=== PATIENT | male | born 1960 | race Caucasian/White ===

== ENCOUNTER 2017-08-23 12:20 | Emergency (ER) | payer MEDICARE, OTHER ==
[~2017-08-23] VITALS: Ht 167.6 cm; Wt 90.0 kg
[~2017-08-23 12:20] MED LIST: ALBUTEROL SULF8.5 GM INH; ALPRAZOLAM1 MG PO; AMITRIPTYLINE H50 MG PO; ANUSOL-HC30 GM PR; BACLOFEN20 MG PO; BACTRIM DS TAB1 EACH PO; BENADRYL A12.5 MG/5 PO; BENTYL20 MG PO; BUPROPION XL150 MG PO; CYMBALTA30 MG PO; DULOXETINE HCL30 MG PO; GABAPENTIN300 MG PO; HYDROCHLOROTHIA25 MG PO; IPRAT-ALBUT 0.5-3 ML INH; LEVAQUIN500 MG PO; LISINOPRIL-HCT1 EAC1 PO; MELOXICAM15 MG PO; METHOCARBAMOL500 MG PO; MINIPRESS1 MG PO; MINIPRESS2 MG PO; MOTRIN IB200 MG PO; NORCO 5-325 TA1 EACH PO; OMEPRAZOLE20 MG PO; OXYCONTIN10 MG PO; PREDNISONE20 MG PO; PRILOSEC20 MG PO; QUESTRAN LIGHT210 GM PO; QVAR7.3 G1 IH; SERTRALINE HCL50 MG PO; SF 5000 PLUS51 GM DT; ULTRAM50 MG PO; VENTOLIN HFA18 GM INH; VOLTAREN-XR100 MG PO; ZOFRAN4 MG PO
[2017-08-23] MEDS ORDERED: ULTRAM50 MG PO (13:11)
[2017-12-05] MEDS ORDERED: TRAZODONE HCL100 MG PO (13:45)
[2017-12-05] MEDS ORDERED: PRAZOSIN HCL2 MG PO (13:59)
[2017-12-05] MEDS ORDERED: LATUDA80 MG PO (14:14)
[2017-12-05] MEDS ORDERED: LIPITOR20 MG PO (14:17)
[2017-12-05] MEDS ORDERED: ONDANSETRON HCL4 MG PO (14:19)
[2017-12-05] MEDS ORDERED: SENNA8.6 MG PO (14:20)
== END 2017-08-23 13:55 | disposition home or self-care (01) ==
LOC: ED 12:20
DX: S39.012A Strain of muscle, fascia and tendon of lower back, initial encounter (principal); J44.9 Chronic obstructive pulmonary disease, unspecified; I10 Essential (primary) hypertension; F41.9 Anxiety disorder, unspecified; Z87.442 Personal history of urinary calculi; Z98.890 Other specified postprocedural states; Z91.030 Bee allergy status; Z91.038 Other insect allergy status; Z88.5 Allergy status to narcotic agent; Z79.899 Other long term (current) drug therapy; W00.0XXA Fall on same level due to ice and snow, initial encounter
CPT/HCPCS: 72100; 96372; 99283; J1885

== ENCOUNTER 2017-09-13 14:28 | Emergency (ER) | payer MEDICARE, OTHER ==
[~2017-09-13] VITALS: Ht 167.6 cm; Wt 81.7 kg
[2017-09-13] MEDS ORDERED: SEREVENT DISKU1 PUFF INH (14:46)
[2017-09-13] MEDS ORDERED: AMOXICILLIN500 MG PO (14:46)
[2017-09-13] MEDS ORDERED: SPIRIVA18 MCG INH (14:46)
[2017-09-13] MEDS ORDERED: ONDANSETRON HCL4 MG PO (14:47)
[2017-09-13] MEDS ORDERED: DULOXETINE HCL60 MG PO (14:47)
[2017-12-05] MEDS ORDERED: TRAZODONE HCL100 MG PO (13:45)
[2017-12-05] MEDS ORDERED: PRAZOSIN HCL2 MG PO (13:59)
[2017-12-05] MEDS ORDERED: LATUDA80 MG PO (14:14)
[2017-12-05] MEDS ORDERED: LIPITOR20 MG PO (14:17)
[2017-12-05] MEDS ORDERED: ONDANSETRON HCL4 MG PO (14:19)
[2017-12-05] MEDS ORDERED: SENNA8.6 MG PO (14:20)
== END 2017-09-13 14:53 | disposition home or self-care (01) ==
LOC: ED 14:28
DX: K08.89 Other specified disorders of teeth and supporting structures (principal); K13.79 Other lesions of oral mucosa

== ENCOUNTER 2017-10-18 21:37 | Emergency (ER) | payer MEDICARE, OTHER ==
[~2017-10-18] VITALS: Ht 167.6 cm; Wt 81.7 kg
[~2017-10-18 21:37] MED LIST changes: +AMOXICILLIN500 MG PO; +DULOXETINE HCL60 MG PO; +ONDANSETRON HCL4 MG PO; +SEREVENT DISKU1 PUFF INH; +SPIRIVA18 MCG INH
[2017-10-18] MEDS ORDERED: LIDOCAINE HCL100 ML MT (22:14)
[2017-10-18] MEDS ORDERED: FLOVENT HFA12 G1 INH (22:16)
[2017-10-18] MEDS ORDERED: SPIRIVA18 MCG INH (22:16)
[2017-10-18] MEDS ORDERED: METFORMIN HCL500 MG PO (22:17)
[2017-10-18] MEDS ORDERED: FENOFIBRATE48 MG PO (22:17)
[2017-10-18] MEDS ORDERED: LATUDA20 MG PO (22:18)
[2017-10-18] MEDS ORDERED: MINIPRESS1 MG PO (22:18)
[2017-10-18] MEDS ORDERED: TRAZODONE HCL50 MG PO (22:18)
[2017-10-19] MEDS ORDERED: TRAMADOL HCL50 MG PO (00:34)
[2017-10-19] MEDS ORDERED: CEPHALEXIN500 MG PO (00:34)
[2017-12-05] MEDS ORDERED: TRAZODONE HCL100 MG PO (13:45)
[2017-12-05] MEDS ORDERED: PRAZOSIN HCL2 MG PO (13:59)
[2017-12-05] MEDS ORDERED: LATUDA80 MG PO (14:14)
[2017-12-05] MEDS ORDERED: LIPITOR20 MG PO (14:17)
[2017-12-05] MEDS ORDERED: ONDANSETRON HCL4 MG PO (14:19)
[2017-12-05] MEDS ORDERED: SENNA8.6 MG PO (14:20)
== END 2017-10-19 00:45 | disposition home or self-care (01) ==
LOC: ED 21:37
DX: R10.30 Lower abdominal pain, unspecified (principal); R31.9 Hematuria, unspecified; I10 Essential (primary) hypertension; F41.9 Anxiety disorder, unspecified; J44.9 Chronic obstructive pulmonary disease, unspecified; Z87.891 Personal history of nicotine dependence; Z87.442 Personal history of urinary calculi; Z91.038 Other insect allergy status; Z88.5 Allergy status to narcotic agent; Z88.6 Allergy status to analgesic agent; Z79.899 Other long term (current) drug therapy; Z79.84 Long term (current) use of oral hypoglycemic drugs
CPT/HCPCS: 74176; 80053; 81001; 85025; 96374; 96375; 99284; J1885; J2405

== ENCOUNTER 2017-12-06 08:43 | Day surgery (SDC) | payer MEDICARE, OTHER ==
[~2017-12-06] VITALS: Ht 170.2 cm; Wt 89.4 kg
[~2017-12-06 08:43] MED LIST changes: +CEPHALEXIN500 MG PO; +FENOFIBRATE48 MG PO; +FLOVENT HFA12 G1 INH; +LATUDA20 MG PO; +LATUDA80 MG PO; +LIDOCAINE HCL100 ML MT; +LIPITOR20 MG PO; +METFORMIN HCL500 MG PO; +PRAZOSIN HCL2 MG PO; +SENNA8.6 MG PO; +TRAMADOL HCL50 MG PO; +TRAZODONE HCL100 MG PO; +TRAZODONE HCL50 MG PO
--- NOTE | 2017-12-06 11:59 | NUR ---
12/06/17 Joshua Oconnor RESPONDS TO VOICE ON ENTRY TO PACU. DENIES NAUSEA OR PAIN. REORIENTED PT TO TIME AND SITUATION. PT FALLS ASLEEP EASILY.
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
== END 2017-12-06 12:30 | disposition home or self-care (01) ==
LOC: DS 08:43 → OPS 08:43 → DS 10:15 → OPS 12:30
PROVIDERS: Surgery
PROC: 0DB78ZX Excision of Stomach, Pylorus, Via Natural or Artificial Opening Endoscopic, Diagnostic (ICD-10-PCS; 2017-12-06)
PROC: 0DB28ZX Excision of Middle Esophagus, Via Natural or Artificial Opening Endoscopic, Diagnostic (ICD-10-PCS; 2017-12-06)
PROC: 0DB38ZX Excision of Lower Esophagus, Via Natural or Artificial Opening Endoscopic, Diagnostic (ICD-10-PCS; 2017-12-06)
PROC: 0DB98ZX Excision of Duodenum, Via Natural or Artificial Opening Endoscopic, Diagnostic (ICD-10-PCS; principal; 2017-12-06 10:15)
DX: K21.0 Gastro-esophageal reflux disease with esophagitis (principal); M95.2 Other acquired deformity of head; I10 Essential (primary) hypertension; E78.5 Hyperlipidemia, unspecified; J44.9 Chronic obstructive pulmonary disease, unspecified; A49.02 Methicillin resistant Staphylococcus aureus infection, unspecified site; Z88.5 Allergy status to narcotic agent; Z88.8 Allergy status to other drugs, medicaments and biological substances; Z87.891 Personal history of nicotine dependence
CPT/HCPCS: 88305; G0500; J2250; J3010; J7120

== ENCOUNTER 2018-04-06 08:02 | Emergency (ER) | payer MEDICARE, OTHER ==
[~2018-04-06] VITALS: Ht 170.2 cm; Wt 81.7 kg
--- OUTSIDE RECORDS SUMMARY | ~2018-04-06 | XMS | Encounter Summary ---
Demographics + + + | Address | [address] | | | [place] [address] | + + + | Home Phone | | + + + | Preferred Language | Unknown | + + + | Marital Status | | + + + | Moravian Affiliation | 1013 | + + + | Race | Unknown | + + + | Ethnic Group | Unknown | + + + Author + + + | Author | [facility] | | | and [place] | + + + | Organization | [facility] | | | and [place] [...] [place] | | | | | [address] | | + + + + + Care Team Providers + +------+ + | Care Telephone Interviewer Name | Role | Phone | + [...] [place] | | | | | | [address] | | | | | | [phone] | | | +--------+ + + + [...]
--- OUTSIDE RECORDS SUMMARY | ~2018-04-06 | XMS | Clinical Summary ---
Demographics + + + | Address | [address] | | | [place] [address] | + + + | Home Phone | | + + + | Preferred Language | Unknown | + + + | Marital Status | | + + + | Amish Affiliation | 1013 | + + + | Race | Unknown | + + + | Ethnic Group | Unknown | + + + Author + + + | Author | [facility] | | | and [place] | + + + | Organization | [facility] | | | and [...] [place] | | | | | [address] | | + + + + + Care Team Providers + +------+ + | Care Carburetor Mechanic Name | Role | Phone | [...] region | | + + + | [place] (myocardial infarction) (HCC) | | + + [...] +--------+ +---------+ | MEDICARE | MEDICA | [id number] | Medica | [phone] | | | RE | | re | [phone] | | | | PART A | | | | | | | AND B | | | | | + +--------+ +--------+ +---------+ | [employer] PLAN | MODA | [id number] | Medica | [phone] | | [...] | 1961 | [phone] | [place] [address] | | | alisson | | | [phone] | | + +--------+ +--------+ + +
--- OUTSIDE RECORDS SUMMARY | ~2018-04-06 | XMS | Encounter Summary ---
Demographics + + + | Address | [address] | | | [place] [address] | + + + | Home Phone | | + + + | Preferred Language | Unknown | + + + | Marital Status | | + + + | Baptism Affiliation | 1013 | + + + | Race | Unknown | + + + | Ethnic Group | Unknown | + + + Author + + + | Author | [facility] | | | and [place] | + + + | Organization | [facility] | | | and [...] [place] | | | | | [address] | | + + + + + Care Team Providers + +------+ + | Care Electric Fork Operator Name | Role | Phone | [...] + | 01/20/ | Telephone | [facility] | Rene Borrego | Appointment | | 2018 | | SURG[address] | MD Corrine, FACS [address] | | | | | ST [place], [place] | [address] [facility] | | | | | [address] | [place] [address] | | | | | [phone] | [phone] | | | | | | | [...]
--- OUTSIDE RECORDS SUMMARY | ~2018-04-06 | XMS | Encounter Summary ---
Demographics + + + | Address | [address] | | | [place] [address] | + + + | Home Phone | | + + + | Preferred Language | Unknown | + + + | Marital Status | | + + + | Yazidi Affiliation | 1013 | + + + | Race | Unknown | + + + | Ethnic Group | Unknown | + + + Author + + + | Author | [facility] | | | and [place] | + + + | Organization | [facility] [...] [place] | | | | | [address] | | + + + + + Care Team Providers + +------+ + | Care Plan Checker Name | Role | Phone | [...] + + | 02/11/ | Telephone | [facility] | Michael Lainez, | Procedure (postponed | | 2018 | | NEUROSURGERY [address] | DO [address] | ); Appointment | | | | [address] | [address], | (cancellation ) | | | | [place] | [place] [address] | | | | | [address] | [phone] | | | | | [phone] | | | +--------+ + + + [...]
--- OUTSIDE RECORDS SUMMARY | ~2018-04-06 | XMS | Encounter Summary ---
Demographics + + + | Address | [address] | | | [place] [address] | + + + | Home Phone | | + + + | Preferred Language | Unknown | + + + | Marital Status | | + + + | Temple Affiliation | 1013 | + + + | Race | Unknown | + + + | Ethnic Group | Unknown | + + + Author + + + | Author | [facility] | | | and [place] | + + + | Organization | [facility] | | | and [place] | + + + | Address | Unknown | + + + | Phone | Unavailable | + + + Support + + + + + | Name | Relationship | Address | Phone | + + + + + | Mitra cShafer | ECON | [address] | | | | | [place] | | | | | [address] | | + + + + + Care Team Providers + +------+ + | Care Account Installation Specialist Name | Role | Phone | [...] + | 01/22/ | Telephone | [facility] | AlexRene | Other | | 2018 | | SURGERY [address] | MD Corrine, FACS [address] | | | | | [address] [place], [place] | [address] [facility] | | | | | [address] | [place] [address] | | | | | [phone] | [phone] | | | | | | | [...]
--- OUTSIDE RECORDS SUMMARY | 2018-04-06 09:56 | XMS | Encounter Summary ---
Demographics + + + | Address | [address] | | | [place] [address] | + + + | Home Phone | | + + + | Preferred Language | Unknown | + + + | Marital Status | | + + + | Shinto Affiliation | 1013 | + + + | Race | Unknown | + + + | Ethnic Group | Unknown | + + + Author + + + | Author | [facility] | | | and [place] | + + + | Organization | [facility] | | | and [place] | + + + | Address | Unknown | + + + | Phone | Unavailable | + + + Support + + + + + | Name | Relationship | Address | Phone | + + + + + | Mitra Schafer | ECON | [address] | | | | | [place] | | | | | [address] | | + + + + + Care Team Providers + +------+ + | Care Technical Sales Consultant Name | Role | Phone | + +------+ + | Becca Amaya MD | PCP | Unavailable | + +------+ + Reason for Visit +--------+ + | Reason | Comments | +--------+ + | Other | | +--------+ + Encounter Details +--------+ + + + + | Date | Type | Department | Care Team | Description | +--------+ + + + + | 01/22/ | Telephone | [facility] | AlexRene | Other | | 2018 | | SURG[address] | MD Corrine, FACS [address] | | | | | [place], [place] | [address] [facility] | | | | | [address] | [place] [address] | | | | | [phone] | [phone] | | | | | | | | +--------+ + + + + Social History + + + +--------+ + | Tobacco Use | Types | Packs/Day | Years | Date | | | | | Used | | + + + +--------+ + | Former Smoker | Cigarettes | 1.5 | 16 | Quit: 09/28/2008 | + + + +--------+ + + +---+---+---+ | Smokeless Tobacco: | | | | | Never Used | | | | + +---+---+---+ + + +---------+ + | Alcohol Use | Drinks/We | oz/Week | Comments | | | ek | | | + + +---------+ + | No | 0 | 0.0 | | | | Standard | | | | | drinks or | | | | | | | | | | equivalen | | | | | t | | | + + +---------+ + + + + | Sex Assigned at | Date Recorded | | | | + + + | Not on file | | + + + as of this encounter Plan of Treatment Not on fileas of this encounter Visit Diagnoses Not on filein this encounter"
--- OUTSIDE RECORDS SUMMARY | 2018-04-06 09:56 | XMS | Encounter Summary ---
Demographics + + + | Address | [address] | | | [place] [address] | + + + | Home Phone | | + + + | Preferred Language | Unknown | + + + | Marital Status | | + + + | Congregational Affiliation | 1013 | + + + | Race | Unknown | + + + | Ethnic Group | Unknown | + + + Author + + + | Author | [facility] | | | and [place] | + + + | Organization | [facility] | | | and [place] | + + + | Address | Unknown | + + + | Phone | Unavailable | + + + Support + + + + + | Name | Relationship | Address | Phone | + + + + + | Mitra Schafer | ECON | [address] | | | | | [place] | | | | | [address] | | + + + + + Care Team Providers + +------+ + | Care In File Operator Name | Role | Phone | + +------+ + | Becca Amaya MD | PCP | Unavailable | + +------+ + Encounter Details +--------+ + + + + | Date | Type | Department | Care Team | Description | +--------+ + + + + | 03/06/ | Procedure | [facility] | | | | 2018 | Pass | [facility] | | | | | | [address] | | | | | | [place] | | | | | | [address] | | | | | | [phone] | | | +--------+ + + + [...]
--- OUTSIDE RECORDS SUMMARY | 2018-04-06 09:56 | XMS | Encounter Summary ---
Demographics + + + | Address | [address] | | | [place] [address] | + + + | Home Phone | | + + + | Preferred Language | Unknown | + + + | Marital Status | | + + + | Catholic Affiliation | 1013 | + + + | Race | Unknown | + + + | Ethnic Group | Unknown | + + + Author + + + | Author | [facility] | | | and [place] | + + + | Organization | [facility] | | | and [place] [...] [place] | | | | | [address] | | + + + + + Care Team Providers + +------+ + | Care Loading Machine Operator Name | Role | Phone | + +------+ + | Becca Amaya MD | PCP | Unavailable | + +------+ + Reason for Visit + + + | Reason | Comments | + + + | Appointment | | + + + Encounter Details +--------+ + + + + | Date | Type | Department | Care Team | Description | +--------+ + + + + | 01/20/ | Telephone | [facility] | Rene Borrego | Appointment | | 2018 | | SURGERY [address] | MD Corrine, FACS [address] | | | | | ST [place], [place] | [address] [facility] | | | | | [address] | [place] [address] | | | | | [phone] | [phone] | | | | | | | [...]
--- OUTSIDE RECORDS SUMMARY | 2018-04-06 09:56 | XMS | Encounter Summary ---
Demographics + + + | Address | [address] | | | [place] [address] | + + + | Home Phone | | + + + | Preferred Language | Unknown | + + + | Marital Status | | + + + | Restoration Affiliation | 1013 | + + + | Race | Unknown | + + + | Ethnic Group | Unknown | + + + Author + + + | Author | [facility] | | | and [place] | + + + | Organization | [facility] | | | and [place] [...] [place] | | | | | [address] | | + + + + + Care Team Providers + +------+ + | Care Tool Room Lathe Operator Name | Role | Phone | + +------+ + | Becca Amaya MD | PCP | Unavailable | + +------+ + Reason for Visit + + + | Reason | Comments | + + + | Procedure | postponed | + + + | Appointment | cancellation | + + + Encounter Details +--------+ + + + + | Date | Type | Department | Care Team | Description | +--------+ + + + + | 02/11/ | Telephone | [facility] | Michael Lainez, | Procedure (postponed | | 2018 | | NEUROS[address]ERY [address] | DO [address] | ); Appointment | | | | [address] | [address], | (cancellation ) | | | | [place] | [place] [address] | | | | | [address] | [phone] | | | | | [phone] | | | +--------+ + + + [...]
--- OUTSIDE RECORDS SUMMARY | 2018-04-06 09:56 | XMS | Clinical Summary ---
Demographics + + + | Address | [address] | | | [place] [address] | + + + | Home Phone | | + + + | Preferred Language | Unknown | + + + | Marital Status | | + + + | Yarsani Affiliation | 1013 | + + + | Race | Unknown | + + + | Ethnic Group | Unknown | + + + Author + + + | Author | [facility] | | | and [place] | + + + | Organization | [facility] | | | and [place] [...] [place] | | | | | [address] | | + + + + + Care Team Providers + +------+ + | Care Physicist Light And Optics Name | Role | Phone | + +------+ + | Becca Amaya MD | PP | Unavailable | + +------+ + Allergies + + + + + + | Active Allergy | Reactions | Severity | Noted | Comments | | | | | Date | | + + + + + + | Codeine | Itching | | 09/28/19 | | | | | | 14 | | + + + + + + | Naproxen Sodium | Itching | | 09/28/19 | | | | | | 14 | | + + + + + + | Wasp Venom Protein | Anaphylaxis | High | 11/14/19 | | | | | | 17 | | + + + + + + Current Medications + + +-------+---------+------+------+-------+ | Prescription | Sig. | Disp. | Refills | Star | End | Statu | | | | | | t | Date | s | | | | | | Date | | | + + +-------+---------+------+------+-------+ | amitriptyline | Take 150 mg by mouth | | | | | Activ | | (ELAVIL) 50 mg | nightly. | | | | | e | | tablet | | | | | | | + + +-------+---------+------+------+-------+ | DULoxetine | Take 60 mg by mouth | | | | | Activ | | (CYMBALTA) [address] | 2 times daily. | | | | | e | | capsule | | | | | | | + + +-------+---------+------+------+-------+ | | Take 3 mLs by | | | | | Activ | | albuterol-ipratropiu | nebulization Daily. | | | | | e | | m (DUONEB) 2.5-0.5 | | | | | | | | mg/3 mL SOLN | | | | | | | + + +-------+---------+------+------+-------+ | omeprazole | Take 40 mg by mouth | | | | | Activ | | (PRILOSEC) 20 mg | every morning | | | | | e | | capsule | (before breakfast). | | | | | | + + +-------+---------+------+------+-------+ | albuterol | Inhale 2 puffs into | | | | | Activ | | (VENTOLIN HFA) 90 | the lungs every 6 | | | | | e | | mcg/puff inhaler | hours as needed for | | | | | | | | Wheezing. | | | | | | + + +-------+---------+------+------+-------+ | traZODone | Take 100 mg by mouth | | | | | Activ | | (DESYREL) 50 mg | nightly. | | | | | e | | tablet | | | | | | | + + +-------+---------+------+------+-------+ | tiotropium | Inhale 18 mcg into | | | | | Activ | | (SPIRIVA HANDIHALER) | the lungs Daily. | | | | | e | | 18 mcg inhalation | | | | | | | | capsule | | | | | | | + + +-------+---------+------+------+-------+ | senna (SENNA-LAX) | Take 1 tablet by | | | | | Activ | | 8.6 mg tablet | mouth Daily. | | | | | e | + + +-------+---------+------+------+-------+ | salmeterol | Inhale 1 puff into | | | | | Activ | | (SEREVENT DISKUS) 50 | the lungs 2 times | | | | | e | | mcg/puff diskus | daily. | | | | | | | inhaler | | | | | | | + + +-------+---------+------+------+-------+ | EPINEPHrine | Inject 0.3 mg into | | | | | Activ | | auto-injector | the muscle as needed | | | | | e | | (EPIPEN 2-MAGNOLIA) 0.3 | for Anaphylaxis. | | | | | | | mg/0.3 mL injection | | | | | | | + + +-------+---------+------+------+-------+ | GABAPENTIN PO | Take 900 mg by mouth | | | | | Activ | | | 3 times daily. | | | | | e | + + +-------+---------+------+------+-------+ | | Take 1 tablet by | | | | | Activ | | lisinopril-hydrochlo | mouth Daily. | | | | | e | | rothiazide | | | | | | | | (PRINZIDE,ZESTORETIC | | | | | | | | ) 20-25 MG per | | | | | | | | tablet | | | | | | | + + +-------+---------+------+------+-------+ | ondansetron | Take 4 mg by mouth 4 | | | | | Activ | | (ZOFRAN) 4 mg tablet | times daily as | | | | | e | | | needed for Nausea or | | | | | | | | Vomiting. | | | | | | + + +-------+---------+------+------+-------+ | fenofibrate | Take 48 mg by mouth | | | | | Activ | | (TRICOR) 48 mg | Daily. | | | | | e | | tablet | | | | | | | + + +-------+---------+------+------+-------+ | metFORMIN | Take 500 mg by mouth | | | | | Activ | | (GLUCOPHAGE) 500 mg | daily (with | | | | | e | | tablet | breakfast). | | | | | | + + +-------+---------+------+------+-------+ | fluticasone | Inhale 1 puff into | | | | | Activ | | (FLOVENT HFA) 220 | the lungs 2 times | | | | | e | | mcg/puff inhaler | daily. | | | | | | + + +-------+---------+------+------+-------+ | lidocaine | Take 15 mLs by mouth | | | | | Activ | | (XYLOCAINE) 2% | as needed for Pain. 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 | 11/13/2016 | + + + | Hyperreflexia | 11/13/2016 | + + + | Spondylolisthesis of lumbar region | 11/13/2016 | + + + | Lumbar radiculopathy | 11/13/2016 | + + + | Foraminal stenosis of lumbar region | 11/13/2016 | + + + | Lumbar facet arthropathy (HCC) | 11/13/2016 | + + + | Bilateral sacroiliitis (HCC) | 11/13/2016 | + + + | Carpal tunnel syndrome, bilateral | 10/01/2013 | + + + | Radiculopathy, lumbosacral region | | + + + | NM (myocardial infarction) (HCC) | | + + + | Hypertension | | + + + | Hyperlipidemia | | + + + | COPD (chronic obstructive pulmonary disease) (HCC) | | + + + Encounters +--------+ + + + + | Date | Type | Specialty | Care Team | Description | +--------+ + + + + | 03/06/ | Procedure | | | | | 2017 | Pass | | | | +--------+ + + + + | 02/11/ | Telephone | | Michael Lainez, | Procedure (postponed | | 2017 | | | DO | ); Appointment | | | | | | (cancellation ) | +--------+ + + + + | 01/22/ | Telephone | | Rene Borrego | Other | | 2017 | | | MD [place] FACS | | +--------+ + + + + | 01/20/ | Telephone | | Rene Borrego | Appointment | | 2017 | | | I, MD, FACS | | +--------+ + + + + from Last 3 Months Family History + + +------+ + | Medical History | Relation | Name | Comments | + + +------+ + | Diabetes | Brother | | | + + +------+ + | No Known Problems | Child | | | + + +------+ + | No Known Problems | Child | | | + + +------+ + | No Known Problems | Child | | | + + +------+ + | Prostate cancer | Father | | | + + +------+ + | Other (see comment) | Mother | | Heart problems | + + +------+ + | Crohn's disease | Sister | | | + + +------+ + + +------+ + + | Relation | Name | Status | Comments | + +------+ + + | Brother | | Other | Status Unknown | + +------+ + + | Brother | | | | + +------+ + + | Child | | Other | Status Unknown | + +------+ + + | Child | | Other | Status Unknown | + +------+ + + | Child | | Other | Status Unknown | + +------+ + + | Child | | | | + +------+ + + | Child | | | | + +------+ + + | Child | | | | + +------+ + + | Father | | | | | | | (Age | | | | | 51) | | + +------+ + + | Mother | | | | | | | (Age | | | | | 77) | | + +------+ + + | Sister | | Other | Status Unknown | + +------+ + + | Sister | | | | + +------+ + + Social History + + + [...] on file | | + + + Last Filed Vital Signs + + + + | Vital Sign | Reading | Time Taken | + + + + | Blood Pressure | 112/83 | 11/20/2017 1540 PDT | + + + + | Pulse | 93 | 11/20/2017 1540 PDT | + + + + | Temperature | - | - | + + + + | Respiratory Rate | 15 | 11/20/20171539 PDT | + + + + | Oxygen Saturation | - | - | + + + + | Inhaled Oxygen | - | - | | Concentration | | | + + + + | Weight | 81.6 kg (180 lb) | 11/20/20171539 PDT | + + + + | Height | 175.3 cm (5' 9") | 11/20/20171539 PDT | + + + + | Body Mass Index | 26.58 | 11/20/20171539 PDT | + + + + Plan of Treatment + + + + + | Health Maintenance | Due Date | Last Done | Comments | + + + + + | Hepatitis C | | | | | Screening | 3 | | | + + + + + | Vaccine: | | | | | Dtap/Tdap/Td (1 - | 2 | | | | Tdap) | | | | + + + + + | Vaccine: | | | | | Pneumococcal 19-64 | 2 | | | | (PPSV23 only) Medium | | | | | Risk (1 of 1 - | | | | | PPSV23) | | | | + + + + + | Colorectal Cancer | | | | | Screening | 3 | | | | (Colonoscopy) | | | | + + + + + | Statin Therapy | | | | | (optimal intensity) | 5 | | | + + + + + | Vaccine: Influenza | | | | | (#1) | 8 | | | + + + + + Results Not on filefrom Last 3 Months Insurance + +--------+ +--------+ +---------+ | Payer | Benefi | Subscriber | Type | Phone | Address | | | t Plan | ID | | | | | | / | | | | | | | Group | | | | | + +--------+ +--------+ +---------+ | MEDICARE | MEDICA | [id number] | Medica | [phone] | | | RE | | re | [phone] | | | | PART A | | | | | | | AND B | | | | | + +--------+ +--------+ +---------+ | [employer] | MODA | [id number] | Medica | [phone] | | MEDICAID HMO | HEALTH | | id | 9821 | | | | MDCD | | | | | | | [place]MO [place] | | | | | + +--------+ +--------+ +---------+ + +--------+ +--------+ + + | Guarantor Name | Accoun | Relation to | Date | Phone | Billing Address | | | t Type | Patient | of | | | | | | | | | | + +--------+ +--------+ + + | PERCY MANCILLA | Person | Self [birth year] | Home: | [address] | | | al/Fam | | 1961 | [phone] | [place] [address] | | | alisson | | | [phone] | | + +--------+ +--------+ + +
[2018-04-06] MEDS ORDERED: ONDANSETRON ODT8 MG PO (11:34)
[2018-04-06] MEDS ORDERED: MAALOX MAXIMUM355 ML PO (11:37)
== END 2018-04-06 11:46 | disposition home or self-care (01) ==
LOC: ED 08:02
DX: K21.9 Gastro-esophageal reflux disease without esophagitis (principal); I10 Essential (primary) hypertension; Z91.030 Bee allergy status; Z88.5 Allergy status to narcotic agent; Z88.6 Allergy status to analgesic agent; Z79.899 Other long term (current) drug therapy
CPT/HCPCS: 36415; 80053; 81001; 85025; 96365; 96375; 99284; J1170; J7030

== ENCOUNTER 2018-04-29 09:09 | Emergency (ER) | payer MEDICARE, OTHER ==
[~2018-04-29] VITALS: Ht 167.6 cm; Wt 81.7 kg
--- OUTSIDE RECORDS SUMMARY | ~2018-04-29 | XMS | Clinical Summary ---
Demographics + + + | Address | [address] | | | [place] [address] | + + + | Home Phone [...] + | Author | [facility] | | | and [place] | + + + | Organization | [facility] | | | and [place]iana [...] [place] | | | | | [address] | | + + + + + Care Team Providers + +------+ + | Care Utility Operator Name | Role | Phone | [...] region | | + + + | MS (myocardial infarction) (HCC) | | + + [...] ) | +--------+ + + + + from [...] + + | Pulse | 93 | 11/20/[id number] PDT | + + + [...] +--------+ +---------+ | MEDICARE | MEDICA | [id number] | Medica | +1- | | | | RE | | re | [phone] | | | | PART A | | | | | | | AND B | | | | | + +--------+ +--------+ +---------+ | [employer] PLAN | MODA | [id number] | Medica | [phone] | | | MEDICAID HMO | HEALTH [...] Self | [birth year] Home: | [address] | | | al/Fam | | 1961 | [phone] | [place] [address] | | | alisson | | | [phone] | | + +--------+ +--------+ + +
--- OUTSIDE RECORDS SUMMARY | ~2018-04-29 | XMS | Encounter Summary ---
Demographics + + + | Address | [address] | | | [place] [address] | + + + | Home Phone | | + + + | Preferred Language | Unknown | + + + | Marital Status | | + + + | Synagogue Affiliation | 1013 | + + + | Race | Unknown | + + + | Ethnic Group | Unknown | + + + Author + + + | Author | [facility] | | | and [place] | + + + | Organization | [facility] | | | and [place] [...] [place] | | | | | [address] | | + + + + + Care Team Providers + +------+ + | Care Manager Of Production Name | Role | Phone | + [...] [place] | | | | | | [address] | | | | | | [phone] | | | +--------+ + + + [...]
--- OUTSIDE RECORDS SUMMARY | ~2018-04-29 | XMS | Encounter Summary ---
Demographics + + + | Address | [address] | | | [place] [address] | + + + | Home Phone | | + + + | Preferred Language | Unknown | + + + | Marital Status | | + + + | Church Affiliation | 1013 | + + + | Race | Unknown | + + + | Ethnic Group | Unknown | + + + Author + + + | Author | [facility] | | | and Tim[place] | + + + | Organization | [facility] | | | and Timiana [...] [place] | | | | | [address] | | + + + + + Care Team Providers + +------+ + | Care Shirt Ironer Supervisor Name | Role | Phone | [...] + + | 02/11/ | Telephone | [facility] | Michael Lainez, | Procedure (postponed | | 2018 | | NE[address]OSURGERY [address] | DO [address] | ); Appointment | | | | [address] | [address], | (cancellation ) | | | | [place] | [place] [address] | | | | | [address] | [phone] | | | | | [phone] | | | +--------+ + + + [...]
--- OUTSIDE RECORDS SUMMARY | ~2018-04-29 | XMS | Clinical Summary ---
Demographics + + + | Address | [address] | | | [place] [address] | + + + | Home Phone [...] + | Author | [facility] | | | and [place] | + + + | Organization | [facility] | | | and [place] [...] [place] | | | | | [address] | | + + + + + Care Team Providers + +------+ + | Care Bridge Repair Crew Person Name | Role | Phone | + [...] region | | + + + | HI (myocardial infarction) (HCC) | | + + [...] +--------+ +---------+ | MEDICARE | MEDICA | [id number] | Medica | +1- | | | | RE | | re | [phone] | | | | PART A | | | | | | | AND B | | | | | + +--------+ +--------+ +---------+ | MODA HEALTH PLAN | MODA | [id number] | Medica | [phone] | | | MEDICAID HMO | HEALTH [...] Self | [birth year] | Home: | [address] | | | al/Fam | | 1961 | [phone] | [place] [address] | | | alisson | | | 1869 | | + +--------+ +--------+ + +
--- OUTSIDE RECORDS SUMMARY | ~2018-04-29 | XMS | Encounter Summary ---
Demographics + + + | Address | [address] | | | [place] [address] | + + + | Home Phone [...] | Author | [facility] | | | and [place] | + + + | Organization | [facility] | [...] [place] | | | | | [address] | | + + + + + Care Team Providers + +------+ + | Care Cardiac Exercise Physiologist Name | Role | Phone | + [...] + | 02/11/ | Telephone | [facility] | Michael Lainez, | Procedure (postponed | | 2018 | | NEUROSURGERY [address] | DO [address] | ); Appointment | | | | [address] | [address], | (cancellation ) | | | | [place] | [place] [address] | | | | | [address] | [phone] | | | | | [phone] | | | +--------+ + + + [...]
--- OUTSIDE RECORDS SUMMARY | ~2018-04-29 | XMS | Encounter Summary ---
Demographics + + + | Address | [address] | | | [place] [address] | + + + | Home Phone [...] | Author | [facility] | | | and [place] | + + + | Organization | [facility] | | [...] [place] | | | | | [address] | | + + + + + Care Team Providers + +------+ + | Care Country Printer Name | Role | Phone | + [...] [place] | | | | | | [address] | | | | | | [phone] | | | +--------+ + + + [...]
[~2018-04-29 09:09] MED LIST changes: +DAILY MULTIPLE1 EACH PO; +IBUPROFEN600 MG PO; +MAALOX MAXIMUM355 ML PO; +MAPAP325 MG PO; +ONDANSETRON ODT8 MG PO; +OXYCODON-ACETA1 EAC2 PO
--- OUTSIDE RECORDS SUMMARY | 2018-04-29 09:14 | XMS ---
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 Becca Amaya Primary Care Current PHONE: [phone] Jairo has no Care Guidelines for this patient. Lyric VISIT COUNT (12 MO.) 5 [facility] TOTAL 5 NOTE: Visits indicate total known visits. ED/UCC VISIT TRACKING (12 MO.) 04/29/2018 09:10 [facility] [place] TYPE: Emergency COMPLAINT: - ABD PAIN 04/06/2018 08:02 [facility] [place] TYPE: Emergency COMPLAINT: - ABD PAIN,VOMITING DIAGNOSES: - Other moth exterminator (current) drug therapy - Gastro-esophageal reflux disease without esophagitis - Essential (primary) hypertension - Unspecified abdominal pain - Bee allergy status - Allergy status to analgesic agent status - Allergy status to narcotic agent status 10/18/2017 21:38 [facility] [place] TYPE: Emergency COMPLAINT: - R SIDED FLANK PAIN DIAGNOSES: - Lower abdominal pain, unspecified - Personal history of nicotine dependence - Personal history of urinary calculi - Chronic obstructive pulmonary disease, unspecified - Hematuria, unspecified - Other halfway (current) drug therapy - Unspecified abdominal pain - MCFP (current) use of oral hypoglycemic drugs - Essential (primary) hypertension - PRISON (CURRENT) USE OF ORAL HYPOGLYCEMIC DRUGS - Anxiety disorder, unspecified - Other insect allergy status - Allergy status to narcotic agent status - Allergy status to analgesic agent status 09/13/2017 14:29 [facility] [place] TYPE: Emergency COMPLAINT: - MOUTH/DENTAL PAIN DIAGNOSES: - OTHER SPECIFIED DISORDERS OF TEETH AND SUPPORTING - Other lesions of oral mucosa - Other specified disorders of teeth and supporting structures 08/23/2017 12:21 [facility] [place] TYPE: Emergency COMPLAINT: - BACK PAIN/INJURY DIAGNOSES: - Strain of muscle, fascia and tendon of lower back, initial encounter - Allergy status to narcotic agent status - Bee allergy status - Anxiety disorder, unspecified - Other insect allergy status - Other specified postprocedural states - Fall on same level due to ice and snow, initial encounter - Personal history of urinary calculi - Other halfway (current) drug therapy - Chronic obstructive pulmonary disease, unspecified - OTHER SPECIFIED POSTPROCEDURAL STATES - Essential (primary) hypertension - Unspecified injury of lower back, initial encounter INPATIENT VISIT TRACKING (12 MO.) No inpatient visits to display in this time frame [id number]
[2018-04-29] MEDS ORDERED: ZOFRAN ODT4 MG PO (11:00)
== END 2018-04-29 11:09 | disposition home or self-care (01) ==
LOC: ED 09:09
DX: R11.2 Nausea with vomiting, unspecified (principal); I10 Essential (primary) hypertension; Z87.891 Personal history of nicotine dependence; Z91.038 Other insect allergy status; Z88.5 Allergy status to narcotic agent; Z88.6 Allergy status to analgesic agent; Z79.899 Other long term (current) drug therapy
CPT/HCPCS: 80053; 81001; 83690; 85025; 96361; 96374; 96375; 99284; J1170; J1630; J2405; J7120

== ENCOUNTER 2018-09-27 23:57 | Emergency (ER) | payer MEDICARE, OTHER ==
[~2018-09-27] VITALS: Ht 167.6 cm; Wt 81.7 kg
[~2018-09-27 23:57] MED LIST changes: +ZOFRAN ODT4 MG PO
--- OUTSIDE RECORDS SUMMARY | 2018-09-28 | XMS ---
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 Bryn Wheatley Primary Care Current PHONE: [phone] Jairo has no Care Guidelines for this patient. Care History Medical/Surgical 04/30/2018 [facility] - Patient is currently established with [facility]. If patient is seen in the ED during business hours. Please contact CHWs at [facility]. Care Recommendation: This patient has had 5 or more Emergency Department visits in the last 12 months.\T\nbsp; Patient requires education on the scope and purpose of the ED as an acute care provider not a Primary Care Provider and should not be utilized for chronic conditions.\T\nbsp; These are guidelines and the provider should exercise clinical judgment when providing care. E.D. VISIT COUNT (12 MO.) 4 [facility] [place] TOTAL 4 NOTE: Visits indicate total known visits. ED/UCC VISIT TRACKING (12 MO.) 09/27/2018 23:58 [facility] TYPE: Emergency COMPLAINT: - DIFFICULTY BREATHING 04/29/2018 09:10 [facility] TYPE: Emergency COMPLAINT: - ABD PAIN DIAGNOSES: - Nausea with vomiting, unspecified - Essential (primary) hypertension - Other insect allergy status - Personal history of nicotine dependence - Other local intermodal truck driver (current) drug therapy - Allergy status to analgesic agent status - Unspecified abdominal pain - Allergy status to narcotic agent status 04/06/2018 08:02 [facility] TYPE: Emergency COMPLAINT: - ABD PAIN,VOMITING DIAGNOSES: - Other local intermodal truck driver (current) drug therapy - Gastro-esophageal reflux disease [...] disease, unspecified - Hematuria, unspecified - Other local intermodal truck driver (current) drug therapy - Unspecified abdominal pain - terminal operator (current) use of oral hypoglycemic drugs - Essential (primary) hypertension - DIAL EQUIPMENT ENGINEER (CURRENT) USE OF ORAL HYPOGLYCEMIC DRUGS - Anxiety disorder, unspecified - Other insect allergy status - Allergy status to narcotic agent status - Allergy status to analgesic agent status INPATIENT VISIT TRACKING (12 MO.) No inpatient visits to display in this time frame [id number]
== END 2018-09-28 05:51 | disposition home or self-care (01) ==
LOC: ED 23:57
DX: S00.83XA Contusion of other part of head, initial encounter (principal); F10.129 Alcohol abuse with intoxication, unspecified; Y90.8 Blood alcohol level of 240 mg/100 ml or more; F41.9 Anxiety disorder, unspecified; I10 Essential (primary) hypertension; J44.9 Chronic obstructive pulmonary disease, unspecified; F17.200 Nicotine dependence, unspecified, uncomplicated; Z91.030 Bee allergy status; Z88.5 Allergy status to narcotic agent; Z88.8 Allergy status to other drugs, medicaments and biological substances; Z79.899 Other long term (current) drug therapy; W18.30XA Fall on same level, unspecified, initial encounter
CPT/HCPCS: 70450; 72125; 80053; 81001; 85025; 99284-25; G0480

== ENCOUNTER 2018-10-27 15:42 | Emergency (ER) | payer MEDICARE, OTHER ==
[~2018-10-27] VITALS: Ht 167.6 cm; Wt 81.6 kg
--- OUTSIDE RECORDS SUMMARY | 2018-10-27 15:46 | XMS ---
PreManage Notification: CIARAN MOSES Security Stone Operator Events No recent Security Events currently on file CRITERIA MET - Group Notification - [facility] - Has Care Guidelines - PDMP - [facility] - 2 Visits in 30 Days CARE PROVIDERS BRYN WHEATLEY [facility] [phone] Dr. Bryn Wheatley Primary Care Current PHONE: [phone] Jairo has no Care Guidelines for this patient. Care History Medical/Surgical 04/30/2018 [facility] - Patient is currently established with [facility]. If patient is seen in the ED during business hours. Please contact CHWs at [facility]. Care Recommendation: This patient has had 5 [...] known visits. ED/UCC VISIT TRACKING (12 MO.) 10/27/2018 15:43 [facility] TYPE: Emergency COMPLAINT: - LEFT HAND PINKY INJURY 09/27/2018 23:58 [facility] TYPE: Emergency COMPLAINT: - DIFFICULTY BREATHING DIAGNOSES: - Allergy status to narcotic agent status - Nicotine dependence, unspecified, uncomplicated - Allergy status to other drugs, medicaments and biological substances status - Essential (primary) hypertension - Anxiety disorder, unspecified - Blood alcohol level of 240 mg/100 ml or more - Fall on same level, unspecified, initial encounter - Alcohol abuse with intoxication, unspecified - Chronic obstructive pulmonary disease, unspecified - Bee allergy status - Contusion of other part of head, initial encounter - Other snf (current) drug therapy 04/29/2018 09:10 [facility] TYPE: Emergency COMPLAINT: - ABD PAIN DIAGNOSES: - Nausea with vomiting, unspecified - Essential (primary) hypertension - Other insect allergy status - Personal history of nicotine dependence - Other snf (current) drug therapy - Allergy status to analgesic agent status - Unspecified abdominal pain - Allergy status to narcotic agent status 04/06/2018 08:02 [facility] TYPE: Emergency COMPLAINT: - ABD PAIN,VOMITING DIAGNOSES: - Other superintendent container terminal (current) drug therapy - Gastro-esophageal reflux disease without esophagitis - Essential (primary) hypertension - Unspecified abdominal pain - Bee allergy status - Allergy status to analgesic agent status - Allergy status to narcotic agent status INPATIENT VISIT TRACKING (12 MO.) No inpatient visits to display in this time frame [id number]
== END 2018-10-27 15:50 | disposition home or self-care (01) ==
LOC: ED 15:42
DX: S69.92XA Unspecified injury of left wrist, hand and finger(s), initial encounter (principal); W00.0XXA Fall on same level due to ice and snow, initial encounter

== ENCOUNTER 2019-01-14 06:14 | Emergency (ER) | payer MEDICARE, OTHER ==
[~2019-01-14] VITALS: Ht 167.6 cm; Wt 81.7 kg
--- OUTSIDE RECORDS SUMMARY | ~2019-01-14 | XMS | Encounter Summary ---
Demographics + + + | Address | [address] | | | [place] [address] | + + + | Home Phone | | + + + | Preferred Language | Unknown | + + + | Marital Status | | + + + | Restoration Affiliation | 1013 | + + + | Race | Unknown | + + + | Ethnic Group | Unknown | + + + Author + + + | Author | and [facility] | | | and [place] | + + + | Organization | [facility] | | | and [place] | + + + | Address | Unknown | + + + | Phone | Unavailable | + + + Support + + + + + | Name | Relationship | Address | Phone | + + + + + | Mitra Schafer | ECON | [address] | | | | | [place] | | | | | [address] | | + + + + + Care Team Providers + +------+ + | Care Customer Support Executive Name | Role | Phone | + +------+ + | Becca Amaya MD | PCP | Unavailable | + +------+ + Encounter Details +--------+ + + + + | Date | Type | Department | Care Team | Description | +--------+ + + + + | 10/16/ | Anesthesia | [facility] | Raudel Le | | | 2018 | Event | [facility] INTRA OP | MD Krishna [address] | | | | | [address] [place], [place] | | | | | [place], [place] | [address] | | | | | [address] | [phone] | | | | | [phone] | | | +--------+ + + + + Anesthesia Record + + + + + | Procedure Name | Responsible | Anesthesia Start | Anesthesia Stop Time | | | Anesthesiologist | Time | | + + + + + | MRI GENERAL SEDATION | Chon Caputo MD | 10/16/18 1404 | 10/16/18 1519 | | CERVICAL & LUMBAR | | | | | (N/A ) | | | | + + + + + +----+---+ + + | Da | T | Event | Comment | | te | i | | | | | m | | | | | e | | | +----+---+ + + | 02 | 1 | An Checkout | Pre-use anesthesia machine/equipment checkout. | | /2 | 4 | | | | 8/ | 0 | | | | 20 | 3 | | | | 19 | | | | +----+---+ + + | | 1 | | | | | 4 | | | | | 0 | | | | | 4 | | | +----+---+ + + | | 1 | An Start | | | | 4 | Data | | | | 0 | | | | | 4 | | | +----+---+ + + | | 1 | An Start | Reassessment prior to anesthesia induction/procedure. | | | 4 | | | | | 0 | | | | | 4 | | | +----+---+ + + | | 1 | Preoxygenat | | | | 4 | ed | | | | 1 | | | | | 0 | | | +----+---+ + + | | 1 | An | | | | 4 | Induction | | | | 1 | | | | | 1 | | | +----+---+ + + | | 1 | An | | | | 4 | Intubation | | | | 1 | | | | | 2 | | | +----+---+ + + | | 1 | Pre-Procedu | | | | 4 | ral Timeout | | | | 1 | Completed | | | | 8 | | | +----+---+ + + | | 1 | First | | | | 4 | Inc/Proc St | | | | 1 | | | | | 9 | | | +----+---+ + + | | 1 | Extubated | | | | 5 | Awake | | | | 1 | | | | | 2 | | | +----+---+ + + | | 1 | an stop | | | | 5 | data | | | | 1 | | | | | 3 | | | +----+---+ + + | | 1 | An Stop | Patient handed off to recovery nurse. | | | 1 | | | | | 9 | | | +----+---+ + + +------+ | Meds | +------+ + +--------+ | Name | Total | + +--------+ | propofol (DIPRIVAN) injection | 150 mg | | (bolus) (20 mL) | | + +--------+ | lidocaine 2% | 100 mg | + +--------+ | LR (Infusion) | 250 mL | + +--------+ +---------+ | Name | +---------+ | Insp O2 | +---------+ | Exp SEV | +---------+ + + | No blood administrations on file. | + + +--------+ + + + | Type | Details | Placement | Removal | +--------+ + + + | Periph | 10/16/18; 1324; Right; Hand; | 10/16/18 1324 by | 10/16/18 1555 by | | eral | [id number] catheter system; | Shawna Antunez RN | Holli Hoskins RN | | IV | 20 gauge; distraction, | | | | | intradermal injection, tolerated | | | | | well, appears comfortable; no | | | | | longer indicated, removed per | | | | | physician, catheter/device | | | | | intact; inserted by RAÚL Pace; | | | | | short term use; 10/16/18; 1555 | | | +--------+ + + + | Airway | Placement Date: 10/16/18; | 10/16/18 1412 by | 10/16/18 1512 by | | | Placement Time: 1412; Mask | Chon Caputo MD | Chon Caputo MD | | | Ventilation: EZ; Airway Type: | | | | | laryngeal mask, oral, cuffed; | | | | | Size: 4; Tube Reference Point: | | | | | secure and patent; Placement | | | | | Check: bilateral chest rise, | | | | | exhaled CO2 detection device; | | | | | Removal Date: 10/16/18; Removal | | | | | Time: 151 | | | +--------+ + + + documented in this encounter Social History + + + +--------+ + [...] Visit Diagnoses Not on filedocumented in this encounter Administered Medications + +---------+ +------+------+------+ | Medication Order | MAR | Action | Dose | Rate | Site | | | Action | Date | | | | + +---------+ +------+------+------+ | lactated ringers (LR) infusion | New Bag | 10/16/19 | | | | | Intravenous, CONTINUOUS PRN, | | 19 13:48 | | | | | Starting Kim 10/16/18 at 1348, | | PST | | | | | Anesthesia Intra-op | | | | | | + +---------+ +------+------+------+ +---+---+ | | | +---+---+ + +-------+ +--------+---+---+ | lidocaine (PF) 2% injection | Given | 10/16/19 | 100 mg | | | | Intravenous, PRN, Starting Kim | | 19 14:11 | | | | | 10/16/18 at 1411, Anesthesia | | PST | | | | | Intra-op | | | | | | + +-------+ +--------+---+---+ +---+---+ | | | +---+---+ + +-------+ +-------+---+---+ | propofol (DIPRIVAN) injection | Given | 10/16/19 | 50 mg | | | | Intravenous, PRN, Starting Kim | | 19 14:12 | | | | | 10/16/18 at 1411, Anesthesia | | PST | | | | | Intra-op | | | | | | + +-------+ +-------+---+---+ +-------+ +--------+---+---+ | Given | 10/16/19 | 100 mg | | | | | 19 14:11 | | | | | | PST | | | | +-------+ +--------+---+---+ +---+---+ | | | +---+---+ documented in this encounter"
--- OUTSIDE RECORDS SUMMARY | ~2019-01-14 | XMS | Encounter Summary ---
Demographics + + + | Address | [address] | | | [place] [address] | + + + | Home Phone | | + + + | Preferred Language | Unknown | + + + | Marital Status | | + + + | Muslim Affiliation | 1013 | + + + | Race | Unknown | + + + | Ethnic Group | Unknown | + + + Author + + + | Author | [facility] | | | and [place] | + + + | Organization | [facility] | | | and [place] | + + + | Address | Unknown | + + + | Phone | Unavailable | + + + Support + + + + + | Name | Relationship | Address | Phone | + + + + + | Mitra Schafer | ECON | [address] | | | | | [place] | | | | | [address] | | + + + + + Care Team Providers + +------+ + | Care Talking Books Library Clerk Name | Role | Phone | + +------+ + | Becca Amaya MD | PCP | Unavailable | + +------+ + Encounter Details +--------+ + + + + | Date | Type | Department | Care Team | Description | +--------+ + + + + | 10/23/ | [facility] | [facility] | Sidney Dominguez, | Cervicalgia | | 2019 | Encounter | MED CTR XRAY [address] | PA-C [address] | | | | | [place] | [address] [place] | | | | | [place] [address] | [place] [address] | | | | | [phone] | [phone] | | | | | | | [...] 2 times | | | | | | mcg/puff inhaler | daily. | [...] 2 times | | | | | | mcg/puff diskus | daily. | [...] + +--------+ + + + | XR CERVICAL SPINE 4 | Routin | 10/23/2018 | Cervicalgia | Results for this | | OR 5 VWS | e | 11:31 PST | | procedure are in the | | | | | | results section. | + +--------+ + + + documented in this encounter Results XR Cervical Spine 4 or 5 Vws (10/23/2018 11:31 PST) + + | Specimen | + + | | + + + + + | Narrative | Performed At | + + + | XR CERVICAL SPINE 4 OR 5 VWS 10/23/2018 11:31 AM HISTORY: | [facility] | | cervicalgia. COMPARISON: Multiple priors. FINDINGS: | | | Visualized skull base and facial structures demonstrate no acute | | | findings. Metallic fragments are seen over the right skull base. | | | Surgical wires are in the right mandible. There is moderate | | | spondylosis. There is minimal motion of C4 over C5 and C5 over C6. | | | Bone mineralization is normal. The dens is normal. Vertebral body | | | height are preserved with no evidence for compression fractures. | | | Multilevel disc narrowing are present most significant at C4-5, which | | | is moderate to severe. Facet joints are intact. There is | | | ossification of the ligamentum nuchae. Visualized upper chest | | | demonstrates no acute findings. IMPRESSION - Degenerative | | | changes with minimal motion of C4 over C5 and C5 over C6. Dictated | | | and Signed by: Ajit Miller MD Electronically signed: 10/23/2018 | | | 12:25 PM | | + + + + + | Procedure Note | + + | Sal, Rad Results In - 10/23/2018 1228 PST XR CERVICAL SPINE 4 OR 5 VWS 10/23/2018 11:31 | | AMHISTORY: cervicalgia.COMPARISON: Multiple priors.FINDINGS:Visualized skull base and | | facial structures demonstrate no acute findings.Metallic fragments are seen over the | | right skull base. Surgical wires are in theright mandible.There is moderate spondylosis. | | There is minimal motion of C4 over C5 and C5 overC6. Bone mineralization is normal. The | | dens is normal. Vertebral body height arepreserved with no evidence for compression | | fractures. Multilevel disc narrowingare present most significant at C4-5, which is | | moderate to severe. Facet jointsare intact. There is ossification of the ligamentum | | nuchae. Visualized upperchest demonstrates no acute findings. IMPRESSION -Degenerative | | changes with minimal motion of C4 over C5 and C5 over C6.Dictated and Signed by: Ajit | | MD Paul Electronically signed: 10/23/2018 12:25 PM | |There is moderate spondylosis. There is minimal motion of C4 over C5 and C5 over | |C6. Bone mineralization is normal. The dens is normal. Vertebral body height are | |preserved with no evidence for compression fractures. Multilevel disc narrowing | |are present most significant at C4-5, which is moderate to severe. Facet joints | |are intact. There is ossification of the ligamentum nuchae. Visualized upper | |chest demonstrates no acute findings. | | | |IMPRESSION - | |Degenerative changes with minimal motion of C4 over C5 and C5 over C6. | | | |Dictated and Signed by: Ajit Miller MD | | Electronically signed: 10/23/2018 12:25 PM | + + + +---------+ + + | Performing | Address | City/State/Zipcode | Phone Number | | Organization | | | | + +---------+ + + | [facility] | | | | + +---------+ + + documented in this encounter Visit Diagnoses + + | Diagnosis | + + | Cervicalgia | + + documented in this encounter"
--- OUTSIDE RECORDS SUMMARY | ~2019-01-14 | XMS | Encounter Summary ---
Demographics + + + | Address | [address] | | | [place] [address] | + + + | Home Phone | | + + + | Preferred Language | Unknown | + + + | Marital Status | | + + + | Adventist Affiliation | 1013 | + + + | Race | Unknown | + + + | Ethnic Group | Unknown | + + + Author + + + | Author | [facility] | | | and [place] | + + + | Organization | [facility] | | | and [...] [place] | | | | | [address] | | + + + + + Care Team Providers + +------+ + | Care Senior Validation Engineer Name | Role | Phone | + +------+ + | Becca Amaya MD | PCP | Unavailable | + +------+ + Reason for Visit + + + | Reason | Comments | + + + | Imaging Only | | + + + Encounter Details +--------+ + + + + | Date | Type | Department | Care Team | Description | +--------+ + + + + | 10/17/ | Telephone | [facility] | Robi Husain MD | Imaging Only | | 2019 | | NEUROSURGERY [address] | [address] | | | | | [address] | [address] [place], [place] | | | | | [place], [place] | [address] | | | | | [address] | | | | | | [phone] | | | +--------+ + + + [...] on filedocumented as of this encounter Results XR Cervical Spine 4 [...] | Cervicalgia - Primary | + + documented in this encounter"
--- OUTSIDE RECORDS SUMMARY | ~2019-01-14 | XMS | Encounter Summary ---
Demographics + + + | Address | [address] | | | [place] [address] | + + + | Home Phone | | + + + | Preferred Language | Unknown | + + + | Marital Status | | + + + | Jew Affiliation | 1013 | + + + | Race | Unknown | + + + | Ethnic Group | Unknown | + + + Author + + + | Author | [facility] | | | and [place] | + + + | Organization | [facility] | | | and [place] | + + + | Address | Unknown | + + + | Phone | Unavailable | + + + Support + + + + + | Name | Relationship | Address | Phone | + + + + + | Mitra Schafer | ECON | [address] | | | | | [place] | | | | | [address] | | + + + + + Care Team Providers + +------+ + | Care Carton Making Machinist Name | Role | Phone | + +------+ + | Becca Amaya MD | PCP | Unavailable | + +------+ + Reason for Referral Evaluate & Treat (Routine) + + + + + + + | Status | Reason | Specialty | Diagnoses / | Referred By | Referred To | | | | | Procedures | Contact | Contact | + + + + + + + | Authorized | Specialty | Neurosurgery | Diagnoses | Angelica, | Belza, Mejia | | | Services | | Cervicalgia | Sidney E, | MD Nito | | | Required | | Cervical | PA-C [address] | | | | | radiculopath | [address] | | | | | y Back | [address] | [address], | | | | | pain, | [place], | [place] [address] | | | | | unspecified | [place] [address] | Phone: | | | | | back | Phone: | [phone] | | | | | location, | [phone] | Fax: | | | | | unspecified | Fax: | [phone] | | | | | back pain | [phone] | | | | | | laterality, | | | | | | | unspecified | | | | | | | chronicity | | | | | | | Lumbar | | | | | | | radiculopath | | | | | | | y Clonus | | | | | | | Hyperreflexi | | | | | | | a | | | | | | | Spondylosis | | | | | | | of cervical | | | | | | | spine with | | | | | | | myelopathy | | | | | | | and | | | | | | | radiculopath | | | | | | | y Cervical | | | | | | | stenosis of | | | | | | | spinal canal | | | | | | | Foraminal | | | | | | | stenosis of | | | | | | | cervical | | | | | | | region | | | | | | | Lumbar | | | | | | | foraminal | | | | | | | stenosis | | | | | | | Belza | | | | | | | Procedures | | | | | | | Transferred | | | | | | | to [facility] 12/08 | | | | | | | [facility] 11/14 | | | + + + + + + + Reason for Visit +--------+ + | Reason | Comments | +--------+ + | Other | | +--------+ + Encounter Details +--------+ + + + + | Date | Type | Department | Care Team | Description | +--------+ + + + + | 10/31/ | Telephone | [facility] | Ary Arregiun | Other | | 2018 | | NEUROSURGERY [address] | Jenae, Special Assemblies Supervisor | | | | | [address] [address] [address] | | | | | | [place] | | | | | | [address] | | | | | | [phone] | | | +--------+ + + + [...] of this encounter Plan of Treatment + +--------+ + + | Name | Priori | Associated Diagnoses | Order Schedule | | | ty | | | + +--------+ + + | Neurosurgery, External - AMB | Routin | Cervicalgia | Ordered: 11/13/2018 | | Referral | e | Cervical | | | | | radiculopathy Back | | | | | pain, unspecified | | | | | back location, | | | | | unspecified back | | | | | pain laterality, | | | | | unspecified | | | | | chronicity Lumbar | | | | | radiculopathy | | | | | Clonus | | | | | Hyperreflexia | | | | | Spondylosis of | | | | | cervical spine with | | | | | myelopathy and | | | | | radiculopathy | | | | | Cervical stenosis of | | | | | spinal canal | | | | | Foraminal stenosis | | | | | of cervical region | | | | | Lumbar foraminal | | | | | stenosis | | + +--------+ + + documented as of this encounter Visit Diagnoses + + | Diagnosis | + + | Cervicalgia - Primary | + + | Cervical radiculopathy Brachial neuritis or radiculitis nos | + + | Back pain, unspecified back location, unspecified back pain laterality, unspecified | | chronicity | + + | Lumbar radiculopathy Thoracic or lumbosacral neuritis or radiculitis, unspecified | + + | Clonus Abnormal involuntary movements | + + | Hyperreflexia Abnormal reflex | + + | 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
--- OUTSIDE RECORDS SUMMARY | ~2019-01-14 | XMS | Encounter Summary ---
Demographics + + + | Address | [address] | | | [place] [address] | + + + | Home Phone | | + + + | Preferred Language | Unknown | + + + | Marital Status | | + + + | Confucianism Affiliation | 1013 | + + + | Race | Unknown | + + + | Ethnic Group | Unknown | + + + Author + + + | Author | [facility] | | | and Timiana | + + + | Organization | [facility] | | | and [place] | + + + | Address | Unknown | + + + | Phone | Unavailable | + + + Support + + + + + | Name | Relationship | Address | Phone | + + + + + | Mitra Schafer | ECON | [address] | | | | | [place] | | | | | [address] | | + + + + + Care Team Providers + +------+ + | Care Director Critical Care Name | Role | Phone | + [...] | | | | Cervical | Sidney Gamble, | [address] | | | | | radiculopath | PA-C [address] | [place], | | | | | y | [address] | [place] | | | | | Spondylosis | [address] | [address] | | | | | of cervical | [place], | Phone: | | | | | spine with | [place] [address] | [phone] | | | | | myelopathy | Phone: | Fax: | | | | | and | [phone] | [phone] | | | | | radiculopath | Fax: | | | | | | y Lumbar | [phone] | | | | | | radiculopath [...] Cervical | Sidney E, | [address] | | | | | radiculopath | PA-C [address] | [place], | | | | | y | [address] | [place] | | | | | Spondylosis | [address] | [address] | | | | | of cervical | [place], | Phone: | | | | | spine with | [place] [address] | [phone] | | | | | myelopathy | Phone: | Fax: | | | | | and | [phone] | [phone] | | | | | radiculopath | Fax: | | | | | | y Lumbar | [phone] | | | | | | radiculopath [...] Cervical | Sidney E, | [address] | | | | | radiculopath | PA-C [address] | [place], | | | | | y | [address] | [place] | | | | | Spondylosis | [address] | [address] | | | | | of cervical | [place], | Phone: | | | | | spine with | [place] [address] | [phone] | | | | | myelopathy | Phone: | Fax: | | | | | and | [phone] | [phone] | | | | | radiculopath | Fax: | | | | | | y Lumbar | [phone] | | | | | | radiculopath [...] Cervical | Sidney E, | [address] | | | | | radiculopath | PA-C [address] | [place], | | | | | y | [address] | [place] | | | | | Spondylosis | [address] | [address] | | | | | of cervical | [place], | Phone: | | | | | spine with | [place] [address] | [phone] | | | | | myelopathy | Phone: | Fax: | | | | | and | [phone] | [phone] | | | | | radiculopath | Fax: | | | | | | y Lumbar | [phone] | | | | | | radiculopath [...] + + + + | 10/16/ | Hospital | [facility] | Ajit Miller MD | Cervical | | 2019 | Encounter | [facility] | [address] | radiculopathy; | | | | [address] | [place] | Spondylosis of | | | | [place] | [address] | cervical spine with | | | | [address] | | myelopathy and | | | | [phone] | | radiculopathy; | | | | [...] + + + | Blood Pressure | 119/77 | 10/16/20185 PST | + + + + | Pulse | 75 | 10/16/20185 PST | + + + + | Temperature | 36.4 C (97.5 F) | 10/16/20186 PST | + + + + | Respiratory Rate | 16 | 10/16/20185 PST | + + + + | Oxygen Saturation | 95% | 10/16/2018 1545 PST | + + + + | Inhaled Oxygen | - | - | | Concentration | | | + + + + | Weight | 88.1 kg (194 lb 3.6 | 10/16/20181235 PST | | | oz) | | + + + + | Height | 170.2 cm (5' 7") | 10/16/20181235 PST | + + + + | Body Mass Index | 30.42 | 10/16/20181235 PST | + + + + documented in this encounter Medications [...] | 0 | | | | (SPIRIVA HANDMIRIAMALER) | the lungs Daily. | | | [...] MRI LUMBAR SPINE WO | Routin | 10/16/2018 | Cervical | Results for this | | CONTRAST | e | 14:58 PST | radiculopathy | procedure are in the | | | | | Spondylosis of | results section. | | | | | cervical spine with | | | | | | myelopathy and | | | | | | radiculopathy | | | | | | Lumbar radiculopathy | | | | | | Radiculopathy, | | | | | | lumbosacral region | | | | | | Cervical spinal | | | | | | stenosis | | | | | | Hyperreflexia | | | | | | Foraminal stenosis | | | | | | of lumbar region | | | | | | Spondylolisthesis of | | | | | | lumbar region | | | | | | Lumbar facet | | | | | | arthropathy | | + +--------+ + + + | MRI CERVICAL SPINE | Routin | 10/16/2018 | Cervical | Results for this | | WO CONTRAST | e | 14:27 PST | radiculopathy | procedure are in the | | | | | Spondylosis of | results section. | | | | | cervical spine with | | | | | | myelopathy and | | | | | | radiculopathy | | | | | | Lumbar radiculopathy | | | | | | Radiculopathy, | | | | | | lumbosacral region | | | | | | Cervical spinal | | | | | | stenosis | | | | | | Hyperreflexia | | | | | | Foraminal stenosis | | | | | | of lumbar region | | | | | | Spondylolisthesis of | | | | | | lumbar region | | | | | | Lumbar facet | | | | | | arthropathy | | + +--------+ + + + | DI: MRI | | 10/16/2018 | lumbar spondylosis | | | | | 14:00 PST | with radiculopathy | | + +--------+ + + + +---+--------+ | | Case | | | Notes | | | H&P | | | 2 by | | | | | | Suchar | | | da | +---+--------+ | | | | | Specia | | | l | | | Needs | | | | | | CHECKI | | | NG IN | | | @ 1300 | +---+--------+ documented in this encounter Results MRI Lumbar Spine wo Contrast (10/16/2018 14:58 PST) + + | Specimen | + [...] General sedation was administered per the anesthesia | | | department. The following 3T MR sequences of the lumbar spine were | | | obtained: 1. Axial and sagittal T1. 2. Axial, sagittal, and | | | coronal T2. 3. Sagittal STIR. FINDINGS: Five non rib-bearing, | | | lumbar type vertebrae are suggested on the coronal sequence. | | | Straightening of the lumbar lordosis is again demonstrated. There | | | are similar Schmorl's nodes within mid to upper lumbar and lower | | | thoracic vertebral endplates. Vertebral height is otherwise | | | maintained. Bilateral L5 spondylolysis is again noted. The | | | conus medullaris is unremarkable, terminating at L1. A | | | circumaortic left renal vein is suggested. Imaged intra-abdominal | | | and paraspinal structures are otherwise unremarkable. The T11-12, | | | T12-L1 and L1-2 levels demonstrate no significant disc pathology or | | | stenosis on provided sagittal images through the region. L2-3: | | | Disc desiccation, mild to moderate disc space narrowing and a minimal | | | posterior disc bulge persist, without stenosis. L3-4: Disc | | | desiccation persists. Anterior annular tear is now visible. 1 to | | | 2 mm retrolisthesis combines with a mild posterior disc bulge to | | | minimally narrow central canal and foramina without visible nerve | | | root encroachment. A left facet joint effusion persists. L4-5: | | | Disc desiccation, anterior annular tear and dorsal ligamentous and | | | facet hypertrophy persist, without stenosis. L5-S1: Severe disc | | | space narrowing, 7 mm anterolisthesis and a generalized disc | | | osteophyte complex again combine with dorsal ligamentous and facet | | | hypertrophy to severely narrow the left greater than right foramina, | | | with encroachment on the exiting L5 nerve roots. A left facet | | | joint effusion persists. IMPRESSION - 1. 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 2. EARLY DEGENERATIVE DISC DISEASE ELSEWHERE | | | WITHOUT SIGNIFICANT STENOSIS OR NERVE ROOT ENCROACHMENT. | | | 3. STRAIGHTENING OF THE LUMBAR LORDOSIS WITH LOWER LUMBAR FACET | | | HYPERTROPHY. Dictated and Signed by: Sharan Yen MD | | | Electronically signed: 10/16/2018 3:49 PM | | + + + + + | Procedure Note | + + | Sal, Rad Results In - 10/16/2018 1552 PST UNENHANCED MRI LUMBAR SPINE WITH GENERAL | | SEDATION 10/16/2018 2:46 PMCLINICAL HISTORY: lumbar spondylosis with radiculopathy | | COMPARISON: Radiographs September 22, MRI August 2017TECHNIQUE: General sedation was | | administered per the anesthesia department. Thefollowing 3T MR sequences of the lumbar | | spine were obtained:1. Axial and sagittal T1.2. Axial, sagittal, and coronal T2.3. | | Sagittal STIR.FINDINGS: Five non rib-bearing, lumbar type vertebrae are suggested on | | thecoronal sequence. Straightening of the lumbar lordosis is again demonstrated. There | | are similar Schmorl's nodes within mid to upper lumbar and lower thoracicvertebral | | endplates. Vertebral height is otherwise maintained. Bilateral [id number] is | | again noted. The conus medullaris is unremarkable, terminatingat L1. A circumaortic | | left renal vein is suggested. Imaged intra-abdominal andparaspinal structures are | | otherwise unremarkable.The T11-12, T12-L1 and L1-2 levels demonstrate no significant | | disc pathology orstenosis on provided sagittal images through the region.L2-3: Disc | | desiccation, mild to moderate disc space narrowing and a minimalposterior disc bulge | | persist, without stenosis.L3-4: Disc desiccation persists. Anterior annular tear is now | | visible. 1 to 2mm retrolisthesis combines with a mild posterior disc bulge to | | minimally narrowcentral canal and foramina without visible nerve root encroachment. A | | leftfacet joint effusion persists.L4-5: Disc desiccation, anterior annular tear and | | dorsal ligamentous and facethypertrophy persist, without stenosis.L5-S1: Severe disc | | space narrowing, 7 mm anterolisthesis and a generalized discosteophyte complex again | | combine with dorsal ligamentous and facet hypertrophyto severely narrow the left greater | | than right foramina, with encroachment onthe exiting L5 nerve roots. A left facet | | joint effusion persists.IMPRESSION -1. SEVERE DEGENERATIVE DISC DISEASE, CHRONIC | | ANTEROLISTHESIS AND FORAMINALSTENOSIS AT L5-S1 IN THE SETTING OF L5 SPONDYLOLYSIS, WITH | | ENCROACHMENT ON THEEXITING L5 NERVE ROOTS.2. EARLY DEGENERATIVE DISC DISEASE ELSEWHERE | | WITHOUT SIGNIFICANT STENOSIS ORNERVE ROOT ENCROACHMENT.3. STRAIGHTENING OF THE LUMBAR | | LORDOSIS WITH LOWER LUMBAR FACET HYPERTROPHY.Dictated and Signed by: Sharan Yen MD | | Electronically signed: 10/16/2018 3:49 PM | |central [...] + MRI Cervical Spine wo Contrast (10/16/2018 14:27 PST) + + | Specimen | + [...] as described above. Dictated and Signed by: | | | Ajit Miller MD Electronically signed: 10/16/2018 3:11 PM | | + + + + + | Procedure Note | + + | Sal, Rad Results In - 10/16/2018 1514 PST MRI CERVICAL SPINE WO CONTRAST 10/16/2018 | | 2:24 PM HISTORY: Cervical spondylosis with radiculopathy.COMPARISON: MRI cervical spine | | 05/23/2017.PROTOCOL: Sagittal T2, sagittal T1, axial T2, axial GRE, sagittal STIR, | | coronalT1.FINDINGS:Visualized brain and skull base demonstrate no acute findings. Mild | | mucousmembrane thickening are in the maxillary sinuses. The right parotid gland is | | notseen and may be atrophic or previously resected, as before.Vertebral body height are | | preserved. There is extensive cervical spondylosis.Moderate retrolisthesis is seen at C4 | | over C5. There is mild retrolisthesis ofC5 over C6.Disc height are maintained.The | | spinal cord demonstrates normal signal with no evidence for myelomalacia ormass | | lesions.The atlantoaxial joint demonstrates no acute findings.C3-4: A 2 mm posterior | | broad-based disc protrusion is observed eccentric to theright lateral recess. Mild facet | | hypertrophy and uncovertebral hypertrophy arepresent. There is mild central stenosis in | | the region of the right lateralrecess with AP dimension of the canal measuring 10 mm. | | Mild right neuralforaminal canal stenosis is seen.C4-5: A 2 mm posterior broad-based | | disc protrusion is present along withmoderate facet hypertrophy and uncovertebral | | hypertrophy. There is moderatecentral stenosis with AP dimension of the canal measuring | | 8 mm. Moderatebilateral neural foraminal stenoses are seen.C5-6: A 1 mm posterior disc | | bulge is present along with severe facet hypertrophyand uncovertebral hypertrophy. There | | is mild central stenosis with AP dimensionof the canal measuring 9 mm. Moderate to | | severe right and severe left neuralforaminal canal stenoses are seen.C6-7: A 1 mm | | posterior disc bulge is present along with mild facet hypertrophyand uncovertebral | | hypertrophy. There is mild central stenosis with AP dimensionof the measuring 10 mm. | | Moderate bilateral neural foraminal canal stenoses arenoted.C7-T1: No central canal or | | neural foramina canal stenosis.Soft tissue structures of the neck are unremarkable.There | | is mild spondylosis of the upper thoracic spine with multilevel moderatedisc narrowing. | | Small disc herniations are at T1-2, T2-3, and T4-5 with nosignificant central stenosis. | | Moderate bilateral neural foraminal canal stenosesare at T1-2 and T2-3.IMPRESSION | | -Multilevel degenerative changes including moderate central stenosis at C4-5 andmild | | central stenoses at C3-4, C5-6, and C6-7. Prominent neural foraminal canalstenoses are | | visualized as described above.Dictated and Signed by: Ajit Miller MD Electronically | | signed: 10/16/2018 3:11 PM | |C4-5: A [...] Diagnosis | + + | Cervical radiculopathy Brachial [...] myelopathy | + + documented in this encounter Administered Medications + +--------+---------+------+------+------+ | Medication Order | MAR | Action | Dose | Rate | Site | | | Action | Date | | | | + +--------+---------+------+------+------+ + +---+ | albuterol 2.5 mg/3 mL nebulizer | | | solution 2.5 mg 2.5 mg, | | | Nebulization, ONCE PRN, Wheezing, | | | Starting [facility] 10/16/18 at 1509, | | | For 1 dose, Notify anesthesia if | | | patient is wheezing and does not | | | have a history of asthma or COPD | | | or current smoking., | | | Recovery/Phase I | | + +---+ | | | + +---+ | ondansetron (ZOFRAN) injection | | | 4 mg 4 mg, Intravenous, ONCE | | | PRN, Nausea, Starting [facility] 10/16/18 | | | at 1509, For 1 dose, | | | Recovery/Phase I | | + +---+ | | | + +---+ documented in this encounter
--- OUTSIDE RECORDS SUMMARY | ~2019-01-14 | XMS | Encounter Summary ---
Demographics + + + | Address | [address] | | | [place] [address] | + + + | Home Phone | | + + + | Preferred Language | Unknown | + + + | Marital Status | | + + + | Evangelical Affiliation | 1013 | + + + | Race | Unknown | + + + | Ethnic Group | Unknown | + + + Author + + + | Author | [facility] | | | and [place] | + + + | Organization | [facility] | | | and Timiana [...] [place] | | | | | [address] | | + + + + + Care Team Providers + +------+ + | Care Inventory Checker Name | Role | Phone | + +------+ + | Becca Amaya MD | PCP | Unavailable | + +------+ + Encounter Details +--------+---------+ + + + | Date | Type | Department | Care Team | Description | +--------+---------+ + + + | 10/16/ | Surgery | [facility] | | MRI GENERAL SEDATION | | 2019 | | [facility] | | CERVICAL & LUMBAR | | | | [address] | | | | | | [place] | | | | | | [address] | | | | | | [phone] | | | +--------+---------+ + + + Social History [...] + | Blood Pressure | 119/77 | 10/16/20181544 PST | + + + + | Pulse | 75 | 10/16/20185 PST | + + + + | Temperature | 36.4 C (97.5 F) | 10/16/20186 PST | + + + + | Respiratory Rate | 16 | 10/16/20185 PST | + + + + | Oxygen Saturation | 95% | 10/16/20181544 PST | + + + + | Inhaled Oxygen | - | - | | Concentration | | | + + + + | Weight | 88.1 kg (194 lb 3.6 | 10/16/20181235 PST | | | oz) | | + + + + | Height | 170.2 cm (5' 7") | 10/16/20186 PST | + + + [...] | | | H&P | | | 2/4 by | | | | | | [...] endplates. Vertebral height is otherwise maintained. Bilateral [id number] is | | again noted. The conus [...] + + | Performing | Address | City/State/[facility] [[email or web address] | Phone Number | | Organization | | | | + +---------+ + + | [facility] | | | | + +---------+ + + documented in this encounter Visit Diagnoses Not on filedocumented in this encounter Administered Medications + +--------+---------+------+------+------+ | Medication Order | MAR | Action | Dose | Rate | Site | | | Action | Date | | | | + +--------+---------+------+------+------+ + +---+ | albuterol 2.5 mg/3 mL nebulizer | | | solution 2.5 mg 2.5 mg, | | | Nebulization, ONCE PRN, Wheezing, | | | Starting [facility] 10/16/18 at 1509, | | | For [...] ONCE | | | PRN, Nausea, Starting [facility] 10/16/18 | | | at 1509, For 1 dose, | | | Recovery/Phase I | | + +---+ | | | + +---+ documented in this encounter
--- OUTSIDE RECORDS SUMMARY | ~2019-01-14 | XMS | Encounter Summary ---
Demographics + + + | Address | [address] | | | [place] [address] | + + + | Home Phone | | + + + | Preferred Language | Unknown | + + + | Marital Status | | + + + | Advent Affiliation | 1013 | + + + | Race | Unknown | + + + | Ethnic Group | Unknown | + + + Author + + + | Author | [facility] | | | and [place] | + + + | Organization | [facility] | | | and [place] [...] [place] | | | | | [address] | | + + + + + Care Team Providers + +------+ + | Care Ship Scraper Name | Role | Phone | + [...] | Neurosurgery | Diagnoses | Angelica, | | | | Services | | Cervicalgia | Sidney E, | | | | Required | | Cervical | PA-C [address] | | | | | | radiculopath | [address] | | | | | | y Back | [address] [address] | | | | | | pain, | [place], | | | | | | unspecified | [place] [address] | | | | | | back | Phone: | | | | | | location, | [phone] | | | | | | unspecified | Fax: | | | | | | back pain | [phone] | | | | | | laterality, [...] + + | 10/23/ | Office | [facility] | Sidney Dominguez, | Back pain, | | 2019 | Visit | NEUROSURGERY [address] | PA-C [address] | unspecified back | | | | [address] | [address] [facility] | location, | | | | [place], [place] | [place] [address] | unspecified back | | | | [address] | [phone] | pain laterality, | | | | [phone] | | unspecified | | | | [...] | Blood Pressure | 112/76 | 10/23/2018 1146 PST | + + + + | Pulse | 60 | 10/23/2018 1146 PST | + + + + | Temperature | - | - | + + + + | Respiratory Rate | - | - | + + + + | Oxygen Saturation | - | - | + + + + | Inhaled Oxygen | - | - | | Concentration | | | + + + + | Weight | 88 kg (194 lb) | 10/23/20181145 PST | + + + + | Height | 170.2 cm (5' 7") | 10/23/20181145 PST | + + + + | Body Mass Index | 30.38 | 10/23/20181145 PST | + + + + documented in this encounter Patient Instructions Patient Instructions Ary Arreguin, Flight Director - 10/23/2018 13:00 PST We will refer you to a neurosurgeon in [place] named Dr. Khan who also does minimall y invasive spine surgery. Dr. Khan trained with Dr. Lainez in [place]. Dr. Khan has a satellite clinic in [place] however if he does surgery you will have to go to [facility]. If you do not hear from them in a week call and check in with their office or our office. Here is his contact information: Dr. Eben Khan [address] [place] [address] Let pain be your guide. If you are doing an activity that starts causing you pain back off and ease back into it slowly. We don't want you taking any risks that do not need to be ta marilee. documented in this encounter Progress Notes Sidney Dominguez PA-C - 10/23/2018 1300 PSTFormatting of this note might be different fro m the original. Sidney Dominguez PA-C [address], [address] [place] [address] PHONE: FAX: NEUROSURGERY FOLLOW-UP CHIEF COMPLAINT: Chief [...] like he has "a pair of vice echocardiographer on his spine in his low back". He struggles with fine motor tasks like picking up nuts, bolts, pennies, and paper clips. He has a history of bilateral carpal tunnel release. He lives in [place] with his fiance who is in moderately [...] acute distress with unlabored respirations. The pat jessenia does appear uncomfortable throughout the exam today. [...] has no apparent deficits with short or ferry terminal agent memory. CRANIAL NERVES: II: Acuity is intact. [...] Intrinsics 4+ 4 Ulnar Intrinsics 5 5 Footwear Sales Representative Strength 5 5 Hip Flexion 5 4 [...] Attention deficit disorder Cervical radiculopathy Chronic bronchitis ([facility]) Chronic fatigue Chronic pain syndrome COPD (chronic obstructive pulmonary disease) ([facility]) DDD (degenerative disc disease), cervical 07/25/2017 Ear infection Generalized anxiety disorder GERD (gastroesophageal reflux disease) H/O emphysema Hay fever History of dental problems Hyperlipidemia Hypertension Lumbar radiculopathy Major depression UT (myocardial infarction) ([facility]) Migraine Opioid dependence, continuous (HCC) Osteoarthritis Osteoporosis [...] as recommended. In our 2 visits coleman pulido has shown above average intellect, insight, and understanding of his disease. He supri singly remembered multiple details of his last visit with me that he brought up to discuss d uring our visit today. Also, after a brief description on his MRI and his orientation on [facility] patient rapidly displayed a surprisingly deep understanding of the structural abnormalitie s seen on his MRI. ELECTRONICALLY SIGNED BY: Sidney Dominguez PA-C, 10/23/2018 13:55 documented in this e ncounter Plan of Treatment + +--------+ + + | Name | Priori | Associated Diagnoses | Order Schedule | | | ty | | | + +--------+ + + | Neurosurgery, External - | BRYAN | Cervicalgia | Ordered: 10/23/2018 | | Sandquist | | Cervical | | | | [...]
--- OUTSIDE RECORDS SUMMARY | ~2019-01-14 | XMS | Encounter Summary ---
Demographics + + + | Address | [address] | | | [place] [address] | + + + | Home Phone | | + + + | Preferred Language | Unknown | + + + | Marital Status | | + + + | Sabianist Affiliation | 1013 | + + + | Race | Unknown | + + + | Ethnic Group | Unknown | + + + Author + + + | Author | [facility] | | | and [place] | + + + | Organization | [facility] [...] [address] | | | | | [place] | | | | | [address] | | + + + + + Care Team Providers + +------+ + | Care Notary Public Name | Role | Phone | + [...] | | | | | [address] | [address] [place], [place] | | | | | [place], [place] | [address] | | | | | [address] | [phone] | | | | | [phone] | | | +--------+ + + + [...] 10/16/18 1555 by | | eral | [id number] catheter system; | Shawna Antunez RN | [...] | | | | Intravenous, PRN, Starting Kmi | | 19 14:11 | | | [...]
--- OUTSIDE RECORDS SUMMARY | ~2019-01-14 | XMS | Encounter Summary ---
Demographics + + + | Address | [address] | | | [place] [address] | + + + | Home Phone | | + + + | Preferred Language | Unknown | + + + | Marital Status | | + + + | Restorationist Affiliation | 1013 | + + + | Race | Unknown | + + + | Ethnic Group | Unknown | + + + Author + + + | Author | [facility] | | | and Timiana | + + + | Organization | [facility] | | | and Timiana [...] [place] | | | | | [address] | | + + + + + Care Team Providers + +------+ + | Care Greens Laborer Name | Role | Phone | + [...] Cervical | Sidney Gamble, | [address] | | | | | radiculopath | PA-C [address] | [place], | | | | | y | [address] | [place] | | | | | Spondylosis | [address] | [address] | | | | | of cervical | [place], | Phone: | | | | | spine with | [place] [address] | [phone] | | | | | myelopathy | Phone: | Fax: | | | | | and | [phone] | [phone] | | | | | radiculopath | Fax: | | | | | | y Lumbar | [phone] | | | | | | radiculopath [...] Cervical | Sidney E, | [address] | | | | | radiculopath | PA-C [address] | [place], | | | | | y | [address] | [place] | | | | | Spondylosis | [address] | [address] | | | | | of cervical | [place], | Phone: | | | | | spine with | [place] [address] | [phone] | | | | | myelopathy | Phone: | Fax: | | | | | and | [phone] | [phone] | | | | | radiculopath | Fax: | | | | | | y Lumbar | [phone] | | | | | | radiculopath [...] Cervical | Sidney E, | [address] | | | | | radiculopath | PA-C [address] | [place], | | | | | y | [address] | [place] | | | | | Spondylosis | [address] | [address] | | | | | of cervical | [place], | Phone: | | | | | spine with | [place] [address] | [phone] | | | | | myelopathy | Phone: | Fax: | | | | | and | [phone] | [phone] | | | | | radiculopath | Fax: | | | | | | y Lumbar | [phone] | | | | | | radiculopath [...] Cervical | Sidney E, | [address] | | | | | radiculopath | PA-C [address] | [place], | | | | | y | [address] | [place] | | | | | Spondylosis | [address] | [address] | | | | | of cervical | [place], | Phone: | | | | | spine with | [place] [address] | [phone] | | | | | myelopathy | Phone: | Fax: | | | | | and | [phone] | [phone] | | | | | radiculopath | Fax: | | | | | | y Lumbar | [phone] | | | | | | radiculopath [...] + + | 10/16/ | Hospital | [facility] | Ajit Miller MD | Cervical | | 2019 | Encounter | [facility] | [address] | radiculopathy; | | | | [address] | [place] | Spondylosis of | | | | [place] | [address] | cervical spine with | | | | [address] | | myelopathy and | | | | [phone] | | radiculopathy; | | | | [...] endplates. Vertebral height is otherwise maintained. Bilateral [id number] is | | again noted. The conus [...] ONCE PRN, Wheezing, | | | Starting [facility] 10/16/18 at 1509, | | | [...] ONCE | | | PRN, Nausea, Starting [facility] 10/16/18 | | | at 1509, For 1 dose, | | | Recovery/Phase I | | + +---+ | | | + +---+ documented in this encounter
--- OUTSIDE RECORDS SUMMARY | ~2019-01-14 | XMS | Clinical Summary ---
Demographics + + + | Address | [address] | | | [place] [address] | + + + | Home Phone | | + + + | Preferred Language | Unknown | + + + | Marital Status | | + + + | Buddhism Affiliation | 1013 | + + + | Race | Unknown | + + + | Ethnic Group | Unknown | + + + Author + + + | Author | [facility] | | | and Timiana | + + + | Organization | [facility] | [...] [place] | | | | | [address] | | + + + + + Care Team Providers + +------+ + | Care Kitchenwhere Maker Name | Role | Phone | [...] | + + + + + + Medications + + + +---------+------+------+-------+ | Medication | Sig | Dispensed | Refills | Star | End | Statu | | | | | | t | Date | s | | | | | | Date | | | + + + +---------+------+------+-------+ | | Take 3 mLs by | | 0 | | | Activ | | albuterol-ipratropiu | nebulization Daily. | | | | | e | | m (DUONEB) 2.5-0.5 | | | | | | | | mg/3 mL SOLN | | | | | | | + + + +---------+------+------+-------+ | omeprazole | Take 40 mg by mouth | | 0 | | | Activ | | (PRILOSEC) 20 mg | every morning | | | | | e | | capsule | (before breakfast). | | | | | | + + + +---------+------+------+-------+ | albuterol | Inhale 2 puffs into | | 0 | | | Activ | | (VENTOLIN HFA) 90 | the lungs every 6 | | | | | e | | mcg/puff inhaler | hours as needed for | | | | | | | | Wheezing. | | | | | | + + + +---------+------+------+-------+ | tiotropium | Inhale 18 mcg into | | 0 | | | Activ | | (SPIRIVA HANDIHALER) | the lungs Daily. | | | | | e | | 18 mcg inhalation | | | | | | | | capsule | | | | | | | + + + +---------+------+------+-------+ | salmeterol | Inhale 1 puff into | | 0 | | | Activ | | (SEREVENT DISKUS) 50 | the lungs 2 times | | | | | e | | mcg/puff diskus | daily. | | | | | | | inhaler | | | | | | | + + + +---------+------+------+-------+ | EPINEPHrine | Inject 0.3 mg into | | 0 | | | Activ | | auto-injector | the muscle as needed | | | | | e | | (EPIPEN 2-MAGNOLIA) 0.3 | for Anaphylaxis. | | | | | | | mg/0.3 mL injection | | | | | | | + + + +---------+------+------+-------+ | GABAPENTIN PO | Take 800 mg by mouth | | 0 | | | Activ | | | 4 times daily. | | | | | e | + + + +---------+------+------+-------+ | | Take 1 tablet by | | 0 | | | Activ | | lisinopril-hydrochlo | mouth Daily. | | | | | e | | rothiazide | | | | | | | | (PRINZIDE,ZESTORETIC | | | | | | | | ) 20-25 MG per | | | | | | | | tablet | | | | | | | + + + +---------+------+------+-------+ | fenofibrate | Take 48 mg by mouth | | 0 | | | Activ | | (TRICOR) 48 mg | Daily. | | | | | e | | tablet | | | | | | | + + + +---------+------+------+-------+ | metFORMIN | Take 500 mg by mouth | | 0 | | | Activ | | (GLUCOPHAGE) 500 mg | daily (with | | | | | e | | tablet | breakfast). | | | | | | + + + +---------+------+------+-------+ | fluticasone | Inhale 1 puff into | | 0 | | | Activ | | (FLOVENT HFA) 220 | the lungs 2 times | | | | | e | | mcg/puff inhaler | daily. | | | | | | + + + +---------+------+------+-------+ | atorvaSTATin | Take 20 mg by mouth | | 0 | | | Activ | | (LIPITOR) 20 mg | Daily. | | | | | e | | tablet | | | | | | | + + + +---------+------+------+-------+ | busPIRone (BUSPAR) | buspirone 7.5 mg | | 0 | | | Activ | | 7.5 MG tablet | tablet | | | | | e | + + + +---------+------+------+-------+ | cloNIDine | clonidine HCl 0.1 mg | | 0 | | | Activ | | (CATAPRES) 0.1 mg | tablet | | | | | e | | tablet | | | | | | | + + + +---------+------+------+-------+ Active Problems + + + | Problem | Noted Date | + + + | Abdominal pain | 10/23/2018 | + + + | Abscess of axilla | 10/23/2018 | + + + | Acute alcoholic intoxication | 10/23/2018 | + + + | Enteritis | 10/23/2018 | + + + | Viral pharyngitis | 10/23/2018 | + + + | Asthma | 10/15/2018 | + + + | ADORE Inhibitors - Daily Use | 10/15/2018 | + + + | GERD (gastroesophageal reflux disease) | 10/15/2018 | + + + | Osteoporosis | 10/15/2018 | + + + | H/O Kidney stones | 10/15/2018 | + + + | Diabetes mellitus type II, non insulin dependent | 10/15/2018 | + + + | Chronic cholecystitis | 06/01/2018 | + + + | Postcholecystectomy diarrhea | 06/01/2018 | + + + | Epigastric pain | 02/09/2018 | + + + | Acquired deformity of facial bone | 11/30/2017 | + + + | Gastro-esophageal reflux disease with esophagitis | 11/30/2017 | + + + | DDD (degenerative [...] + + + | Lumbar facet arthropathy | 11/13/2016 | + + + | Bilateral sacroiliitis | 11/13/2016 | + + + | Carpal tunnel syndrome, bilateral | 10/01/2013 | + + + | Radiculopathy, lumbosacral region | | + + + | History of NM (myocardial infarction) | | + + + | Hypertension | | + + + | Hyperlipidemia | | + + + | COPD (chronic obstructive pulmonary disease) | | + + + Encounters +--------+ + + + + | Date | Type | Specialty | Care Team | Description | +--------+ + + + + | 10/31/ | Telephone | | Ary Arreguin | Other | | 2019 | | | Jenae Brakeshoe Repairer | | +--------+ + + + + | 10/23/ | Office | | Sidney Dominguez, | Back pain, | | 2018 | Visit | | PA-Jaci | unspecified back | | | | | | location, | | | | | | [...] | | | | | stenosis | +--------+ + + + + | 10/23/ | Hospital | | Sidney Dominguez, | Cervicalgia | | 2018 | Encounter | | PA-C | | +--------+ + + + + | 10/17/ | Telephone | | Robi Husain MD | Imaging Only | | 2018 | | | | | +--------+ + + + + | 10/16/ | Anesthesia | | Raudel Le | | | 2018 | Event | | MD Krishna | | +--------+ + + + + | 10/16/ | Surgery | | | MRI GENERAL SEDATION | | 2018 | | | | CERVICAL & LUMBAR | +--------+ + + + + | 10/16/ | Hospital | | Ajit Miller MD | Cervical | | 2019 | Encounter | | | radiculopathy; | | | | | | Spondylosis [...] arthropathy | +--------+ + + + + from Last 3 Months Family History + + +------+ + | Medical History | Relation | Name | Comments | + + +------+ + | Diabetes | Brother | | | + + +------+ + | No known problems | Child | | | + + +------+ + | No known problems | Child | | | + + +------+ + | No known problems | Child | | | + + [...] | + + Last Filed Vital Signs + + + + | Vital Sign | Reading | Time Taken | + + + + | Blood Pressure | 112/76 | 10/23/2018 1146 PST | + + + + | Pulse | 60 | 10/23/20181145 PST | + + + + | Temperature | 36.4 C (97.5 F) | 10/16/20181515 PST | + + + + | Respiratory Rate | 16 | 10/16/20181544 PST | + + + + | Oxygen Saturation | 95% | 10/16/20185 PST | + + + [...] 10/23/20181145 PST | + + + + Plan of Treatment + + + + + | Health Maintenance | Due Date | Last Done | Comments | + + + + + | Hepatitis C | | | | | Screening | 3 | | | + + + + + | Diabetic Eye Exam | | | | | | 1 | | | + + + + + | Diabetic Foot Exam | | | | | | 1 | | | + + + + + | Hemoglobin A1c | | | | | Screening | 1 | | | + + + + + | Colorectal Cancer | | | | | Screening | 3 | | | | (Colonoscopy) | | | | + + + + + | Vaccine: Zoster (1 | | | | | of 2) | 3 | | | + + + + + | Adult Annual | | | | | Wellness Visit | 5 | | | + + + + + | Statin Therapy | | | | | (optimal intensity) | 5 | | | + + + + + | Vaccine: Influenza | | 04/17/2016, 06/07/2015 | | | (Season Ended) | 9 | | | + + + + + | Vaccine: | | 03/05/2018, 01/21/2012, | | | Dtap/Tdap/Td (3 - | 8 | 10/06/2004 | | | Td) | | | | + + + + + | Vaccine: | Completed | 10/17/2017 | | | Pneumococcal 19-64 | | | | | (PPSV23 only) Medium | | | | | Risk | | | | + + + [...] | | | H&P | | | 24 by | | | | | | Suchar | | | da | +---+--------+ | | | | | Specia | | | l | | | Needs | | | | | | CHECKI | | | NG IN | | | @ 1300 | +---+--------+ from Last 3 Months Results XR Cervical Spine 4 or 5 [...] | | + +---------+ + + MRI Lumbar Spine wo Contrast (10/16/2018 14:58 [...] endplates. Vertebral height is otherwise maintained. Bilateral [id number] is | | again noted. The conus [...] Last 3 Months Insurance + +--------+ +--------+ +---------+--------+ | Payer | Benefi | Subscriber | Effect | Phone | Address | Type | | | t Plan | ID | ry | | | | | | / | | Dates | | | | | | Group | | | | | | + +--------+ +--------+ +---------+--------+ | MEDICARE | MEDICA | [id number] | 03/19/20 | [phone] | | Medica | | | RE | | 17-Pre | 5 | | re | | | PART A | | sent | | | | | | AND B | | | | | | + +--------+ +--------+ +---------+--------+ | [employer] | MODA | [id number] | | [phone] | | Medica | | MEDICAID HMO | HEALTH | | 014-Pr | 1 | | id | | | MDCD | | esent | | | | | | HMO OR | | | | | | + +--------+ +--------+ +---------+--------+ + +--------+ +--------+ + + | Guarantor Name | Accoun | Relation to | Date | Phone | Billing Address | | | t Type | Patient | of | | | | | | | | | | + +--------+ +--------+ + + | Percy Mancilla | Person | Self [birth year] | [address] | | | al/Fam | | 1961 | [phone] | [place] [address] | | | [place] | | | 1 (Home) | | + +--------+ +--------+ + + Advance Directives Patient has advance care planning documents on file. For more information, please contact:[facility] [place] [address]
--- OUTSIDE RECORDS SUMMARY | ~2019-01-14 | XMS | Encounter Summary ---
Demographics + + + | Address | [address] | | | [place] [address] | + + + | Home Phone | | + + + | Preferred Language | Unknown | + + + | Marital Status | | + + + | Buddhist Affiliation | 1013 | + + + | Race | Unknown | + + + | Ethnic Group | Unknown | + + + Author + + + | Author | [facility] | | | and Timiana | + + + | Organization | [facility] | | | and Timiana [...] [place] | | | | | [address] | | + + + + + Care Team Providers + +------+ + | Care Recreational Therapy Technician Name | Role | Phone | + +------+ + | eBcca Amaya MD | PCP | Unavailable | + +------+ + Encounter Details +--------+---------+ + + + | Date | Type | Department | Care Team | Description | +--------+---------+ + + + | 10/16/ | Surgery | [facility] | | MRI GENERAL SEDATION | | 2019 | | [facility] OP | | CERVICAL & LUMBAR | | | | [address] | | | | | | [place] | | | | | | [address] | | | | | | [phone] | | | +--------+---------+ + + + [...] endplates. Vertebral height is otherwise maintained. Bilateral [id number] is | | again noted. The conus [...] + + | Performing | Address | City[facility] | Phone Number | | [...]
--- OUTSIDE RECORDS SUMMARY | ~2019-01-14 | XMS | Clinical Summary ---
Demographics + + + | Address | [address] | | | [place] [address] | + + + | Home Phone | | + + + | Preferred Language | Unknown | + + + | Marital Status | Single | + + + | Lutheran Affiliation | 1013 | + + + | Race | Unknown | + + + | Ethnic Group | Unknown | + + + Author + + + | Author | [facility] | + + + | Organization | [facility] | + + + | Address | Unknown | + + + | Phone | Unavailable | + + + Support + + +---------+ + | Name | Relationship | Address | Phone | + + +---------+ + | Jane Mojica | ECON | Unknown | | + + +---------+ + | Estelita Zamudio | ECON | Unknown | | + + +---------+ + | Donnie Hernandez | ECON | Unknown | | + + +---------+ + Care Team Providers + +------+ + | Care Forensic Artist Name | Role | Phone | + +------+ + | Becca Amaya MD | PP | | + +------+ + Allergies Not on File Current Medications Not on file Active Problems Not [...] on file | | + + + Plan of Treatment Not on file Results Not on filefrom Last 3 Months Insurance + +--------+ +------+-------+ + | Payer | Benefi | Subscriber | Type | Phone | Address | | | t Plan | ID | | | | | | / | | | | | | | Group | | | | | + +--------+ +------+-------+ + | MEDICARE | MEDICA | [id number] | | | [address] | | | RE | | | | [place] [address] | | | IP-OP | | | | | + +--------+ +------+-------+ + | MEDICAID | [place]ASTER | [id number] | | | [address] | | | N | | | | [place], [place] | | | [place] | | | | [address] | | | BODY CORPORATE MANAGER | | | | | + +--------+ +------+-------+ + + +--------+ +--------+ + + | Guarantor [...] | 1961 | [phone] | [place] [address] | | | [place] | | | [phone] | | + +--------+ +--------+ + +"
--- OUTSIDE RECORDS SUMMARY | ~2019-01-14 | XMS | Clinical Summary ---
Demographics + + + | Address | [address] | | | [place] [address] | + + + | Home Phone | | + + + | Preferred Language | Unknown | + + + | Marital Status | Single | + + + | Congregation Affiliation | 1013 | + + + | Race | Unknown | + + + | Ethnic Group | Unknown | + + + Author + + + | Author | [facility] | + + + | Organization | [facility] | + + + | Address [...] Team Providers + +------+ + | Care Parachute Repairer Name | Role | Phone | [...] +------+-------+ + | MEDICARE | MEDICA | [id number] | | | [address] | | | RE | | | | [place] [address] | | | IP-OP | | | | | + +--------+ +------+-------+ + | MEDICAID | [place]ASTER | [id number] | | | [address] | | | N | | | | [place], [place] | | | [place] | | | | [address] | | | ETHYLBENZENE CONVERTER OPERATOR | | | | | + +--------+ [...] | 1961 | [phone] | [place] [address] | | | [place] | | | 1869 | | + +--------+ +--------+ + +"
--- OUTSIDE RECORDS SUMMARY | ~2019-01-14 | XMS | Encounter Summary ---
Demographics + + + | Address | [address] | | | [place] [address] | + + + | Home Phone | | + + + | Preferred Language | Unknown | + + + | Marital Status | | + + + | Faith Affiliation | 1013 | + + + | Race | Unknown | + + + | Ethnic Group | Unknown | + + + Author + + + | Author | [facility] | | | and Timiana | + + + | Organization | [facility] | | | and [...] | [place] | | | | | [address] | | + + + + + Care Team Providers + +------+ + | Care Dietetic Assistant Name | Role | Phone | + +------+ + | Becca Amaya MD | PCP | Unavailable | + +------+ + Encounter Details +--------+ + + + + | Date | Type | Department | Care Team | Description | +--------+ + + + + | 10/23/ [facility] | Sidney Dominguez, | Cervicalgia | | 2019 | Encounter | MED CTR XRAY [address] | PA-C [address] | | | | | [place] | [address] [place] | | | | | [place] [address] | [place] [address] | | | | | [phone] | [phone] | | | | | | | [...]
--- OUTSIDE RECORDS SUMMARY | ~2019-01-14 | XMS | Encounter Summary ---
Demographics + + + | Address | [address] | | | [place] [address] | + + + | Home Phone | | + + + | Preferred Language | Unknown | + + + | Marital Status | | + + + | Confucianist Affiliation | 1013 | + + + | Race | Unknown | + + + | Ethnic Group | Unknown | + + + Author + + + | Author | [facility] | | | and [place] | + + + | Organization | [facility] | [...] [place] | | | | | [address] | | + + + + + Care Team Providers + +------+ + | Care Senior Games Technician Name | Role | Phone | [...] | | | | unspecified | [place] [address] | | | | | | back | Phone: | | | | | | location, | [phone] | | | | | | unspecified | Fax: | | | | | | back pain | [phone] | | | | | | laterality, [...] + + | 10/23/ | Office | [facility] | Sidney Dominguez, | Back pain, | | 2019 | Visit | NEUROSURGERY [address] | PA-C [address] | unspecified back | | | | [address] | [address] | location, | | | | [place], [place] | [place] [address] | unspecified back | | | | [address] | [phone] | pain laterality, | | | | [phone] | | unspecified | | | | [...] encounter Patient Instructions Patient Instructions Ary Arreguin, Petrophysical Engineer - 10/23/2018 13:00 PST We will refer you to a neurosurgeon in [place] named Dr. Khan who also does minimall y invasive spine surgery. Dr. Khan trained with Dr. Lainez in [place]. Dr. Khan has a satellite clinic in [place] however if he does surgery you will have to go [facility]. If you do not hear from them in a week call and check in with their office or our office. Here is his contact information: Dr. Eben Khan [address] [place] [address] Let pain be your guide. If you [...] m the original. Sidney Dominguez PA-C [address], [address] [place] [address] PHONE: FAX: NEUROSURGERY FOLLOW-UP CHIEF COMPLAINT: Chief [...] like he has "a pair of vice floor covering printer on his spine in his low back". He struggles with fine motor tasks like picking up nuts, bolts, pennies, and paper clips. He has a history of bilateral carpal tunnel release. 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 CRANIAL NERVES: II: Acuity is intact. 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 Strength 5 5 Hip Flexion 5 4 [...] Attention deficit disorder Cervical radiculopathy Chronic bronchitis ([facility]) Chronic fatigue Chronic pain syndrome COPD (chronic obstructive pulmonary disease) ([facility]) DDD (degenerative disc disease), cervical 07/25/2017 Ear infection Generalized anxiety disorder GERD (gastroesophageal reflux disease) H/O emphysema Hay fever History of dental problems Hyperlipidemia Hypertension Lumbar radiculopathy Major depression NM (myocardial infarction) ([facility]) Migraine Opioid dependence, continuous (HCC) Osteoarthritis Osteoporosis [...] on his MRI and his orientation on [facility] patient rapidly displayed a surprisingly deep [...]
--- OUTSIDE RECORDS SUMMARY | ~2019-01-14 | XMS | Clinical Summary ---
Demographics + + + | Address | [address] | | | [place] [address] | + + + | Home Phone | | + + + | Preferred Language | Unknown | + + + | Marital Status | | + + + | Episcopal Affiliation | 1013 | + + + | Race | Unknown | + + + | Ethnic Group | Unknown | + + + Author + + + | Author | [facility] | | | and Timiana | + + + | Organization | [facility] [...] [place] | | | | | [address] | | + + + + + Care Team Providers + +------+ + | Care Mortuary Technician Name | Role | Phone | [...] | | 2019 | | | Jenae Lead Ingot Molder | | +--------+ + + + + [...] endplates. Vertebral height is otherwise maintained. Bilateral [id number] is | | again noted. The conus [...] +--------+ +---------+--------+ | MEDICARE | MEDICA | [id number] | 03/19/20 | [phone] | | Medica | | | RE | | 17-Pre | 5 | | re | | | PART A | | sent | | | | | | AND B | | | | | | + +--------+ +--------+ +---------+--------+ | [employer] | MODA | [id number] | | [phone] | | Medica | [...] | 1961 | [phone] | [place] [address] | | | alisson | | | 1 (Home) | | + +--------+ +--------+ + + Advance Directives Patient has advance care planning documents on file. For more information, please contact:[facility] [place] [address]
--- OUTSIDE RECORDS SUMMARY | ~2019-01-14 | XMS | Encounter Summary ---
Demographics + + + | Address | [address] | | | [place] [address] | + + + | Home Phone | | + + + | Preferred Language | Unknown | + + + | Marital Status | | + + + | Jainism Affiliation | 1013 | + + + | Race | Unknown | + + + | Ethnic Group | Unknown | + + + Author + + + | Author | [facility] | | | and Timiana | + + + | Organization | [facility] [...] | [place] | | | | | [address] | | + + + + + Care Team Providers + +------+ + | Care Review Manager Name | Role | Phone | [...] | pain, | [place], | [place] [address] | | | | | unspecified | [place] [address] | Phone: | | | | | back | Phone: | [phone] | | | | | location, | [phone] | Fax: | | | | | unspecified | Fax: | [phone] | | | | | back pain | [phone] | | | | | | laterality, [...] Telephone | [facility] | Ary Arreguin | Other | | 2018 | | NEUROSURGERY [address] | Jenae, Record Searcher | | | | | [address] [facility] [address] | | | | | | [place] | | | | | | [address] | | | | | | [phone] | | | +--------+ + + + [...]
--- OUTSIDE RECORDS SUMMARY | ~2019-01-14 | XMS | Encounter Summary ---
Demographics + + + | Address | [address] | | | [place] [address] | + + + | Home Phone [...] Author | [facility] | | | and Timiana | + + + | Organization | [facility] | | | and [...] [place] | | | | | [address] | | + + + + + Care Team Providers + +------+ + | Care Shirrer Name | Role | Phone | + [...] [place], [place] | | | | | [place], [place] | [address] | | | | | [address] | | | | | | [phone] | | | +--------+ + + + [...]
--- OUTSIDE RECORDS SUMMARY | 2019-01-14 06:18 | XMS ---
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 Bryn Wheatley Primary Care Current PHONE: [phone] Jairo has no Care Guidelines for this patient. Care History Medical/Surgical 04/30/2018 [facility] - Patient is currently established with [facility]. If patient is seen in the ED during business hours. Please contact CHWs at [facility]. Care Recommendation: This patient has [...] providing care. E.D. VISIT COUNT (12 MO.) [address] [facility] TOTAL 5 NOTE: Visits indicate total known visits. ED/UCC VISIT TRACKING (12 MO.) 01/14/2019 06:15 [facility] TYPE: Emergency COMPLAINT: - SOB/NAUSEA/COLD 10/27/2018 15:43 [facility] TYPE: Emergency COMPLAINT: - LEFT HAND PINKY INJURY DIAGNOSES: - Fall on same level due to ice and snow, initial encounter - Unspecified injury of left wrist, hand and finger(s), initial encounter 09/27/2018 23:58 [facility] [place] TYPE: Emergency [...] part of head, initial encounter - Other prison (current) drug therapy 04/29/2018 09:10 [facility] [place] TYPE: Emergency COMPLAINT: - ABD PAIN DIAGNOSES: - Nausea with vomiting, unspecified - Essential (primary) hypertension - Other insect allergy status - Personal history of nicotine dependence - Other area sales manager (current) drug therapy - Allergy status to analgesic agent status - Unspecified abdominal pain - Allergy status to narcotic agent status 04/06/2018 08:02 [facility] [place] TYPE: Emergency COMPLAINT: - ABD PAIN,VOMITING DIAGNOSES: - Other prison (current) drug therapy - Gastro-esophageal reflux disease without esophagitis - Essential (primary) hypertension - Unspecified abdominal pain - Bee allergy status - Allergy status to analgesic agent status - Allergy status to narcotic agent status INPATIENT VISIT TRACKING (12 MO.) No inpatient visits to display in this time frame [id number]
[2019-01-14] MEDS ORDERED: DICYCLOMINE HCL20 MG PO (08:49)
[2019-01-14] MEDS ORDERED: ZOFRAN4 MG SL (08:49)
--- NOTE | 2019-01-14 11:20 | EKG ---
[facility] [address] [place], [place] [address] Signed Normal sinus rhythm Normal ECG When compared with ECG of 10-APR-2018 14:30, No significant change was found Confirmed by YOLY CHENEY MD ([id number]) on 01/14/2019 11:19:58 AM Electronically Signed By: YOLY CHENEY MD 01/14/19 1120 PATIENT NAME: CIARAN MOSES Electrocardiogram DATE OF : 64 PHYSICIAN: YOLY CHENEY MD REPORT #: [id number] REPORT IS CONFIDENTIAL AND NOT TO BE RELEASED WITHOUT AUTHORIZATION
== END 2019-01-14 08:58 | disposition home or self-care (01) ==
LOC: ED 06:14
DX: A08.4 Viral intestinal infection, unspecified (principal); F41.9 Anxiety disorder, unspecified; J44.9 Chronic obstructive pulmonary disease, unspecified; I10 Essential (primary) hypertension; Z91.030 Bee allergy status; Z88.5 Allergy status to narcotic agent; Z79.899 Other long term (current) drug therapy; Z79.84 Long term (current) use of oral hypoglycemic drugs
CPT/HCPCS: 71045; 80053; 83690; 83735; 83880; 84484; 85025; 93005; 93010; 94640; 96361; 96374; 96375; 96376; 99285-25; G0480; J2270; J2405; J7030

== ENCOUNTER 2020-03-28 11:14 | Emergency (ER) | payer MEDICARE, OTHER ==
[~2020-03-28] VITALS: Ht 167.6 cm; Wt 81.7 kg
--- OUTSIDE RECORDS SUMMARY | ~2020-03-28 | XMS | Encounter Summary ---
Demographics + + + | Address | [address] | | | [place] [address] | + + + | Home Phone | | + + + | Preferred Language | Unknown | + + + | Marital Status | Single | + + + | Hoahaoism Affiliation | CAT | + + + | Race | White | + + + | Ethnic Group | Not or | + + + Author + + + | Author | [facility] | + + + | Organization | [facility] | + + + | Address | Unknown | + + + | Phone | Unavailable | + + + Support + + + + + | Name | Relationship | Address | Phone | + + + + + | Mitra Ramos | ECON | [address] | | | | | [place] | | | | | [address] | | + + + + + Care Team Providers + +------+ + | Care Employment Clerk Name | Role | Phone | + +------+ + | Becca Amaya MD | PCP | | + +------+ + Reason for Referral Diagnostic Testing (Routine) +--------+--------+ + + + + | Status | Reason | Specialty | Diagnoses / | Referred By | Referred To | | | | | Procedures | Contact | Contact | +--------+--------+ + + + + | Closed | | Radiology | Diagnoses | Non-[facility] | [facility] | | | | | Other | Epic Dept | Nuclear | | | | | spondylosis | | Medicine | | | | | with | | [address] | | | | | radiculopath | | [address] | | | | | y, cervical | | [place] | | | | | region | | [address] | | | | | Procedures | | Phone: | | | | | NM BONE &/OR | | [phone] | | | | | JOINT | | | | | | | IMAGING | | | | | | | TOMOGRAPHIC | | | | | | | (SPECT) | | | +--------+--------+ + + + + Reason for Visit Diagnostic Testing (Routine) +--------+--------+ + + + + | Status | Reason | Specialty | Diagnoses / | Referred By | Referred To | | | | | Procedures | Contact | Contact | +--------+--------+ + + + + | Closed | | Radiology | Diagnoses | Non-[facility] | [facility] | | | | | Other | Epic Dept | Nuclear | | | | | spondylosis | | Medicine | | | | | with | | [address] | | | | | radiculopath | | [address] | | | | | y, cervical | | [place], [place] | | | | | region | | [address] | | | | | Procedures | | Phone: | | | | | NM BONE &/OR | | [phone] | | | | | JOINT | | | | | | | IMAGING | | | | | | | TOMOGRAPHIC | | | | | | | (SPECT) | | | +--------+--------+ + + + + Encounter Details +--------+ + + + + | Date | Type | Department | Care Team | Description | +--------+ + + + + | 01/23/ | Hospital | Nuclear Medicine | Lizzette Harry MD | | | 2019 | Encounter | at [facility] | [address] | | | | | [address] [place], [place] | | | | | [place] | [address] | | | | | [address] | | | | | | [phone] | | | +--------+ + + + + Social History + +-------+ +--------+------+ | Tobacco Use | Types | Packs/Day | Years | Date | | | | | Used | | + +-------+ +--------+------+ | Never Assessed | | | | | + +-------+ +--------+------+ + + + | Sex Assigned at | Date Recorded | | | | + + + | Not on file | | + + + + + + + | Job Start Date | Occupation | Industry | + + + + | Not on file | Not on file | Not on file | + + + + + + + + | Travel History | Travel Start | Travel End | + + + + + + | No recent travel history available. | + + documented as of this encounter Plan of Treatment Not on filedocumented as of this encounter Procedures + +--------+ + + + | Procedure Name | Priori | Date/Time | Associated Diagnosis | Comments | | | ty | | | | + +--------+ + + + | NM BONE &/OR JOINT | Routin | 01/23/2019 | Other spondylosis | Results for this | | IMAGING TOMOGRAPHIC | e | 12:55 PM | with radiculopathy, | procedure are in the | | (SPECT) | | PDT | cervical region | results section. | + +--------+ + + + | X-RAY SCOLI SPINE | Routin | 01/23/2019 | Spondylolisthesis | Results for this | | ENTR 2 VWS [place]ENDNG | e | 10:10 AM | at L5-S1 level | procedure are in the | | | | PDT | | results section. | + +--------+ + + + | ORDERS OTHER | | 01/23/2019 | | Results for this | | | | 12:00 AM | | procedure are in the | | | | PDT | | results section. | + +--------+ + + + | ORDERS OTHER | | 01/23/2019 | | Results for this | | | | 12:00 AM | | procedure are in the | | | | PDT | | results section. | + +--------+ + + + documented in this encounter Results NM BONE &/OR JOINT IMAGING TOMOGRAPHIC (SPECT) (01/23/2019 12:55 PM PDT) + + | Specimen | + + | | + + + + + | Narrative | Performed At | + + + | [address] | [facility] | | [place] [address] | DEPARTMENT | | [phone] Name: PERCY MANCILLA Phys: | RADIOLOGY | | [place] : 1960 Sex: M CSN: | | | [id number] MR# [id number] Exam Date: 01/23/2019 | | | EXAM: NM BONE &/OR JOINT IMAGING TOMOGRAPHIC (SPECT) 81225 | | | CLINICAL HISTORY: Spine pain. Spondylolisthesis. Neck region. | | | COMPARISON: None TECHNIQUE: 22.5 mCi of Tc 99m MDP was injected | | | intravenously. Low resolution CT images were obtained for | | | localization. SPECT images of the lumbar spine were obtained in | | | sagittal, coronal and axial projections. FINDINGS: There is | | | increased tracer accumulation at C4/C5 and to lesser extent at C6 is | | | well. Best seen on the sagittal sequences. Confirmatory MRI with | | | contrast in this region to assess for degenerative disc disease or | | | occult fracture may be of benefit. The at the center of the tracer | | | accumulation seen to be in the anterior vertebral bodies slightly in | | | the right paracentral location. IMPRESSION: Abnormal increased | | | tracer accumulation seen predominantly at C4/C5 and to lesser extent | | | at C6 as described above for which a follow-up confirmatory MRI of | | | the cervical spine with contrast may be of benefit. REPORT | | | SIGNED IN OTHER VENDOR SYSTEM 01/23/2019 Reported by: Brett | | | MD Sergio Electronically signed by: Brett Hill MD | | | Transcribed Date/Time: 01/23/2019 14:09 Technical Designer: FLUENCY | | | | | + + + + + | Procedure Note | + + | Interface, Radiology Results - 01/23/2019 2:14 PM PDT [address] | | [place] [address] | | Name: PERCY MANCILLA Phys: LIZZETTE HARRY : 1960 Sex: M CSN: | | [id number] MR# [id number] Exam Date: 01/23/2019 EXAM:NM BONE &/OR JOINT IMAGING | | TOMOGRAPHIC (SPECT) 31987 CLINICAL HISTORY:Spine pain. Spondylolisthesis. Neck | | region. COMPARISON:None TECHNIQUE:22.5 mCi of Tc 99m MDP was injected intravenously. | | Low resolution CTimages were obtained for localization. SPECT images of the lumbarspine | | were obtained in sagittal, coronal and axial projections. FINDINGS:There is increased | | tracer accumulation at C4/C5 and to lesser extentat C6 is well. Best seen on the | | sagittal sequences. ConfirmatoryMRI with contrast in this region to assess for | | degenerative discdisease or occult fracture may be of benefit. The at the center ofthe | | tracer accumulation seen to be in the anterior vertebral bodiesslightly in the right | | paracentral location. IMPRESSION:Abnormal increased tracer accumulation seen | | predominantly at C4/C5and to lesser extent at C6 as described above for which a | | follow-upconfirmatory MRI of the cervical spine with contrast may be ofbenefit. | | REPORT SIGNED IN OTHER VENDOR SYSTEM 01/23/2019 Reported by: Brett Hill MD | | Electronically signed by: Brett Hill MD Transcribed Date/Time: 01/23/2019 | | 14:09Transcriptionist: FLUENCY | |COMPARISON: | |None | | | |TECHNIQUE: | |22.5 mCi of Tc 99m MDP was injected intravenously. Low resolution CT | |images were obtained for localization. SPECT images of the lumbar | |spine were obtained in sagittal, coronal and axial projections. | | | |FINDINGS: | |There is increased tracer accumulation at C4/C5 and to lesser extent | |at C6 is well. Best seen on the sagittal sequences. Confirmatory | |MRI with contrast in this region to assess for degenerative disc | |disease or occult fracture may be of benefit. The at the center of | |the tracer accumulation seen to be in the anterior vertebral bodies | |slightly in the right paracentral location. | | | |IMPRESSION: | |Abnormal increased tracer accumulation seen predominantly at C4/C5 | |and to lesser extent at C6 as described above for which a follow-up | |confirmatory MRI of the cervical spine with contrast may be of | |benefit. | | | | | | REPORT SIGNED IN OTHER VENDOR SYSTEM 01/23/2019 | |Reported by: Brett Hill MD | | | |Electronically signed by: Brett Hill MD | | | |Transcribed Date/Time: 01/23/2019 14:09 | |Technical Designer: FLUENCY | | | | | | | + + + +---------+ + + | Performing | Address | City/State/Zipcode | Phone Number | | Organization | | | | + +---------+ + + | [facility]PARTMENT OF | | | | | RADIOLOGY | | | | + +---------+ + + X-RAY SCOLI SPINE ENTR 2 ALEXS KAYLEE (01/23/2019 10:10 AM PDT) + + | Specimen | + + | | + + + + + | Narrative | Performed At | + + + | [address] | [facility] | | [place] [address] | [facility] | | [phone] Name: PERCY MANCILLA Phys: | RADIOLOGY | | [place] HARRY : 1960 Sex: M CSN: | | | [id number] MR# [id number] Exam Date: 01/23/2019 | | | EXAM: X-RAY SCOLI SPINE ENTR 2 VWS [place] CLINICAL HISTORY: | | | Lumbago. Spondylolisthesis. Scoliosis. COMPARISON: None | | | TECHNIQUE: Frontal lateral views of the entire spine. FINDINGS: | | | There is severe degenerative disc disease at L5/S1. There is grade 1 | | | anterior spondylolisthesis of L5 on S1 by 6.3 mm. Throughout | | | thoracolumbar spine there is mild degenerative disc disease seen | | | throughout. There is no significant scoliosis. No evidence for | | | obvious fracture however, I cannot rule out the possibility of an L5 | | | pars defect. Confirmatory CT through this area may be of benefit if | | | of clinical concern. IMPRESSION: Grade 1 anterior | | | spondylolisthesis of L5 on S1 with severe associated degenerative | | | disc disease and questionable L5 pars defect. REPORT SIGNED | | | IN OTHER VENDOR SYSTEM 01/23/2019 Reported by: Brett Hill MD | | | Electronically signed by: Brett Hill MD Transcribed | | | Date/Time: 01/23/2019 11:07 Technical Designer: FLUENCY | | + + + + + | Procedure Note | + + | Interface, Radiology Results - 01/23/2019 11:12 AM PDT [address] | | [place] [address] | | Name: PERCY MANCILLA Phys: LIZZETTE HARRY : 1960 Sex: M CSN: | | [id number] MR# [id number] Exam Date: 01/23/2019 EXAM:X-RAY SCOLI SPINE ENTR 2 | | VWS BENDNG CLINICAL HISTORY:Lumbago. Spondylolisthesis. Scoliosis. COMPARISON:None | | TECHNIQUE:Frontal lateral views of the entire spine. FINDINGS:There is severe | | degenerative disc disease at L5/S1. There is grade 1anterior spondylolisthesis of L5 on | | S1 by 6.3 mm. Throughoutthoracolumbar spine there is mild degenerative disc disease | | seenthroughout. There is no significant scoliosis. No evidence forobvious fracture | | however, I cannot rule out the possibility of an L5pars defect. Confirmatory CT through | | this area may be of benefit ifof clinical concern. IMPRESSION:Grade 1 anterior | | spondylolisthesis of L5 on S1 with severe associateddegenerative disc disease and | | questionable L5 pars defect. REPORT SIGNED IN OTHER VENDOR SYSTEM 01/23/2019 | | Reported by: Brett Hill MD Electronically signed by: Brett Hill MD Transcribed | | Date/Time: 01/23/2019 11:07Transcriptionist: FLUENCY | |CLINICAL HISTORY: | |Lumbago. Spondylolisthesis. Scoliosis. | | | |COMPARISON: | |None | | | |TECHNIQUE: | |Frontal lateral views of the entire spine. | | | |FINDINGS: | |There is severe degenerative disc disease at L5/S1. There is grade 1 | |anterior spondylolisthesis of L5 on S1 by 6.3 mm. Throughout | |thoracolumbar spine there is mild degenerative disc disease seen | |throughout. There is no significant scoliosis. No evidence for | |obvious fracture however, I cannot rule out the possibility of an L5 | |pars defect. Confirmatory CT through this area may be of benefit if | |of clinical concern. | | | |IMPRESSION: | |Grade 1 anterior spondylolisthesis of L5 on S1 with severe associated | |degenerative disc disease and questionable L5 pars defect. | | | | | | REPORT SIGNED IN OTHER VENDOR SYSTEM 01/23/2019 | |Reported by: Brett Hill MD | | | |Electronically signed by: Brett Hill MD | | | |Transcribed Date/Time: 01/23/2019 11:07 | |Technical Designer: FLUENCY | | | | | | | + + + +---------+ + + | Performing | Address | City/State/Zipcode | Phone Number | | Organization | | | | + +---------+ + + | [facility] DEPARTMENT | | | | | RADIOLOGY | | | | + +---------+ + + ORDERS OTHER (01/23/2019 12:00 AM PDT) + + + | Narrative | Performed At | + + + | | | + + + ORDERS OTHER (01/23/2019 12:00 AM PDT) + + + | Narrative | Performed At | + + + | | | + + + documented in this encounter Visit Diagnoses + + | Diagnosis | + + | Other spondylosis with radiculopathy, cervical region | + + | Spondylolisthesis at L5-S1 level | + + documented in this encounter"
--- OUTSIDE RECORDS SUMMARY | ~2020-03-28 | XMS | Encounter Summary ---
Demographics + + + | Address | [address] | | | [place] [address] | + + + | Home Phone | | + + + | Preferred Language | Unknown | + + + | Marital Status | | + + + | Holiness Affiliation | 1013 | + + + | Race | Unknown | + + + | Ethnic Group | Unknown | + + + Author + + + | Author | [facility] | | | and Timiana | + + + | Organization | [facility] | | | and Timiana [...] [place] | | | | | [address] | | + + + + + | Jane Mojica | ECON | Unknown | | + + + + + | Estelita Zamudio | MERI | Unknown | | + + + + + Care Team Providers + +------+ + | Care Media Assistant Name | Role | Phone | + +------+ + | Becca Amaya MD | PCP | | + +------+ + Encounter Details +--------+ + + + + | Date | Type | Department | Care Team | Description | +--------+ + + + + | 09/22/ | [facility] | [facility] | Robi Husain MD | Spondylolisthesis of | | 2019 | Encounter | MED CTR XRAY [address] | lumbar region | | | | [place] | [place] [address] | | | | | [place] [address] | [phone] | | | | | [phone] | | | +--------+ + + + [...] + + documented as of this encounter Medications at Time of Discharge + + + +---------+--------+ + | Medication | Sig | Dispensed | Refills | Start | End Date | | | | | | Date | | + + + +---------+--------+ + | albuterol | Inhale 2 puffs into | | 0 | | | | (VENTOLIN HFA) 90 | the lungs every 6 | | | | | | mcg/puff inhaler | hours as needed for | | | | | | | Wheezing. | | | | | + + + +---------+--------+ + | | Take 3 mLs by | | 0 | | | | albuterol-ipratropiu | nebulization Daily. | | | | | | m (DUONEB) 2.5-0.5 | | | | | | | mg/3 mL SOLN | | | | | | + + + +---------+--------+ + | atorvaSTATin | Take 20 mg by mouth | | 0 | | | | (LIPITOR) 20 mg | Daily. | | | | | | tablet | | | | | | + + + +---------+--------+ + | busPIRone (BUSPAR) | buspirone 7.5 mg | | 0 | | | | 7.5 MG tablet | tablet | | | | | + + + +---------+--------+ + | cloNIDine | clonidine HCl 0.1 mg | | 0 | | | | (CATAPRES) 0.1 mg | tablet | | | | | | tablet | | | | | | + + + +---------+--------+ + | EPINEPHrine | Inject 0.3 mg into | | 0 | | | | auto-injector | the muscle as needed | | | | | | (EPIPEN 2-MAGNOLIA) 0.3 | for Anaphylaxis. | | | | | | mg/0.3 mL injection | | | | | | + + + +---------+--------+ + | fenofibrate | Take 48 mg by mouth | | 0 | | | | (TRICOR) 48 mg | Daily. | | | | | | tablet | | | | | | + + + +---------+--------+ + | GABAPENTIN PO | Take 800 mg by mouth | | 0 | | | | | 4 times daily. | | | | | + + + +---------+--------+ + | | Take 1 tablet by | | 0 | | | | lisinopril-hydrochlo | mouth Daily. | | | | | | rothiazide | | | | | | | (PRINZIDE,ZESTORETIC | | | | | | | ) 20-25 MG per | | | | | | | tablet | | | | | | + + + +---------+--------+ + | metFORMIN | Take 500 mg by mouth | | 0 | | | | (GLUCOPHAGE) 500 mg | daily (with | | | | | | tablet | breakfast). | | | | | + + + +---------+--------+ + | omeprazole | Take 40 mg by mouth | | 0 | | | | (PRILOSEC) 20 mg | every morning | | | | | | capsule | (before breakfast). | | | | | + + + +---------+--------+ + | tiotropium | Inhale 18 mcg into | | 0 | | | | (SPIRIVA HANDIHALER) | the lungs Daily. | | | | | | 18 mcg inhalation | | | | | | | capsule | | | | | | + + + +---------+--------+ + | amitriptyline | Take 150 mg by mouth | | 0 | | | | (ELAVIL) 50 mg | nightly. | | | | 9 | | tablet | | | | | | + + + +---------+--------+ + | cholestyramine | cholestyramine (with | | 0 | | | | (QUESTRAN) 4 g | sugar) 4 gram oral | | | | 9 | | packet | powder | | | | | + + + +---------+--------+ + | DULoxetine | Take 60 mg by mouth | | 0 | | | | (CYMBALTA) [address] | 2 times daily. | | | | 9 | | capsule | | | | | | + + + +---------+--------+ + | fluticasone | Inhale 1 puff into | | 0 | | | | (FLOVENT HFA) 220 | the lungs 2 times | | | | 9 | | mcg/puff inhaler | daily. | | | | | + + + +---------+--------+ + | salmeterol | Inhale 1 puff into | | 0 | | | | (SEREVENT DISKUS) 50 | the lungs 2 times | | | | 9 | | mcg/puff diskus | daily. | | | | | | inhaler | | | | | | + + + +---------+--------+ + | traZODone | Take 100 mg by mouth | | 0 | | | | (DESYREL) 50 mg | nightly. | | | | 9 | | tablet | | | | | | + + + +---------+--------+ + documented as of this encounter Plan of Treatment Not on filedocumented as of this encounter Procedures + +--------+ + + + | Procedure Name | Priori | Date/Time | Associated Diagnosis | Comments | | | ty | | | | + +--------+ + + + | XR LUMBAR SPINE 4 + | Routin | 09/22/2018 | Spondylolisthesis | Results for this | | VW | e | 2:21 PM | of lumbar region | procedure are in the | | | | PST | | results section. | + +--------+ + + + documented in this encounter Results XR Lumbar Spine 4 + Vw (09/22/2018 2:21 PM PST) + + | Specimen | + + | | + + + + + | Narrative | Performed At | + + + | FOUR VIEWS LUMBAR SPINE 09/22/2018 2:21 PM CLINICAL HISTORY: Back | [facility] | | Pain COMPARISON: RADIOGRAPHS OCTOBER 2017 AND MORE REMOTE IMAGING | | | FINDINGS: Five non rib-bearing, lumbar type vertebrae are visible. | | | An AP view and lateral views in neutral, flexed and extended | | | positions are provided. Rightward lumbar curvature persists. Small | | | Schmorl's nodes are again visible within lumbar endplates. | | | Vertebral height is otherwise maintained. Previously described L5 | | | spondylolysis is not well visualized radiographically. Severe disc | | | space narrowing is again evident at L5-S1. Anterolisthesis is again | | | demonstrated at this level and is similar in extent with flexion and | | | extension. No other spondylolisthesis is evident. Lesser disc | | | space narrowing is again demonstrated at L2-3 and there is multilevel | | | facet hypertrophy. The sacroiliac joints and imaged sacrum, bony | | | pelvis and lower ribs are unremarkable. Cholecystectomy clips are | | | again suggested. IMPRESSION - 1. SIMILAR DEGENERATIVE DISC | | | DISEASE AND ANTEROLISTHESIS AT L5-S1 IN THE SETTING OF PREVIOUSLY | | | DESCRIBED L5 SPONDYLOLYSIS. Dictated and Signed by: Kobe Bah | | Electronically signed: 09/22/2018 3:07 PM | | + + + + + | Procedure Note | + + | Sal, Rad Results In - 09/22/2018 3:10 PM PST FOUR VIEWS LUMBAR SPINE 09/22/2018 2:21 | | PMCLINICAL HISTORY: Back PainCOMPARISON: RADIOGRAPHS OCTOBER 2017 AND MORE REMOTE | | IMAGINGFINDINGS: Five non rib-bearing, lumbar type vertebrae are visible. An AP viewand | | lateral views in neutral, flexed and extended positions are provided. Rightward lumbar | | curvature persists. Small Schmorl's nodes are again visiblewithin lumbar endplates. | | Vertebral height is otherwise maintained. Previouslydescribed L5 spondylolysis is not | | well visualized radiographically. Severe discspace narrowing is again evident at L5-S1. | | Anterolisthesis is againdemonstrated at this level and is similar in extent with | | flexion and extension. No other spondylolisthesis is evident. Lesser disc space | | narrowing is againdemonstrated at L2-3 and there is multilevel facet hypertrophy. The | | sacroiliacjoints and imaged sacrum, bony pelvis and lower ribs are unremarkable. | | Cholecystectomy clips are again suggested.IMPRESSION -1. SIMILAR DEGENERATIVE DISC | | DISEASE AND ANTEROLISTHESIS AT L5-S1 IN THESETTING OF PREVIOUSLY DESCRIBED L5 | | SPONDYLOLYSIS.Dictated and Signed by: Sharan Yen MD Electronically signed: 09/22/2018 | | 3:07 PM | |joints and imaged sacrum, bony pelvis and lower ribs are unremarkable. | |Cholecystectomy clips are again suggested. | | | |IMPRESSION - | | | |1. SIMILAR DEGENERATIVE DISC DISEASE AND ANTEROLISTHESIS AT L5-S1 IN THE | |SETTING OF PREVIOUSLY DESCRIBED L5 SPONDYLOLYSIS. | | | |Dictated and Signed by: Sharan Yen MD | | Electronically signed: 09/22/2018 3:07 PM | + + + +---------+ + + | Performing | Address | City/State/Zipcode | Phone Number | | Organization | | | | + +---------+ + + | [facility] | | | | + +---------+ + + documented in this encounter Visit Diagnoses + + | Diagnosis | + + | Spondylolisthesis of lumbar region Acquired spondylolisthesis | + + documented in this encounter"
--- OUTSIDE RECORDS SUMMARY | ~2020-03-28 | XMS | Encounter Summary ---
Demographics + + + | Address | [address] | | | [place] [address] | + + + | Home Phone | | + + + | Preferred Language | Unknown | + + + | Marital Status | | + + + | Taoism Affiliation | 1013 | + + + | Race | Unknown | + + + | Ethnic Group | Unknown | + + + Author + + + | Author | [facility] | | | and [place] | + + + | Organization | [facility] | | | and [place] | [...] [place] | | | | | [address] | | + + + + + | Jane Mojica | ECON | Unknown | | + + + + + | Estelita Zamudio | MERI | Unknown | | + + + + + Care Team Providers + +------+ + | Care Self Propelled Mining Machine Operator Name | Role | Phone | + +------+ + | Becca Amaya MD | PCP | | + +------+ + Encounter Details +--------+ + + + + | Date | Type | Department | Care Team | Description | +--------+ + + + + | 11/06/ | Abstract | [facility] | Roxanne, | | | 2017 | | NEUROSURGERY [address] | [address] | | | | | [address] | [address] [place] | | | | | [place] | [place] [address] | | | | | [address] | | | | | | [phone] | | | +--------+ + + + [...]
--- OUTSIDE RECORDS SUMMARY | ~2020-03-28 | XMS | Encounter Summary ---
Demographics + + + | Address | [address] | | | [place] [address] | + + + | Home Phone | | + + + | Preferred Language | Unknown | + + + | Marital Status | | + + + | Hoahaoism Affiliation | 1013 | + + + | Race | Unknown | + + + | Ethnic Group | Unknown | + + + Author + + + | Author | [facility] | | | and [place] | + + + | Organization | [facility] | | | and [place]iana [...] [place] | | | | | [address] | | + + + + + | Jane Mojica | ECON | Unknown | | + + + + + | Estelita Zamudio | MERI | Unknown | | + + + + + Care Team Providers + +------+ + | Care Payable Processor Name | Role | Phone | + [...] + | 02/11/ | Telephone | [facility] | Michael Lainez, | Procedure (postponed | | 2017 | | NEUROSURGERY [address] | DO [address] | ); Appointment | | | | [address] | [address] [place], [place] | (cancellation ) | | | | [place], [place] | [address] | | | | | [address] | | | | | | [phone] | | | +--------+ + + + [...] and x-rays needed Referral routed to: Neurosurgery assistant front office manager staff Imaging has been ordered by: Sanna [...] to Dr Husain. Krishna mary advise. elephone Tye fernández - Nancy Dorado - 03/24/2018 2:37 PM PDTPatient called to see if Migel was b ack yet. I let him know that Dr. Lainez has not returned and we do not have a return date fo r him yet. Percy would like to stay on Dr. Lainez's waitlist. elephone Roxanne - Jimmy Hogan Cert MA - 02/26/20 [...] know more about his return. JIMMY HOGAN eJimmy Concepcion Cert MA - 02/11/2018 4:23 PM PDTI [...]
--- OUTSIDE RECORDS SUMMARY | ~2020-03-28 | XMS | Encounter Summary ---
Demographics + + + | Address | [address] | | | [place] [address] | + + + | Home Phone | | + + + | Preferred Language | Unknown | + + + | Marital Status | Single | + + + | Confucianism Affiliation | CAT | + + + | Race | White | + + + | Ethnic Group | Not or | + + + Author + + + | Author | [facility] | + + + | Organization | [facility] | + + + | Address | Unknown | + + + | Phone | Unavailable | + + + Support + + + + + | Name | Relationship | Address | Phone | + + + + + | Mitra Ramos | ECON | [address] | | | | | [place] | | | | | [address] | | + + + + + Care Team Providers + +------+ + | Care Head Concierge Name | Role | Phone | + +------+ + | Becca Amaya MD | PCP | | + +------+ + Encounter Details +--------+ + + + + | Date | Type | Department | Care Team | Description | +--------+ + + + + | 11/05/ | Procedure | Diagnostic Imaging | | | | 2019 | Pass | [facility] | | | | | | [address] | | | | | | [place] | | | | | | [address] | | | | | | [phone] | | | +--------+ + + + [...]
--- OUTSIDE RECORDS SUMMARY | ~2020-03-28 | XMS | Encounter Summary ---
Demographics + + + | Address | [address] | | | [place] [address] | + + + | Home Phone | | + + + | Preferred Language | Unknown | + + + | Marital Status | | + + + | Nondenominational Affiliation | 1013 | + + + | Race | Unknown | + + + | Ethnic Group | Unknown | + + + Author + + + | Author | [facility] | | | and [place] | + + + | Organization | [facility] | | | and [place] | [...] [place] | | | | | [address] | | + + + + + | Jane Mojica | ECON | Unknown | | + + + + + | Estelita Zamudio | MERI | Unknown | | + + + + + Care Team Providers + +------+ + | Care Ophthalmologist Retina Specialist Name | Role | Phone | + [...] Description | +--------+--------+ + + + | 02/09/ | Refill | [facility] | Lynn Tan, | Medication Refill | | 2020 | | PULMONOLOGY [address] | ELECTRO WINNING OPERATOR [address] | | | | | [address] | [address], | | | | | [place], [place] | [place] [address] | | | | | [address] | [phone] | | | | | [phone] | | | +--------+--------+ + + + [...] Chronic bronchitis, unspecified chronic bronchitis type (HCC) | + + documented in this encounter"
--- OUTSIDE RECORDS SUMMARY | ~2020-03-28 | XMS | Encounter Summary ---
Demographics + + + | Address | [address] | | | [place] [address] | + + + | Home Phone | | + + + | Preferred Language | Unknown | + + + | Marital Status | | + + + | Uatsdin Affiliation | 1013 | + + + | Race | Unknown | + + + | Ethnic Group | Unknown | + + + Author + + + | Author | [facility] | | | and [place] | + + + | Organization | [facility] | | | and [...] [place] | | | | | [address] | | + + + + + | Jane Mojica | ECON | Unknown | | + + + + + | Estelita Zamudio | MERI | Unknown | | + + + + + Care Team Providers + +------+ + | Care Tosser Name | Role | Phone | + +------+ + | Becca Amaya MD | PCP | | + +------+ + Encounter Details +--------+ + + + + | Date | Type | Department | Care Team | Description | +--------+ + + + + | 10/08/ | Orders Only | [facility] | Michael Lainez, | Back pain, | | 2017 | | NEUROSURGERY [address] | DO [address] | unspecified back | | | | [address] | [address] [place], [place] | location, | | | | [place], [place] | [address] | unspecified back | | | | [address] | | pain laterality, | | | | [phone] | | unspecified | | | | | | chronicity (Primary | | | | | | Dx) | +--------+ + + + + Social [...] + | Diagnosis | + + | Back pain, unspecified back location, unspecified back pain laterality, unspecified | | chronicity - Primary | + + documented in this encounter"
--- OUTSIDE RECORDS SUMMARY | ~2020-03-28 | XMS | Encounter Summary ---
Demographics + + + | Address | [address] | | | [place] [address] | + + + | Home Phone | | + + + | Preferred Language | Unknown | + + + | Marital Status | | + + + | Christianity Affiliation | 1013 | + + + | Race | Unknown | + + + | Ethnic Group | Unknown | + + + Author + + + | Author | [facility] | | | and [place] | + + + | Organization | [facility] | | | and [place] [...] [place] | | | | | [address] | | + + + + + | Jane Mojica | ECON | Unknown | | + + + + + | Estelita Zamudio | MERI | Unknown | | + + + + + Care Team Providers + +------+ + | Care Electric Powerline Examiner Name | Role | Phone | + +------+ + | Becca Amaya MD | PCP | | + +------+ + Encounter Details +--------+ + + + + | Date | Type | Department | Care Team | Description | +--------+ + + + + | 06/06/ | Orders Only | [facility] | Anthony Hernandez | Cervical | | 2017 | | PHYSIATRY [address] | T[address] | radiculopathy | | | | [address] | [address] [place] | (Primary Dx) | | | | [place] | [address] | | | | | [address] | | | | | | [phone] | | | +--------+ + + + [...] as of this encounter Plan of Treatment + +---------+--------+ + + | Name | Type | Priori | Associated Diagnoses | Order Schedule | | | | ty | | | + +---------+--------+ + + | FL CONSTANTINE Cervical | Imaging | Routin | Cervical | Expected: | | Thoracic | | e | radiculopathy | 06/06/2017, Expires: | | Interlaminar | | | | 06/06/2018 | + +---------+--------+ + + documented as of this encounter Visit Diagnoses + + | Diagnosis | + + | Cervical radiculopathy - Primary Brachial neuritis or radiculitis nos | + + documented in this encounter"
--- OUTSIDE RECORDS SUMMARY | ~2020-03-28 | XMS | Encounter Summary ---
Demographics + + + | Address | [address] | | | [place] [address] | + + + | Home Phone | | + + + | Preferred Language | Unknown | + + + | Marital Status | | + + + | Baptism Affiliation | 1013 | + + + | Race | Unknown | + + + | Ethnic Group | Unknown | + + + Author + + + | Author | [facility] | | | and [place] | + + + | Organization | [facility] | | | and [...] [place] | | | | | [address] | | + + + + + | Jane Mojica | ECON | Unknown | | + + + + + | Estelita Zamudio | ECON | Unknown | | + + + + + Care Team Providers + +------+ + | Care Chemical Handler Name | Role | Phone | + +------+ + PCP | Unavailable | + +------+ + Encounter Details +--------+ + + + + | Date | Type | Department | Care Team | Description | +--------+ + + + + | 12/10/ | Emergency | [facility] | Chon Zafar | Displacement of | | 1996 | | MEDICAL CENTER | MD Joshua [address] | intervertebral disc, | | | | EMERGENCY CENTER | [place], [place] | site unspecified, | | | | [address] | [address] | without myelopathy | | | | [place], [place] | [phone] | | | | | [address] | | | | | | [phone] | | | +--------+ + + + [...] + | Diagnosis | + + | Displacement of intervertebral disc, site unspecified, without myelopathy | + + documented in this encounter"
--- OUTSIDE RECORDS SUMMARY | ~2020-03-28 | XMS | Encounter Summary ---
Demographics + + + | Address | [address] | | | [place] [address] | + + + | Home Phone | | + + + | Preferred Language | Unknown | + + + | Marital Status | Single | + + + | Adventist Affiliation | CAT | + + + | Race | White | + + + | Ethnic Group | Not or | + + + Author + + + | Author | [facility] | + + + | Organization | [facility] | + + + | Address | Unknown | + + + | Phone | Unavailable | + + + Support + + + + + | Name | Relationship | Address | Phone | + + + + + | Mitra Ramos | ECON | [address] | | | | | [place] | | | | | [address] | | + + + + + Care Team Providers + +------+ + | Care Diesel Service Journeyman Name | Role | Phone | + [...] | | radiculopath | [place] | [address] | | | | | y, lumbar | [address] | Phone: | | | | | region | Phone: | [phone] | | | | | Procedures | [phone] | | | | | | MRI SPINE | Fax: | | | | | | LUMBAR WO | [phone] | | | | | | CONTRAST [...] Closed | | Radiology | Diagnoses | Petzinger, | McMc Mri | | | | | Other | Karolina, | [address] | | | | | spondylosis | PA[address]C [address] | | | | | with | [facility] | [place] | | | | | radiculopath | [place] | [address] | | | | | y, lumbar | [address] | Phone: | | | | | region | Phone: | [phone] | | | | | Procedures | [phone] | | | | | | MRI SPINE | Fax: | | | | | | LUMBAR WO | [phone] | | | | | | CONTRAST | | | +--------+--------+ + + + + Encounter Details +--------+ + + + + | Date | Type | Department | Care Team | Description | +--------+ + + + + | 01/24/ | Hospital | Diagnostic Imaging | Karolina Franklin, | | | 2020 | Encounter | [facility] | [facility]i [address] | | | | | [address] | Doctors [place] | | | | | [place] | [address] | | | | | [address] | | | | | | [phone] | | | +--------+ + + + [...] recent travel history available. | + + + + + + | COVID-19 Exposure | Response | Date Recorded | + + + + | In the last month, have you been in contact | No / Unsure | 01/25/2020 1:30 PM | | with someone who was confirmed or | | PDT | | suspected to have Coronavirus / COVID-19? | | | + + + + documented as of this encounter Plan of Treatment Not on filedocumented as of this encounter Procedures + +--------+ + + + | Procedure Name | Priori | Date/Time | Associated Diagnosis | Comments | | | ty | | | | + +--------+ + + + | MRI SPINE LUMBAR WO | Routin | 01/25/2020 | Other spondylosis | Results for this | | CONT | e | 2:10 PM | with radiculopathy, | procedure are in the | | | | PDT | lumbar region | results section. | + +--------+ + + + documented in this encounter Results MRI SPINE LUMBAR WO CONTRAST (01/25/2020 2:10 PM PDT) + + | Specimen | + + | | + + + + + | Narrative | Performed At | + + + | [address] [place] [address] | [facility] | | [place] [address] | DEPARTMENT OF | | [phone] Name: PERCY MANCILLA Phys: | RADIOLOGY | | KAROLINA FRANKLIN : 1960 Sex: M | | | CSN: [id number] MR# [id number] Exam Date: | | | 01/25/2020 EXAM: [...] | | | Transcribed Date/Time: 01/27/2020 05:23 Circus Trainer: FLUENCY | | | | | + + + + + | Procedure Note | + + | Interface, Radiology Results - 01/27/2020 5:28 AM PDT [address] | | [place] [address] | | Name: PERCY MANCILLA Phys: KAROLINA FRANKLIN : 1960 Sex: M | | CSN: [id number] MR# [id number] Exam Date: 01/25/2020 EXAM:MRI OF THE LUMBAR [...] | | |Transcribed Date/Time: 01/27/2020 05:23 | |Circus Trainer: FLUENCY | | | | | | [...] | Other spondylosis with radiculopathy, lumbar region | + + documented in this encounter"
--- OUTSIDE RECORDS SUMMARY | ~2020-03-28 | XMS | Encounter Summary ---
Demographics + + + | Address | [address] | | | [place] [address] | + + + | Home Phone [...] + + | Author | [facility] | | | and [place] | + + + | Organization | [facility] | | | and [place] | [...] [place] | | | | | [address] | | + + + + + | Jane Mojica | ECON | Unknown | | + + + + + | Estelita Zamudio | ECON | Unknown | | + + + + + Care Team Providers + +------+ + | Care Patcher Name | Role | Phone | + +------+ + PCP | Unavailable | + +------+ + Encounter Details +--------+ + + + + | Date | Type | Department | Care Team | Description | +--------+ + + + + | 04/14/ | Emergency | [facility] | Hudson [facility]kins, | Backache, | | 1992 | | MEDICAL CENTER | [address] | unspecified | | | | EMERGENCY CENTER | [place], | | | | | [address] | [place] [address] | | | | | [place], [place] | [phone] | | | | | [address] | | | | | | [phone] | | | +--------+ + + + [...]
--- OUTSIDE RECORDS SUMMARY | ~2020-03-28 | XMS | Encounter Summary ---
Demographics + + + | Address | [address] | | | [place] [address] | + + + | Home Phone | | + + + | Preferred Language | Unknown | + + + | Marital Status | | + + + | Quaker Affiliation | 1013 | + + + | Race | Unknown | + + + | Ethnic Group | Unknown | + + + Author + + + | Author | [facility] | | | and [place] | + + + | Organization | [facility] | | | and [place] | [...] [place] | | | | | [address] | | + + + + + | Jane Mojica | ECON | Unknown | | + + + + + | Estelita Zamudio | MERI | Unknown | | + + + + + Care Team Providers + +------+ + | Care Embroidery Specialist Name | Role | Phone | + +------+ + | Becca Amaya MD | PCP | | + +------+ + Encounter Details +--------+ + + + + | Date | Type | Department | Care Team | Description | +--------+ + + + + | 05/12/ | Orders Only | [facility] | Lynn Tan, | Chronic bronchitis, | | 2019 | | PULMONOLOGY [address] | FUR REPAIR INSPECTOR [address] | unspecified chronic | | | | [address] | [facility], | bronchitis type | | | | [place], [place] | [place] [address] | (HCC) (Primary Dx); | | | | [address] | [phone] | Chronic obstructive | | | | [phone] | | pulmonary disease, | | | | | | unspecified COPD | | | | | | type (HCC) | +--------+ + + + + Social [...] type (HCC) - Primary | + + | Chronic obstructive pulmonary disease, unspecified COPD type (HCC) | + + documented in this encounter"
--- OUTSIDE RECORDS SUMMARY | ~2020-03-28 | XMS | Encounter Summary ---
Demographics + + + | Address | [address] | | | [place] [address] | + + + | Home Phone | | + + + | Preferred Language | Unknown | + + + | Marital Status | | + + + | Buddhist Affiliation | 1013 | + + + | Race | Unknown | + + + | Ethnic Group | Unknown | + + + Author + + + | Author | [facility] | | | and [place] | + + + | Organization | [facility] | | | and [...] [place] | | | | | [address] | | + + + + + | Jane Mojica | ECON | Unknown | | + + + + + | Estelita Zamudio | MERI | Unknown | | + + + + + Care Team Providers + +------+ + | Care Dressmaker Garment Fitter Name | Role | Phone | + [...] Description | +--------+--------+ + + + | 05/28/ | Refill | [facility] | Lynn Tan, | Medication Refill | | 2019 | | PULMONOLOGY [address] | PRODUCT SAFETY OFFICER [address] | | | | | [address] | [address], | | | | | [place], [place] | [place] [address] | | | | | [address] | [phone] | | | | | [phone] | | | +--------+--------+ + + + [...] this encounter Miscellaneous Notes Telephone Encounter - Guera Purcell, Writing Tutor - 06/01/2019 8:54 AM PDTCalled the pharmacy regarding the refill request after pt was seen in office and Lynn de paz in a new RX for this medication. Pharmacy said they missed that and fixed it. Electronica lly signed by Kanwal Campo Assistant at 06/01/2019 8:56 AM PDTTeleph one Encounter - Guera Purcell, Writing Tutor - 05/28/2019 2:26 PM PDTIm a little confused on this one, it doesn't show that he's had an appointment or has an up [facility] appointment, and it also says that you already sent this in, but then I have this pop up. .... 2: 28 PM PDTdocumented in this encounter Plan of Treatment Not on filedocumented as of this encounter Visit Diagnoses + + | Diagnosis | + + | Chronic bronchitis, unspecified chronic bronchitis type (HCC) - Primary | + + documented in this encounter"
--- OUTSIDE RECORDS SUMMARY | ~2020-03-28 | XMS | Encounter Summary ---
Demographics + + + | Address | [address] | | | [place] [address] | + + + | Home Phone | | + + + | Preferred Language | Unknown | + + + | Marital Status | Single | + + + | Islam Affiliation | CAT | + + + | Race | White | + + + | Ethnic Group | Not or | + + + Author + + + | Author | [facility] | + + + | Organization | [facility] | + + + | Address | Unknown | + + + | Phone | Unavailable | + + + Support + + + + + | Name | Relationship | Address | Phone | + + + + + | Mitra Ramos | ECON | [address] | | | | | [place] | | | | | [address] | | + + + + + Care Team Providers + +------+ + | Care Key Maker Name | Role | Phone | + +------+ + | Becca Amaya MD | PCP | | + +------+ + Reason for Referral Diagnostic Testing (Routine) + +--------+ + + + + | Status | Reason | Specialty | Diagnoses / | Referred By | Referred To | | | | | Procedures | Contact | Contact | + +--------+ + + + + | Authorized | | Radiology | Diagnoses | [place], | [facility] | | | | | | Lizzette Boykin MD | Nuclear | | | | | Spondylolist | [address] | Medicine | | | | | hesis at | [address] | [address] | | | | | [address] level | [address], | [place] | | | | | Procedures | [place] [address] | [place], [place] | | | | | [place] | Phone: | [phone] | | | | | &/OR JOINT | [phone] | Phone: | | | | | IMAGING | Fax: | [phone] | | | | | TOMOGRAPHIC | [phone] | | | | | | (SPECT) | | | + +--------+ + + + + Reason for Visit Diagnostic Testing (Routine) + +--------+ + + + + | Status | Reason | Specialty | Diagnoses / | Referred By | Referred To | | | | | Procedures | Contact | Contact | + +--------+ + + + + | Authorized | | Radiology | Diagnoses | Belza, | [facility] | | | | | | Lizzette Boykin MD | Nuclear | | | | | Spondylolist | [address] | Medicine | | | | | hesis at | Doctors | [address] | | | | | [address] level | [address], | [place] | | | | | Procedures | [place] [address] | [place], [place] | | | | | [place] | Phone: | [phone] | | | | | &/OR JOINT | [phone] | Phone: | | | | | IMAGING | Fax: | [phone] | | | | | TOMOGRAPHIC | [phone] | | | | | | (SPECT) | | | + +--------+ + + + + Encounter Details +--------+ + + + + | Date | Type | Department | Care Team | Description | +--------+ + + + + | 03/05/ | Hospital | Nuclear Medicine | Lizzette Harry MD | | | 2019 | Encounter | at [facility] | [address] | | | | | [address] | [place], [place] | | | | | [place] | [address] | | | | | [address] | | | | | | [phone] | | | +--------+ + + + [...] NM BONE &/OR JOINT | Routin | 03/05/2019 | Spondylolisthesis | Results for this | | IMAGING TOMOGRAPHIC | e | 11:12 AM | at L5-S1 level | procedure are in the | | (SPECT) | | PDT | | results section. | + +--------+ + + + | ORDERS OTHER | | 03/05/2019 | | Results for this | | | | 12:00 AM | | procedure are in the | | | | PDT | | results section. | + +--------+ + + + documented in this encounter Results NM BONE &/OR JOINT IMAGING TOMOGRAPHIC (SPECT) (03/05/2019 11:12 AM PDT) + + | Specimen | + + | | + + + + + | Narrative | Performed At | + + + | [address] | [facility] | | [place] [address] | DEPARTMENT OF | | [phone] Name: PERCY MANCILLA Phys: | RADIOLOGY | | LIZZETTE HARRY : 1960 Sex: M CSN: | | | [id number] MR# [id number] Exam Date: 03/05/2019 | | | EXAM: NM BONE &/OR JOINT IMAGING TOMOGRAPHIC (SPECT) [id number] | | | CLINICAL HISTORY: Spondylolisthesis at L5-S1. COMPARISON: | | | 01/23/2019 scoliosis images. TECHNIQUE: 24.4 mCi of Tc 99m MDP | | | was injected intravenously. Low resolution CT images were obtained | | | for localization. SPECT images of the lumbar spine were obtained in | | | sagittal, coronal and axial projections. FINDINGS: Noncontrast | | | CT images demonstrate severe L5-S1 intervertebral disc space | | | narrowing, endplate irregularity, extensive reactive endplate | | | sclerosis, moderate anterior and posterior spondylosis and chronic | | | height loss of the mid to posterior L5 vertebral body. There is also | | | bilateral zhir-fp-uaeuybxp facet arthropathy and chronic bilateral | | | pars defects. Severe bilateral foraminal stenosis is present. | | | There marked abnormal radiotracer uptake localizing to the endplates | | | at L5-S1, bilateral chronic pars defects as well as bilateral facet | | | arthropathy. IMPRESSION: Marked abnormal radiotracer uptake | | | localizing to the L5-S1 endplates, across the disc space and at the | | | facet joints and pars interarticularis defects. REPORT | | | SIGNED IN OTHER VENDOR SYSTEM 03/13/2019 Reported by: NIKOLAI | | | MD [place] Electronically signed by: NIKOLAI COLEMAN MD | | | Transcribed Date/Time: 03/13/2019 08:09 Industrial Sociologist: WIL | | | | | + + + + + | Procedure Note | + + | Interface, Radiology Results - 03/13/2019 8:13 AM PDT [address] | | [place] [address] | | Name: PERCY MANCILLA Phys: LIZZETTE HARRY : 1960 Sex: M CSN: | | [id number] MR# [id number] Exam Date: 03/05/2019 EXAM:NM BONE &/OR JOINT IMAGING | | TOMOGRAPHIC (SPECT) [id number] CLINICAL HISTORY:Spondylolisthesis at L5-S1. | | COMPARISON:01/23/2019 scoliosis images. TECHNIQUE:24.4 mCi of Tc 99m MDP was injected | | intravenously. Low resolution CTimages were obtained for localization. SPECT images of | | the lumbarspine were obtained in sagittal, coronal and axial projections. | | FINDINGS:Noncontrast CT images demonstrate severe L5-S1 intervertebral discspace | | narrowing, endplate irregularity, extensive reactive endplatesclerosis, moderate | | anterior and posterior spondylosis and chronicheight loss of the mid to posterior L5 | | vertebral body. There is alsobilateral xjpa-cg-egiiirjr facet arthropathy and chronic | | bilateralpars defects. Severe bilateral foraminal stenosis is present. There marked | | abnormal radiotracer uptake localizing to the endplatesat L5-S1, bilateral chronic pars | | defects as well as bilateral facetarthropathy. IMPRESSION:Marked abnormal radiotracer | | uptake localizing to the L5-S1 endplates,across the disc space and at the facet joints | | and parsinterarticularis defects. REPORT SIGNED IN OTHER VENDOR SYSTEM 03/13/2019 | | Reported by: NIKOLAI COLEMAN MD Electronically signed by: NIKOLAI COLEMAN MD | | Transcribed Date/Time: 03/13/2019 08:09Transcriptionist: FLUENCY | |01/23/2019 scoliosis images. | | | |TECHNIQUE: | |24.4 mCi of Tc 99m MDP was injected intravenously. Low resolution CT | |images were obtained for localization. SPECT images of the lumbar | |spine were obtained in sagittal, coronal and axial projections. | | | |FINDINGS: | |Noncontrast CT images demonstrate severe L5-S1 intervertebral disc | |space narrowing, endplate irregularity, extensive reactive endplate | |sclerosis, moderate anterior and posterior spondylosis and chronic | |height loss of the mid to posterior L5 vertebral body. There is also | |bilateral wiuy-jz-jqwfjano facet arthropathy and chronic bilateral | |pars defects. Severe bilateral foraminal stenosis is present. | | | |There marked abnormal radiotracer uptake localizing to the endplates | |at L5-S1, bilateral chronic pars defects as well as bilateral facet | |arthropathy. | | | |IMPRESSION: | |Marked abnormal radiotracer uptake localizing to the L5-S1 endplates, | |across the disc space and at the facet joints and pars | |interarticularis defects. | | | | | | REPORT SIGNED IN OTHER VENDOR SYSTEM 03/13/2019 | |Reported by: NIKOLAI COLEMAN MD | | | |Electronically signed by: NIKOLAI COLEMAN MD | | | |Transcribed Date/Time: 03/13/2019 08:09 | |Industrial Sociologist: FLUENCY | | | | | | | + + + +---------+ + + | Performing | Address | City/State/Zipcode | Phone Number | | Organization | | | | + +---------+ + + | [facility] | | | | | [facility] | | | | + +---------+ + + ORDERS OTHER (03/05/2019 12:00 AM PDT) + + + | Narrative | Performed At | + + + | | | + + + documented in this encounter Visit Diagnoses + + | Diagnosis | + + | Spondylolisthesis at L5-S1 level | + + documented in this encounter"
--- OUTSIDE RECORDS SUMMARY | ~2020-03-28 | XMS | Encounter Summary ---
Demographics + + + | Address | [address] | | | [place] [address] | + + + | Home Phone | | + + + | Preferred Language | Unknown | + + + | Marital Status | | + + + | Adventism Affiliation | 1013 | + + + | Race | Unknown | + + + | Ethnic Group | Unknown | + + + Author + + + | Author | [facility] | | | and [place] | + + + | Organization | [facility] | | | and [...] [place] | | | | | [address] | | + + + + + | Jane Mojica | ECON | Unknown | | + + + + + | Estelita Zamudio | MERI | Unknown | | + + + + + Care Team Providers + +------+ + | Care After School Program Coordinator Name | Role | Phone | + +------+ + | Becca Amaya MD | PCP | | + +------+ + Reason for Visit Service/Procedure (Routine) +--------+--------+ + + + + | Status | Reason | Specialty | Diagnoses / | Referred By | Referred To | | | | | Procedures | Contact | Contact | +--------+--------+ + + + + | Closed | | Radiology | Diagnoses | | [facility] | | | | | Lumbar | [place], | [address] | | | | | radiculopath | Anthony Alba MD | [place], | | | | | y | [address] | [place] | | | | | Procedures | [place] | [address] | | | | | [place] INJECT | [facility], [place] | Phone: | | | | | ANES/STEROID | [address] | [phone] | | | | | FORAMEN | Phone: | Fax: | | | | | LUMBAR/SACRA | [phone] | [phone] | | | | | L [address] IMG | Fax: | | | | | | GUIDE ,1 | [phone] | | | | | | LEVEL [place] | | | | | | | TRIAMCINOLON | | | | | | | E ACET INJ | | | | | | | NOS, 10 MG | | | | | | | 10/ | | | | | | | -Bilateral | | | | | | | L5-S1 TFESI | | | +--------+--------+ + + + + Encounter Details +--------+ + + + + | Date | Type | Department | Care Team | Description | +--------+ + + + + | 06/06/ | Hospital | [facility] | Anthony Hernandez | Lumbar radiculopathy | | 2017 | Encounter | MED CTR XRAY [address] | [address] | | | | | [place] | [address] [place], [place] | | | | | [place] [address] | [address] | | | | | [phone] | | | | | | | Sample BuilderKristine | | | | | | [place] | | +--------+ + + + + [...] this encounter Last Filed Vital Signs + +---------+ + + | Vital Sign | Reading | Time Taken | Comments | + +---------+ + + | Blood Pressure | 121/71 | 06/06/2017 1:35 PM | | | | | PDT | | + +---------+ + + | Pulse | - | - | | + +---------+ + + | Temperature | - | - | | + +---------+ + + | Respiratory Rate | - | - | | + +---------+ + + | Oxygen Saturation | - | - | | + +---------+ + + | Inhaled Oxygen | - | - | | | Concentration | | | | + +---------+ + + | Weight | - | - | | + +---------+ + + | Height | - | - | | + +---------+ + + | Body Mass Index | - | - | | + +---------+ + + documented in this encounter Medications at Time of Discharge + + + +---------+ + + | Medication | Sig | Dispensed | Refills | Start | End Date | | | | | | Date | | + + + +---------+ + + | albuterol | Inhale 2 puffs into | | 0 | | | | (VENTOLIN HFA) 90 | the lungs every 6 | | | | | | mcg/puff inhaler | hours as needed for | | | | | | | Wheezing. | | | | | + + + +---------+ + + | | Take 3 mLs by | | 0 | | | | albuterol-ipratropiu | nebulization Daily. | | | | | | m (DUONEB) 2.5-0.5 | | | | | | | mg/3 mL SOLN | | | | | | + + + +---------+ + + | EPINEPHrine | Inject 0.3 mg into | | 0 | | | | auto-injector | the muscle as needed | | | | | | (EPIPEN 2-MAGNOLIA) 0.3 | for Anaphylaxis. | | | | | | mg/0.3 mL injection | | | | | | + + + +---------+ + + | GABAPENTIN PO | Take 800 mg by mouth | | 0 | | | | | 4 times daily. | | | | | + + + +---------+ + + | omeprazole | Take 40 mg by mouth | | 0 | | | | (PRILOSEC) 20 mg | every morning | | | | | | capsule | (before breakfast). | | | | | + + + +---------+ + + | tiotropium | Inhale 18 mcg into | | 0 | | | | (SPIRIVA HANDIHALER) | the lungs Daily. | | | | | | 18 mcg inhalation | | | | | | | capsule | | | | | | + + + +---------+ + + | amitriptyline | Take 150 mg by mouth | | 0 | | | | (ELAVIL) 50 mg | nightly. | | | | 9 | | tablet | | | | | | + + + +---------+ + + | atorvaSTATin | Take 20 mg by mouth | | 0 | | | | (LIPITOR) 20 mg | nightly. | | | | 8 | | tablet | | | | | | + + + +---------+ + + | baclofen | Take 20 mg by mouth | | 0 | | | | (LIORESAL) 20 mg | 3 times daily. | | | | 8 | | tablet | | | | | | + + + +---------+ + + | beclomethasone | Inhale 1 puff into | | 0 | | | | (QVAR) 80 mcg/puff | the lungs 2 times | | | | 8 | | inhaler | daily. | | | | | + + + +---------+ + + | DULoxetine | Take 60 mg by mouth | | 0 | | | | (CYMBALTA) [address] | 2 times daily. | | | | 9 | | capsule | | | | | | + + + +---------+ + + | | Apply topically as | | 0 | | | | lidocaine-prilocaine | needed (2.5-2.5%). | | | | 8 | | (EMLA) cream | | | | | | + + + +---------+ + + | NARCAN 4 MG/0.1ML | | | 0 | 10/18/19 | | | | | | | 17 | 7 | + + + +---------+ + + | salmeterol | Inhale 1 puff into | | 0 | | | | (SEREVENT DISKUS) 50 | the lungs 2 times | | | | 9 | | mcg/puff diskus | daily. | | | | | | inhaler | | | | | | + + + +---------+ + + | senna (SENNA-LAX) | Take 1 tablet by | | 0 | | | | 8.6 mg tablet | mouth Daily. | | | | 9 | + + + +---------+ + + | traZODone | Take 100 mg by mouth | | 0 | | | | (DESYREL) 50 mg | nightly. | | | | 9 | | tablet | | | | | | + + + +---------+ + + documented as of this encounter Plan of Treatment Not on filedocumented as of this encounter Procedures + +--------+ + + + | Procedure Name | Priori | Date/Time | Associated Diagnosis | Comments | | | ty | | | | + +--------+ + + + | FL EPIDURAL STEROID | Routin | 06/06/2017 | Lumbar | Results for this | | INJECTION LUMBAR | e | 1:30 PM | radiculopathy | procedure are in the | | TRANSFORAMINAL | | PDT | | results section. | + +--------+ + + + documented in this encounter Results [place] CONSTANTINE Lumbar Transforaminal (06/06/2017 1:30 PM PDT) + + | Specimen | + + | | + + + + -+ | Narrative | Performed At | + + -+ | 06/06/2017 | [facility] | | Bilateral Transforaminal Epidural Steroid Injections Diagnosis: Lumbar | | | radiculopathy ICD-10 Code M54.16 Percy Mancilla presents to the | | | fluoroscopy suite for fluoroscopically-guided bilateral L5-S1 | | | transforaminal epidural steroid injections as part of conservative | | | management for chronic pain with lumbar radiculopathy and degenerative | | | disk disease. After informed consent was obtained, the patient lay in | | | the prone position on the fluoroscopy table. The areas were | | | identified under fluoroscopic guidance. The areas were prepped and | | | draped in sterile fashion. A 25-gauge, 1.5-inch needle was inserted | | | into each region and approximately 3 mL of buffered 1% lidocaine was | | | infused. Then, a 22-gauge spinal needle was inserted into the | | | posterior superior transforaminal space bilaterally and advanced into | | | the epidural space under fluoroscopic guidance. Confirmation into the | | | epidural space was obtained with infusion of approximately 1 mL of | | | Omnipaque contrast which showed epidural flow as well as nerve sheath | | | flow. Then, a combination of 2 mL of 1% lidocaine and 1.5 mL of 10 | | | mg/mL dexamethasone was infused, divided between the two sides. The | | | patient tolerated the procedure well without complications. Pre- and | | | post-procedure blood pressures were stable. The patient was given | | | verbal as well as written follow-up instructions. Prior to the start | | | of the procedure, the following were performed and/or verified, | | | including correct patient identity, correct site/side marked and | | | visible, agreement on the procedure to be done, correct patient | | | positioning and an accurate procedure consent form. Any safety | | | precautions based on clinical history and/or medication use have been | | | addressed. I personally performed the procedure above. Estimated blood | | | loss: MinimalComplications: NoneFindings: As expectedAnesthesia: | | | Local 1% Lidocaine | | |visible, agreement on the procedure to be done, correct patient | | |positioning and an accurate procedure consent form. Any safety precautions | | |based on clinical history and/or medication use have been addressed. I | | |personally performed the procedure above. | | | | | |Estimated blood loss: Minimal | | |Complications: None | | |Findings: As expected | | |Anesthesia: Local 1% Lidocaine | | | | | | | | + + -+ + +---------+ + + | Performing | Address | City/State/Zipcode | Phone Number | | Organization | | | | + +---------+ + + | [facility] | | | | + +---------+ + + documented in this encounter Visit Diagnoses + + | Diagnosis | + + | Lumbar radiculopathy Thoracic or lumbosacral neuritis or radiculitis, unspecified | + + documented in this encounter Administered Medications + +--------+ +-------+------+------+ | Medication Order | MAR | Action | Dose | Rate | Site | | | Action | Date | | | | + +--------+ +-------+------+------+ | dexamethasone (PF) 10 mg/mL | Given | 06/06/20 | 20 mg | | | | injection 20 mg 20 mg, Other, | | 17 1:31 | | | | | ONCE, [facility] 06/06/17 at 1330, For 1 | | PM PDT | | | | | dose | | | | | | + +--------+ +-------+------+------+ +---+---+ | | | +---+---+ + +-------+ +-------+---+---+ | iohexol (OMNIPAQUE 300) 300 | Given | 20 | 4 mLs | | | | mg/mL injection 4 mL 4 mL, | | 17 1:31 | | | | | INTRATHECAL, ONCE, Kim 06/06/17 | | PM PDT | | | | | at 1330, For 1 dose | | | | | | + +-------+ +-------+---+---+ +---+---+ | | | +---+---+ + +-------+ +-------+---+---+ | lidocaine (PF) 1% injection 2 | Given | 20 | 2 mLs | | | | mL 2 mL, Other, ONCE, Kim | | 17 1:31 | | | | | 17 at 1330, For 1 dose | | PM PDT | | | | + +-------+ +-------+---+---+ +---+---+ | | | +---+---+ + +-------+ +--------+---+---+ | lidocaine buffered 1% injection | Given | 06/06/20 | 10 mLs | | | | 10 mL 10 mL, Other, ONCE, Kim | | 17 1:31 | | | | | 06/06/17 at 1330, For 1 dose | | PM PDT | | | | + +-------+ +--------+---+---+ +---+---+ | | | +---+---+ documented in this encounter"
--- OUTSIDE RECORDS SUMMARY | ~2020-03-28 | XMS | Encounter Summary ---
Demographics + + + | Address | [address] | | | [place] [address] | + + + | Home Phone | | + + + | Preferred Language | Unknown | + + + | Marital Status | Single | + + + | Yazidi Affiliation | CAT | + + + | Race | White | + + + | Ethnic Group | Not or | + + + Author + + + | Author | [facility] | + + + | Organization | [facility] | + + + | Address | Unknown | + + + | Phone | Unavailable | + + + Support + + + + + | Name | Relationship | Address | Phone | + + + + + | Mitra Ramos | ECON | [address] | | | | | [place] | | | | | [address] | | + + + + + Care Team Providers + +------+ + | Care Adjunct Professor Of [employer] Name | Role | Phone | + [...] | | | | Procedures | [place] [address] | [place], [place] | | | | | [place] | Phone: | [phone] | | | | | &/OR JOINT | [phone] | Phone: | | | | | IMAGING | Fax: | [phone] | | | | | TOMOGRAPHIC | [phone] | | | | | | (SPECT) [...] | | | | Procedures | [place] [address] | [place], [place] | | | | | [place] | Phone: | [phone] | | | | | &/OR JOINT | [phone] | Phone: | | | | | IMAGING | Fax: | [phone] | | | | | TOMOGRAPHIC | [phone] | | | | | | (SPECT) | | | + +--------+ + + + + Encounter Details +--------+ + + + + | Date | Type | Department | Care Team | Description | +--------+ + + + + | 03/05/ | Hospital | Nuclear Medicine | Lizzette Harry MD | | | 2019 | Encounter | at [facility] | [address] | | | | | [address] | [place], [place] | | | | | [place] | [address] | | | | | [address] | | | | | | [phone] | | | +--------+ + + + [...] E | [facility] | | [place] [address] | DEPARTMENT OF | | [phone] Name: PERCY MANCILLA Phys: | RADIOLOGY | | LIZZETTE HARRY : 1960 Sex: M CSN: | | | [id number] MR# [id number] Exam Date: 03/05/2019 | | | EXAM: NM BONE &/OR JOINT IMAGING TOMOGRAPHIC (SPECT) [id number] | | | CLINICAL HISTORY: Spondylolisthesis at [...] There is also | | | bilateral tgif-me-mrrbegag facet arthropathy and chronic bilateral | | [...] | | | Transcribed Date/Time: 03/13/2019 08:09 Hydro Electric Station Operator: WIL | | | | | + + + + + | Procedure Note | + + | Interface, Radiology Results - 03/13/2019 8:13 AM PDT [address] | | [place] [address] | | Name: PERCY MANCILLA Phys: LIZZETTE HARRY : 1960 Sex: M CSN: | | [id number] MR# [id number] Exam Date: 03/05/2019 EXAM:NM BONE &/OR JOINT IMAGING | | TOMOGRAPHIC (SPECT) [id number] CLINICAL HISTORY:Spondylolisthesis at L5-S1. | | COMPARISON:01/23/2019 [...] | | vertebral body. There is alsobilateral byly-uj-xxdtdilv facet arthropathy and chronic | | bilateralpars [...] vertebral body. There is also | |bilateral iuop-gt-rikirtvg facet arthropathy and chronic bilateral | |pars [...] | | |Transcribed Date/Time: 03/13/2019 08:09 | |[employer] Station Operator: FLUENCY | | | | | | [...]
--- OUTSIDE RECORDS SUMMARY | ~2020-03-28 | XMS | Encounter Summary ---
Demographics + + + | Address | [address] | | | [place] [address] | + + + | Home Phone | | + + + | Preferred Language | Unknown | + + + | Marital Status | | + + + | Jew Affiliation | 1013 | + + + | Race | Unknown | + + + | Ethnic Group | Unknown | + + + Author + + + | Author | [facility] | | | and [place] | + + + | Organization | [facility] | | | and Timiana [...] [place] | | | | | [address] | | + + + + + | Jane Mojica | ECON | Unknown | | + + + + + | Estelita Zamudio | ECON | Unknown | | + + + + + Care Team Providers + +------+ + | Care Photocopying Equipment Mechanic Name | Role | Phone | + +------+ + | Becca Amaya MD | PCP | | + +------+ + Reason for Referral Diagnostic/Screening (Routine) +--------+--------+ + + + + | Status | Reason | Specialty | Diagnoses / | Referred By | Referred To | | | | | Procedures | Contact | Contact | +--------+--------+ + + + + | Closed | | Radiology | Diagnoses | Sucharda, | [facility] | | | | | Cervical | Sidney E, | [address] | | | | | radiculopath | PA-C [address] | [place], | | | | | y | [address] | [place] | | | | | Spondylosis | [address] | [address] | | | | | of cervical | OSCARA OSCARA, | Phone: | | | | | spine with | [place] [address] | [phone] | | | | | myelopathy | Phone: | Fax: | | | | | and | [phone] | [phone] | | | | | radiculopath | Fax: | | | | | | y Lumbar | [phone] | | | | | | radiculopath | | | | | | | y | | | | | | | Radiculopath | | | | | | | y, | | | | | | | lumbosacral | | | | | | | region | | | | | | | Cervical | | | | | | | spinal | | | | | | | stenosis | | | | | | | Hyperreflexi | | | | | | | a Foraminal | | | | | | | stenosis of | | | | | | | lumbar | | | | | | | region | | | | | | | Spondylolist | | | | | | | hesis of | | | | | | | lumbar | | | | | | | region | | | | | | | Lumbar facet | | | | | | | arthropathy | | | | | | | Procedures | | | | | | | MRI | | | | | | | Cervical | | | | | | | Spine wo | | | | | | | Contrast | | | +--------+--------+ + + + + Diagnostic/Screening (Routine) +--------+--------+ + + + + | Status | Reason | Specialty | Diagnoses / | Referred By | Referred To | | | | | Procedures | Contact | Contact | +--------+--------+ + + + + | Closed | | Radiology | Diagnoses | Sucharda, | [facility] | | | | | Cervical | Sidney E, | [address] | | | | | radiculopath | PA-C [address] | [place], | | | | | y | [address] | [place] | | | | | Spondylosis | [address] | [address] | | | | | of cervical | RADHA GARCIA, | Phone: | | | | | spine with | [place] [address] | [phone] | | | | | myelopathy | Phone: | Fax: | | | | | and | [phone] | [phone] | | | | | radiculopath | Fax: | | | | | | y Lumbar | [phone] | | | | | | radiculopath | | | | | | | y | | | | | | | Radiculopath | | | | | | | y, | | | | | | | lumbosacral | | | | | | | region | | | | | | | Cervical | | | | | | | spinal | | | | | | | stenosis | | | | | | | Hyperreflexi | | | | | | | a Foraminal | | | | | | | stenosis of | | | | | | | lumbar | | | | | | | region | | | | | | | Spondylolist | | | | | | | hesis of | | | | | | | lumbar | | | | | | | region | | | | | | | Lumbar facet | | | | | | | arthropathy | | | | | | | Procedures | | | | | | | MRI Lumbar | | | | | | | Spine wo | | | | | | | Contrast | | | | | | | Imaging will | | | | | | | contact the | | | | | | | patient to | | | | | | | schedule | | | +--------+--------+ + + + + Encounter Details +--------+ + + + + | Date | Type | Department | Care Team | Description | +--------+ + + + + | 10/01/ | Orders Only | [facility] [place] | EstivenbriseidaSidney epps, | Cervical | | 2019 | | NEUROSURGERY [address] | PA-C [address] | radiculopathy | | | | [address] | [address] [place] | (Primary Dx); | | | | [place], [place] | [place] [address] | Spondylosis of | | | | [address] | [phone] | cervical spine with | | | | [phone] | | myelopathy and | | | | | | radiculopathy; | | | | | | Lumbar | | | | | | radiculopathy; | | | | | | Radiculopathy, | | | | | | lumbosacral region; | | | | | | Cervical spinal | | | | | | stenosis; | | | | | | Hyperreflexia; | | | | | | Foraminal stenosis | | | | | | of lumbar region; | | | | | | Spondylolisthesis of | | | | | | lumbar region; | | | | | | Lumbar facet | | | | | | arthropathy | +--------+ + + + + Social [...] filedocumented as of this encounter Results MRI Lumbar Spine wo Contrast (10/16/2018 2:58 PM PST) + + | Specimen | + + | | + + + + + | Narrative | Performed At | + + + | UNENHANCED MRI LUMBAR SPINE WITH GENERAL SEDATION 10/16/2018 2:46 PM | [facility] | | CLINICAL HISTORY: lumbar spondylosis with radiculopathy | | | COMPARISON: Radiographs September 22, MRI August 2017 TECHNIQUE: | | | General sedation was administered per the anesthesia department. The | | | following 3T MR sequences of the lumbar spine were obtained: 1. | | | Axial and sagittal T1. 2. Axial, sagittal, and coronal T2. 3. | | | Sagittal STIR. FINDINGS: Five non rib-bearing, lumbar type | | | vertebrae are suggested on the coronal sequence. Straightening of the | | | lumbar lordosis is again demonstrated. There are similar Schmorl's | | | nodes within mid to upper lumbar and lower thoracic vertebral | | | endplates. Vertebral height is otherwise maintained. Bilateral L5 | | | spondylolysis is again noted. The conus medullaris is unremarkable, | | | terminating at L1. A circumaortic left renal vein is suggested. | | | Imaged intra-abdominal and paraspinal structures are otherwise | | | unremarkable. The T11-12, T12-L1 and L1-2 levels demonstrate no | | | significant disc pathology or stenosis on provided sagittal images | | | through the region. L2-3: Disc desiccation, mild to moderate disc | | | space narrowing and a minimal posterior disc bulge persist, without | | | stenosis. L3-4: Disc desiccation persists. Anterior annular tear | | | is now visible. 1 to 2 mm retrolisthesis combines with a mild | | | posterior disc bulge to minimally narrow central canal and foramina | | | without visible nerve root encroachment. A left facet joint | | | effusion persists. L4-5: Disc desiccation, anterior annular tear | | | and dorsal ligamentous and facet hypertrophy persist, without | | | stenosis. L5-S1: Severe disc space narrowing, 7 mm anterolisthesis | | | and a generalized disc osteophyte complex again combine with dorsal | | | ligamentous and facet hypertrophy to severely narrow the left greater | | | than right foramina, with encroachment on the exiting L5 nerve | | | roots. A left facet joint effusion persists. IMPRESSION - 1. | | | SEVERE DEGENERATIVE DISC DISEASE, CHRONIC ANTEROLISTHESIS AND | | | FORAMINAL STENOSIS AT L5-S1 IN THE SETTING OF L5 SPONDYLOLYSIS, WITH | | | ENCROACHMENT ON THE EXITING L5 NERVE ROOTS. 2. EARLY | | | DEGENERATIVE DISC DISEASE ELSEWHERE WITHOUT SIGNIFICANT STENOSIS OR | | | NERVE ROOT ENCROACHMENT. 3. STRAIGHTENING OF THE LUMBAR LORDOSIS | | | WITH LOWER LUMBAR FACET HYPERTROPHY. Dictated and Signed by: Sharan | | | MD Farshad Electronically signed: 10/16/2018 3:49 PM | | + + + + + | Procedure Note | + + | Sal, Rad Results In - 10/16/2018 3:52 PM PST UNENHANCED MRI LUMBAR SPINE WITH | | GENERAL SEDATION 10/16/2018 2:46 PMCLINICAL HISTORY: lumbar spondylosis with | | radiculopathy COMPARISON: Radiographs September 22, MRI August 2017TECHNIQUE: General | | sedation was administered per the anesthesia department. Thefollowing 3T MR sequences | | of the lumbar spine were obtained:1. Axial and sagittal T1.2. Axial, sagittal, and | | coronal T2.3. Sagittal STIR.FINDINGS: Five non rib-bearing, lumbar type vertebrae are | | suggested on thecoronal sequence. Straightening of the lumbar lordosis is again | | demonstrated. There are similar Schmorl's nodes within mid to upper lumbar and lower | | thoracicvertebral endplates. Vertebral height is otherwise maintained. Bilateral | | [id number] is again noted. The conus medullaris is unremarkable, terminatingat L1. | | A circumaortic left renal vein is suggested. Imaged intra-abdominal andparaspinal | | structures are otherwise unremarkable.The T11-12, T12-L1 and L1-2 levels demonstrate no | | significant disc pathology orstenosis on provided sagittal images through the | | region.L2-3: Disc desiccation, mild to moderate disc space narrowing and a | | minimalposterior disc bulge persist, without stenosis.L3-4: Disc desiccation persists. | | Anterior annular tear is now visible. 1 to 2mm retrolisthesis combines with a mild | | posterior disc bulge to minimally narrowcentral canal and foramina without visible nerve | | root encroachment. A leftfacet joint effusion persists.L4-5: Disc desiccation, | | anterior annular tear and dorsal ligamentous and facethypertrophy persist, without | | stenosis.L5-S1: Severe disc space narrowing, 7 mm anterolisthesis and a generalized | | discosteophyte complex again combine with dorsal ligamentous and facet hypertrophyto | | severely narrow the left greater than right foramina, with encroachment onthe exiting L5 | | nerve roots. A left facet joint effusion persists.IMPRESSION -1. SEVERE DEGENERATIVE | | DISC DISEASE, CHRONIC ANTEROLISTHESIS AND FORAMINALSTENOSIS AT L5-S1 IN THE SETTING OF | | L5 SPONDYLOLYSIS, WITH ENCROACHMENT ON THEEXITING L5 NERVE ROOTS.2. EARLY DEGENERATIVE | | DISC DISEASE ELSEWHERE WITHOUT SIGNIFICANT STENOSIS ORNERVE ROOT ENCROACHMENT.3. | | STRAIGHTENING OF THE LUMBAR LORDOSIS WITH LOWER LUMBAR FACET HYPERTROPHY.Dictated and | | Signed by: Sharan Yen MD Electronically signed: 10/16/2018 3:49 PM | |central canal and foramina without visible nerve root encroachment. A left | |facet joint effusion persists. | | | |L4-5: Disc desiccation, anterior annular tear and dorsal ligamentous and facet | |hypertrophy persist, without stenosis. | | | |L5-S1: Severe disc space narrowing, 7 mm anterolisthesis and a generalized disc | |osteophyte complex again combine with dorsal ligamentous and facet hypertrophy | |to severely narrow the left greater than right foramina, with encroachment on | |the exiting L5 nerve roots. A left facet joint effusion persists. | | | |IMPRESSION - | |1. SEVERE DEGENERATIVE DISC DISEASE, CHRONIC ANTEROLISTHESIS AND FORAMINAL | |STENOSIS AT L5-S1 IN THE SETTING OF L5 SPONDYLOLYSIS, WITH ENCROACHMENT ON THE | |EXITING L5 NERVE ROOTS. | | | |2. EARLY DEGENERATIVE DISC DISEASE ELSEWHERE WITHOUT SIGNIFICANT STENOSIS OR | |NERVE ROOT ENCROACHMENT. | | | |3. STRAIGHTENING OF THE LUMBAR LORDOSIS WITH LOWER LUMBAR FACET HYPERTROPHY. | | | |Dictated and Signed by: Sharan Yen MD | | Electronically signed: 10/16/2018 3:49 PM | + + + +---------+ + + | Performing | Address | City/State/Zipcode | Phone Number | | Organization | | | | + +---------+ + + | [facility] | | | | + +---------+ + + MRI Cervical Spine wo Contrast (10/16/2018 2:27 PM PST) + + | Specimen | + + | | + + + + + | Narrative | Performed At | + + + | MRI CERVICAL SPINE WO CONTRAST 10/16/2018 2:24 PM HISTORY: | [facility] | | Cervical spondylosis with radiculopathy. COMPARISON: MRI cervical | | | spine 05/23/2017. PROTOCOL: Sagittal T2, sagittal T1, axial T2, | | | axial GRE, sagittal STIR, coronal T1. FINDINGS: Visualized brain | | | and skull base demonstrate no acute findings. Mild mucous membrane | | | thickening are in the maxillary sinuses. The right parotid gland is | | | not seen and may be atrophic or previously resected, as before. | | | Vertebral body height are preserved. There is extensive cervical | | | spondylosis. Moderate retrolisthesis is seen at C4 over C5. There is | | | mild retrolisthesis of C5 over C6. Disc height are maintained. | | | The spinal cord demonstrates normal signal with no evidence for | | | myelomalacia or mass lesions. The atlantoaxial joint demonstrates | | | no acute findings. C3-4: A 2 mm posterior broad-based disc | | | protrusion is observed eccentric to the right lateral recess. Mild | | | facet hypertrophy and uncovertebral hypertrophy are present. There is | | | mild central stenosis in the region of the right lateral recess with | | | AP dimension of the canal measuring 10 mm. Mild right neural | | | foraminal canal stenosis is seen. C4-5: A 2 mm posterior | | | broad-based disc protrusion is present along with moderate facet | | | hypertrophy and uncovertebral hypertrophy. There is moderate central | | | stenosis with AP dimension of the canal measuring 8 mm. Moderate | | | bilateral neural foraminal stenoses are seen. C5-6: A 1 mm | | | posterior disc bulge is present along with severe facet hypertrophy | | | and uncovertebral hypertrophy. There is mild central stenosis with AP | | | dimension of the canal measuring 9 mm. Moderate to severe right and | | | severe left neural foraminal canal stenoses are seen. C6-7: A 1 | | | mm posterior disc bulge is present along with mild facet hypertrophy | | | and uncovertebral hypertrophy. There is mild central stenosis with AP | | | dimension of the measuring 10 mm. Moderate bilateral neural foraminal | | | canal stenoses are noted. C7-T1: No central canal or neural | | | foramina canal stenosis. Soft tissue structures of the neck are | | | unremarkable. There is mild spondylosis of the upper thoracic | | | spine with multilevel moderate disc narrowing. Small disc herniations | | | are at T1-2, T2-3, and T4-5 with no significant central stenosis. | | | Moderate bilateral neural foraminal canal stenoses are at T1-2 and | | | T2-3. IMPRESSION - Multilevel degenerative changes including | | | moderate central stenosis at C4-5 and mild central stenoses at C3-4, | | | C5-6, and C6-7. Prominent neural foraminal canal stenoses are | | | visualized as described above. Dictated and Signed by: Ajit | | | MD Paul Electronically signed: 10/16/2018 3:11 PM | | + + + + + | Procedure Note | + + | Sal, Rad Results In - 10/16/2018 3:14 PM PST MRI CERVICAL SPINE WO CONTRAST | | 10/16/2018 2:24 PM HISTORY: Cervical spondylosis with radiculopathy.COMPARISON: MRI | | cervical spine 05/23/2017.PROTOCOL: Sagittal T2, sagittal T1, axial T2, axial GRE, | | sagittal STIR, coronalT1.FINDINGS:Visualized brain and skull base demonstrate no acute | | findings. Mild mucousmembrane thickening are in the maxillary sinuses. The right parotid | | gland is notseen and may be atrophic or previously resected, as before.Vertebral body | | height are preserved. There is extensive cervical spondylosis.Moderate retrolisthesis is | | seen at C4 over C5. There is mild retrolisthesis ofC5 over C6.Disc height are | | maintained.The spinal cord demonstrates normal signal with no evidence for myelomalacia | | ormass lesions.The atlantoaxial joint demonstrates no acute findings.C3-4: A 2 mm | | posterior broad-based disc protrusion is observed eccentric to theright lateral recess. | | Mild facet hypertrophy and uncovertebral hypertrophy arepresent. There is mild central | | stenosis in the region of the right lateralrecess with AP dimension of the canal | | measuring 10 mm. Mild right neuralforaminal canal stenosis is seen.C4-5: A 2 mm | | posterior broad-based disc protrusion is present along withmoderate facet hypertrophy | | and uncovertebral hypertrophy. There is moderatecentral stenosis with AP dimension of | | the canal measuring 8 mm. Moderatebilateral neural foraminal stenoses are seen.C5-6: A 1 | | mm posterior disc bulge is present along with severe facet hypertrophyand uncovertebral | | hypertrophy. There is mild central stenosis with AP dimensionof the canal measuring 9 | | mm. Moderate to severe right and severe left neuralforaminal canal stenoses are | | seen.C6-7: A 1 mm posterior disc bulge is present along with mild facet hypertrophyand | | uncovertebral hypertrophy. There is mild central stenosis with AP dimensionof the | | measuring 10 mm. Moderate bilateral neural foraminal canal stenoses arenoted.C7-T1: No | | central canal or neural foramina canal stenosis.Soft tissue structures of the neck are | | unremarkable.There is mild spondylosis of the upper thoracic spine with multilevel | | moderatedisc narrowing. Small disc herniations are at T1-2, T2-3, and T4-5 with | | nosignificant central stenosis. Moderate bilateral neural foraminal canal stenosesare at | | T1-2 and T2-3.IMPRESSION -Multilevel degenerative changes including moderate central | | stenosis at C4-5 andmild central stenoses at C3-4, C5-6, and C6-7. Prominent neural | | foraminal canalstenoses are visualized as described above.Dictated and Signed by: Ajit | | MD Paul Electronically signed: 10/16/2018 3:11 PM | |C4-5: A 2 mm posterior broad-based disc protrusion is present along with | |moderate facet hypertrophy and uncovertebral hypertrophy. There is moderate | |central stenosis with AP dimension of the canal measuring 8 mm. Moderate | |bilateral neural foraminal stenoses are seen. | | | |C5-6: A 1 mm posterior disc bulge is present along with severe facet hypertrophy | |and uncovertebral hypertrophy. There is mild central stenosis with AP dimension | |of the canal measuring 9 mm. Moderate to severe right and severe left neural | |foraminal canal stenoses are seen. | | | |C6-7: A 1 mm posterior disc bulge is present along with mild facet hypertrophy | |and uncovertebral hypertrophy. There is mild central stenosis with AP dimension | |of the measuring 10 mm. Moderate bilateral neural foraminal canal stenoses are | |noted. | | | |C7-T1: No central canal or neural foramina canal stenosis. | | | |Soft tissue structures of the neck are unremarkable. | | | |There is mild spondylosis of the upper thoracic spine with multilevel moderate | |disc narrowing. Small disc herniations are at T1-2, T2-3, and T4-5 with no | |significant central stenosis. Moderate bilateral neural foraminal canal stenoses | |are at T1-2 and T2-3. | | | |IMPRESSION - | |Multilevel degenerative changes including moderate central stenosis at C4-5 and | |mild central stenoses at C3-4, C5-6, and C6-7. Prominent neural foraminal canal | |stenoses are visualized as described above. 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
--- OUTSIDE RECORDS SUMMARY | ~2020-03-28 | XMS | Encounter Summary ---
Demographics + + + | Address | [address] | | | [place] [address] | + + + | Home Phone | | + + + | Preferred Language | Unknown | + + + | Marital Status | Single | + + + | Samaritan Affiliation | CAT | + + + | Race | White | + + + | Ethnic Group | Not or | + + + Author + + + | Author | [facility] | + + + | Organization | [facility] | + + + | Address | Unknown | + + + | Phone | Unavailable | + + + Support + + + + + | Name | Relationship | Address | Phone | + + + + + | Mitra Ramos | ECON | [address] | | | | | [place] | | | | | [address] | | + + + + + Care Team Providers + +------+ + | Care Chemical Plant Worker Name | Role | Phone | [...] | | | | region | | [address] | | | | | Procedures | | Phone: | | | | | NM BONE &/OR | | [phone] | | | | | JOINT | [...] | | | | region | | [address] | | | | | Procedures | | Phone: | | | | | NM BONE &/OR | | [phone] | | | | | JOINT | [...] | | 2019 | Encounter | at [facility] | [address] | | | | | [address] [place], [place] | | | | | [place] | [address] | | | | | [address] | | | | | | [phone] | | | +--------+ + + + [...] | + + + | [address] | [facility] | | [place] [address] | DEPARTMENT | | [phone] Name: PERCY MANCILLA Phys: | RADIOLOGY | | LIZZETTE HARRY : 1960 Sex: M CSN: | | | [id number] MR# [id number] Exam Date: 01/23/2019 | | | EXAM: NM BONE &/OR JOINT IMAGING TOMOGRAPHIC (SPECT) [id number] | | | CLINICAL HISTORY: Spine pain. [...] | | | Transcribed Date/Time: 01/23/2019 14:09 Excel Expert: FLUENCY | | | | | + + + + + | Procedure Note | + + | Interface, Radiology Results - 01/23/2019 2:14 PM PDT [address] | | [place] [address] | | Name: PERCY MANCILLA Phys: LIZZETTE HARRY : 1960 Sex: M CSN: | | [id number] MR# [id number] Exam Date: 01/23/2019 EXAM:NM BONE &/OR JOINT IMAGING | | TOMOGRAPHIC (SPECT) [id number] CLINICAL HISTORY:Spine pain. Spondylolisthesis. Neck | | [...] | | |Transcribed Date/Time: 01/23/2019 14:09 | |Excel Expert: FLUENCY | | | | | | [...] | + + + | [address] | [facility] | | [place] [address] | [facility] | | [phone] Name: PERCY MANCILLA Phys: | RADIOLOGY | | LIZZETTE HARRY : 1960 Sex: M CSN: | | | [id number] MR# [id number] Exam Date: 01/23/2019 | | | EXAM: [...] Transcribed | | | Date/Time: 01/23/2019 11:07 Excel Expert: FLUENCY | | + + + + + | Procedure Note | + + | Interface, Radiology Results - 01/23/2019 11:12 AM PDT [address] | | [place] [address] | | Name: PERCY MANCILLA Phys: LIZZETTE HARRY : 1960 Sex: M CSN: | | [id number] MR# [id number] Exam Date: 01/23/2019 EXAM:X-RAY SCOLI SPINE ENTR [...] | | |Transcribed Date/Time: 01/23/2019 11:07 | |Excel Expert: FLUENCY | | | | | | | + + + +---------+ + + | Performing | Address | City/State/Zipcode | Phone Number | | Organization | | | | + +---------+ + + | [facility] DEPARTMENT | | | | | RADIOLOGY [...]
--- OUTSIDE RECORDS SUMMARY | ~2020-03-28 | XMS | Encounter Summary ---
Demographics + + + | Address | [address] | | | [place] [address] | + + + | Home Phone | | + + + | Preferred Language | Unknown | + + + | Marital Status | | + + + | Orthodox Affiliation | 1013 | + + + | Race | Unknown | + + + | Ethnic Group | Unknown | + + + Author + + + | Author | [facility] | | | and [place] | + + + | Organization | [facility] | | | and [place] [...] [place] | | | | | [address] | | + + + + + | Jane Mojica | ECON | Unknown | | + + + + + | Estelita Zamudio | ECON | Unknown | | + + + + + Care Team Providers + +------+ + | Care Information Technology Advisor Name | Role | Phone | + +------+ + PCP | Unavailable | + +------+ + Encounter Details +--------+ + + + + | Date | Type | Department | Care Team | Description | +--------+ + + + + | 12/18/ | Emergency | [facility] | Conversion | Backache, | | 1996 | | [facility] | Transaction, | unspecified | | | | [facility] | Provider Unknown | | | | | [address] | | | | | | [place], [place] | (Fax) | | | | | [address] | | | | | | [phone] | | | +--------+ + + + [...]
--- OUTSIDE RECORDS SUMMARY | ~2020-03-28 | XMS | Encounter Summary ---
Demographics + + + | Address | [address] | | | [place] [address] | + + + | Home Phone | | + + + | Preferred Language | Unknown | + + + | Marital Status | Single | + + + | Mormon Affiliation | CAT | + + + [...] Mitra Ramos | ECON | [address] [facility] | | | | | [place] | | | | | [address] | | + + + + + Care Team Providers + +------+ + | Care Mobile Patrol Officer Name | Role | Phone | + [...] | | | | Procedures | [place] [address] | [place] | | | | | NM BONE | Phone: | [phone] | | | | | &/OR JOINT | [phone] | Phone: | | | | | IMAGING | Fax: | [phone] | | | | | TOMOGRAPHIC | [phone] | | | | | | (SPECT) | | | + +--------+ + + + + Encounter Details +--------+ + + + + | Date | Type | Department | Care Team | Description | +--------+ + + + + | 02/16/ | Transcribe | [facility] | Lizzette Harry MD | | | 2019 | Orders | [facility] [address] | | | | | [address] | [address] [place], [place] | | | | | [place] | [address] | | | | | [address] | | | +--------+ + + + [...] | + + + | [address] [place] [address] | [facility] | | [place] [address] | DEPARTMENT | | [phone] Name: PERCY MANCILLA Phys: | RADIOLOGY | | LIZZETTE HARRY : 1960 Sex: M CSN: | | | [id number] MR# [id number] Exam Date: 03/05/2019 | | | EXAM: NM BONE &/OR JOINT IMAGING TOMOGRAPHIC (SPECT) 23753 | | | CLINICAL HISTORY: Spondylolisthesis at [...] There is also | | | bilateral ypul-hu-srtdzdim facet arthropathy and chronic bilateral | | [...] | | | Transcribed Date/Time: 03/13/2019 08:09 Utility Technician: FLUENCY | | | | | + + + + + | Procedure Note | + + | Interface, Radiology Results - 03/13/2019 8:13 AM PDT [address] | | [place] [address] | | Name: PERCY MANCILLA Phys: LIZZETTE HARRY : 1960 Sex: M CSN: | | [id number] MR# [id number] Exam Date: 03/05/2019 EXAM:NM BONE &/OR JOINT IMAGING | | TOMOGRAPHIC (SPECT) 97836 CLINICAL HISTORY:Spondylolisthesis at L5-S1. | | COMPARISON:01/23/2019 [...] | | vertebral body. There is alsobilateral jjpf-gb-zfxwhman facet arthropathy and chronic | | bilateralpars [...] MD | | Transcribed Date/Time: 03/13/2019 08:09Transcriptionist: WIL | |01/23/2019 scoliosis images. | | | [...] vertebral body. There is also | |bilateral shca-uk-waukrpov facet arthropathy and chronic bilateral | |pars [...] | | |Transcribed Date/Time: 03/13/2019 08:09 | |Utility Technician: WIL | | | | | | | [...]
--- OUTSIDE RECORDS SUMMARY | ~2020-03-28 | XMS | Clinical Summary ---
Demographics + + + | Address | [address] | | | [place] [address] | + + + | Home Phone [...] Author + + + | Author | [facility] | + + + | Organization | [facility] | + + + | Address | Unknown | + + + | Phone | Unavailable | + + + Support + + + + + | Name | Relationship | Address | Phone | + + + + + | Mitra Ramos | ECON | [address] [facility] | | | | | [place] | | | | | [address] | | + + + + + Care Team Providers + +------+ + | Care Reporter Name | Role | Phone | + +------+ + | Becca Amaya MD | PCP | | + +------+ + Source Comments EL[facility] is fully live on both [facility] and [facility] Allergies Not on File Medications Not on file Active Problems Not on file Encounters +--------+ + + + + | Date | Type | Specialty | Care Team | Description | +--------+ + + + + | 01/24/ | Hospital | Radiology | Karolina Franklin, | | | 2019 | Encounter | | PA-C | | +--------+ + + + + | 01/24/ | Travel | | | | | 2019 | | | | | +--------+ + + + + | 20/ | Procedure | Radiology | | | | 2020 | Pass | | | | +--------+ + + + + from Last 3 Months Social History + +-------+ +--------+------+ | Tobacco [...] recent travel history available. | + + Last Filed Vital Signs Not on file Plan of Treatment + + + + + | Health Maintenance | Due Date | Last Done | Comments | + + + + + | Influenza (Flu) | Completed | 06/23/2019, 05/29/2018, | | | vaccination | | 06/14/2017, Additional history | | | | | exists | | + + + + + | Pneumococcal | Completed | 11/03/2019, 10/17/2017 | | | vaccination | | | | + + + + + Procedures + +--------+ + + + | [...] section. | + +--------+ + + + from Last 3 Months Results MRI SPINE LUMBAR WO CONTRAST (01/25/2020 2:10 PM PDT) + + | Specimen | + + | | + + + + + | Narrative | Performed At | + + + | [address] [place] [address] | [facility] | | [place] [address] | DEPARTMENT OF | | [phone] Name: PERCY MANCILLA Phys: | RADIOLOGY | | KAROLINA FRANKLIN : 1960 Sex: M | | | CSN: [id number] MR# [id number] Exam Date: | | | 01/25/2020 EXAM: [...] | | | Transcribed Date/Time: 01/27/2020 05:23 Car Electronics Installer: FLUENCY | | | | | + + + + + | Procedure Note | + + | Interface, Radiology Results - 01/27/2020 5:28 AM PDT [address] | | [address] [place] [address] | | Name: PERCY MANCILLA Phys: KAROLINA FRANKLIN : 1960 Sex: M | | CSN: [id number] MR# [id number] Exam Date: 01/25/2020 EXAM:MRI OF THE LUMBAR [...] | | |Transcribed Date/Time: 01/27/2020 05:23 | |Car Electronics Installer: FLUENCY | | | | | | | + + + +---------+ + + | Performing | Address | City[facility] Phone Number | | Organization | | | | + +---------+ + + | [facility] | | | | | RADIOLOGY | | | | + +---------+ + + from Last 3 Months Insurance + +--------+ +--------+ + +--------+ | Payer | Benefi | Subscriber | Effect | Phone | Address | Type | | | t Plan | ID | ry | | | | | | / | | Dates | | | | | | Group | | | | | | + +--------+ +--------+ + +--------+ | MEDICARE | MEDICA | xxxxxxxxxxx | Effect | [phone] | [address] | Medica | | | RE A & | | ry | [address] | [address] | re | | | B | | for | | [place], [place] | | | | | | all | | [phone] | | | | | | dates | | | | + +--------+ +--------+ + +--------+ | LEVEL GLASS FORMING MACHINE OPERATOR MEDICAID | LEVEL GLASS FORMING MACHINE OPERATOR | xxxxxxxx | Effect | | | Medica | | | [place] | | ry | | | id | | | [place] | | for | | | | | | | | all | | | | | | | | dates | | | | + +--------+ +--------+ + +--------+ + +--------+ +--------+ + + | Guarantor Name | Accoun | Relation to | Date | Phone | Billing Address | | | t Type | Patient | of | | | | | | | | | | + +--------+ +--------+ + + | PERCY MANCILLA | Person | Self | | | [address] | | | al/Fam | | | [phone] | [place] [address] | | | [place] | | | 1 (Home) | | + +--------+ +--------+ + + | Percy Mancilla | Person | Self | [birth year] | [address] | | | al/Fam | | 1961 | [phone] | [place] | | | [place] | | | 1 (Home) | [address] | + +--------+ +--------+ + +"
--- OUTSIDE RECORDS SUMMARY | ~2020-03-28 | XMS | Encounter Summary ---
Demographics + + + | Address | [address] | | | [place] [address] | + + + | Home Phone | | + + + | Preferred Language | Unknown | + + + | Marital Status | Single | + + + | Moravian Affiliation | CAT | + + + | Race | White | + + + | Ethnic Group | Not or | + + + Author + + + | Author | [facility] | + + + | Organization | [facility] | + + + | Address | Unknown | + + + | Phone | Unavailable | + + + Support + + + + + | Name | Relationship | Address | Phone | + + + + + | Mitra Ramos | ECON | [address] [facility] | | | | | [place] | | | | | [address] | | + + + + + Care Team Providers + +------+ + | Care Storekeeper Helper Name | Role | Phone | + +------+ + PCP | Unavailable | + +------+ + Encounter Details +--------+ + + + + | Date | Type | Department | Care Team | Description | +--------+ + + + + | 01/15/ | Transcribe | [facility] | Transcribe | | | 2019 | Orders | [facility] [address] | Encounter, Provider, | | | | | [address] | [address] | | | | | [place] | [place] [address] | | | | | [address] | | | +--------+ + + + [...] | + +---------+--------+ + + | X-RAY SCOLI SPINE | Imaging | Routin | Acquired | Expected: | | ENTR RODRIGUEZ AP &LAT | | e | spondylolisthesis of | 01/15/2019, Expires: | | | | | lumbosacral region | 02/16/2020 | + +---------+--------+ + + documented as of this encounter Visit Diagnoses + + | Diagnosis | + + | Acquired spondylolisthesis of lumbosacral region - Primary Acquired spondylolisthesis | + + documented in this encounter"
--- OUTSIDE RECORDS SUMMARY | ~2020-03-28 | XMS | Encounter Summary ---
Demographics + + + | Address | [address] | | | [place] [address] | + + + | Home Phone [...] Author + + + | Author | [facility] | + + + | Organization | [facility] | + + + | Address | Unknown | + + + | Phone | Unavailable | + + + Support + + + + + | Name | Relationship | Address | Phone | + + + + + | Mitra Ramos | ECON | [address] [facility] | | | | | [place] | | | | | [address] | | + + + + + Care Team Providers + +------+ + | Care Student Finance Specialist Name | Role | Phone | + +------+ + | Becca Amaya MD | PCP | | + +------+ + Encounter Details +--------+ + + + + | Date | Type | Department | Care Team | Description | +--------+ + + + + | 01/23/ | Hospital | Diagnostic Imaging | Mejia Luciano MD | | | 2019 | Encounter | at [facility] | [address] | | | | | [address] [place], [place] | | | | | [place], [place] | [address] | | | | | [address] | | | | | | [phone] | | | +--------+ + + + [...] | Imaging | Routin | Acquired | 1 Occurrences | | ENTR SRVY AP &LAT | | e | spondylolisthesis of | starting 01/23/2019 | | | | | lumbosacral region | until 01/23/2019 | + +---------+--------+ + + documented as of this encounter Visit Diagnoses + + | Diagnosis | + + | Acquired spondylolisthesis of lumbosacral region Acquired spondylolisthesis | + + documented in this encounter"
--- OUTSIDE RECORDS SUMMARY | ~2020-03-28 | XMS | Encounter Summary ---
Demographics + + + | Address | [address] | | | [place] [address] | + + + | Home Phone | | + + + | Preferred Language | Unknown | + + + | Marital Status | | + + + | Protestant Affiliation | 1013 | + + + | Race | Unknown | + + + | Ethnic Group | Unknown | + + + Author + + + | Author | [facility] | | | and [place] | + + + | Organization | [facility] | | | and [place] [...] [place] | | | | | [address] | | + + + + + | Jane Mojica | ECON | Unknown | | + + + + + | Estelita Zamudio | ECON | Unknown | | + + + + + Care Team Providers + +------+ + | Care Crate Builder Name | Role | Phone | + +------+ + PCP | Unavailable | + +------+ + Encounter Details +--------+ + + + + | Date | Type | Department | Care Team | Description | +--------+ + + + + | 12/10/ | Hospital | [facility] | Orr, | Lumbago | | 1997 | Encounter | [address] | | | | | [address] | [place] | | | | | [place], [place] | [place] [address] | | | | | [address] | [phone] | | | | | [phone] | | | +--------+ + + + [...]
--- OUTSIDE RECORDS SUMMARY | ~2020-03-28 | XMS | Encounter Summary ---
Demographics + + + | Address | [address] | | | [place] [address] | + + + | Home Phone | | + + + | Preferred Language | Unknown | + + + | Marital Status | | + + + | Pentecostalism Affiliation | 1013 | + + + | Race | Unknown | + + + | Ethnic Group | Unknown | + + + Author + + + | Author | [facility] | | | and [place] | + + + | Organization | [facility] | | | and [place] [...] [place] | | | | | [address] | | + + + + + | Jane Mojica | ECON | Unknown | | + + + + + | [place] Zamudio | MERI | Unknown | | + + + + + Care Team Providers + +------+ + | Care Loan Auditor Name | Role | Phone | + +------+ + | Becca Amaya MD | PCP | | + +------+ + Reason for Visit + +--------+ + | Reason | Onset | Comments | | | Date | | + +--------+ + | Results, Imaging | 05/29/ | | | | 2016 | | + +--------+ + Encounter Details +--------+ + + + + | Date | Type | Department | Care Team | Description | +--------+ + + + + | 05/29/ | Telephone | [facility] | Anthony Hernandez | Results, Imaging | | 2016 | | PH[address]SIATRY [address] | [address] | | | | [address] | [address] [place] | | | | | [place] | [address] | | | | | [address] | | | | | | [phone] | | | +--------+ + + + [...] this encounter Miscellaneous Notes Telephone Encounter - Sanna Benavidez CMA - 06/05/2017 9:41 AM PDTCalled to discuss results, LVM. Patient is scheduled for lumbar injections tomorrow so I have asked Dr Adams to relay results i f patient does not return call today. Electronically signed by Sanna Benavidez CMA at 9:42 AM PDTTelephone Encounter - Sanna Benavidez CMA - 05/29/2017 11:46 AM PDTCalled to rel ay information. Left voicemail asking patient to return call. elephone Encounter - Sanna Segovia CMA - 05/29/2017 11:46 AM PDT----- Message from Anthony Hernandez MD sent at 1 23:10 PDT ----- There is foraminal narrowing bilaterally at several levels, especially bilaterally at C4-C5 and C5-C6 where it is quite severe. This is likely the source of the patient's pain. He w as given a PT prescription. Has he been doing that? We are also going to be doing injectio ns for the lumbar radiculopathy. If PT is not working for the neck then we could also do a cervical epidural injection but it would have to be at least 2-3 weeks after the lumbar inje ctions. documented in thi s encounter Plan of Treatment Not on filedocumented as of this encounter Visit Diagnoses Not on filedocumented in this encounter"
--- OUTSIDE RECORDS SUMMARY | ~2020-03-28 | XMS | Encounter Summary ---
Demographics + + + | Address | [address] | | | [place] [address] | + + + | Home Phone | | + + + | Preferred Language | Unknown | + + + | Marital Status | Single | + + + | Holiness Affiliation | CAT | + + + | Race | White | + + + | Ethnic Group | Not or | + + + Author + + + | Author | [facility] | + + + | Organization | [facility] | + + + | Address | Unknown | + + + | Phone | Unavailable | + + + Support + + + + + | Name | Relationship | Address | Phone | + + + + + | Mitra Ramos | ECON | [address] [facility] | | | | | [place] | | | | | [address] | | + + + + + Care Team Providers + +------+ + | Care Practice Management Consultant Name | Role | Phone | + +------+ + | Becca Amaya MD | PCP | | + +------+ + Encounter Details +--------+ + + + + | Date | Type | Department | Care Team | Description | +--------+ + + + + | 11/05/ | Procedure | Diagnostic Imaging | | | | 2019 | Pass | [facility] | | | | | | [address] | | | | | | [place] | | | | | | [address] | | | | | | [phone] | | | +--------+ + + + [...]
--- OUTSIDE RECORDS SUMMARY | ~2020-03-28 | XMS | Encounter Summary ---
Demographics + + + | Address | [address] | | | [place] [address] | + + + | Home Phone | | + + + | Preferred Language | Unknown | + + + | Marital Status | | + + + | Sabianism Affiliation | 1013 | + + + | Race | Unknown | + + + | Ethnic Group | Unknown | + + + Author + + + | Author | [facility] | | | and [place] | + + + | Organization | [facility] | | | and [place] | [...] [place] | | | | | [address] | | + + + + + | Jane Mojica | ECON | Unknown | | + + + + + | Est[place]ita Zamudio | ECON | Unknown | | + + + + + Care Team Providers + +------+ + | Care Epitaxial Reactor Technician Name | Role | Phone | + +------+ + PCP | Unavailable | + +------+ + Encounter Details +--------+ + + + + | Date | Type | Department | Care Team | Description | +--------+ + + + + | 09/19/ | Hospital | [facility] | Orr, | Backache, | | 1993 | Encounter | [address] | [address] | unspecified | | | | [address] | [place] | | | | | [place], [place] | [place] [address] | | | | | [address] | [phone] | | | | | [phone] | | | +--------+ + + + [...]
--- OUTSIDE RECORDS SUMMARY | ~2020-03-28 | XMS | Encounter Summary ---
Demographics + + + | Address | [address] | | | [place] [address] | + + + | Home Phone | | + + + | Preferred Language | Unknown | + + + | Marital Status | Single | + + + | Alevism Affiliation | CAT | + + + | Race | White | + + + | Ethnic Group | Not or | + + + Author + + + | Author | [facility] | + + + | Organization | [facility] | + + + | Address | Unknown | + + + | Phone | Unavailable | + + + Support + + + + + | Name | Relationship | Address | Phone | + + + + + | Mitra Ramos | ECON | [address] [facility] | | | | | [place] | | | | | [address] | | + + + + + Care Team Providers + +------+ + | Care Junior Loan Processor Name | Role | Phone | [...] | | | | region | | [address] | | | | | Procedures | | Phone: | | | | | NM BONE &/OR | | [phone] | | | | | JOINT | [...] + + | 01/14/ | Transcribe | [facility] | Transcribe | | | 2019 | [facility] | [facility] [address] | Roxanne Provider, | | | | | [address] | [address] | | | | | [place] | [place] [address] | | | | | [address] | | | +--------+ + + + [...] | + + + | [address] | [facility] | | [place] [address] | DEPARTMENT OF | | [phone] Name: PERCY MNACILLA Phys: | RADIOLOGY | | LIZZETTE HARRY : 1960 Sex: M CSN: | | | [id number] MR# [id number] Exam Date: 01/23/2019 | | | EXAM: NM BONE &/OR JOINT IMAGING TOMOGRAPHIC (SPECT) 80619 | | | CLINICAL HISTORY: Spine pain. [...] | | | Transcribed Date/Time: 01/23/2019 14:09 Director Music: FLUENCY | | | | | + + + + + | Procedure Note | + + | Interface, Radiology Results - 01/23/2019 2:14 PM PDT [address] | | [address] [place] [address] | | Name: PERCY MANCILLA Phys: LIZZETTE HARRY : 1960 Sex: M CSN: | | [id number] MR# [id number] Exam Date: 01/23/2019 EXAM:NM BONE &/OR JOINT IMAGING | | TOMOGRAPHIC (SPECT) 00546 CLINICAL HISTORY:Spine pain. Spondylolisthesis. Neck | | [...] | | |Transcribed Date/Time: 01/23/2019 14:09 | |Director Music: FLUENCY | | | | | | [...]
--- OUTSIDE RECORDS SUMMARY | ~2020-03-28 | XMS | Encounter Summary ---
Demographics + + + | Address | [address] | | | [place] [address] | + + + | Home Phone | | + + + | Preferred Language | Unknown | + + + | Marital Status | | + + + | Spiritism Affiliation | 1013 | + + + | Race | Unknown | + + + | Ethnic Group | Unknown | + + + Author + + + | Author | [facility] | | | and [place] | + + + | Organization | [facility] | | | and [place] [...] [place] | | | | | [address] | | + + + + + | Jane Mojica | ECON | Unknown | | + + + + + | Estelita Zamudio | MERI | Unknown | | + + + + + Care Team Providers + +------+ + | Care Soil Scientist Name | Role | Phone | + +------+ + | Becca Amaya MD | PCP | | + +------+ + Encounter Details +--------+ + + + + | Date | Type | Department | Care Team | Description | +--------+ + + + + | 11/29/ | Episode | [facility] | Danay Hogan, | | | 2017 | Changes | NEUROSURGERY [address] | Cert [place] | | | | | [address] | | | | | | [place] | | | | | | [address] | | | | | | [phone] | | | +--------+ + + + [...]
--- OUTSIDE RECORDS SUMMARY | ~2020-03-28 | XMS | Encounter Summary ---
Demographics + + + | Address | [address] | | | [place] [address] | + + + | Home Phone | | + + + | Preferred Language | Unknown | + + + | Marital Status | | + + + | Anabaptist Affiliation | 1013 | + + + | Race | Unknown | + + + | Ethnic Group | Unknown | + + + Author + + + | Author | [facility] | | | and [place] | + + + | Organization | [facility] [...] [place] | | | | | [address] | | + + + + + | Jane Mojica | ECON | Unknown | | + + + + + | Est[place]ita Zamudio | MERI | Unknown | | + + + + + Care Team Providers + +------+ + | Care Wholesale Buyer Name | Role | Phone | + [...] Description | +--------+--------+ + + + | 05/27/ | Refill | [facility] | Lynn Tan, | Medication Refill | | 2019 | | PULMONOLOGY [address] | FILM REPLACEMENT ORDERER [address] | | | | | [address] | [address] [place], | | | | | [place], [place] | [place] [address] | | | | | [address] | [phone] | | | | | [phone] | | | +--------+--------+ + + + [...]
--- OUTSIDE RECORDS SUMMARY | ~2020-03-28 | XMS | Encounter Summary ---
Demographics + + + | Address | [address] | | | [place] [address] | + + + | Home Phone [...] Author | [facility] | | | and Timiana | + + + | Organization | [facility] | | | and [...] [place] | | | | | [address] | | + + + + + | Jane Mojica | ECON | Unknown | | + + + + + | Estelita Zamudio | ECON | Unknown | | + + + + + Care Team Providers + +------+ + | Care Drafter Seismograph Name | Role | Phone | + +------+ + | Becca Amaya MD | PCP | | + +------+ + Reason for Referral Evaluate & Treat (Routine) +--------+ + + + + + | Status | Reason | Specialty | Diagnoses / | Referred By | Referred To | | | | | Procedures | Contact | Contact | +--------+ + + + + + | Closed | Specialty | Neurosurgery | Diagnoses | Sucharturo, | Mejia Luciano | | | Services | | Cervicalgia | Sidney Gamble, | MD Nito | | | Required | | Cervical | PA-C [address] | | | | | radiculopath | [address] | [address] | | | | | y Back | [address] | [place], [place] | | | | | pain, | [place], | [address] | | | | | unspecified | [place] [address] | Phone: | | | | | back | Phone: | [phone] | | | | | location, | [phone] | Fax: | | | | | unspecified | Fax: | [phone] | | | | | back pain | [phone] | | | | | | laterality, [...] | | | | | | | .A | | | | | | | PPT INFO | | | | | | | REQUEST SENT | | | | | | | TO | | | | | | | SPECIALIST | | | | | | | FAX | | | | | | | [phone] | | | | | | | | | | | | | | Transferred | | | | | | | to 12/08 | | | | | | | HIM 11/14 | | | +--------+ + + + + + Reason for Visit +--------+--------+ + | Reason | Onset | Comments | | | Date | | +--------+--------+ + | Other | 10/31/ | | | | 2018 | | +--------+--------+ + Encounter Details +--------+ + + + + | Date | Type | Department | Care Team | Description | +--------+ + + + + | 10/31/ | Telephone | [facility] [place] | Ary Arreguin | Other | | 2019 | | NEUROSURGERY [address] | Jenae, Coagulator | | | | | [facility] [address] | | | | | | [place] | | | | | | [address] | | | | | | [phone] | | | +--------+ + + + [...] this encounter Miscellaneous Notes Telephone Encounter - Ary Arreguin, Coagulator - 11/12/2018 8:59 AM PDTReferr al pended for Dr. Luciano in [place]. Please sign. elephone Encounter - Ary Arreguin Coagulator - 10/31/2018 12:54 PM PDTSpoke with Percy and let him know that if he was interest ed in going to Dr. Khan he could call and see if he would qualify for financial assista nce since he would still be responsible for 20% of bill since Erin is out of network. He said that he would prefer to get a referral to someone else that is in network. He is w illing to travel where ever he needs to go ([place], [place], [facility]) He would prefer to find someone that does minimally invasive like Yam or Migel does. I let him know that I wo uld discuss this with Sidney and look into who is on the list and place a new referral. He a greed with this plan and appreciated the call. elephone Encounter - Ary Arreguin Coagulator - 10/31/2018 9:52 AM PDTCall to Percy to discuss his referral to Dr. Khan an d options that he has. I asked for him to return my call. 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
--- OUTSIDE RECORDS SUMMARY | ~2020-03-28 | XMS | Encounter Summary ---
Demographics + + + | Address | [address] | | | [place] [address] | + + + | Home Phone | | + + + | Preferred Language | Unknown | + + + | Marital Status | Single | + + + | Episcopalian Affiliation | CAT | + + + [...] [place] | | | | | [address] | | + + + + + Care Team Providers + +------+ + | Care Automobile Spring Repairer Name | Role | Phone | + +------+ + | Becca Amaya MD | PCP | | + +------+ + Encounter Details +--------+--------+ + + + | Date | Type | Department | Care Team | Description | +--------+--------+ + + + | 01/24/ | Travel | | | | | 2020 | | | | | +--------+--------+ + [...]
--- OUTSIDE RECORDS SUMMARY | ~2020-03-28 | XMS | Encounter Summary ---
Demographics + + + | Address | [address] | | | [place] [address] | + + + | Home Phone [...] Author | [facility] | | | and Timiana | + + + | Organization | [facility] | | | and Timiana [...] [place] | | | | | [address] | | + + + + + | Jane Mojica | ECON | Unknown | | + + + + + | Estelita Zamudio | ECON | Unknown | | + + + + + Care Team Providers + +------+ + | Care Endocrinology Nurse Name | Role | Phone | + +------+ + PCP | Unavailable | + +------+ + Encounter Details +--------+ + + + + | Date | Type | Department | Care Team | Description | +--------+ + + + + | 11/09/ | Emergency | [facility] | Conversion | Lumbago | | 1996 | | [facility] | Transaction, | | | | | [facility] | Provider Unknown | | | | | [address] | | | | | | [place], [place] | (Fax) | | | | | [address] | | | | | | [phone] | | | +--------+ + + + [...]
--- OUTSIDE RECORDS SUMMARY | ~2020-03-28 | XMS | Encounter Summary ---
Demographics + + + | Address | [address] | | | [place] [address] | + + + | Home Phone | | + + + | Preferred Language | Unknown | + + + | Marital Status | | + + + | Amish Affiliation | [id number] | + + + | Race | Unknown | + + + | Ethnic Group | Unknown | + + + Author + + + | Author | [facility] | | | and Timiana | + + + | Organization | [facility] | | | and [...] [place] | | | | | [address] | | + + + + + | Jane Mojica | ECON | Unknown | | + + + + + | Estelita Zamudio | MERI | Unknown | | + + + + + Care Team Providers + +------+ + | Care Golf Caddie Name | Role | Phone | + [...] + + | 03/09/ | Refill | [facility] | Lynn Tan, | Medication Refill | | 2019 | | PULMONOLOGY [address] PR[address]Y [address] | | | | | [address] | [address] [place], | | | | | [place], [place] | [place] [address] | | | | | [address] | [phone] | | | | | [phone] | | | +--------+--------+ + + + [...]
--- OUTSIDE RECORDS SUMMARY | ~2020-03-28 | XMS | Encounter Summary ---
Demographics + + + | Address | [address] | | | [place] [address] | + + + | Home Phone [...] + | Author | [facility] | | | and Timiana | + + + | Organization | [facility] | | | and [...] [place] | | | | | [address] | | + + + + + | Jane Mojica | ECON | Unknown | | + + + + + | Estelita Zamudio | ECON | Unknown | | + + + + + Care Team Providers + +------+ + | Care Director Content Marketing Name | Role | Phone | + +------+ + | Becca Amaya MD | PCP | | + +------+ + Reason for Referral Evaluate & Treat (Urgent) +--------+ + + + + + | Status | Reason | Specialty | Diagnoses / | Referred By | Referred To | | | | | Procedures | Contact | Contact | +--------+ + + + + + | Closed | Specialty | Neurosurgery | Diagnoses | Sucharda, | | | | Services | | Cervicalgia | Sidney E, | | | | Required | | Cervical | PA-C [address] | | | | | | radiculopath | [address] | | | | | | y Back | [address] | | | | | | pain, | [place], | | | | | | unspecified | [place] [address] | | | | | | back | Phone: | | | | | | location, | [phone] | | | | | | unspecified | Fax: | | | | | | back pain | [phone] | | | | | | laterality, [...] | | | stenosis | | | +--------+ + + + + + Reason for Visit + + + | Reason | Comments | + + + | Follow-up | | + + + | Results | | + + + Encounter Details +--------+---------+ + + + | Date | Type | Department | Care Team | Description | +--------+---------+ + + + | 10/23/ | Office | [facility] [place] | Sidney Dominguez, | Back pain, | | 2019 | Visit | NEUROSURGERY [address] | PA-C [address] | unspecified back | | | | [address] | [address] [place] | location, | | | | [place], [place] | [place] [address] | unspecified back | | | | [address] | [phone] | pain laterality, | | | | [phone] | | unspecified | | | | | | chronicity (Primary | | | | | | Dx); Cervicalgia; | | | | | | Cervical | | | | | | radiculopathy; | | | | | | Lumbar | | | | | | radiculopathy; | | | | | | Clonus; | | | | | | Hyperreflexia; | | | | | | Spondylosis of | | | | | | cervical spine with | | | | | | myelopathy and | | | | | | radiculopathy; | | | | | | Cervical stenosis of | | | | | | spinal canal; | | | | | | Foraminal stenosis | | | | | | of cervical region; | | | | | | Lumbar foraminal | | | | | | stenosis | +--------+---------+ + + + Social History [...] + + + | Blood Pressure | 112/76 | 10/23/2018 11:46 AM | | | | | PST | | + + + + + | Pulse | 60 | 10/23/2018 11:46 AM | | | | | PST | [...] + + + + | Weight | 88 kg (194 lb) | 10/23/2018 11:46 AM | | | | | PST | | + + + + + | Height | 170.2 cm (5' 7") | 10/23/2018 11:46 AM | | | | | PST | | + + + + + | Body Mass Index | 30.38 | 10/23/2018 11:46 AM | | | | | PST | | + + + + + documented in this encounter Patient Instructions Patient Instructions Ary Arreguin, Fiscal Agent - 10/23/2018 1:00 PM PST We will refer you to a neurosurgeon in [place] named Dr. Khan who also does minimall y invasive spine surgery. Dr. Khan trained with Dr. Lainez in [place]. Dr. Khan has a satellite clinic in [place] however if he does surgery you will have to go to [facility]. If you do not hear from them in a week call and check in with their office or our office. Here is his contact information: Dr. Eben Khan [address] [place] [address] Let pain be your guide. If you are doing an activity that starts causing you pain back off and ease back into it slowly. We don't want you taking any risks that do not need to be ta marilee. documented in this encounter Progress Notes Sidney Dominguez PA-C - 10/23/2018 1:00 PM PST Sidney Dominguez PA-C [address] [facility] [place] [address] PHONE: FAX: NEUROSURGERY FOLLOW-UP CHIEF COMPLAINT: Chief Complaint Patient presents with Follow-up Results HISTORY OF PRESENT ILLNESS: The patient is a 57 y.o. male that presents for a follow up to review his recent cervical and lumbar MRI. Patient returns and overall is doing poorly. H e states that he took a fall prior to getting his cervical x-ray. Patient was last seen 09/22/2018 with the complaints of back and neck pain. It was recommend ed that he get updated cervical and lumbar imaging and to begin working on getting pulmonary and cardiology clearance. Today he states that his back and leg effect him equally as much as his neck and arm sympto ms. His left leg bothers him the most out of all of his symptoms. His leg symptoms accoun t for 60% in his left leg and 40% in his right leg. His left arm bothers him more than his than his right arm. He stumbles often and he has trouble with foot placement. His leg symp toms run down the lateral thigh to his knee then crosses over to the savage and into the foot. He states that it feels like he has "a pair of vice still operator whiskey on his spine in his low back". He struggles with fine motor tasks like picking up nuts, bolts, pennies, and paper clips. He has a history of bilateral carpal tunnel release. He lives in [place] with his fiance who is in moderately good health and could help him a fter surgery if he needs to have surgery. CURRENT MEDICATIONS: Current Outpatient Prescriptions Medication Sig Dispense Refill albuterol (VENTOLIN HFA) 90 mcg/puff inhaler Inhale 2 puffs into the lungs every 6 hour s as needed for Wheezing. albuterol-ipratropium (DUONEB) 2.5-0.5 mg/3 mL SOLN Take 3 mLs by nebulization Daily. atorvaSTATin (LIPITOR) 20 mg tablet Take 20 mg by mouth Daily. busPIRone (BUSPAR) 7.5 MG tablet buspirone 7.5 mg tablet cloNIDine (CATAPRES) 0.1 mg tablet clonidine HCl 0.1 mg tablet EPINEPHrine auto-injector (EPIPEN 2-MAGNOLIA) 0.3 mg/0.3 mL [...] Inhale 18 mcg into the lungs Daily. No current facility-administered medications for this visit. ALLERGIES: Allergies Allergen Reactions Wasp Venom Protein Anaphylaxis Codeine Itching Naproxen Sodium Itching SOCIAL HISTORY: The patient reports that he quit smoking about 10 years ago. His smoking use included Ciga rettes. He has a 24.00 pack-year smoking history. He has never used smokeless tobacco. He re ports that he does not drink alcohol or use drugs. REVIEW OF SYSTEMS: GENERALLY: No fever, no night sweats, no anemia, no fatigue, no recent profound weight ch anges. EYES: No eye problems, no impaired sight, no use of corrective lenses, no eye injury, no d ouble vision, no transient blindness. EARS, NOSE, AND THROAT: No changes in taste or smell, + hearing difficulty, + ringing in t he ears, + ear drainage, no ear injury, no dizziness, no voice changes, no difficulty swallo wing, + significant snoring, no sleep apnea/CPAP, no sinus problems, + major dental work. NEUROLOGICALLY: Please see the review of systems discussed above in the history of present illness. In addition, the patient has numbness/pain of arms, numbness/pain of legs, awake with numbness/pain, weakness, muscle aching, head injury, neck injury, pain in neck, pain in back, headache. PSYCHIATRIC: + depression, + difficulty sleeping, + anxiety, no bipolar disorder. CARDIOVASCULAR: No heart attacks, no heart murmur, no heart fluttering, no chest pain, no ankle swelling. LUNG DISEASE: + shortness of breath, no cough, no tuberculosis, no bloody cough, + asthma, + emphysema/COPD. GASTROINTESTINAL: No bowel disease, no nausea or vomiting, no rectal bleeding, no constipa tion, no fecal stool incontinence, no liver/gallbladder disease, no abdominal pain, no ulcer s. KIDNEY DISEASE: No urinary frequency, no painful or difficult urination, no urinary incont inence, no bladder problems, + impotence. ENDOCRINE: No diabetes, no thyroid disease, no osteopenia or osteoporosis, no breast drain age. SKIN: No breast lumps, no skin disease or skin changes, no rashes/itches. HEMATOLOGIC/LYMPHATIC: No enlarged lymph nodes, no easy or unusual bleeding, no personal h istory of cancer. RHEUMATOLOGIC: No joint pain/arthritis, no rheumatoid arthritis. INTERIM PHYSICAL EXAMINATION: Blood pressure 112/76, pulse 60, height 1.702 m (5' 7"), weight 88 kg (194 lb). Body mass i ndex is 30.38 kg/m. GENERAL: Percy Mancilla is in no acute distress with unlabored respirations. The pat iebaldev does appear uncomfortable throughout the exam today. Throughout he exam he switches position from standing to seating. Towards the end of the v isit patient had to stand bend over the bed to relieve his back pain. HEENT: Head: Normocephalic/atraumatic with no areas of recent trauma. Eyes: Normal sclerae without icterus. Ears: No drainage or tenderness. Nasopharnyx: Clear without drainage. Oropharnyx: Clear without erythema. NECK (ANTERIOR): Supple and without palpable masses. CHEST: Clear to ausculation without crackles or wheeze. HEART: Regular rate and rhythm without murmurs. ABDOMEN: Soft, non-tender, non-distended, and without palpable masses. The patient is obese . SPINE: Range of motion of the neck is limited. Patient self reports a positive spurling's maneuver. Flexion and extension of the neck does cause discomfort. EXTREMITIES: No cyanosis, clubbing, or edema. Distal pulses are palpable. NEUROLOGICAL EXAM: MENTAL STATUS: The patient is awake, alert, and oriented. He follows simple and complex commands. His speech is fluent, he comprehends speech well, and he repeats well. He has no apparent deficits with short or oysterman memory. CRANIAL NERVES: II: Acuity is intact. [...] RIGHT LEFT Deltoids 5 5 Biceps 4 inconsistent resistance. 4 inconsistent resistance. Triceps 5 5 Wrist Flexion 5 5 Wrist Extension 5 5 Median Intrinsics 4+ 4 Ulnar Intrinsics 5 5 Lap Regulator Strength 5 5 Hip Flexion 5 4 Hip Extension 5 5 Knee Flexion 5 5 Knee Extension 5 4+ Dorsiflexion 5 4 almost 4- Extensor Hallicus Longus 5 5 Plantarflexion 5 4+ SENSORY EXAM: Sensory exam shows decreased sensation to left lateral calf bilaterally. REFLEXES: (2 OR 2+ IS NORMAL) REFLEX: RIGHT LEFT BICEPS +3 +3 BRACHIORADIALIS +3 +2 TRICEPS +2 +2 PATELLAR +3 +3 ACHILLES +2 +2 SANDERS'S NEGATIVE NEGATIVE GAIT: Gait is steady. PERIPHERAL NERVE/MISC: There is one extra beat of clonus of the left ankle. TEST AND RADIOGRAPHIC REVIEW: The patient's imaging was reviewed in detail with the patient today during the visit. The Cervical MRI from 10/16/2018 shows moderately cervical kyphosis with a moderately large bulgi ng disc at C4-C5 causing at least moderate spinal stenosis slightly worse in the right later al recess. Moderately severe foraminal stenosis at C4-C5 bilaterally. Mild spinal stenosis at C5-C6 with moderate bilateral foraminal stenosis at C5-C6. At C6-C7 mild spinal and for aminal stenosis. The patient's imaging was reviewed in detail with the patient today during the visit. The Lumbar MRI from 10/16/2018 shows flat back syndrome. No spinal stenosis. SEVERE bilateral fo raminal stenosis at L5-S1. Cervical x-rays from 10/23/18 shows diffuse cervical spondylosis worse at C4-C5 but also pr esent at C6-C7. No spondylolisthesis. Lumbar x-rays from 09/22/2018 show grade 1 spondylolisthesis at L5-S1 with near complete loss of disc height with bone on bone articulation and subchondral sclerosis. ASSESSMENT: Outpatient Morphine Equivalent Daily Dose (MEDD) None PEG Pain screening tool: Total score: 8 (10/23/18 1146) Encounter Diagnoses Name Primary? 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 Cervical stenosis of spinal canal Foraminal stenosis of cervical region Lumbar foraminal stenosis Past Medical History: Diagnosis Date Asthma Attention deficit disorder Cervical radiculopathy Chronic bronchitis (HCC) Chronic fatigue Chronic pain syndrome COPD (chronic obstructive pulmonary disease) (HCC) DDD (degenerative disc disease), cervical 07/25/2017 Ear infection Generalized anxiety disorder GERD (gastroesophageal reflux disease) H/O emphysema Hay fever History of dental problems Hyperlipidemia Hypertension Lumbar radiculopathy Major depression VA (myocardial infarction) (HCC) Migraine Opioid dependence, continuous (HCC) Osteoarthritis Osteoporosis Pneumonia Radiculopathy, lumbosacral region Renal stones Sinus infection PLAN: Overall, the patient is doing poorly. Although he has a negative Hoffmans I still think he has cervical myelopathy based off of his hyperreflexia, his self report of poor coordination with his hands and legs, his positive clonus on his left ankle and possibly even his recent fall. The patient has both cervical and lumbar pathology. With respect to his cervical spine I'm most concerned about C4-C5 and to a slightly lesser extent C5-C6. However, there is MRI ev idence of cervical pathology from C4-C7. Patient is aware that Dr. Khan very well may recommend focusing on his neck before his low back. I also suspect that before all is said and done he will likely need an L5-S1 TLIF. We had a lengthy discussion with the patient about his options for care including surgical and non-surgical options. Patient verbalizes or standing and is willing to proceed as recommended. In our 2 visits coleman ashok has shown above average intellect, insight, and understanding of his disease. He supri singly remembered multiple details of his last visit with me that he brought up to discuss d josselyning our visit today. Also, after a brief description on his MRI and his orientation on nash patient rapidly displayed a surprisingly deep understanding of the structural abnormalitie s seen on his MRI. ELECTRONICALLY SIGNED BY: Sidney Dominguez PA-C, 10/23/2018 13:55 documented in thi s encounter Plan of Treatment + + +--------+ + + | Name | Type | Priori | Associated Diagnoses | Order Schedule | | | | ty | | | + + +--------+ + + | Neurosurgery, | Outpatient | [facility] | Cervicalgia | Ordered: 10/23/2018 | | External - [facility]quist | Referral | | Cervical | | | | | | radiculopathy Back [...] + + documented as of this encounter Procedures + +--------+ + + + | Procedure Name | Priori | Date/Time | Associated Diagnosis | Comments | | | ty | | | | + +--------+ + + + | LABS - EXTERNAL SCAN | | 02/11/2019 | | Results for this | | | | 12:00 AM | | procedure are in the | | | | PDT | | results section. | + +--------+ + + + | IMAGING REPORT - | | 2010 | | Results for this | | EXTERNAL SCAN | | 12:00 AM | | procedure are in the | | | | PDT | | results section. | + +--------+ + + + documented in this encounter Results LABS - EXTERNAL SCAN (02/11/2019 12:00 AM PDT) + + + | Narrative | Performed At | + + + | Ordered by an | | | unspecified provider. | | + + + IMAGING REPORT - EXTERNAL SCAN (2010 12:00 AM PDT) + + + | Narrative | Performed At | + + + | Ordered by an | | | unspecified provider. | | + + + documented in this encounter Visit Diagnoses + + | Diagnosis | + + | Back pain, unspecified back location, unspecified back pain laterality, unspecified | | chronicity - Primary | + + | Cervicalgia | + + | Cervical radiculopathy Brachial neuritis or radiculitis nos | + + | Lumbar radiculopathy Thoracic [...] claudication | + + documented in this encounter
--- OUTSIDE RECORDS SUMMARY | ~2020-03-28 | XMS | Encounter Summary ---
Demographics + + + | Address | [address] | | | [place] [address] | + + + | Home Phone | | + + + | Preferred Language | Unknown | + + + | Marital Status | Single | + + + | Pentecostalism Affiliation | CAT | + + + [...] [place] | | | | | [address] | | + + + + + Care Team Providers + +------+ + | Care Automotive Worker Foreman Name | Role | Phone | + +------+ + | Becca Amaya MD | PCP | | + +------+ + Encounter Details +--------+--------+ + + + | Date | Type | Department | Care Team | Description | +--------+--------+ + + + | 03/05/ | Travel | | | | | [...]
--- OUTSIDE RECORDS SUMMARY | ~2020-03-28 | XMS | Encounter Summary ---
Demographics + + + | Address | [address] | | | [place] [address] | + + + | Home Phone | | + + + | Preferred Language | Unknown | + + + | Marital Status | | + + + | Congregation Affiliation | 1013 | + + + | Race | Unknown | + + + | Ethnic Group | Unknown | + + + Author + + + | Author | [facility] | | | and Timiana | + + + | Organization | [facility] | | | and Timiana [...] [place] | | | | | [address] | | + + + + + | Jane Mojica | ECON | Unknown | | + + + + + | Estelita Zamudio | MERI | Unknown | | + + + + + Care Team Providers + +------+ + | Care Core Winding Operator Name | Role | Phone | + +------+ + | Becca Amaya MD | PCP | | + +------+ + Encounter Details +--------+ + + + + | Date | Type | Department | Care Team | Description | +--------+ + + + + | 11/13/ | Hospital | [facility] | Manuel Waters | Back pain, | | 2017 | Encounter | MED CTR XRAY [address] | [address] | unspecified back | | | | [place] | [address] [place], [place] | location, | | | | [place] [address] | [id number] | unspecified back | | | | [phone] | | pain laterality, | | | | | | unspecified | | | | | | chronicity | +--------+ + + + + Social [...] + +---------+ + + | | Take 1 tablet by | | 0 | | | | HYDROcodone-acetamin | mouth every 6 hours | | | | 7 | | ophen (NORCO) 10-325 | as needed for Pain. | | | | | | mg per tablet | | | | | | + + + +---------+ + + | | Apply topically as | | 0 | | | | lidocaine-prilocaine | needed (2.5-2.5%). | | | | 8 | | (EMLA) cream | | | | | | + + + +---------+ + + | | Take 1 tablet by | | 0 | | | | lisinopril-hydrochlo | mouth Daily. | | | | 7 | | rothiazide | | | | [...] + + +---------+ + + | | | | 0 | 11/09/19 | | | sulfamethoxazole-tri | | | | 17 | 7 | | methoprim (BACTRIM | | | | | | | DS) 800-160 mg per | | | | | | [...] | | + +---------+--------+ + + | XR Lumbar Spine 4 + | Imaging | Routin | Back pain, | 1 Occurrences | | Vw | | e | unspecified back | starting 11/13/2016 | | | | | location, | until 11/13/2016 | | | | | unspecified back | | | | | | pain laterality, | | | | | | unspecified | | | | | | chronicity | | + +---------+--------+ + + documented as of this encounter Visit Diagnoses + + | Diagnosis | + + | Back pain, unspecified back location, unspecified back pain laterality, unspecified | | chronicity | + + documented in this encounter"
--- OUTSIDE RECORDS SUMMARY | ~2020-03-28 | XMS | Encounter Summary ---
Demographics + + + | Address | [address] | | | [place] [address] | + + + | Home Phone | | + + + | Preferred Language | Unknown | + + + | Marital Status | Single | + + + | Worship Affiliation | CAT | + + + [...] Mitra Ramos | ECON | [address] [facility] | | | | | [place] | | | | | [address] | | + + + + + Care Team Providers + +------+ + | Care Outside Energy Sales Representatives Name | Role | Phone | + +------+ + | Becca Amaya MD | PCP | | + +------+ + Encounter Details +--------+ + + + + | Date | Type | Department | Care Team | Description | +--------+ + + + + | 01/23/ | Transcribe | [facility] | Transcribe | | | 2019 | Orders | [facility] [address] | Encounter, Provider, | | | | | [address] | [address] | | | | | [place] | [place] [address] | | | | | [address] | | | +--------+ + + + [...] | + + + | [address] [place] [address] | [facility] | | [place] [address] | [facility] | | [phone] Name: PERCY MANCILLA Phys: | RADIOLOGY | | LIZZETTE HARRY : 1960 Sex: M CSN: | | | [id number] MR# [id number] Exam Date: 01/23/2019 | | | EXAM: [...] Transcribed | | | Date/Time: 01/23/2019 11:07 Powertrain Control Systems Engineer: FLUENCY | | + + + + + | Procedure Note | + + | Interface, Radiology Results - 01/23/2019 11:12 AM PDT [address] | | [address] [place] [address] | | Name: PERCY MANCILLA Phys: LIZZETTE HARRY : 1960 Sex: M CSN: | | [id number] MR# [id number] Exam Date: 01/23/2019 EXAM:X-RAY SCOLI SPINE ENTR [...] Brett Hill MD Electronically signed by: Brett Hlil MD Transcribed | | Date/Time: 01/23/2019 11:07Transcriptionist: [...] | | |Transcribed Date/Time: 01/23/2019 11:07 | |Powertrain Control Systems Engineer: FLUENCY | | | | | | [...]
--- OUTSIDE RECORDS SUMMARY | ~2020-03-28 | XMS | Encounter Summary ---
Demographics + + + | Address | [address] | | | [place] [address] | + + + | Home Phone [...] + + + | Author | [facility] | + + + | Organization | [facility] | + + + | Address | Unknown | + + + | Phone | Unavailable | + + + Support + + + + + | Name | Relationship | Address | Phone | + + + + + | Mitra Ramos | ECON | [address] [facility] | | | | | [place] | | | | | [address] | | + + + + + Care Team Providers + +------+ + | Care Medical Office Representative Name | Role | Phone | + +------+ + PCP | Unavailable | + +------+ + Encounter Details +--------+ + + + + | Date | Type | Department | Care Team | Description | +--------+ + + + + | 01/15/ | Transcribe | [facility] | Transcribe | | | 2019 | Orders | [facility] [address] | Encounter, Provider, | | | | | [address] | [address] | | | | | [place] | [place] [address] | | | | | [address] | | | +--------+ + + + [...]
--- OUTSIDE RECORDS SUMMARY | ~2020-03-28 | XMS | Encounter Summary ---
Demographics + + + | Address | [address] | | | [place] [address] | + + + | Home Phone | | + + + | Preferred Language | Unknown | + + + | Marital Status | Single | + + + | Buddhism Affiliation | CAT | + + + [...] Mitra Ramos | ECON | [address] [facility] | | | | | [place] | | | | | [address] | | + + + + + [...] | | radiculopath | [place] | [address] | | | | | y, lumbar | [address] | Phone: | | | | | region | Phone: | [phone] | | | | | Procedures | [phone] | | | | | | MRI SPINE | Fax: | | | | | | LUMBAR WO | [phone] | | | | | | CONTRAST | | | +--------+--------+ + + + + Encounter Details +--------+ + + + + | Date | Type | Department | Care Team | Description | +--------+ + + + + | 11/05/ | Transcribe | [facility] | Karolina Franklin, | | | 2020 | Orders | [facility] [address] | PA[address] | | | | | [address] | Doctors [place] | | | | | [place] | [address] | | | | | [address] | | | +--------+ + + + [...] | + + + | [address] | [facility] | | [place] [address] | DEPARTMENT OF | | [phone] Name: PERCY MANCILLA Phys: | RADIOLOGY | | KAROLINA FRANKLIN: 1960 Sex: M | | | CSN: [id number] MR# [id number] Exam Date: | | | 01/25/2020 EXAM: [...] | | | Transcribed Date/Time: 01/27/2020 05:23 Batch Records Clerk: FLUENCY | | | | | + + + + + | Procedure Note | + + | Interface, Radiology Results - 01/27/2020 5:28 AM PDT [address] | | [address] [place] [address] | | Name: PERCY MANCILLA Phys: MIMAROSIOKAROLINA DANGELO : 1960 Sex: M | | CSN: [id number] MR# [id number] Exam Date: 01/25/2020 EXAM:MRI OF THE LUMBAR [...] | | |Transcribed Date/Time: 01/27/2020 05:23 | |Batch Records Clerk: FLUENCY | | | | | | | + + + +---------+ + + | Performing | Address | City/State/[facility] | Phone Number | | Organization | [...]
--- OUTSIDE RECORDS SUMMARY | ~2020-03-28 | XMS | Encounter Summary ---
Demographics + + + | Address | [address] | | | [place] [address] | + + + | Home Phone | | + + + | Preferred Language | Unknown | + + + | Marital Status | | + + + | Oriental Orthodox Affiliation | 1013 | + + + | Race | Unknown | + + + | Ethnic Group | Unknown | + + + Author + + + | Author | [facility] | | | and Timiana | + + + | Organization | [facility] | | | and Timiana [...] [place] | | | | | [address] | | + + + + + | Jane Mojica | ECON | Unknown | | + + + + + | Estelita Zamudio | ECON | Unknown | | + + + + + Care Team Providers + +------+ + | Care Legal Investigator Name | Role | Phone | + +------+ + PCP | Unavailable | + +------+ + Encounter Details +--------+ + + + + | Date | Type | Department | Care Team | Description | +--------+ + + + + | 10/06/ | Hospital | [facility] | | | | 1998 | Encounter | CONVERSION [address] | | | | | [address] | | | | | | [place], [place] | | | | | | [address] | | | | | | [phone] | | | +--------+ + + + [...]
--- OUTSIDE RECORDS SUMMARY | ~2020-03-28 | XMS | Encounter Summary ---
Demographics + + + | Address | [address] | | | [place] [address] | + + + | Home Phone | | + + + | Preferred Language | Unknown | + + + | Marital Status | Single | + + + | Nondenominational Affiliation | CAT | + + + [...] [place] | | | | | [address] | | + + + + + Care Team Providers + +------+ + | Care Document Control Coordinator Name | Role | Phone | [...]
--- OUTSIDE RECORDS SUMMARY | ~2020-03-28 | XMS | Encounter Summary ---
Demographics + + + | Address | [address] | | | [place] [address] | + + + | Home Phone [...] Author | [facility] | | | and [place]iana | + + + | Organization | [facility] | [...] [place] | | | | | [address] | | + + + + + | Jane Mojica | ECON | Unknown | | + + + + + | Estelita Zamudio | ECON | Unknown | | + + + + + Care Team Providers + +------+ + | Care Optometric Assistant Name | Role | Phone | + +------+ + | Som Schmidt MD | PCP | | + +------+ + Encounter Details +--------+ + + + + | Date | Type | Department | Care Team | Description | +--------+ + + + + | 11/07/ | Abstract | [facility] [place] | Manuel Waters | | | 2017 | | NEUROSURGERY [address] | [address] | | | | | [facility] | [address] [place] | | | | | [place] | [id number] | | | | | [address] | | | | | | [phone] | | | +--------+ + + + [...]
--- OUTSIDE RECORDS SUMMARY | ~2020-03-28 | XMS | Clinical Summary ---
Demographics + + + | Address | [address] | | | [place] [address] | + + + | Home Phone [...] Mitra Ramos | ECON | [address] [facility] | | | | | [place] | | | | | [address] | | + + + + + Care Team Providers + +------+ + | Care Rn Embedded Name | Role | Phone | + +------+ + | Becca Amaya MD | PCP | | + +------+ + Source Comments ELVIS is fully live on both [facility] Allergies Not on File Medications Not on [...] | + + + | [address] [place] [address] | [facility] | | [place] [address] | DEPARTMENT OF | | [phone] Name: PERCY MANCILLA Phys: | RADIOLOGY | | KAROLINA FRANKLIN : 1960 Sex: M | | | CSN: [id number] MR# [id number] Exam Date: | | | 01/25/2020 EXAM: [...] | | | Transcribed Date/Time: 01/27/2020 05:23 Roll Form Operator: FLUENCY | | | | | + + + + + | Procedure Note | + + | Interface, Radiology Results - 01/27/2020 5:28 AM PDT [address] | | [address] [place] [address] | | Name: PERCY MANCILLA Phys: KAROLINA FRANKLIN : 1960 Sex: M | | CSN: [id number] MR# [id number] Exam Date: 01/25/2020 EXAM:MRI OF THE LUMBAR [...] VENDOR SYSTEM 01/27/2020 | |Reported by: NIKOLAI COELMAN MD | | | |Electronically signed by: NIKOLAI COLEMAN MD | | | |Transcribed Date/Time: 01/27/2020 05:23 | |Roll Form Operator: FLUENCY | | | | | | | + + + +---------+ + + | Performing | Address | City/State[facility] | Phone Number | | [...] | B | | for | | [place], [place] | | | | | | all | | [address] | | | | | | dates | | | | + +--------+ +--------+ + +--------+ | CONTRACT LOADER MEDICAID | CONTRACT LOADER | [id number] | Effect | | | [...] | | | [phone] | [place] [address] | | | [place] | | | 1 (Home) | | + +--------+ +--------+ + + | Percy Mancilla | Person | Self | [birth year] | [address] | | | al/Fam | | 1961 | [phone] | [place] | | | [place] | | | 1 (Home) | [address] | + +--------+ +--------+ + +"
--- OUTSIDE RECORDS SUMMARY | ~2020-03-28 | XMS | Encounter Summary ---
Demographics + + + | Address | [address] | | | [place] [address] | + + + | Home Phone | | + + + | Preferred Language | Unknown | + + + | Marital Status | | + + + | Episcopalian Affiliation | 1013 | + + + | Race | Unknown | + + + | Ethnic Group | Unknown | + + + Author + + + | Author | [facility] | | | and Tim[place] | + + + | Organization | [facility] | | | and [place] [...] [place] | | | | | [address] | | + + + + + | Jane Mojica | ECON | Unknown | | + + + + + | Estelita Zamudio | MERI | Unknown | | + + + + + Care Team Providers + +------+ + | Care Lifeguard Name | Role | Phone | + [...] + | 10/29/ | Telephone | [facility] [place] | Michael Lainez, | Appointment (Paul | | 2017 | | NEUROSURGERY [address] | DO [address] | from 11/29 to 12/31) | | | | [address] [place] [address] | [address] [place] | | | | | [place] | [address] | | | | | [address] | | | | | | [phone] | | | +--------+ + + + [...] xray 1 to 2 weeks prior at [facility]. documented in this enc ounter Plan of Treatment Not on filedocumented as of this encounter Visit Diagnoses Not on filedocumented in this encounter"
--- OUTSIDE RECORDS SUMMARY | ~2020-03-28 | XMS | Encounter Summary ---
Demographics + + + | Address | [address] | | | [place] [address] | + + + | Home Phone | | + + + | Preferred Language | Unknown | + + + | Marital Status | Single | + + + | Tenriism Affiliation | CAT | + + + | Race | White | + + + | Ethnic Group | Not or | + + + Author + + + | Author | [facility] | + + + | Organization | [facility] | + + + | Address | Unknown | + + + | Phone | Unavailable | + + + Support + + + + + | Name | Relationship | Address | Phone | + + + + + | Mitra Ramos | ECON | [address] [facility] | | | | | [place] | | | | | [address] | | + + + + + Care Team Providers + +------+ + | Care Machinist Set Up Name | Role | Phone | + [...] | | 2020 | Encounter | at [facility] | [address] | | | | | [address] | [address] [place] | | | | | [place] | [id number] | | | | | [address] | | | | | | [phone] | | | +--------+ + + + [...]
--- OUTSIDE RECORDS SUMMARY | ~2020-03-28 | XMS | Encounter Summary ---
Demographics + + + | Address | [address] | | | [place] [address] | + + + | Home Phone | | + + + | Preferred Language | Unknown | + + + | Marital Status | | + + + | Restoration Affiliation | 1013 | + + + | Race | Unknown | + + + | Ethnic Group | Unknown | + + + Author + + + | Author | [facility] | | | and [place] | + + + | Organization | [facility] [...] [place] | | | | | [address] | | + + + + + | Jane Mojica | ECON | Unknown | | + + + + + | [place] Zamudio | ECON | Unknown | | + + + + + Care Team Providers + +------+ + | Care Adapted Physical Education Teacher Name | Role | Phone | + [...] Cervical | Sidney E, | [address] | | | | | radiculopath | PA[address]C [address] | [place], | | | | | y | [address] | [place] | | | | | Spondylosis | [address] | [address] | | | | | of cervical | [place], | Phone: | | | | | spine with | [place] [address] | [phone] | | | | | myelopathy | Phone: | Fax: | | | | | and | [phone] | [phone] | | | | | radiculopath | Fax: | | | | | | y Lumbar | [phone] | | | | | | radiculopath [...] Cervical | Sidney E, | [address] | | | | | radiculopath | PA[address] | [place], | | | | | y | [address] | [place] | | | | | Spondylosis | [address] | [address] | | | | | of cervical | [place], | Phone: | | | | | spine with | [place] [address] | [phone] | | | | | myelopathy | Phone: | Fax: | | | | | and | [phone] | [phone] | | | | | radiculopath | Fax: | | | | | | y Lumbar | [phone] | | | | | | radiculopath [...] + + | 10/16/ | Hospital | [facility] | Ajit Miller MD | Cervical | | 2019 | Encounter | MED CTR IR INTRA OP | [address] | radiculopathy; | | | | [address] | [place], [place] | Spondylosis of | | | | [place], [place] | [address] | cervical spine with | | | | [address] | | myelopathy and | | | | [phone] | | radiculopathy; | | | | [...] + | Blood Pressure | 119/77 | 10/16/2018 3:45 PM | | | | | PST | | + + + + + | Pulse | 75 | 10/16/2018 3:45 PM | | | | | PST | | + + + + + | Temperature | 36.4 C (97.5 F) | 10/16/2018 3:16 PM | | | | | PST | | + + + + + | Respiratory Rate | 16 | 10/16/2018 3:45 PM | | | | | PST | | + + + + + | Oxygen Saturation | 95% | 10/16/2018 3:45 PM | | | | | PST | | + + + + + | Inhaled Oxygen | - | - | | | Concentration | | | | + + + + + | Weight | 88.1 kg (194 lb 3.6 | 10/16/2018 12:36 PM | | | | oz) | PST | | + + + + + | Height | 170.2 cm (5' 7") | 10/16/2018 12:36 PM | | | | | PST | | + + + + + | Body Mass Index | 30.42 | 10/16/2018 12:36 PM | | | | | PST [...] this | | CONTRAST | e | 2:58 PM | radiculopathy | procedure are in the | | | | PST | Spondylosis of | results section. | [...] | | WO CONTRAST | e | 2:27 PM | radiculopathy | procedure are in the | | | | PST | Spondylosis of | results section. | [...] lumbar spondylosis | | | | | 2:10 PM | with radiculopathy | | | | | PST | | | + +--------+ + + [...] FACET HYPERTROPHY. Dictated and Signed by: Sharan Yen MD Electronically signed: 10/16/2018 3:49 PM | | [...] height is otherwise maintained. Bilateral | | [id number] is again noted. 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 | + + | Radiculopathy, lumbosacral region [...] spondylosis without myelopathy | + + | Asthma Unspecified asthma | + + | Hypertension Unspecified essential hypertension | + + | GERD (gastroesophageal reflux disease) Esophageal reflux | + + | COPD (chronic obstructive pulmonary disease) (HCC) Chronic airway obstruction, not | | elsewhere classified | + + | Osteoporosis Osteoporosis, unspecified | + + documented in this [...] ONCE PRN, Wheezing, | | | Starting [facility] 10/16/18 at 1509, | | | [...] ONCE | | | PRN, Nausea, Starting [facility] 10/16/18 | | | at 1509, For 1 dose, | | | Recovery/Phase I | | + +---+ | | | + +---+ documented in this encounter
--- OUTSIDE RECORDS SUMMARY | ~2020-03-28 | XMS | Encounter Summary ---
Demographics + + + | Address | [address] | | | [place] [address] | + + + | Home Phone | | + + + | Preferred Language | Unknown | + + + | Marital Status | Single | + + + | Spiritism Affiliation | CAT | + + + | Race | White | + + + | Ethnic Group | Not or | + + + Author + + + | Author | [facility] | + + + | Organization | [facility] | + + + | Address | Unknown | + + + | Phone | Unavailable | + + + Support + + + + + | Name | Relationship | Address | Phone | + + + + + | Mitra Ramos | ECON | [address] [facility] | | | | | [place] | | | | | [address] | | + + + + + Care Team Providers + +------+ + | Care Incinerator Plant General Supervisor Name | Role | Phone | + +------+ + | Becca Amaya MD | PCP | | + +------+ + Encounter Details +--------+ + + + + | Date | Type | Department | Care Team | Description | +--------+ + + + + | 01/23/ | Hospital | Diagnostic Imaging | Mejia Luciano MD | | | 2019 | Encounter | at [facility] | [address] | | | | | [address] [place], [place] | | | | | [place], [place] | [address] | | | | | [address] | | | | | | [phone] | | | +--------+ + + + [...]
--- OUTSIDE RECORDS SUMMARY | ~2020-03-28 | XMS | Encounter Summary ---
Demographics + + + | Address | [address] | | | [place] [address] | + + + | Home Phone [...] + + + | Author | [facility] | | | and Timiana | + + + | Organization | [facility] | | | and Timiana [...] [place] | | | | | [address] | | + + + + + | Jane Mojica | ECON | Unknown | | + + + + + | Estelita Zamudio | MERI | Unknown | | + + + + + Care Team Providers + +------+ + | Care Rolled Gold Plater Name | Role | Phone | + +------+ + | Becca Amaya MD | PCP | | + +------+ + Reason for Visit + +--------+ + | Reason | Onset | Comments | | | Date | | + +--------+ + | Imaging Only | 08/28/ | | | | 2017 | | + +--------+ + Encounter Details +--------+ + + + + | Date | Type | Department | Care Team | Description | +--------+ + + + + | 08/28/ | Telephone | [facility] | Robi Husain MD | Imaging Only | | 2017 | | NEUR[address]URGERY [address] | [address] | | | | | [address] [facility] [address] | [place] [address] | | | | | [place] | [phone] | | | | | [address] | | | | | | [phone] | | | +--------+ + + + [...] this encounter Miscellaneous Notes Telephone Encounter - Samantha Davis CMA - 08/28/2017 2:[address] Hernandez 's in basket for review. P M PSTTelephone Encounter - Lakshmi Tovar, Wastewater Process Engineer - 08/28/2017 1:45 PM PSTLumba r MRI available on [employer]. This was ordered by Dr. Adams. I will route to both Art Waters and Dr Abram Davis as heads up elephone Encounter - Nancy Dorado - 08/28/2017 12:10 PM P Lara came in to let us know that he just completed his MRI. documented in this encounter Plan of Treatment Not on filedocumented as of this encounter Visit Diagnoses Not on filedocumented in this encounter"
--- OUTSIDE RECORDS SUMMARY | ~2020-03-28 | XMS | Encounter Summary ---
Demographics + + + | Address | [address] | | | [place] [address] | + + + | Home Phone [...] + | Author | [facility] | | | and Timiana | + + + | Organization | [facility] | | | and Tim[place] | + + + | Address | Unknown | + + + | Phone | Unavailable | + + + Support + + + + + | Name | Relationship | Address | Phone | + + + + + | Mitra Shcafer | ECON | [address] | | | | | [place] | | | | | [address] | | + + + + + | Jane Mojica | ECON | Unknown | | + + + + + | Estelita Zamudio | MERI | Unknown | | + + + + + Care Team Providers + +------+ + | Care Slab Tripper Name | Role | Phone | + +------+ + | Becca Amaya MD | PCP | | + +------+ + Encounter Details +--------+ + + + + | Date | Type | Department | Care Team | Description | +--------+ + + + + | 03/17/ | Orders Only | [facility] | Provider, | | | 2019 | | SYSTEM GENERIC OP | [address] | | | | | CONVERSION [address] | [address] | | | | | [address] [place], [place] | [place] [address] | | | | | [address] | | | | | | [phone] | | | +--------+ + + + [...]
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
--- OUTSIDE RECORDS SUMMARY | ~2020-03-28 | XMS | Encounter Summary ---
Demographics + + + | Address | [address] | | | [place] [address] | + + + | Home Phone | | + + + | Preferred Language | Unknown | + + + | Marital Status | | + + + | Buddhist Affiliation | 1013 | + + + | Race | Unknown | + + + | Ethnic Group | Unknown | + + + Author + + + | Author | [facility] | | | and [place] | + + + | Organization | [facility] | | | and [place]iana [...] [place] | | | | | [address] | | + + + + + | Jane Mojica | ECON | Unknown | | + + + + + | Estelita Zamudio | ECON | Unknown | | + + + + + Care Team Providers + +------+ + | Care Bottle Dealer Name | Role | Phone | + [...] | Specialty | Physical | Diagnoses | [place], | David, | | | Services | Medicine and | Bilateral | Manuel | Anthony Alba MD | | | Required | Rehabilitatio | sacroiliitis | SCOT Vaughan | [address] | | | | n | ([facility]) | [address] | [facility] | | | | | | AVE | [place], [place] | | | | | | [place], [place] | [address] Phone: | | | | | | [address] | [phone] | | | | | | Phone: | Fax: | | | | | | [phone] | [phone] | | | | | | Fax: | | | | | | | [phone] | | +--------+ + + + + [...] + + | 04/01/ | Telephone | [facility] | Anthony Hernandez | [place] | | 2016 | | PHYSIATRY [address] | TMD [address] | | | | | [address] | [place], [place] | | | | | [place], [place] | [address] | | | | | [address] | | | | | | [phone] | | | +--------+ + + + [...] | + + +--------+ + + | [facility] | Outpatient | Routin | Bilateral | Ordered: 04/03/2017 | | | Referral | e | sacroiliitis (HCC) | | + + +--------+ + + documented as of this encounter Visit Diagnoses + + | Diagnosis | + + | Bilateral sacroiliitis (HCC) - Primary | + + documented in this encounter"
--- OUTSIDE RECORDS SUMMARY | ~2020-03-28 | XMS | Encounter Summary ---
Demographics + + + | Address | [address] | | | [place] [address] | + + + | Home Phone | | + + + | Preferred Language | Unknown | + + + | Marital Status | | + + + | Moravian Affiliation | 1013 | + + + | Race | Unknown | + + + | Ethnic Group | Unknown | + + + Author + + + | Author | [facility] | | | and [place] | + + + | Organization | [facility] | | | and [place] [...] [place] | | | | | [address] | | + + + + + | Jane Mojica | ECON | Unknown | | + + + + + | Estelita Zamudio | MERI | Unknown | | + + + + + Care Team Providers + +------+ + | Care Horticulturalist Name | Role | Phone | + [...] + + | 09/24/ | Refill | [facility] | Lynn Tan, | Medication Refill | | 2020 | | PULMONOLOGY [address] [address] | | | | | [address] | [address] [place], | | | | | [place], [place] | [place] [address] | | | | | [address] | [phone] | | | | | [phone] | | | +--------+--------+ + + + [...]
--- OUTSIDE RECORDS SUMMARY | ~2020-03-28 | XMS | Encounter Summary ---
Demographics + + + | Address | [address] | | | [place] [address] | + + + | Home Phone | | + + + | Preferred Language | Unknown | + + + | Marital Status | | + + + | Voodoo Affiliation | 1013 | + + + | Race | Unknown | + + + | Ethnic Group | Unknown | + + + Author + + + | Author | [facility] | | | and [place] | + + + | Organization | [facility] | | | and [place] [...] [place] | | | | | [address] | | + + + + + | Jane Mojica | ECON | Unknown | | + + + + + | Estelita Zamudio | MERI | Unknown | | + + + + + Care Team Providers + +------+ + | Care Curing Pickling Packer Name | Role | Phone | + +------+ + | Becca Amaya MD | PCP | | + +------+ + Encounter Details +--------+ + + + + | Date | Type | Department | Care Team | Description | +--------+ + + + + | 11/20/ | Orders Only | [facility] | Michael Lainez, | Spondylolisthesis of | | 2018 | | NEUROSURGERY [address] | DO [address] | lumbar region | | | | [address] | [address] [place], [place] | (Primary Dx); | | | | [place], [place] | [address] | Acquired flat back | | | | [address] | | syndrome; Neurogenic | | | | [phone] | | claudication; | | | | [...]
--- OUTSIDE RECORDS SUMMARY | ~2020-03-28 | XMS | Encounter Summary ---
Demographics + + + | Address | [address] | | | [place] [address] | + + + | Home Phone | | + + + | Preferred Language | Unknown | + + + | Marital Status | | + + + | Islam Affiliation | 1013 | + + + | Race | Unknown | + + + | Ethnic Group | Unknown | + + + Author + + + | Author | [facility] | | | and Timiana | + + + | Organization | [facility] | | | and Timiana [...] [place] | | | | | [address] | | + + + + + | Jane Mojica | ECON | Unknown | | + + + + + | Estelita Zamudio | MERI | Unknown | | + + + + + Care Team Providers + +------+ + | Care Nutrition Associate Name | Role | Phone | + +------+ + | Becca Amaya MD | PCP | | + +------+ + Encounter Details +--------+ + + + + | Date | Type | Department | Care Team | Description | +--------+ + + + + | 05/23/ | [facility] | [facility] | Anthony Hernandez | | | 2017 | Encounter | MED CTR XRAY [address] | [address] | | | | | [place] | [place], [place] | | | | | [place] [address] | [id number] | | | | | [phone] | | | +--------+ + + + [...] + +--------+ + + + | XR SCREENING ORBITS | Routin | 05/23/2017 | Encounter for | Results for this | | FOR MRI | e | 10:34 AM | imaging to screen | procedure are in the | | | | PDT | for metal prior to | results section. | | | | | magnetic resonance | | | | | | imaging (MRI) | | + +--------+ + + + documented in this encounter Results XR Screening Orbits for MRI (05/23/2017 10:34 AM PDT) + + | Specimen | + + | | + + + + + | Narrative | Performed At | + + + | TWO VIEW ORBITS FOR MRI SCREENING 05/23/2017 10:34 AM CLINICAL | [facility] | | HISTORY: Metallic foreign bodies, clear for MRI COMPARISON: | | | Cervical CT June 2016, cervical radiographs May 2016 | | | FINDINGS: Frontal and lateral views of the head are provided, and | | | demonstrate the presence of several small, irregular metallic density | | | foreign bodies in the right lower face and at and below the level of | | | the right mastoid, stable in number and position compared with | | | previous imaging. Two metallic cerclage wires are again visible at | | | the level of the right mandible just anterior to the angle. No | | | radiopaque foreign body is visible at the level of the orbits. No | | | recent fracture is evident. There is mild leftward nasal septal | | | deviation. Visible paranasal sinuses and mastoid air cells are well | | | aerated. Cervical degenerative disc disease and spondylosis are | | | again apparent. IMPRESSION - 1. STABLE NUMBER AND DISTRIBUTION | | | OF METALLIC FOREIGN BODIES IN THE RIGHT FACE AND MASTOID REGION | | | DISCUSSED. NO VISIBLE ORBITAL FOREIGN BODY. Dictated and Signed | | | by: Sharan Yen MD Electronically signed: 05/23/2017 10:40 AM | | + + + + + | Procedure Note | + + | Sal, Rad Results In - 05/23/2017 10:44 AM PDT TWO VIEW ORBITS FOR MRI SCREENING | | 05/23/2017 10:34 AMCLINICAL HISTORY: Metallic foreign bodies, clear for MRICOMPARISON: | | Cervical CT June 2016, cervical radiographs May 2016FINDINGS: Frontal and | | lateral views of the head are provided, and demonstratethe presence of several small, | | irregular metallic density foreign bodies in theright lower face and at and below the | | level of the right mastoid, stable innumber and position compared with previous imaging. | | Two metallic cerclage wiresare again visible at the level of the right mandible just | | anterior to the angle. No radiopaque foreign body is visible at the level of the orbits. | | No recentfracture is evident. There is mild leftward nasal septal deviation. | | Visibleparanasal sinuses and mastoid air cells are well aerated. Cervical | | degenerativedisc disease and spondylosis are again apparent.IMPRESSION -1. STABLE | | NUMBER AND DISTRIBUTION OF METALLIC FOREIGN BODIES IN THE RIGHT FACEAND MASTOID REGION | | DISCUSSED. NO VISIBLE ORBITAL FOREIGN BODY.Dictated and Signed by: Sharan Yen MD | | Electronically signed: 05/23/2017 10:40 AM | |disc disease and spondylosis are again apparent. | | | |IMPRESSION - | |1. STABLE NUMBER AND DISTRIBUTION OF METALLIC FOREIGN BODIES IN THE RIGHT FACE | |AND MASTOID REGION DISCUSSED. NO VISIBLE ORBITAL FOREIGN BODY. | | | |Dictated and Signed by: Sharan Yen MD | | Electronically signed: 05/23/2017 10:40 AM | + + + +---------+ + + | Performing | Address | City/State/Zipcode | Phone Number | | Organization | | | | + +---------+ + + | [facility] | | | | + +---------+ + + documented in this encounter Visit Diagnoses Not on filedocumented in this encounter"
--- OUTSIDE RECORDS SUMMARY | ~2020-03-28 | XMS | Encounter Summary ---
Demographics + + + | Address | [address] | | | [place] [address] | + + + | Home Phone | | + + + | Preferred Language | Unknown | + + + | Marital Status | | + + + | Nondenominational Affiliation | 1013 | + + + | Race | Unknown | + + + | Ethnic Group | Unknown | + + + Author + + + | Author | [facility] | | | and [place] | + + + | Organization | [facility] | | | and Timiana [...] [place] | | | | | [address] | | + + + + + | Jane Mojica | ECON | Unknown | | + + + + + | Estelita Zamudio | MERI | Unknown | | + + + + + Care Team Providers + +------+ + | Care Auricular Therapist Name | Role | Phone | + +------+ + | Becca Amaya MD | PCP | | + +------+ + Encounter Details +--------+ + + + + | Date | Type | Department | Care Team | Description | +--------+ + + + + | 11/19/ | Imaging | [facility] [place] | Provider, | | | 2018 | Exam | MED CTR EXTERNAL | MD [address] | | | | | IMAGING [address] | [address] | | | | | [address] [place] | [place] [address] | | | | | [place] [address] | | | | | | [phone] | | | +--------+ + + + [...] LUMBAR SPINE 4 + | Routin | 11/13/2017 | | Results for this | | VW | e | 10:10 AM | | procedure are in the | | | | PDT | | results section. | + +--------+ + + + documented in this encounter Results XR Lumbar Spine 4 + Vw (11/13/2017 10:10 AM PDT) + + | Specimen | + + | | + + + + + | Narrative | Performed At | + + + | External films for comparison only - no result from [facility]. | [facility] | + + + + +---------+ + + | Performing | Address | City/State/Zipcode | Phone Number | | Organization | | | | + +---------+ + + | [facility] | | | | + +---------+ + + documented in this encounter Visit Diagnoses Not on filedocumented in this encounter"
--- OUTSIDE RECORDS SUMMARY | ~2020-03-28 | XMS | Encounter Summary ---
Demographics + + + | Address | [address] | | | [place] [address] | + + + | Home Phone | | + + + | Preferred Language | Unknown | + + + | Marital Status | | + + + | Caodaism Affiliation | 1013 | + + + | Race | Unknown | + + + | Ethnic Group | Unknown | + + + Author + + + | Author | [facility] | | | and Tim[place] | + + + | Organization | [facility] | | | and [...] [place] | | | | | [address] | | + + + + + | Jane Mojica | ECON | Unknown | | + + + + + | Estelita Zamudio | MERI | Unknown | | + + + + + Care Team Providers + +------+ + | Care Ship Self Defense System Mk1 Operator Name | Role | Phone | + +------+ + | Becca Amaya MD | PCP | | + +------+ + Reason for Visit + +--------+ + | Reason | Onset | Comments | | | Date | | + +--------+ + | Procedure | 11/29/ | scheduling | | | 2017 | | + +--------+ + Encounter Details +--------+ + + + + | Date | Type | Department | Care Team | Description | +--------+ + + + + | 11/29/ | Telephone | [facility] | Michael Lainez, | Procedure | | 2017 | | NEUROSURGERY [address] | DO [address] | (scheduling ) | | | | [address] | [address] [place], [place] | | | | | [place] | [address] | | | | | [address] | | | | | | [phone] | | | +--------+ + + + [...]
--- OUTSIDE RECORDS SUMMARY | ~2020-03-28 | XMS | Encounter Summary ---
Demographics + + + | Address | [address] | | | [place] [address] | + + + | Home Phone | | + + + | Preferred Language | Unknown | + + + | Marital Status | | + + + | Scientologist Affiliation | 1013 | + + + | Race | Unknown | + + + | Ethnic Group | Unknown | + + + Author + + + | Author | [facility] | | | and Timiana | + + + | Organization | [facility] | | | and [...] [place] | | | | | [address] | | + + + + + | Jane Mojica | ECON | Unknown | | + + + + + | Estelita Zamudio | MERI | Unknown | | + + + + + Care Team Providers + +------+ + | Care Internet Sourcer Name | Role | Phone | + +------+ + | Becca Amaya MD | PCP | | + +------+ + Reason for Visit + +--------+ + | Reason | Onset | Comments | | | Date | | + +--------+ + | Results, Imaging | 09/26/ | | | | 2018 | | + +--------+ + Encounter Details +--------+ + + + + | Date | Type | Department | Care Team | Description | +--------+ + + + + | 09/26/ | Telephone | [facility] [place] | Sidney Domniguez, | Results, Imaging | | 2018 | | NEUROSURGERY [address] | PA-C [address] | | | | | [address] | [address] [place] | | | | | [place], [place] | [place] [address] | | | | | [address] | [phone] | | | | | [phone] | | | +--------+ + + + [...] this visit from the emergency room at [facility] back around 2011" Sidney, notes from [facility] were received and placed in your in basket. Electronically s igned by Sanna Benavidez CMA at 10/01/2018 8:47 AM PSTTelephone Encounter - Sanna Benavidez CMA - 09/26/2018 9:08 AM PST2nd request for ED notes faxed to [facility] medical re cords dept. documented in this encounter Plan of Treatment Not on filedocumented as of this encounter Visit Diagnoses Not on filedocumented in this encounter
--- OUTSIDE RECORDS SUMMARY | ~2020-03-28 | XMS | Encounter Summary ---
Demographics + + + | Address | [address] | | | [place] [address] | + + + | Home Phone | | + + + | Preferred Language | Unknown | + + + | Marital Status | | + + + | Alevism Affiliation | 1013 | + + + | Race | Unknown | + + + | Ethnic Group | Unknown | + + + Author + + + | Author | [facility] | | | and Timiana | + + + | Organization | [facility] | [...] [place] | | | | | [address] | | + + + + + | Jane Mojica | ECON | Unknown | | + + + + + | Estelita Zamudio | ECON | Unknown | | + + + + + Care Team Providers + +------+ + | Care Bulk Station Operator Name | Role | Phone | [...] | | | | | Lumbar | [place], | [address] | | | | | radiculopath | Anthony Alba MD | [place], | | | | | y | [address] | [place] | | | | | Spondylolist | [place] | [address] | | | | | hesis of | [place], [place] | Phone: | | | | | lumbar | [address] | [phone] | | | | | region | Phone: | Fax: | | | | | [place] | [phone] | [phone] | | | | | stenosis of | Fax: | | | | | | lumbar | [phone] | | | | | | region [...] | Lumbar | [place], | [address] | | | | | radiculopath | Anthony Alba MD | [place], | | | | | y | [address] | [place] | | | | | Spondylolist | [place] | [address] | | | | | hesis of | [place], [place] | Phone: | | | | | lumbar | [address] | [phone] | | | | | region | Phone: | Fax: | | | | | [place] | [phone] | [phone] | | | | | stenosis of | Fax: | | | | | | lumbar | [phone] | | | | | | region [...] + + + + | 08/28/ | [facility] | [facility] | Anthony Hernandez | Lumbar | | 2018 | Encounter | MED CTR MRI [address] | [address], [address] | radiculopathy; | | | | [address] [place], | [place] | Spondylolisthesis of | | | | [place] [address] | [address] | lumbar region; | | | | [phone] | | Foram[place] stenosis | | | [...] + + | Performing | Address | City/State/[facility] | Phone Number | | [...]
--- OUTSIDE RECORDS SUMMARY | ~2020-03-28 | XMS | Encounter Summary ---
Demographics + + + | Address | [address] | | | [place] [address] | + + + | Home Phone | | + + + | Preferred Language | Unknown | + + + | Marital Status | | + + + | Mandaen Affiliation | 1013 | + + + | Race | Unknown | + + + | Ethnic Group | Unknown | + + + Author + + + | Author | [facility] | | | and Timiana | + + + | Organization | [facility] | | | and [place] [...] [place] | | | | | [address] | | + + + + + | Jane Mojica | ECON | Unknown | | + + + + + | Estelita Zamudio | ECON | Unknown | | + + + + + Care Team Providers + +------+ + | Care Set Up Inspector Name | Role | Phone | + +------+ + PCP | Unavailable | + +------+ + Encounter Details +--------+ + + + + | Date | Type | Department | Care Team | Description | +--------+ + + + + | 09/22/ | Hospital | [facility] | Jaci Cunningham | | | 1994 | Encounter | CONVERSION [address] | MD [address] | | | | | [address] | [place] | | | | | [facility] [place] [address] | [place] [address] | | | | | [address] | [phone] | | | | | [phone] | | | +--------+ + + + [...]
--- OUTSIDE RECORDS SUMMARY | ~2020-03-28 | XMS | Encounter Summary ---
Demographics + + + | Address | [address] | | | [place] [address] | + + + | Home Phone | | + + + | Preferred Language | Unknown | + + + | Marital Status | | + + + | Samaritan Affiliation | 1013 | + + + | Race | Unknown | + + + | Ethnic Group | Unknown | + + + Author + + + | Author | [facility] | | | and Timiana | + + + | Organization | [facility] | | | and Timiana [...] [place] | | | | | [address] | | + + + + + | Jane Mojica | ECON | Unknown | | + + + + + | Estelita Zamudio | MERI | Unknown | | + + + + + Care Team Providers + +------+ + | Care Data Center Operator Name | Role | Phone | + +------+ + | Becca Amaya MD | PCP | | + +------+ + Encounter Details +--------+ + + + + | Date | Type | Department | Care Team | Description | +--------+ + + + + | 10/23/ | Hospital | [facility] | Sidney Dominguez, | Cervicalgia | | 2019 | Encounter | MED CTR XRAY [address] | PA-C [address] | | | | | [place] | [address] [place] | | | | | [place] [address] | [place] [address] | | | | | [phone] | [phone] | | | | | | | [...] | + +--------+ + + + | ECG - EXTERNAL SCAN | | 02/11/2019 | | Results for this | | | | 12:00 AM | | procedure are in the | | | | PDT | | results section. | + +--------+ + + + | XR CERVICAL SPINE 4 | Routin | 10/23/2018 | Cervicalgia | Results for this | | OR 5 VWS | e | 11:31 AM | | procedure are in the | | | | PST | | results section. | + +--------+ + + + | ECG - EXTERNAL SCAN | | 04/10/2018 | | Results for this | | | | 12:00 AM | | procedure are in the | | | | PDT | | results section. | + +--------+ + + + | ECHO-EXTERNAL SCAN | | 03/13/2015 | | Results for this | | | | 12:00 AM | | procedure are in the | | | | PDT | | results section. | + +--------+ + + + documented in this encounter Results ECG - EXTERNAL SCAN (02/11/2019 12:00 AM PDT) + + + | Narrative | Performed At | + + + | Ordered by an | | | unspecified provider. | | + + + XR Cervical Spine 4 or 5 Vws (10/23/2018 11:31 AM PST) + + | Specimen | [...] | Sal, Rad Results In - 10/23/2018 12:28 PM PST XR CERVICAL SPINE 4 OR 5 VWS 10/23/2018 | | 11:31 AMHISTORY: cervicalgia.COMPARISON: Multiple priors.FINDINGS:Visualized skull base | | and facial structures demonstrate no acute findings.Metallic fragments are seen over the | | right skull base. Surgical wires are in theright mandible.There is moderate | | spondylosis. There is minimal motion of C4 over C5 and C5 overC6. Bone mineralization is | | normal. The dens is normal. Vertebral body height arepreserved with no evidence for | | compression fractures. Multilevel disc narrowingare present most significant at C4-5, | | which is moderate to severe. Facet jointsare intact. There is ossification of the | | ligamentum nuchae. Visualized upperchest demonstrates no acute findings. IMPRESSION | | -Degenerative changes with minimal motion of C4 over C5 and C5 over C6.Dictated and | | Signed by: Ajit Miller MD Electronically signed: 10/23/2018 12:25 PM | |There [...] | | | + +---------+ + + ECG - EXTERNAL SCAN (04/10/2018 12:00 AM PDT) + + + | Narrative | Performed At | + + + | Ordered by an | | | unspecified provider. | | + + + ECHO-EXTERNAL SCAN (03/13/2015 12:00 AM PDT) + + + | Narrative | Performed At | + + + | Ordered by an | | | unspecified provider. | | + + + documented in this encounter Visit Diagnoses + + | Diagnosis | + + | Cervicalgia | + + documented in this encounter"
--- OUTSIDE RECORDS SUMMARY | ~2020-03-28 | XMS | Encounter Summary ---
Demographics + + + | Address | [address] | | | [place] [address] | + + + | Home Phone [...] | Author | [facility] | | | and Timiana | + + + | Organization | [facility] | | | and [...] [place] | | | | | [address] | | + + + + + | Jane Mojica | ECON | Unknown | | + + + + + | Estelita Zamudio | MERI | Unknown | | + + + + + Care Team Providers + +------+ + | Care Catalyst Plant Supervisor Name | Role | Phone | + +------+ + | Becca Amaya MD | PCP | | + +------+ + Encounter Details +--------+ + + + + | Date | Type | Department | Care Team | Description | +--------+ + + + + | 11/13/ | [facility] | [facility] | Manuel Waters | Neck pain | | 2017 | Encounter | MED CTR XRAY [address] | [address] | | | | | [place] | [address] [place], [place] | | | | | [place] [address] | [id number] | | | | | [phone] | | | +--------+ + + + [...] tablet by | | 0 | | 08/31/201 | | lisinopril-hydrochlo | mouth Daily. | [...]
--- OUTSIDE RECORDS SUMMARY | ~2020-03-28 | XMS | Encounter Summary ---
Demographics + + + | Address | [address] | | | [place] [address] | + + + | Home Phone | | + + + | Preferred Language | Unknown | + + + | Marital Status | | + + + | Zoroastrianism Affiliation | 1013 | + + + | Race | Unknown | + + + | Ethnic Group | Unknown | + + + Author + + + | Author | [facility] | | | and Timiana | + + + | Organization | [facility] | | | and Timiana [...] [place] | | | | | [address] | | + + + + + | Jane Mojica | ECON | Unknown | | + + + + + | Est[place] Zamudio | MERI | Unknown | | + + + + + Care Team Providers + +------+ + | Care Giant Tire Repairer Name | Role | Phone | + +------+ + | Becca Amaya MD | PCP | | + +------+ + Encounter Details +--------+ + + + + | Date | Type | Department | Care Team | Description | +--------+ + + + + | 09/15/ | Orders Only | [facility] [place] | Robi Husain MD | Back pain, | | 2019 | | NEUROSURGERY [address] | [address] | unspecified back | | | | [address] | [place] [address] | location, | | | | [place] | [phone] | unspecified back | | | | [address] | | pain laterality, | | | | [phone] | | unspecified | | | | | | chronicity (Primary | | | | | | Dx); | | | | | | Spondylolisthesis of | | | | | | lumbar region | +--------+ + + + [...] filedocumented as of this encounter Results XR Lumbar Spine 4 [...] DESCRIBED L5 SPONDYLOLYSIS. Dictated and Signed by: Sharan Yen | | | Electronically signed: 09/22/2018 3:07 PM [...] chronicity - Primary | + + | Spondylolisthesis of lumbar region Acquired spondylolisthesis | + + documented in this encounter"
--- OUTSIDE RECORDS SUMMARY | ~2020-03-28 | XMS | Encounter Summary ---
Demographics + + + | Address | [address] | | | [place] [address] | + + + | Home Phone | | + + + | Preferred Language | Unknown | + + + | Marital Status | Single | + + + | Lutheran Affiliation | CAT | + + + [...] [place] | | | | | [address] | | + + + + + Care Team Providers + +------+ + | Care Manager Continuous Improvement Name | Role | Phone | + [...]
--- OUTSIDE RECORDS SUMMARY | ~2020-03-28 | XMS | Encounter Summary ---
Demographics + + + | Address | [address] | | | [place] [address] | + + + | Home Phone | | + + + | Preferred Language | Unknown | + + + | Marital Status | Single | + + + | Jew Affiliation | CAT | + + + | Race | White | + + + | Ethnic Group | Not or | + + + Author + + + | Author | [facility] | + + + | Organization | [facility] | + + + | Address | Unknown | + + + | Phone | Unavailable | + + + Support + + + + + | Name | Relationship | Address | Phone | + + + + + | Mitra Ramos | ECON | [address] | | | | | [place] | | | | | [address] | | + + + + + Care Team Providers + +------+ + | Care Buffing Machine Tender Name | Role | Phone | [...] | | | | Procedures | [place] [address] | [place] | | | | | [place] BONE | Phone: | [address] | | | | | &/OR JOINT | [phone] | Phone: | | | | | IMAGING | Fax: | [phone] | | | | | TOMOGRAPHIC | [phone] | | | | | | (SPECT) | | | + +--------+ + + + + Encounter Details +--------+ + + + + | Date | Type | Department | Care Team | Description | +--------+ + + + + | 02/16/ | Transcribe | [facility] | Lizzette Harry MD | | | 2019 | Orders | [facility] [address] | | | | | [address] [place], [place] | | | | | [place] | [address] | | | | | [address] | | | +--------+ + + + [...] | + + + | [address] [place] [address] | [facility] | | [place] [address] | DEPARTMENT | | [phone] Name: PERCY MANCILLA Phys: | RADIOLOGY | | LIZZETTE HARRY : 1960 Sex: M CSN: | | | [id number] MR# [id number] Exam Date: 03/05/2019 | | | EXAM: [place] BONE &/OR JOINT IMAGING TOMOGRAPHIC (SPECT) [address] | | | CLINICAL HISTORY: Spondylolisthesis at [...] There is also | | | bilateral wzqh-xu-ysingnkk facet arthropathy and chronic bilateral | | [...] | | | Transcribed Date/Time: 03/13/2019 08:09 Marketing Operations Consultant: FLUENCY | | | | | + + + + + | Procedure Note | + + | Interface, Radiology Results - 03/13/2019 8:13 AM PDT [address] | | [place] [address] | | Name: PERCY MANCILLA Phys: LIZZETTE HARRY : 1960 Sex: M CSN: | | [id number] MR# [id number] Exam Date: 03/05/2019 EXAM:NM BONE &/OR JOINT IMAGING | | TOMOGRAPHIC (SPECT) [address] CLINICAL HISTORY:Spondylolisthesis at L5-S1. | | COMPARISON:01/23/2019 [...] | | vertebral body. There is alsobilateral qejg-bs-dcqcmyyc facet arthropathy and chronic | | bilateralpars [...] vertebral body. There is also | |bilateral gmpo-jh-htfrodec facet arthropathy and chronic bilateral | |pars [...] | | |Transcribed Date/Time: 03/13/2019 08:09 | |Marketing Operations Consultant: WIL | | | | | | [...]
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
--- OUTSIDE RECORDS SUMMARY | ~2020-03-28 | XMS | Encounter Summary ---
Demographics + + + | Address | [address] | | | [place] [address] | + + + | Home Phone | | + + + | Preferred Language | Unknown | + + + | Marital Status | Single | + + + | Yarsanism Affiliation | CAT | + + + | Race | White | + + + | Ethnic Group | Not or | + + + Author + + + | Author | [facility] | + + + | Organization | [facility] | + + + | Address | Unknown | + + + | Phone | Unavailable | + + + Support + + + + + | Name | Relationship | Address | Phone | + + + + + | Mitra Ramos | ECON | [address] [facility] | | | | | [place] | | | | | [address] | | + + + + + Care Team Providers + +------+ + | Care Water And Gas Helper Name | Role | Phone | + +------+ + | Becca Amaya MD | PCP | | + +------+ + Encounter Details +--------+ + + + + | Date | Type | Department | Care Team | Description | +--------+ + + + + | 01/23/ | Transcribe | [facility] | Transcribe | | | 2019 | Orders | [facility] [address] | Encounter, Provider, | | | | | [address] | [address] | | | | | [place] | [place] [address] | | | | | [address] | | | +--------+ + + + [...] | + + + | [address] [place] [address] | [facility] | | [place] [address] | [facility] | | [phone] Name: PERCY MANCILLA Phys: | RADIOLOGY | | LIZZETTE HARRY : 1960 Sex: M CSN: | | | [id number] MR# [id number] Exam Date: 01/23/2019 | | | EXAM: [...] Transcribed | | | Date/Time: 01/23/2019 11:07 Guide Escort: FLUENCY | | + + + + + | Procedure Note | + + | Interface, Radiology Results - 01/23/2019 11:12 AM PDT [address] | | [address] [place] [address] | | Name: PERCY MANCILLA Phys: LIZZETTE HARRY : 1960 Sex: M CSN: | | [id number] MR# [id number] Exam Date: 01/23/2019 EXAM:X-RAY SCOLI SPINE ENTR [...] | | |Transcribed Date/Time: 01/23/2019 11:07 | |Guide Escort: FLUENCY | | | | | | [...]
--- OUTSIDE RECORDS SUMMARY | ~2020-03-28 | XMS | Encounter Summary ---
Demographics + + + | Address | [address] | | | [place] [address] | + + + | Home Phone | | + + + | Preferred Language | Unknown | + + + | Marital Status | | + + + | Mormon Affiliation | 1013 | + + + | Race | Unknown | + + + | Ethnic Group | Unknown | + + + Author + + + | Author | [facility] | | | and Timiana | + + + | Organization | [facility] | | | and [...] [place] | | | | | [address] | | + + + + + | Jane Mojica | ECON | Unknown | | + + + + + | Estelita Zamudio | MERI | Unknown | | + + + + + Care Team Providers + +------+ + | Care Assistant Director Of Residence Life Name | Role | Phone | + [...] + + | 09/22/ | [facility] | [facility] [place] | Sidney Dominguez E, | Cervicalgia (Primary | | 2019 | Visit | NEUROSURGERY [address] | PA-C [address] | Dx); Back pain, | | | | [address] | [address] [place] | unspecified back | | | | [place], [place] | [place] [address] | location, | | | | [address] | [phone] | unspecified back | | | | [phone] | | pain laterality, | | | [...] myelopathy | | | | | | ([facility]); Cervical | | | | | | [...] | | | | | | of [place] (myocardial | | | | | | [...] encounter Patient Instructions Patient Instructions Ary Arreguin, Sales Representative Rural Power - 09/22/2018 2:30 PM PSTIt was a [...] 2:30 PM PST Sidney Dominguez PA-C [address] [facility] [place] [address] PHONE: FAX: NEUROSURGERY HISTORY AND PHYSICAL EXAMINATION [...] deficit disorder Cervical radiculopathy Chronic bronchitis ([facility]) Chronic fatigue Chronic pain syndrome COPD (chronic obstructive pulmonary disease) ([facility]) DDD (degenerative disc disease), cervical 07/25/2017 Ear infection Generalized anxiety disorder GERD (gastroesophageal reflux disease) H/O emphysema Hay fever History of dental problems Hyperlipidemia Hypertension Lumbar radiculopathy Major depression [place] (myocardial infarction) ([facility]) Migraine Opioid dependence, continuous ([facility]) Osteoarthritis Osteoporosis Pneumonia Radiculopathy, lumbosacral region Renal [...] has no apparent deficits with short or alf memory. CRANIAL NERVES: II: Acuity is intact. [...] Intrinsics 5 5 Ulnar Intrinsics 4+ 4 Supervisor Cellars Strength 5 5 Hip Flexion 5 4 [...] disease, unspecified COPD type (HCC) History of [place] (myocardial infarction) GENERAL DIAGNOSES: Past Medical History: Diagnosis Date Asthma Attention deficit disorder Cervical radiculopathy Chronic bronchitis (HCC) Chronic fatigue Chronic pain syndrome COPD (chronic obstructive pulmonary disease) (HCC) DDD (degenerative disc disease), cervical 07/25/2017 Ear infection Generalized anxiety disorder GERD (gastroesophageal reflux disease) H/O emphysema Hay fever History of dental problems Hyperlipidemia Hypertension Lumbar radiculopathy Major depression [place] (myocardial infarction) (HCC) Migraine Opioid dependence, continuous (HCC) Osteoarthritis Osteoporosis Pneumonia Radiculopathy, lumbosacral region Renal stones Sinus infection PLAN: Percy Katia Mancilla presented today, and it was a pleasure seeing this patient and assessi ng his neurologic problems. He has L5-S1 degenerative disc disease with near wixw-aq-mxyo articulation causing severe f oraminal stenosis of [...] this visit from the emergency room at [facility] around 2011. I do think that [...] lengthy and sometime s difficult. I, Sidney Dominguez PA-C, personally performed the services described in [...] (HCC) | + + | History of [place] (myocardial infarction) Old myocardial infarction | + + documented in this encounter
--- OUTSIDE RECORDS SUMMARY | ~2020-03-28 | XMS | Encounter Summary ---
Demographics + + + | Address | [address] | | | [place] [address] | + + + | Home Phone | | + + + | Preferred Language | Unknown | + + + | Marital Status | | + + + | Cheondoism Affiliation | 1013 | + + + | Race | Unknown | + + + | Ethnic Group | Unknown | + + + Author + + + | Author | [facility] | | | and Timiana | + + + | Organization | [facility] | | | and Timiana | [...] [place] | | | | | [address] | | + + + + + | Jane Mojica | ECON | Unknown | | + + + + + | Estelita Zamudio | MERI | Unknown | | + + + + + Care Team Providers + +------+ + | Care Nail Feeder Name | Role | Phone | + +------+ + | Becca Amaya MD | PCP | | + +------+ + Encounter Details +--------+ + + + + | Date | Type | Department | Care Team | Description | +--------+ + + + + | 10/16/ | Anesthesia | [facility] | Chon Caputo MD | | | 2019 | Event | MED CTR IR INTRA OP | [address] | | | | | [address] | [place] | | | | | [place] | [address] | | | | | [address] | [phone] | | | | | [phone] | | | | | | | Raud[place], | | | | | | [address] | | | | | | [place] | | | | | | [address] | | | | | | [phone] | | | | | | | [...] 10/16/18 1555 by | | eral | [id number] catheter system; | Shawna Antunez RN | [...] Removal | | | | | Time: 1512 | | | +--------+ + + + [...] + + documented as of this encounter OR Notes Anesthesia Postprocedure Evaluation - Chon Caputo MD - 10/16/2018 4:56 PM PSTFormattin g of this note might be different from the original. ANESTHESIA POSTANESTHESIA EVALUATION Percy Mancilla 57 y.o. male 1960 [id number] Procedure(s) MRI GENERAL SEDATION CERVICAL & LUMBAR (N/A ) Cooperates? Yes Mental Status Performs simple tasks. Respiratory Satisfactory - Airway patent (self maintained). Cardiovascular Satisfactory - Blood pressure and heart rate acceptable Temperature Satisfactory Pain Satisfactory N/V Control Satisfactory Hydration Satisfactory - No signs of dehydration Complications None apparent Vitals: 10/16/18 1529 10/16/18 1535 10/16/18 1545 BP: 117/75 119/77 Pulse: 73 73 75 Temp: Resp: 16 14 16 SpO2: 93% 93% 95% Electronically signed by Chon Caputo MD 10/16/2018 16:56 [facility] signed by Chon Caputo MD at 10/16 4:56 PM PSTAnesthesia Preprocedure Evaluation - Chon Caputo MD - 10/16/2018 1:31 PM PST ANESTHESIA PREANESTHESIA EVALUATION Percy Mancilla 57 y.o. male 1960 [id number] Procedure(s): MRI GENERAL SEDATION CERVICAL & LUMBAR (N/A ) Medical history, anesthesia, medications, allergy, NPO status verified histories reviewed. Review of Systems / Med History Cardiovascular (+) hypertension, past VT Pulmonary (+) asthma, COPD, Stop Bang Score: 5 Neurology (+) headaches Psychology (+) anxiety, depression Renal (+) renal/ureteral stones Gastrointestinal/Hepatic (+) reflux/GERD, hyperlipidemia Endocrine (+) Diabetes: type 2, NIDDM (+) obesity: BMI (30-39) Other (+) arthritis Physical Exam Airway MP II, TM >3 FB, Mouth opening >2 FB. Neck: full ROM, extends >30 degrees. Jaw protrus ion normal. Dental Grossly normal except where noted below.; (+) Chipped/Broken teeth, missing teeth and dentures-upper. CV Rhythm regular. Rate Normal. Neuro Grossly normal. Anesthesia Plan ASA 2 Type: General. Induction: Intravenous. Potential problems: None anticipated. Monitors: Standard ASA monitors. Consent statement:Anesthetic plan, alternatives, risks and benefits discussed with patient. Risks discussed included (but were not limited to): sore throat, pain, nausea, . Consenting person understands and agrees to proceed. Electronically Signed by: Chon Caputo MD ESi date/time: 10/16/2018 14:01 documented in this enc ounter Plan of [...] | Intravenous, CONTINUOUS PRN, | | 19 1:48 | | | | | Starting Kim 10/16/18 at 1348, | | PM PST | | | | | Anesthesia Intra-op | | | | | | + +---------+ +------+------+------+ +---+---+ | | | +---+---+ + +-------+ +--------+---+---+ | lidocaine (PF) 2% injection | Given | 10/16/19 | 100 mg | | | | Intravenous, PRN, Starting Kim | | 19 2:11 | | | | | 10/16/18 at 1411, Anesthesia | | PM PST | | | | | Intra-op | | | | | | + +-------+ +--------+---+---+ +---+---+ | | | +---+---+ + +-------+ +-------+---+---+ | propofol (DIPRIVAN) injection | Given | 10/16/19 | 50 mg | | | | Intravenous, PRN, Starting Kim | | 19 2:12 | | | | | 10/16/18 at 1411, Anesthesia | | PM PST | | | | | Intra-op | | | | | | + +-------+ +-------+---+---+ +-------+ +--------+---+---+ | Given | 10/16/19 | 100 mg | | | | | 19 2:11 | | | | | | PM PST | | | | +-------+ +--------+---+---+ +---+---+ | | | +---+---+ documented in this encounter"
--- OUTSIDE RECORDS SUMMARY | ~2020-03-28 | XMS | Encounter Summary ---
Demographics + + + | Address | [address] | | | [place] [address] | + + + | Home Phone | | + + + | Preferred Language | Unknown | + + + | Marital Status | | + + + | Religion Affiliation | 1013 | + + + | Race | Unknown | + + + | Ethnic Group | Unknown | + + + Author + + + | Author | [facility] | | | and Timiana | + + + | Organization | [facility] | | | and [...] [place] | | | | | [address] | | + + + + + | Jane Mojica | ECON | Unknown | | + + + + + | Estelita Zamudio | MERI | Unknown | | + + + + + Care Team Providers + +------+ + | Care Night Assistant Name | Role | Phone | [...] [address] | [address] [place], [place] | Myocardial | | | | [place], [place] | [id number] | infarction, | | | | [address] | | unspecified [place] type, | | | | [phone] | | unspecified artery | | | [...] | + + | Myocardial infarction, unspecified [place] type, unspecified artery (HCC) | + + | Hypertension, unspecified type | + + | Hyperlipidemia, unspecified hyperlipidemia type | + + | Chronic obstructive pulmonary disease, unspecified COPD type (HCC) | + + documented in this encounter"
--- OUTSIDE RECORDS SUMMARY | ~2020-03-28 | XMS | Encounter Summary ---
Demographics + + + | Address | [address] | | | [place] [address] | + + + | Home Phone [...] Author | [facility] | | | and Timiana | + + + | Organization | [facility] | | [...] [place] | | | | | [address] | | + + + + + | Jane Mojica | ECON | Unknown | | + + + + + | Estelita Zamudio | ECON | Unknown | | + + + + + Care Team Providers + +------+ + | Care Well Reactivator Operator Name | Role | Phone | [...] | Services | General | | Michael Lewis DO | Rene Castle, | | | Required | Surgery | Spondylolist | [address] | MD [address] | | | | | hesis of | [address] | [address] | | | | | lumbar | [place], [place] | [place], | | | | | region | [address] | [place] [address] | | | | | Acquired | Phone: | Phone: | | | | | flat back | [phone] | [phone] | | | | | syndrome | Fax: | Fax: | | | | | Neurogenic | [phone] | [phone] | | | | | claudication | [...] | 11/29/ | Orders Only | [facility] [place] | Michael Lainez, | Spondylolisthesis of | | 2018 | | NEUROSURGERY [address] | DO [address] | lumbar region | | | | [address] | [address] [place], [place] | (Primary Dx); | | | | [place], [place] | [address] | 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
--- OUTSIDE RECORDS SUMMARY | ~2020-03-28 | XMS | Encounter Summary ---
Demographics + + + | Address | [address] | | | [place] [address] | + + + | Home Phone | | + + + | Preferred Language | Unknown | + + + | Marital Status | | + + + | Buddhist Affiliation | 1013 | + + + | Race | Unknown | + + + | Ethnic Group | Unknown | + + + Author + + + | Author | [facility] | | | and Timiana | + + + | Organization | [facility] | [...] [place] | | | | | [address] | | + + + + + | Jane Mojica | ECON | Unknown | | + + + + + | Estelita Zamudio | MERI | Unknown | | + + + + + Care Team Providers + +------+ + | Care Book Shelver Name | Role | Phone | + +------+ + | Becca Amaya MD | PCP | | + +------+ + Reason for Visit + +--------+ + | Reason | Onset | Comments | | | Date | | + +--------+ + | Appointment | 01/20/ | | | | 2017 | | + +--------+ + Encounter Details +--------+ + + + + | Date | Type | Department | Care Team | Description | +--------+ + + + + | 01/20/ | Telephone | [facility] | Rene Borrego | Appointment | | 2017 | | SURGERY [address] | MD Corrine, [address] | | | | | [place], [place] | [address] [facility] | | | | | [address] | [place] [address] | | | | | [phone] | [phone] | | | | | | | [...] this encounter Miscellaneous Notes Telephone Encounter - Sissy Osman - 01/20/2018 10:19 AM PDTCalled patient to let him know when need to rsd his pre op to 1:00 then he will go over to [facility] and have a preop with the m at 2:30. I was unable to reach, and his phone was not taking messages at this time. Will keep trying to call. Edoimmanuel yuan in this encounter Plan of Treatment Not on filedocumented as of this encounter Visit Diagnoses Not on filedocumented in this encounter"
--- OUTSIDE RECORDS SUMMARY | ~2020-03-28 | XMS | Encounter Summary ---
Demographics + + + | Address | [address] | | | [place] [address] | + + + | Home Phone | | + + + | Preferred Language | Unknown | + + + | Marital Status | | + + + | Gnosticism Affiliation | 1013 | + + + | Race | Unknown | + + + | Ethnic Group | Unknown | + + + Author + + + | Author | [facility] | | | and Timiana | + + + | Organization | [facility] | | | and Timiana [...] [place] | | | | | [address] | | + + + + + | Jane Mojica | ECON | Unknown | | + + + + + | Estelita Zamudio | ECON | Unknown | | + + + + + Care Team Providers + +------+ + | Care Library Page Name | Role | Phone | + +------+ + PCP | Unavailable | + +------+ + Encounter Details +--------+ + + + + | Date | Type | Department | Care Team | Description | +--------+ + + + + | 01/17/ | Emergency | [facility] | Chon Zafar | Backache, | | 1995 | | [facility] | MD Joshua [address] | unspecified | | | | EMERG[facility]Y CENTER | [place], [place] | | | | | [address] [facility] | [address] | | | | | [place], [place] | [phone] | | | | | [address] | | | | | | [phone] | | | +--------+ + + + [...]
--- OUTSIDE RECORDS SUMMARY | ~2020-03-28 | XMS | Encounter Summary ---
Demographics + + + | Address | [address] | | | [place] [address] | + + + | Home Phone [...] Ramos | ECON | [address] | | | | | [place] | | | | | [address] | | + + + + + Care Team Providers + +------+ + | Care Leasing Consultant Name | Role | Phone | [...] | | radiculopath | [place] | [address] | | | | | y, lumbar | [address] | Phone: | | | | | region | Phone: | [phone] | | | | | Procedures | [phone] | | | | | | MRI SPINE | Fax: | | | | | | LUMBAR WO | [phone] | | | | | | CONTRAST | | | +--------+--------+ + + + + Encounter Details +--------+ + + + + | Date | Type | Department | Care Team | Description | +--------+ + + + + | 11/05/ | Transcribe | [facility] | Karolina Franklin, | | | 2020 | Orders | [facility] [address] | PA-C [address] | | | | | [address] | Doctors [place] | | | | | [place] | [address] | | | | | [address] | | | +--------+ + + + [...] Street | [facility] | | [place] [address] | DEPARTMENT OF | | [phone] Name: PERCY MANCILLA Phys: | RADIOLOGY | | KAROLINA FRANKLIN: 1960 Sex: M | | | CSN: [id number] MR# [id number] Exam Date: | | | 01/25/2020 EXAM: [...] | | | Transcribed Date/Time: 01/27/2020 05:23 Boiler Plant Operator: FLUENCY | | | | | + + + + + | Procedure Note | + + | Interface, Radiology Results - 01/27/2020 5:28 AM PDT [address] | | [address] [place] [address] | | Name: PERCY MANCILLA Phys: MIMAROSIOKAROLINA DANGELO : 1960 Sex: M | | CSN: [id number] MR# [id number] Exam Date: 01/25/2020 EXAM:MRI OF THE LUMBAR [...] | | |Transcribed Date/Time: 01/27/2020 05:23 | |Boiler Plant Operator: FLUENCY | | | | | | | + + + +---------+ + + | Performing | Address | [facility] | Phone Number | | Organization | [...]
--- OUTSIDE RECORDS SUMMARY | ~2020-03-28 | XMS | Encounter Summary ---
Demographics + + + | Address | [address] | | | [place] [address] | + + + | Home Phone [...] + + + | Author | [facility] | | | and Timiana | + + + | Organization | [facility] | | | and Timiana [...] [place] | | | | | [address] | | + + + + + | Jane Mojica | ECON | Unknown | | + + + + + | Estelita Zamudio | ECON | Unknown | | + + + + + Care Team Providers + +------+ + | Care Vacuum Extractor Operator Name | Role | Phone | + +------+ + PCP | Unavailable | + +------+ + Encounter Details +--------+ + + + + | Date | Type | Department | Care Team | Description | +--------+ + + + + | 12/08/ | Hospital | [facility] | Mejia Romero, | | | 1997 | Encounter | [address] | MD [address] | | | | | [address] | [place] [address] | | | | | [place], [place] | [phone] | | | | | [address] | | | | | | [phone] | | | +--------+ + + + [...]
--- OUTSIDE RECORDS SUMMARY | ~2020-03-28 | XMS | Encounter Summary ---
Demographics + + + | Address | [address] | | | [place] [address] | + + + | Home Phone | | + + + | Preferred Language | Unknown | + + + | Marital Status | | + + + | Druze Affiliation | 1013 | + + + | Race | Unknown | + + + | Ethnic Group | Unknown | + + + Author + + + | Author | [facility] | | | and Timiana | + + + | Organization | [facility] [...] [place] | | | | | [address] | | + + + + + | Jane Mojica | ECON | Unknown | | + + + + + | Estelita Zamudio | MERI | Unknown | | + + + + + Care Team Providers + +------+ + | Care Systems Lead Name | Role | Phone | + +------+ + | Becca Amaya MD | PCP | | + +------+ + Reason for Visit +--------+--------+ + | Reason | Onset | Comments | | | Date | | +--------+--------+ + | Other | 01/22/ | | | | 2018 | | +--------+--------+ + Encounter Details +--------+ + + + + | Date | Type | Department | Care Team | Description | +--------+ + + + + | 01/22/ | Telephone | [facility] | Rene Borrego | Other | | 2018 | | SURGERY [address] | MD Corrine, [facility] [address] | | | | | [address] [place], [place] | [address] [facility] | | | | | [address] | [place] [address] | | | | | [phone] | [phone] | | | | | | | [...] 1300 appointment. This has already been marcia homer with neurosurgery and fits in with his other pre op appointments. I was unable to reach him or his emergency contact. I will continue to attempt to reach. documented in this encounter Plan of Treatment Not on filedocumented as of this encounter Visit Diagnoses Not on filedocumented in this encounter"
--- OUTSIDE RECORDS SUMMARY | ~2020-03-28 | XMS | Encounter Summary ---
Demographics + + + | Address | [address] | | | [place] [address] | + + + | Home Phone [...] Author | [facility] | | | and Timiana | + + + | Organization | [facility] | | | and [...] [place] | | | | | [address] | | + + + + + | Jane Mojica | ECON | Unknown | | + + + + + | Estelita Zamudio | ECON | Unknown | | + + + + + Care Team Providers + +------+ + | Care Fish Cutting Machine Operator Name | Role | Phone | + +------+ + PCP | Unavailable | + +------+ + Encounter Details +--------+ + + + + | Date | Type | Department | Care Team | Description | +--------+ + + + + | 06/03/ | Hospital | [facility] | Orr, | Lumbago | | 1997 | Encounter | [address] | [address] | | | | | [address] | [place] | | | | | [place], [place] | [place] [address] | | | | | [address] | [phone] | | | | | [phone] | | | +--------+ + + + [...]
--- OUTSIDE RECORDS SUMMARY | ~2020-03-28 | XMS | Encounter Summary ---
Demographics + + + | Address | [address] | | | [place] [address] | + + + | Home Phone [...] + + + | Author | [facility] | + + + | Organization | [facility] | + + + | Address | Unknown | + + + | Phone | Unavailable | + + + Support + + + + + | Name | Relationship | Address | Phone | + + + + + | Mitra Ramos | ECON | [address] | | | | | [place] | | | | | [address] | | + + + + + Care Team Providers + +------+ + | Care Rural Service Engineer Name | Role | Phone | [...] | | 2020 | Encounter | at [facility] | [address] | | | | | [address] | [address] [place] | | | | | [place] | [id number] | | | | | [address] | | | | | | [phone] | | | +--------+ + + + [...]
--- OUTSIDE RECORDS SUMMARY | ~2020-03-28 | XMS | Encounter Summary ---
Demographics + + + | Address | [address] | | | [place] [address] | + + + | Home Phone [...] | [facility] | | | and [place] | + + + | Organization | [facility] | | | and [place] [...] [place] | | | | | [address] | | + + + + + | Jane Mojica | ECON | Unknown | | + + + + + | Estelita Zamudio | ECON | Unknown | | + + + + + Care Team Providers + +------+ + | Care Silverware Buffing Machine Operator Name | Role | Phone | + +------+ + PCP | Unavailable | + +------+ + Encounter Details +--------+ + + + + | Date | Type | Department | Care Team | Description | +--------+ + + + + | 05/03/ | Hospital | [facility] | | Backache, | | 1994 | Encounter | CONVERSION DEP [address] | | unspecified | | | | [address] | | | | | | [place], [place] | | | | | | [address] | | | | | | [phone] | | | +--------+ + + + [...]
--- OUTSIDE RECORDS SUMMARY | ~2020-03-28 | XMS | Clinical Summary ---
Demographics + + + | Address | [address] | | | [place] [address] | + + + | Home Phone | | + + + | Preferred Language | Unknown | + + + | Marital Status | | + + + | Muslim Affiliation | 1013 | + + + | Race | Unknown | + + + | Ethnic Group | Unknown | + + + Author + + + | Author | [facility] | | | and [place] | + + + | Organization | [facility] [...] [place] | | | | | [address] | | + + + + + | Jane Mojica | ECON | Unknown | | + + + + + | Estelita Zamudio | MERI | Unknown | | + + + + + Care Team Providers + +------+ + | Care Manager House Name | Role | Phone | + [...] BY | 60 each | 1 | 07/2 | | Activ | | fluticasone-umeclidi | MOUTH INTO THE LUNGS | | | 2/20 | | e | | nium-vilanterol | [...] | | | | | | | ([facility]) | | | | | | | + + + +---------+------+------+-------+ | | INHALE 1 PUFF BY | 60 each | 1 | 05/2 | /2 | Disco | | fluticasone-umeclidi | MOUTH INTO THE LUNGS | | | / | 2/20 | ntinu | | nium-vilanterol | DAILY | | | 20 | 20 | ed | | (TRELEGY ELLIPTA) | | | | | | | | 100-62.5-25 mcg/puff | | | | | | | | inhalerIndications: | | | | | | | | Chronic bronchitis, | | | | | | | | unspecified chronic | | | | | | | | bronchitis type | | | | | | | | ([facility]) | | | | | | | [...] | + + + | History of PR (myocardial infarction) | | + + + [...] Medication Refill | | 2019 | | | DEVELOPMENTAL PSYCHOLOGIST | | +--------+--------+ + + + | 02/09/ | Refill | Pulmonology | Lynn Tan, | Medication Refill | | 2019 | | | DEVELOPMENTAL PSYCHOLOGIST | | +--------+--------+ + + + | 01/07/ | Refill | Pulmonology | Lynn Tan, | Medication Refill | | 2020 | | | DEVELOPMENTAL PSYCHOLOGIST | | +--------+--------+ + + + from [...] + + | Vaccine: Influenza | | 08/30/20 | | | (#1) | 0 | [...] +--------+ +---------+--------+ | MEDICARE | MEDICA | [id number] | 03/19/20 | [phone] | | Medica | | | RE | | 17-Pre | 5 | | re | | | PART A | | sent | | | | | | AND B | | | | | | + +--------+ +--------+ +---------+--------+ | [employer] | MODA | [id number] | | [phone] | | Medica | [...] al/Fam | | 1961 | [phone] | [place] [address] | | | alisson | | | 1 (Home) | | + +--------+ +--------+ + + Advance Directives + + + + + | Type | Date Recorded | Patient | Explanation | | | | Washery Engineer | | + + + + + | Power of | | | | | Longshore Equipment Operator | | | | + + + + + | Advance | 10/16/2018 12:26 | | | | Directive | PM | | | + + + + +
--- OUTSIDE RECORDS SUMMARY | ~2020-03-28 | XMS | Encounter Summary ---
Demographics + + + | Address | [address] | | | [place] [address] | + + + | Home Phone | | + + + | Preferred Language | Unknown | + + + | Marital Status | Single | + + + | Mosque Affiliation | CAT | + + + | Race | White | + + + | Ethnic Group | Not or | + + + Author + + + | Author | [facility] | + + + | Organization | [facility] | + + + | Address | Unknown | + + + | Phone | Unavailable | + + + Support + + + + + | Name | Relationship | Address | Phone | + + + + + | Mitra Ramos | ECON | [address] | | | | | [place] | | | | | [address] | | + + + + + Care Team Providers + +------+ + | Care Furrier Shop Supervisor Name | Role | Phone | [...] | | | | region | | [address] | | | | | Procedures | | Phone: | | | | | NM BONE &/OR | | [phone] | | | | | JOINT | [...] + + | 01/14/ | Transcribe | [facility] | Transcribe | | | 2019 | [facility] | [facility] [address] | Roxanne Provider, | | | | | E The | [address] | | | | | [place] | [place] [address] | | | | | [address] | | | +--------+ + + + [...] | + + + | [address] | [facility] | | [place] [address] | DEPARTMENT OF | | [phone] Name: PERCY MANCILLA Phys: | RADIOLOGY | | LIZZETTE HARRY : 1960 Sex: M CSN: | | | [id number] MR# [id number] Exam Date: 01/23/2019 | | | EXAM: NM BONE &/OR JOINT IMAGING TOMOGRAPHIC (SPECT) 12714 | | | CLINICAL HISTORY: Spine pain. [...] | | | Transcribed Date/Time: 01/23/2019 14:09 Parish Worker: FLUENCY | | | | | + + + + + | Procedure Note | + + | Interface, Radiology Results - 01/23/2019 2:14 PM PDT [address] | | [address] [place] [address] | | Name: PERCY MANCILLA Phys: LIZZETTE HARRY : 1960 Sex: M CSN: | | [id number] MR# [id number] Exam Date: 01/23/2019 EXAM:NM BONE &/OR JOINT IMAGING | | TOMOGRAPHIC (SPECT) 47289 CLINICAL HISTORY:Spine pain. Spondylolisthesis. Neck | | [...] OTHER VENDOR SYSTEM 01/23/2019 Reported by: Brett Hlil MD | | Electronically signed by: Brett [...] | | |Transcribed Date/Time: 01/23/2019 14:09 | |Parish Worker: FLUENCY | | | | | | [...]
--- OUTSIDE RECORDS SUMMARY | ~2020-03-28 | XMS | Encounter Summary ---
Demographics + + + | Address | [address] | | | [place] [address] | + + + | Home Phone [...] + | Author | [facility] | | | and [place] | + + + | Organization | [facility] | | | and [place] [...] [place] | | | | | [address] | | + + + + + | Jane Mojica | ECON | Unknown | | + + + + + | Estelita Zamudio | ECON | Unknown | | + + + + + Care Team Providers + +------+ + | Care Car Varnisher Name | Role | Phone | + [...] | | | | | Cervical | [place], | [address] | | | | | radiculopath | Anthony Alba MD | [place], | | | | | y [place] | [address] | [place] | | | | | stenosis of | [place] | [address] | | | | | cervical | [place] | Phone: | | | | | region | [address] | [phone] | | | | | Procedures | Phone: | Fax: | | | | | MRI Cervical | [phone] | [phone] | | | | | Spine wo | Fax: | | | | | | Contrast | [phone] | | | | | | MRI [...] | Services | Therapy | Lumbar | [place], | | | | Required | | radiculopath | Anthony Alba MD | | | | | | y | [address] | | | | | | Spondylolist | [facility] | | | | | | hesis of | [place], [place] | | | | | | lumbar | [address] | | | | | | region | Phone: | | | | | | [place] | [phone] | | | | | | stenosis of | Fax: | | | | | | lumbar | [phone] | | | | | | region [...] | n | ([facility]) | [address] [place] | | | | | | AVE | CENTER [place], [place] | | | | | | [place] | [address] Phone: | | | | | | [address] | [phone] | | | | | | Phone: | Fax: | | | | | | [phone] | [phone] | | | | | | Fax: | | | | | | | [phone] | | +--------+ + + + + + Encounter Details +--------+---------+ + + + | Date | Type | Department | Care Team | Description | +--------+---------+ + + + | 04/18/ | [facility] | [facility] Anthony Hernandez | Lumbar radiculopathy | | 2017 | Visit | PHYSIATRY [address] Alba MD [address] | (Primary Dx); | | | | [address] | [place] | Spondylolisthesis of | | | | [place] | [address] | lumbar region; | | | | [address] | | Foraminal stenosis | | | | [phone] | | of lumbar region; | | [...] 9:20 AM PDT Anthony Hernandez MD [address] [facility] [address] [place] [address] FAX: PHYSICAL MEDICINE AND REHABILITATION H&P CHIEF [...] pain syndrome COPD (chronic obstructive pulmonary disease) ([facility]) Ear infection Generalized anxiety disorder GERD (gastroesophageal reflux disease) Hay fever History of dental problems Hyperlipidemia Hypertension Lumbar radiculopathy Major depression NM (myocardial infarction) ([facility]) Opioid dependence, continuous (HCC) Osteoarthritis Pneumonia Radiculopathy, [...] has no apparent deficits with short or fci memory. He has appropriate fund of knowledge [...]
--- OUTSIDE RECORDS SUMMARY | ~2020-03-28 | XMS | Encounter Summary ---
Demographics + + + | Address | [address] | | | [place] [address] | + + + | Home Phone | | + + + | Preferred Language | Unknown | + + + | Marital Status | | + + + | Taoism Affiliation | 1013 | + + + | Race | Unknown | + + + | Ethnic Group | Unknown | + + + Author + + + | Author | [facility] | | | and [place] | + + + | Organization | [facility] | | [...] [place] | | | | | [address] | | + + + + + | Jane Mojica | ECON | Unknown | | + + + + + | Estelita Zamudio | MERI | Unknown | | + + + + + Care Team Providers + +------+ + | Care Inker Name | Role | Phone | + [...] + + | 01/07/ | Refill | [facility] | Lynn Tan, | Medication Refill | | 2019 | | PULMONOLOGY [address] | FACILITY WORKER [address] | | | | | [address] | [address] [place], | | | | | [place], [place] | [place] [address] | | | | | [address] | [phone] | | | | | [phone] | | | +--------+--------+ + + + [...] Miscellaneous Notes Telephone Encounter - Guera Purcell, Annealing Operator - 01/12/2020 1:40 PM PDTCalled and lvm [...]
--- OUTSIDE RECORDS SUMMARY | ~2020-03-28 | XMS | Encounter Summary ---
Demographics + + + | Address | [address] | | | [place] [address] | + + + | Home Phone | | + + + | Preferred Language | Unknown | + + + | Marital Status | Single | + + + | Jehovah'S Witness Affiliation | CAT | + + + [...] Ramos | ECON | [address] | | | | | [place] | | | | | [address] | | + + + + + Care Team Providers + +------+ + | Care Flexographic Press Helper Name | Role | Phone | [...] | | radiculopath | [place] | [address] | | | | | y, lumbar | [address] | Phone: | | | | | region | Phone: | [phone] | | | | | Procedures | [phone] | | | | | | MRI SPINE | Fax: | | | | | | LUMBAR WO | [phone] | | | | | | CONTRAST [...] | radiculopath | [place] | [address] | | | | | y, lumbar | [address] | Phone: | | | | | region | Phone: | [phone] | | | | | Procedures | [phone] | | | | | | MRI SPINE | Fax: | | | | | | LUMBAR WO | [phone] | | | | | | CONTRAST | | | +--------+--------+ + + + + Encounter Details +--------+ + + + + | Date | Type | Department | Care Team | Description | +--------+ + + + + | 01/24/ | Hospital | Diagnostic Imaging | Karolina Franklin, | | | 2020 | Encounter | [facility] | [facility] [address] | | | | | [address] | Doctors [place] | | | | | [place] | [address] | | | | | [address] | | | | | | [phone] | | | +--------+ + + + [...] | + + + | [address] [place] [address] | [facility] | | [place] [address] | DEPARTMENT OF | | [phone] Name: PERCY MANCILLA Phys: | RADIOLOGY | | KAROLINA [place] : 1960 Sex: M | | | CSN: [id number] MR# [id number] Exam Date: | | | 01/25/2020 EXAM: [...] | | | Transcribed Date/Time: 01/27/2020 05:23 Tilt Wall Supervisor: FLUENCY | | | | | + + + + + | Procedure Note | + + | Interface, Radiology Results - 01/27/2020 5:28 AM PDT [address] | | [place] [address] | | Name: PERCY MANCILLA Phys: KAROLINA [place] : 1960 Sex: M | | CSN: [id number] MR# [id number] Exam Date: 01/25/2020 EXAM:MRI OF THE LUMBAR [...] | | |Transcribed Date/Time: 01/27/2020 05:23 | |Tilt Wall Supervisor: FLUENCY | | | | | | [...]
--- OUTSIDE RECORDS SUMMARY | ~2020-03-28 | XMS | Encounter Summary ---
Demographics + + + | Address | [address] | | | [place] [address] | + + + | Home Phone | | + + + | Preferred Language | Unknown | + + + | Marital Status | | + + + | Caodaism Affiliation | 1013 | + + + | Race | Unknown | + + + | Ethnic Group | Unknown | + + + Author + + + | Author | [facility] | | | and [place] | + + + | Organization | [facility] | | | and [place] [...] [place] | | | | | [address] | | + + + + + | Jane Mojica | ECON | Unknown | | + + + + + | Estelita Zamudio | MERI | Unknown | | + + + + + Care Team Providers + +------+ + | Care Rhythmic Gymnastics Coach Name | Role | Phone | + [...] [place] | | | | | | [address] | | | | | | [phone] | | | +--------+ + + + [...]
--- OUTSIDE RECORDS SUMMARY | ~2020-03-28 | XMS | Encounter Summary ---
Demographics + + + | Address | [address] | | | [place] [address] | + + + | Home Phone | | + + + | Preferred Language | Unknown | + + + | Marital Status | | + + + | Anabaptism Affiliation | 1013 | + + + | Race | Unknown | + + + | Ethnic Group | Unknown | + + + Author + + + | Author | [facility] | | | and [place] | + + + | Organization | [facility] | | [...] [place] | | | | | [address] | | + + + + + | Jane Mojica | ECON | Unknown | | + + + + + | Estelita Zamudio | ECON | Unknown | | + + + + + Care Team Providers + +------+ + | Care Manager Steel Name | Role | Phone | + [...] | Cervical | [place], | [address] | | | | | radiculopath | Anthony Alba MD | [place], | | | | | y [place] | [address] | [place] | | | | | stenosis of | [place] | [address] | | | | | cervical | [place], [place] | Phone: | | | | | region | [address] | [phone] | | | | | Procedures | Phone: | Fax: | | | | | MRI Cervical | [phone] | [phone] | | | | | Spine wo | Fax: | | | | | | Contrast | [phone] | | | | | | MRI [...] | Cervical | David, | [address] | | | | | radiculopath | Anthony Alba MD | [place], | | | | | y [place] | [address] | [place] | | | | | stenosis of | [place] | [address] | | | | | cervical | [place], [place] | Phone: | | | | | region | [address] | [phone] | | | | | Procedures | Phone: | Fax: | | | | | MRI Cervical | [phone] | [phone] | | | | | Spine wo | Fax: | | | | | | Contrast | [phone] | | | | | | MRI called | | | | | | | x2 | | | +--------+--------+ + + + + Encounter Details +--------+ + + + + | Date | Type | Department | Care Team | Description | +--------+ + + + + | 05/23/ | Hospital | [facility] | Anthony Hernandez | Cervical | | 2017 | Encounter | MED CTR MRI [address] | T, MD [address] | radiculopathy; | | | | [address] [place], | [place] | [place] stenosis | | | | [place] [address] | [address] | of cervical region; | | | | [phone] | | Encounter for | | | [...]
--- OUTSIDE RECORDS SUMMARY | ~2020-03-28 | XMS | Encounter Summary ---
Demographics + + + | Address | [address] | | | [place] [address] | + + + | Home Phone [...] | Author | [facility] | | | and [place] | + + + | Organization | [facility] | | | and [...] [place] | | | | | [address] | | + + + + + | Jane Mojica | ECON | Unknown | | + + + + + | Estelita Zamudio | MERI | Unknown | | + + + + + Care Team Providers + +------+ + | Care Installation Service Representative Name | Role | Phone | [...] | | | [place] | [place] [address] | | | | | [address] | | | | | | [phone] | | | +--------+ + + + [...]
--- OUTSIDE RECORDS SUMMARY | ~2020-03-28 | XMS | Encounter Summary ---
Demographics + + + | Address | [address] | | | [place] [address] | + + + | Home Phone | | + + + | Preferred Language | Unknown | + + + | Marital Status | Single | + + + | Faith Affiliation | CAT | + + + [...] [place] | | | | | [address] | | + + + + + Care Team Providers + +------+ + | Care Cream Beater Name | Role | Phone | + [...]
--- OUTSIDE RECORDS SUMMARY | ~2020-03-28 | XMS | Encounter Summary ---
Demographics + + + | Address | [address] | | | [place] [address] | + + + | Home Phone [...] Author | [facility] | | | and [place] | + + + | Organization | [facility] | | [...] [place] | | | | | [address] | | + + + + + | Jane Mojica | ECON | Unknown | | + + + + + | Estelita Zamudio | MERI | Unknown | | + + + + + Care Team Providers + +------+ + | Care Electric Organ Inspector And Repairer Name | Role | Phone | + +------+ + | Becca Amaya MD | PCP | | + +------+ + Reason for Visit + +--------+ + | Reason | Onset | Comments | | | Date | | + +--------+ + | Imaging Only | 10/17/ | | | | 2019 | | + +--------+ + Encounter Details +--------+ + + + + | Date | Type | Department | Care Team | Description | +--------+ + + + + | 10/17/ | Telephone | [facility] | Robi Husain MD | Imaging Only | | 2018 | | NEUROSURGERY [address] | [address] | | | | | [address] [facility] [address] | [place] [address] | | | | | [place] | [phone] | | | | | [address] | | | | | | [phone] | | | +--------+ + + + [...] CMA - 10/22/2018 1:16 PM PSTPatient updated. Juliano drake signed by Sanna Benavidez CMA at 10/22/2018 1:17 PM PSTAddendum Note - Lila Calix PA-C - 10/22/2018 12:03 PM PST Addended by: LILA CALIX on: 10/22/2018 12:03 Modules accepted: Orders ddendum Note - Ary Arreguin Cheese Pancake Roller - 10/22/2018 10:38 AM PST Addended by: OBDULIA ARREGUIN on: 10/22/2018 10:38 Modules accepted: Orders elephone Encounter - Ary Arreguin Cheese Pancake Roller - 10/22/2018 10:36 AM PSTPer Lay ag he would like Percy to get 4 view cervical x-rays prior to his appointment tomorrow.Electro nically signed by Kanwal Doherty at 10/22/2018 10:38 AM PSTTelephone E Louis Singh - 10/17/2018 12:19 PM PSTScheduled 3/7 elephone Encounter - Sanna Benavidez CMA - 10/17/2018 11:3 7 AM PSTPlease schedule MRI review follow up. Thank you elephone Encounter - Lila Calix PA-C - 10/17/2018 1 1:02 AM PSTThersigifredo is a lot to go over on his MRIs. I would recommend he be made an appointmen t to go over them.If you feel comfortable it might be good for him to know before he comes t sarwat Husain gave his resignation and that I will likely be referring him out to another neurosur geon. Thank you. elephone Encounter - Ede Hernandez, Cheese Pancake Roller - 10/17/2018 8:50 AM PSTPatient has c [...]
--- OUTSIDE RECORDS SUMMARY | ~2020-03-28 | XMS | Encounter Summary ---
Demographics + + + | Address | [address] | | | [place] [address] | + + + | Home Phone [...] + + | Author | [facility] | | | and [place] | + + + | Organization | [facility] | | | and [...] [place] | | | | | [address] | | + + + + + | Jane Mojica | ECON | Unknown | | + + + + + | Estelita Zamudio | ECON | Unknown | | + + + + + Care Team Providers + +------+ + | Care Auto Body Mechanic Apprentice Name | Role | Phone | + +------+ + PCP | Unavailable | + +------+ + Encounter Details +--------+ + + + + | Date | Type | Department | Care Team | Description | +--------+ + + + + | 04/14/ | Hospital | [facility] | | Lumbago | | 1993 | Encounter | [address] | | | | | | [address] | | | | | | [place], [place] | | | | | | [address] | | | | | | [phone] | | | +--------+ + + + [...]
--- OUTSIDE RECORDS SUMMARY | ~2020-03-28 | XMS | Encounter Summary ---
Demographics + + + | Address | [address] | | | [place] [address] | + + + | Home Phone | | + + + | Preferred Language | Unknown | + + + | Marital Status | Single | + + + | Jewish Affiliation | CAT | + + + [...] [place] | | | | | [address] | | + + + + + Care Team Providers + +------+ + | Care Wrapper Sheeter Name | Role | Phone | + [...]
--- OUTSIDE RECORDS SUMMARY | ~2020-03-28 | XMS | Encounter Summary ---
Demographics + + + | Address | [address] | | | [place] [address] | + + + | Home Phone [...] | Author | [facility] | | | and [place] | + + + | Organization | [facility] [...] [place] | | | | | [address] | | + + + + + | Jane Mojica | ECON | Unknown | | + + + + + | Estelita Zamudio | MERI | Unknown | | + + + + + Care Team Providers + +------+ + | Care Plumbing Service Technician Name | Role | Phone | [...] | | [address] | [place] [address] | Insurance | | | | [place] | [phone] | Authorization (add | | | | [phone] | | [facility] coverage) | | | | [phone] | | | +--------+ + + + [...] this encounter Miscellaneous Notes Telephone Encounter - aNncy Dorado - 04/04/2017 2:24 PM PDTWhile I was documenting, the patient called back and got one of my coworkers. He was informed that medicare has been added to his demographics. elephone Encounter - Nancy Dorado - 04/04/2017 2:08 PM PDTCalled patient to anna powell him that I was able to add MD to his account. His voicemail was having issues and kept cut ting me off. elephone E ncounter - Melida Hoskins RN - 04/04/2017 1:30 PM PDTUpdated patient that referral to Dr Abram Adams is pending. Once approved, physiatry will call him to schedule. Advised patient per THELMA regarding Dr. Adams evaluating him and able [...] testing. We can check with physiatry on progress of the referral. elephone Encounter - Melida Hoskins RN - 04/04/2017 11:52 AM PDTReferral # [id number] Hernandez, initiated 04/03/2017 Patient [...] completed. Please return the patient's call at [phone] as he would like to schedule as soon as possible. 1 :43 PM PDTdocumented in this encounter Plan of Treatment Not on filedocumented as of this encounter Visit Diagnoses Not on filedocumented in this encounter
--- OUTSIDE RECORDS SUMMARY | ~2020-03-28 | XMS | Encounter Summary ---
Demographics + + + | Address | [address] | | | [place] [address] | + + + | Home Phone | | + + + | Preferred Language | Unknown | + + + | Marital Status | | + + + | Caodaism Affiliation | 1013 | + + + | Race | Unknown | + + + | Ethnic Group | Unknown | + + + Author + + + | Author | [facility] | | | and [place] | + + + | Organization | [facility] | | | and [place] [...] [place] | | | | | [address] | | + + + + + | Jane Mojica | ECON | Unknown | | + + + + + | Estelita Zamudio | MERI | Unknown | | + + + + + Care Team Providers + +------+ + | Care Eastern Philosophy Professor Name | Role | Phone | + +------+ + | Becca Amaya MD | PCP | | + +------+ + Encounter Details +--------+---------+ + + + | Date | Type | Department | Care Team | Description | +--------+---------+ + + + | 10/16/ | Surgery | [facility] | Ajit Miller MD | MRI GENERAL SEDATION | | 2019 | | MED CTR IR INTRA OP | [address] | CERVICAL & LUMBAR | | | | [address] | [place] | | | | | [place] | [address] | | | | | [address] | | | | | | [phone] | | | +--------+---------+ + + + [...] height is otherwise maintained. Bilateral | | [id number] is again noted. The conus medullaris is [...] ONCE PRN, Wheezing, | | | Starting [facility] 10/16/18 at 1509, | | [...] ONCE | | | PRN, Nausea, Starting [facility] 10/16/18 | | | at 1509, For 1 dose, | | | Recovery/Phase I | | + +---+ | | | + +---+ documented in this encounter
--- OUTSIDE RECORDS SUMMARY | ~2020-03-28 | XMS | Encounter Summary ---
Demographics + + + | Address | [address] | | | [place] [address] | + + + | Home Phone [...] Author | [facility] | | | and [place] | + + + | Organization | [facility] | | [...] [place] | | | | | [address] | | + + + + + | Jane Mojica | ECON | Unknown | | + + + + + | Estelita Zamudio | MERI | Unknown | | + + + + + Care Team Providers + +------+ + | Care Food Service Order Clerk Name | Role | Phone | [...] [place], [place] | | | | | [place] | [place] | [address] Phone: | | | | | &/SENS 1-2 | [id number] | [phone] | | | | | NRV CNDJ | Phone: | Fax: | | | | | PRECONF | [phone] | [phone] | | | | | ELTRODE LIMB | Fax: | | | | | | LA NEEDLE | [phone] | | | | | | EMG EA | | | | | | | EXTREMITY | | | | | | | W/PARASPINL | | | | | | | AREA LIMITED | | | | | | | LA EMG, | | | | | | | NEEDLE, TWO | | | | | | | LIMBS LA | | | | | | | NEEDLE EMG | | | | | | | EA EXTREMTY | | | | | | | W/PARASPINL | | | | | | | AREA | | | | | | | COMPLETE LA | | | | | | | [...] | | | | | | | PAUL VEE | | | +--------+--------+ + + [...] [address] | [place] | (Primary Dx) | | | | [place], [place] | [address] | | | | | [address] | | | | | | [phone] | | | +--------+ + + + [...] Hernandez MD - 10/01/2013 7:[address] [facility] Musculoskeletal, Sports and Spine, Physiatry [address] [address] Test Date: 09/28/2013 Patient Name: Percy Mancilla : 1960 Physician: Anthony Hernandez MD MR #: [id number] Sex: Male Referring Physician: Dr. Paul Vee HISTORY: The patient is a pleasant 52 year-old male who is being seen today at the request of Paul Vee MD for complaints of bilateral upper [...] patient will be following up with Dr. Paul Vee to discuss the results of today s examination and further plan of care. Thank you for allowing me to perform neurodiagnostic testing on your patient. If you have a ny further questions or comments, please do not hesitate to call. Anthony Hernandez MD Diplomate, [place] [employer] and [employer]. documented [...]
--- OUTSIDE RECORDS SUMMARY | ~2020-03-28 | XMS | Encounter Summary ---
Demographics + + + | Address | [address] | | | [place] [address] | + + + | Home Phone | | + + + | Preferred Language | Unknown | + + + | Marital Status | | + + + | Denominational Affiliation | 1013 | + + + | Race | Unknown | + + + | Ethnic Group | Unknown | + + + Author + + + | Author | [facility] | | | and [place] | + + + | Organization | [facility] [...] [place] | | | | | [address] | | + + + + + | Jane Mojica | ECON | Unknown | | + + + + + | Estelita Zamudio | ECON | Unknown | | + + + + + Care Team Providers + +------+ + | Care Child Welfare Assistant Name | Role | Phone | + +------+ + | Som Schmidt MD | PCP | | + +------+ + Encounter Details +--------+ + + + + | Date | Type | Department | Care Team | Description | +--------+ + + + + | 10/01/ | Orders Only | [facility] | Manuel Waters | Neck pain (Primary | | 2017 | | NEUROSURGERY [address] | [address] | Dx); Back pain, | | | | [address] [place], [place] | unspecified back | | | | [place], [place] | [id number] | location, | | | | [address] | | unspecified back | | | | [phone] | | pain laterality, | | | [...]
--- OUTSIDE RECORDS SUMMARY | ~2020-03-28 | XMS | Encounter Summary ---
Demographics + + + | Address | [address] | | | [place] [address] | + + + | Home Phone | | + + + | Preferred Language | Unknown | + + + | Marital Status | | + + + | Mosque Affiliation | 1013 | + + + | Race | Unknown | + + + | Ethnic Group | Unknown | + + + Author + + + | Author | [facility] | | | and [place] | + + + | Organization | [facility] | | [...] [place] | | | | | [address] | | + + + + + | Jane Mojica | ECON | Unknown | | + + + + + | Estelita Zamudio | MERI | Unknown | | + + + + + Care Team Providers + +------+ + | Care Texture Artist Name | Role | Phone | [...] | [address] | [place], [place] | ([facility]) (Primary Dx) | | | | [place], [place] | [address] | | | | | [address] | | | | | | [phone] | | | +--------+ + + + [...]
[~2020-03-28 11:14] MED LIST changes: +DICYCLOMINE HCL20 MG PO; +ZOFRAN4 MG SL
--- OUTSIDE RECORDS SUMMARY | 2020-03-28 11:16 | XMS ---
PreManage Notification: CIARAN MOSES Security Outside Cutter Hand Events No recent Security Events currently on file CRITERIA MET - Group Notification - [facility] - Has Care Guidelines - PDMP CARE PROVIDERS [facility] Internal Medicine 01/23/2019-Current PHONE: [phone] Guidelines Source: [facility] Guidelines Date: 01/15/2019 Care Coordination: Has engaged in mental health services with Bilna.\T\nbsp; Please contact [facility]na for mental health concerns.\T\nbsp; [facility] [phone]\T\nbsp; [place]: [phone]. Care History Medical/Surgical 04/30/2018 [facility] - Patient is currently established with [facility]. If patient is seen in the ED during business hours. Please contact [facility] at [facility]. Care Recommendation: This patient has had 5 [...] providing care. E.D. VISIT COUNT (12 MO.) 1 [facility] [place] TOTAL 1 NOTE: Visits indicate total known visits. ED/UCC VISIT TRACKING (12 MO.) 03/28/2020 11:14 [facility] [place] TYPE: Emergency COMPLAINT: - HEADACHE INPATIENT VISIT TRACKING (12 MO.) 08/18/2019 05:35 [facility] TYPE: Neuro Surgery DIAGNOSES: - Other spondylosis with radiculopathy, cervical region [email or web address]
[2020-03-28] MEDS ORDERED: BUSPIRONE HCL30 MG PO (11:23)
[2020-03-28] MEDS ORDERED: TRELEGY ELLIPT1 EACH INH (11:23)
[2020-03-28] MEDS ORDERED: ATOMOXETINE HCL80 MG PO (11:23)
[2020-03-28] MEDS ORDERED: DULOXETINE HCL30 MG PO (11:24)
[2020-03-28] MEDS ORDERED: CLONIDINE HCL0.1 MG PO (11:24)
[2020-03-28] MEDS ORDERED: ZOLPIDEM TARTRA10 MG PO (11:24)
[2020-03-28] MEDS ORDERED: CYCLOBENZAPRINE10 MG PO (14:09)
== END 2020-03-28 14:20 | disposition home or self-care (01) ==
LOC: ED 11:14
DX: R51 Headache (principal); J44.9 Chronic obstructive pulmonary disease, unspecified; I10 Essential (primary) hypertension; F41.9 Anxiety disorder, unspecified; Z87.891 Personal history of nicotine dependence; Z91.030 Bee allergy status; Z88.5 Allergy status to narcotic agent; Z79.899 Other long term (current) drug therapy
CPT/HCPCS: 70450; 96374; 96375; 99284-25; J1170; J1200; J2060; J2765

== ENCOUNTER 2020-05-12 10:26 | Emergency (ER) | payer MEDICARE, OTHER ==
[~2020-05-12] VITALS: Ht 175.3 cm; Wt 75.3 kg
--- OUTSIDE RECORDS SUMMARY | ~2020-05-12 | XMS | Encounter Summary ---
Demographics + + + | Address | [address] | | | [place] [address] | + + + | Home Phone | | + + + | Preferred Language | Unknown | + + + | Marital Status | | + + + | Baptism Affiliation | 1013 | + + + | Race | White | + + + | Ethnic Group | Not or | + + + Author + + + | Author | [facility] | | | and [place] | + + + | Organization | [facility] | | | and [place] | + + + | Address | Unknown | + + + | Phone | Unavailable | + + + Support + + + + + | Name | Relationship | Address | Phone | + + + + + | Mitra Schafer | ECON | [address] | | | | | [place] | | | | | [address] | | + + + + + | Jane Mojica | ECON | Unknown | | + + + + + | Estelita Zamuido | ECON | Unknown | | + + + + + Care Team Providers + +------+ + | Care Child Watch Attendant Name | Role | Phone | + +------+ + | Becca Amaya MD | PCP | | + +------+ + Reason for Visit + +--------+ + | Reason | Onset | Comments | | | Date | | + +--------+ + | Procedure | 02/11/ | postponed | | | 2017 | | + +--------+ + | Appointment | 02/11/ | cancellation | | | 2017 | | + +--------+ + Encounter Details +--------+ + + + + | Date | Type | Department | Care Team | Description | +--------+ + + + + | 02/11/ | Telephone | [facility] | Michael Lainez, | Procedure (postponed | | 2018 | | NEUR[address]UR[address]ERY [address] | DO [address] | ); Appointment | | | | [address] | [address] [place], [place] | (cancellation ) | | | | [place] | [id number] | | | | | [address] | | | | | | [phone] | | | +--------+ + + + [...] + +---------+ + | Alcohol Use | Drinks/Week | oz/Week | Comments | + + +---------+ + | No | 0 Standard drinks | 0.0 | | | | or equivalent | | | + + +---------+ + + + + | Sex Assigned at | Date Recorded | | | | + + + | Not on file | | + + + documented as of this encounter Miscellaneous Notes Telephone Encounter - Nancy Dorado - 09/15/2018 1:00 PM PSTCarl scheduled to see Painting on September 22. elephone Encounter - Sanna Benavidez CMA - 09/15/2018 9:13 AM PSTReferral revie wed by Dr. Husain Recommend: PA visit with XR prior Studies requested by Dr. Husain prior to appointment date: Lumbar Xrays needed. Notes: updated MRI and x-rays needed Referral routed to: Neurosurgery front office java developer staff Imaging has been ordered by: Sanna elephone Encounter - Sanna Segovia CMA - 09/12/2018 9:40 AM PSTCase forwarded to Dr. Husain for review. Electronical ly signed by Sanna Benavidez CMA at 09/12/2018 9:40 AM PSTTelephone Encounter - Jennifer Cruz - 09/11/2018 3:46 PM PSTPatient called to check if Dr Lainez has returned. I informed h im that he is still not back in the office. Patient would like to request a ANTHONY to Dr Husain. Krishna mary advise. elephone Nancy Venegas - 03/24/2018 2:37 PM PDTPatient called to see if Migel was b ack yet. I let him know that Dr. Lainez has not returned and we do not have a return date fo r him yet. Percy would like to stay on Dr. Lainez's waitlist. elephone Encounter - Jimmy Hogan Cert MA - 02/26/20 10:57 AM PDTI spoke with Percy today and advised that Dr. Lainez is still out of the offic e. I let him know that I don't have any ideas of a return date at this time. I offered to have our providers facilitate another referral to another facility. He declined. He ended up disconnecting our call. I called back and apologized stating we must have gotten disconn ected. He then said he hung up on me because he's getting frustrated. I asked him to pleas e not hangup on me. I am trying to help him. He said he didn't want to switch providers bu t was frustrated that we don't have a time frame for him. I advised that I understand and a pologized. I let him know that we would call him when we know more about his return. JIMMY HOGAN elephone Encounimtiaz r - Jimmy Hogan Cert MA - 02/11/2018 4:23 PM PDTI called and spoke with Percy about his p re-op visits scheduled tomorrow. Advised that these will need to be cancelled at this time and his surgery post poned that is scheduled on 03/06/18. I let him know that this is due to an unexpected leave that Dr. Lainez is on. I told him I would call once I know more about his return to discuss re-scheduling. JIMMY HOGAN documented in this encounter Plan of Treatment Not on filedocumented as of this encounter Visit Diagnoses Not on filedocumented in this encounter"
--- OUTSIDE RECORDS SUMMARY | ~2020-05-12 | XMS | Encounter Summary ---
Demographics + + + | Address | [address] | | | [place] [address] | + + + | Home Phone | | + + + | Preferred Language | Unknown | + + + | Marital Status | | + + + | Sikhism Affiliation | 1013 | + + + | Race | White | + + + | Ethnic Group | Not or | + + + Author + + + | Author | [facility] | | | and [place] | + + + | Organization | [facility] | | | [...] [place] | | | | | [id number] | | + + + + + | Jane Mojica | ECON | Unknown | | + + + + + | Estelita Zamudio | ECON | Unknown | | + + + + + Care Team Providers + +------+ + | Care Missile Technician Name | Role | Phone | + +------+ + | Becca Amaya MD | PCP | | + +------+ + Reason for Visit + + + | Reason | Comments | + + + | Back Pain | | + + + Encounter Details +--------+---------+ + + + | Date | Type | Department | Care Team | Description | +--------+---------+ + + + | 09/22/ | Office | [facility] | Sidney Dominguez, | Cervicalgia (Primary | | 2019 | Visit | NEUROSURGERY [address] | PA-C [address] | Dx); Back pain, | | | | [address] | [address] [facility] | unspecified back | | | | [place] | [facility] [place] [address] | location, | | | | [address] | [phone] | unspecified back | | | | [phone] | | pain laterality, | | | | | | unspecified | | | | | | chronicity; | | | | | | Spondylolisthesis, | | | | | | cervical region; | | | | | | Foraminal stenosis | | | | | | of cervical region; | | | | | | Cervical myelopathy | | | | | | ([facility]); Cervical | | | | | | stenosis of spine; | | | | | | Osteoarthritis of | | | | | | cervical spine with | | | | | | myelopathy; Lumbar | | | | | | radiculopathy; | | | | | | Neurogenic | | | | | | claudication; Lumbar | | | | | | facet arthropathy; | | | | | | Foraminal stenosis | | | | | | of lumbar region; | | | | | | Hyperreflexia; | | | | | | Chronic obstructive | | | | | | pulmonary disease, | | | | | | unspecified COPD | | | | | | type (HCC); History | | | | | | of CA (myocardial | | | | | | infarction) | +--------+---------+ + + + Social History + + [...] + + documented as of this encounter Last Filed Vital Signs + + + + + | Vital Sign | Reading | Time Taken | Comments | + + + + + | Blood Pressure | 118/78 | 09/22/2018 2:47 PM | | | | | PST | | + + + + + | Pulse | 68 | 09/22/2018 2:47 PM | | | | | PST | | + + + + + | Temperature | - | - | | + + + + + | Respiratory Rate | - | - | | + + + + + | Oxygen Saturation | - | - | | + + + + + | Inhaled Oxygen | - | - | | | Concentration | | | | + + + + + | Weight | 86.2 kg (190 lb) | 09/22/2018 2:47 PM | | | | | PST | | + + + + + | Height | 175.3 cm (5' 9") | 09/22/2018 2:47 PM | | | | | PST | | + + + + + | Body Mass Index | 28.06 | 09/22/2018 2:47 PM | | | | | PST | | + + + + + documented in this encounter Patient Instructions Patient Instructions Ary Arreguin, Agricultural Engineer - 09/22/2018 2:30 PM PSTIt was a pleasure to see you today. Here is what we discussed. Please schedule an appontment with your PCP and Let pain be your guide. If you are doing an activity that starts causing you pain back off and ease back into it slowly. We don't want you taking any risks that do not need to be ta marilee. We like to use surgery as a last resort. We are permanently altering your spine for the re st of your life. We would like you to get an updated MRI of you back and neck. These are ordered to be done here under general sedation. We also want to get new x-rays of your neck If you do choose back surgery it would look something like this: -1-3 days in the hospital, spend the first month lifting no more than 5lbs, no bending, lif ting above your head, or twisting. -We will want you to be up and walking very frequently. For the first 10-14 days we want y ou to be up every 45 minutes for 2-3 minutes in your house. After 10-14 days when you are f eeling comfortable you can walk outside with a walking partner. -You would wear a back brace for at least the first month. -No intercourse for the first month. -No driving for the first few weeks to 1 month as long as you have your strength back and a re not taking pain medication then you could drive. -You would need help with things like tying your shoes, getting socks on and what not to pr event you from bending over for that first month at least. -Recovery time would be 6-12 months depending on bone fusion and healing. You will have hima e waxing and waning of symptoms. The pain will vary in intensity and vary from day to day. As time moves on the frequency and intensity of the pain will slowly go away. If you do choose neck surgery it would look something like this: -1 day in the hospital, spend the first month lifting no more than 5lbs, no bending, liftin g above your head, or turning your head. -You would wear a neck brace for at least the first month. You will probably have some dif ficulty swallowing after surgery which will get better over time. -No driving for the first few weeks to 1 month until you have your strength back. When can turn your head and are no longer taking pain medication then you could drive. -You would need help with things like tying your shoes, putting socks on and what not to pr event you from bending over for that first month at least. -Recovery time would be 3-6 months depending on bone fusion and healing. You will have hima e waxing and waning of symptoms. The pain will vary in intensity and vary from day to day. As time moves on the frequency and intensity of the pain will slowly go away. You may also have some difficulty swallowing after surgery which will get better over time. documented in this encounter Progress Notes Sidney Dominguez PA-C - 09/22/2018 2:30 PM PST Sidney Dominguez PA-C [address] [facility] [place] [address] PHONE: FAX: NEUROSURGERY HISTORY AND PHYSICAL EXAMINATION CHIEF COMPLAINT: Chief Complaint Patient presents with Back Pain HISTORY OF PRESENT ILLNESS: Percy Mancilla is a 57 y.o. male with the complaint of b ack and neck pain that began several years ago. He was previously scheduled for a L5-S1 ALI F with posterolateral fusion with Dr. Lainez on 03/06/2018 however his surgery was cancelled due to Dr. Lainez being out on an unexpected leave. He explains that he took a fall on his icy stairs this winter and landed on his neck and shoulder. The back symptoms have been gradually worsening. He rates the back pain as moderate to sev ere. The back symptoms are daily and continuous. He describes the back pain as sharp, numb ing, tingling, shooting, dull, crushing, aching and throbbing. On average he rates his back and leg pain as 8/10. He does not work and is disabled because of his lungs. He describes leg symptoms that occur on both sides equally but his left side is slightly wo rse than his right leg. The leg symptoms account for 50% of his symptoms. The leg symptoms are constant, and the symptoms travel from the back to the lateral leg. He also describes the loss of the ability to walk distances without sitting, numbness of the legs, numbness of the feet and weakness of the legs. If he has to walk he can. Usually he walks with a cane if he knows that he has to walk any kind of distance. When he gets pain the pain runs down the lateral aspect of his leg from his hip all the way to the bottom of his foot. I asked h im how many blocks he could walk as well as how long he could walk and he struggled and was unable to come up with an answer. I am not sure why, this is usually a pretty easy question to answer for most patients. His neck and arms bother him as much as his back and leg symptoms. He says that he struggl es with fine motor tasks. He does not report any change in bowel or bladder function recently. His symptoms improve with rest and changing position. His symptoms worsen with standing, sitting, walking, kneeling, bending, twisting, stairs an d light exertion. He lives with his fiance who would be able to help him after surgery. PAST MEDICAL HISTORY: Past Medical History: Diagnosis Date Asthma Attention deficit disorder Cervical radiculopathy Chronic bronchitis ([facility]) Chronic fatigue Chronic pain syndrome COPD (chronic obstructive pulmonary disease) ([facility]) DDD (degenerative disc disease), cervical 07/25/2017 Ear infection Generalized anxiety disorder GERD (gastroesophageal reflux disease) H/O emphysema Hay fever History of dental problems Hyperlipidemia Hypertension Lumbar radiculopathy Major depression CA (myocardial infarction) ([facility]) Migraine Opioid dependence, continuous ([facility]) Osteoarthritis Osteoporosis Pneumonia Radiculopathy, lumbosacral region Renal stones Sinus infection PAST SURGICAL HISTORY: Past Surgical History: Procedure Laterality Date CARPAL TUNNEL RELEASE Bilateral 2012 FACIAL RECONSTRUCTION SURGERY Right 1979 SHOULDER ARTHROSCOPY Right ; SHOULDER ARTHROSCOPY Left SHOULDER JOINT REPLACEMENT Left TONSILLECTOMY AND ADENOIDECTOMY CURRENT MEDICATIONS: Current Outpatient Prescriptions Medication Sig Dispense Refill albuterol (VENTOLIN HFA) 90 mcg/puff inhaler Inhale 2 puffs into the lungs every 6 hour s as needed for Wheezing. albuterol-ipratropium (DUONEB) 2.5-0.5 mg/3 mL SOLN Take 3 mLs by nebulization Daily. amitriptyline (ELAVIL) 50 mg tablet Take 150 mg by mouth nightly. atorvaSTATin (LIPITOR) 20 mg tablet Take 20 mg by mouth Daily. busPIRone (BUSPAR) 7.5 MG tablet buspirone 7.5 mg tablet cholestyramine (QUESTRAN) 4 g packet cholestyramine (with sugar) 4 gram oral powder cloNIDine (CATAPRES) 0.1 mg tablet clonidine HCl 0.1 mg tablet DULoxetine (CYMBALTA) [address] capsule Take 60 mg by mouth 2 times daily. EPINEPHrine auto-injector (EPIPEN 2-MAGNOLIA) 0.3 mg/0.3 mL injection Inject 0.3 mg into the muscle as needed for Anaphylaxis. fenofibrate (TRICOR) 48 mg tablet Take 48 mg by mouth Daily. fluticasone (FLOVENT HFA) 220 mcg/puff inhaler Inhale 1 puff into the lungs 2 times jimmie ly. GABAPENTIN PO Take 800 mg by mouth 4 times daily. lisinopril-hydrochlorothiazide (PRINZIDE,ZESTORETIC) 20-25 MG per tablet Take 1 tablet by mouth Daily. metFORMIN (GLUCOPHAGE) 500 mg tablet Take 500 mg by mouth daily (with breakfast). omeprazole (PRILOSEC) 20 mg capsule Take 40 mg by mouth every morning (before breakfast ). salmeterol (SEREVENT DISKUS) 50 mcg/puff diskus inhaler Inhale 1 puff into the lungs 2 times daily. tiotropium (SPIRIVA HANDIHALER) 18 mcg inhalation capsule Inhale 18 mcg into the lungs Daily. traZODone (DESYREL) 50 mg tablet Take 100 mg by mouth nightly. No current facility-administered medications for this visit. ALLERGIES: Allergies Allergen Reactions Wasp Venom Protein Anaphylaxis Codeine Itching Naproxen Sodium Itching SOCIAL HISTORY: He reports that he quit smoking about 9 years ago. His smoking use included Cigarettes. He has a 24.00 pack-year smoking history. He has never used smokeless tobacco. He reports that he does not drink alcohol or use drugs. FAMILY HISTORY: Family History Problem Relation Age of Onset Prostate cancer Father Other (see comment) Mother Heart problems Diabetes Brother Crohn's disease Sister No Known Problems Child No Known Problems Child No Known Problems Child REVIEW OF SYSTEMS: GENERALLY: No fever, no night sweats, no anemia, no fatigue, no recent profound weight ch anges. EYES: No eye problems, no impaired sight, no use of corrective lenses, no eye injury, no d ouble vision, no transient blindness. EARS, NOSE, AND THROAT: No changes in taste or smell, no hearing difficulty, no ringing in the ears, no ear drainage, no ear injury, no dizziness, no voice changes, no difficulty swa llowing, no significant snoring, no sleep apnea/CPAP, no sinus problems, no major dental wor k. NEUROLOGICALLY: Please see the review of systems discussed above in the history of present illness. In addition, He has numbness/pain of legs, awake with numbness/pain, weakness. PSYCHIATRIC: + depression, + difficulty sleeping, no anxiety, no bipolar disorder. CARDIOVASCULAR: No heart attacks, no heart murmur, no heart fluttering, no chest pain, no ankle swelling. LUNG DISEASE: No shortness of breath, no cough, no tuberculosis, no bloody cough, no asthm a, no emphysema/COPD. GASTROINTESTINAL: No bowel disease, no nausea or vomiting, no rectal bleeding, no constipa tion, no fecal stool incontinence, no liver/gallbladder disease, no abdominal pain, no ulcer s. KIDNEY DISEASE: No urinary frequency, no painful or difficult urination, no urinary incont inence, no bladder problems, no impotence. ENDOCRINE: No diabetes, no thyroid disease, no osteopenia or osteoporosis, no breast drain age. SKIN: No breast lumps, no skin disease or skin changes, no rashes/itches. HEMATOLOGIC/LYMPHATIC: No enlarged lymph nodes, no easy or unusual bleeding, no personal h istory of cancer. RHEUMATOLOGIC: No joint pain/arthritis, no rheumatoid arthritis. PHYSICAL EXAMINATION: Blood pressure 118/78, pulse 68, height 1.753 m (5' 9"), weight 86.2 kg (190 lb). Body mass index is 28.06 kg/m. GENERAL: Percy Mancilla is in no acute distress with unlabored respirations. He does appear uncomfortable throughout the exam today. Throughout he exam he switches position from standing to seating. Towards the end of the v isit patient had to stand bend over the bed to relieve his back pain. HEENT: Head: Normocephalic/atraumatic with no areas of recent trauma. Eyes: Normal sclerae without icterus. Ears: No drainage or tenderness. Nasopharynx: Clear without drainage. Oropharynx: Clear without erythema. NECK (ANTERIOR): Supple and without palpable masses. CHEST: Clear to ausculation without crackles or wheeze. HEART: Regular rate and rhythm without murmurs. ABDOMEN: Soft, non-tender, non-distended, and without palpable masses. He is not obese. SPINE: Positive spurling's bilaterally. EXTREMITIES: No cyanosis, clubbing, or edema. Distal pulses are palpable. NEUROLOGICAL EXAM: MENTAL STATUS: He is awake, alert, and oriented. He follows simple and complex commands. His speech is fluent, he comprehends speech well, and he repeats well. He has no apparent deficits with short or remote computer terminal operator memory. CRANIAL NERVES: II: Acuity is intact. [place] are full to confrontation. III, IV, : The pupils are reactive. Extraocular movements are intact. No ptosis is note d. V: Facial sensation is intact and symmetric. VII: Facial movements are symmetric. VIII: Hearing is intact bilaterally. IX, X: The uvula and palate move appropriately. XI: Shrug is equal bilaterally. XII: Tongue protrusion is midline. MOTOR EXAM: (5 IS NORMAL) * Indicates pain limited MUSCLE/ MOVEMENT: RIGHT LEFT Deltoids 5 5 Biceps 4 ALMOST 4-* ASSOCIATED WITH COGGING 4 ALMOST 4-* ASSOCIATED WITH COGGING Triceps 5 5 Wrist Flexion 4 4 Wrist Extension 5 4 Median Intrinsics 5 5 Ulnar Intrinsics 4+ 4 Football Coach Strength 5 5 Hip Flexion 5 4 Hip Extension 5 5 Knee Flexion 5 5 Knee Extension 5 5 Dorsiflexion 5 4- Extensor Hallicus Longus 5 5 Plantarflexion 5 4+ SENSORY EXAM: Sensory exam shows decreased sensation to left lateral calf. REFLEXES: (2 OR 2+ IS NORMAL) REFLEX: RIGHT LEFT BICEPS +3 +2 BRACHIORADIALIS +2 +2 PATELLAR +3 +3 ACHILLES +3 +3 SANDERS'S NEGATIVE NEGATIVE PLANTAR DOWNGOING DOWNGOING GAIT: Gait is steady. - There was one noticeable beat of clonus and a second Beat which is much more subtle. Thi s is present bilaterally. TEST AND RADIOGRAPHIC REVIEW: Cervical MRI from 05/2017 shows spondylolisthesis at C4-C5 associated with moderate severe spinal stenosis and severe bilateral foraminal stenosis slightly worse on the right. Fairly severe foraminal stenosis is seen at C5-C6 as well. Mild to moderate foraminal stenosis at C6-C7. Cervical x-ray from 05/2016 shows spondylolisthesis at C3-C4 with significant diffuse cervi adrián spondylosis. His imaging was reviewed in detail today during the visit. The lumbar MRI from 08/28/2017 s hows severe bilateral stenosis which is worse on on the left. . Lumbar x-rays from 11/13/2017 shows spondylolisthesis at L5-S1 on flexion extension views. There is near bone on bone articulation of L5-S1. I do not think auto fusion has occurred at this level yet as there is a black line clearly identified all the way across from front to back and from left to right. ASSESSMENT: Outpatient Morphine Equivalent Daily Dose (MEDD) None PEG Pain screening tool: Total score: 8 (09/22/18 1450) NEUROSURGICAL DIAGNOSES: Encounter Diagnoses Name Primary? Cervicalgia Yes Back pain, unspecified back location, unspecified back pain laterality, unspecified chr onicity Spondylolisthesis, cervical region Foraminal stenosis of cervical region Cervical myelopathy (HCC) Cervical stenosis of spine Osteoarthritis of cervical spine with myelopathy Lumbar radiculopathy Neurogenic claudication Lumbar facet arthropathy Foraminal stenosis of lumbar region Hyperreflexia Chronic obstructive pulmonary disease, unspecified COPD type (HCC) History of CA (myocardial infarction) GENERAL DIAGNOSES: Past Medical History: Diagnosis Date Asthma Attention deficit disorder Cervical radiculopathy Chronic bronchitis (HCC) Chronic fatigue Chronic pain syndrome COPD (chronic obstructive pulmonary disease) (HCC) DDD (degenerative disc disease), cervical 07/25/2017 Ear infection Generalized anxiety disorder GERD (gastroesophageal reflux disease) H/O emphysema Hay fever History of dental problems Hyperlipidemia Hypertension Lumbar radiculopathy Major depression CA (myocardial infarction) (HCC) Migraine Opioid dependence, continuous (HCC) Osteoarthritis Osteoporosis Pneumonia Radiculopathy, lumbosacral region Renal stones Sinus infection PLAN: Percy Katia Mancilla presented today, and it was a pleasure seeing this patient and assessi ng his neurologic problems. He has L5-S1 degenerative disc disease with near [id number] articulation causing severe f oraminal stenosis of both L5 nerves. Given the pathology at this level, his age, and BMI, I do think he would be a good candidate for an L5-S1 ALIF. However, given his history and ph ysical examination today as well as previous MRI of his cervical spine it is very possible t hat he may need to have his neck fused first. In addition to an updated lumbar MRI I'm also recommending a new cervical MRI. There are multiple levels of pathology in his neck. How ever, I am most concerned about the severe spinal stenosis along with spondylolisthesis at C 4-C5 as well as the severe foraminal stenosis at C5-C6 that is causing some of his notable w eakness in his upper extremities. In addition to the above information, in reviewing his past medical history patient has an established diagnosis of COPD. There is some question as to whether or not he may have prev iously had a heart attack. He states that it was not a heart attack but instead an anxiety attack. He reports that it got on his past medical history when his fiance mentioned this to his primary care doctor. I have asked Sanna to try and get records of this visit from the emergency room at [facility] around 2011. I do think that we will need to get c ardiac and pulmonary clearance prior to surgery. I have asked that the patient begin workin g on this and get this taken care of prior to seeing Dr. albright. He has progressive symptoms despite non-operative measures. I had a lengthy discussion with him about his options for care including surgical and non-s urgical options. He understands that in most instances the recovery from surgery can be lengthy and sometime s difficult. I, Sidney Doimnguez PA-C, personally performed the services described in this documentati on, as scribed by MARILYN Salas, in my presence, and it is both accurate and complet e. Sidney Dominguez PA-C 09/22/18 ELECTRONICALLY SIGNED BY: Sidney Dominguez PA-C, 09/22/2018 16:19 documented in thi s encounter Plan of Treatment Not on filedocumented as of this encounter Visit Diagnoses + + | Diagnosis | + + | Cervicalgia - Primary | + + | Back pain, unspecified back location, unspecified back pain laterality, unspecified | | chronicity | + + | Spondylolisthesis, cervical region | + + | Foraminal stenosis of cervical region Spinal stenosis in cervical region | + + | Cervical myelopathy (HCC) Cervical spondylosis with myelopathy | + + | Cervical stenosis of spine Spinal stenosis in cervical region | + + | Osteoarthritis of cervical spine with myelopathy | + + | Lumbar radiculopathy Thoracic or lumbosacral neuritis or radiculitis, unspecified | + + | Neurogenic claudication Spinal stenosis, lumbar region, with neurogenic claudication | + + | Lumbar facet arthropathy Lumbosacral spondylosis without myelopathy | + + | Foraminal stenosis of lumbar region Spinal stenosis, lumbar region, without | | neurogenic claudication | + + | Hyperreflexia Abnormal reflex | + + | Chronic obstructive pulmonary disease, unspecified COPD type (HCC) | + + | History of CA (myocardial infarction) Old myocardial infarction | + + documented in this encounter
--- OUTSIDE RECORDS SUMMARY | ~2020-05-12 | XMS | Encounter Summary ---
Demographics + + + | Address | [address] | | | [place] [address] | + + + | Home Phone | | + + + | Preferred Language | Unknown | + + + | Marital Status | | + + + | Rastafari Affiliation | 1013 | + + + | Race | White | + + + | Ethnic Group | Not or | + + + Author + + + | Author | [facility] | | | and [place] | + + + | Organization | [facility] | | | [...] [place] | | | | | [address] | | + + + + + | Jane Mojica | ECON | Unknown | | + + + + + | Estelita Zamudio | ECON | Unknown | | + + + + + Care Team Providers + +------+ + | Care Traffic Signal Technician Name | Role | Phone | + +------+ + PCP | Unavailable | + +------+ + Encounter Details +--------+ + + + + | Date | Type | Department | Care Team | Description | +--------+ + + + + | 12/18/ | Emergency | [facility] | Conversion | Backache, | | 1996 | | [facility] | Transaction, | unspecified | | | | [facility] | Provider Unknown | | | | | [address] | | | | | | [place], [place] | (Fax) | | | | | [address] | | | | | | [phone] | | | +--------+ + + + [...] + | Diagnosis | + + | Backache, unspecified | + + documented in this encounter"
--- OUTSIDE RECORDS SUMMARY | ~2020-05-12 | XMS | Encounter Summary ---
Demographics + + + | Address | [address] | | | [place] [address] | + + + | Home Phone | | + + + | Preferred Language | Unknown | + + + | Marital Status | | + + + | Episcopal Affiliation | 1013 | + + + | Race | White | + + + | Ethnic Group | Not or | + + + Author + + + | Author | [facility] | | | and [place] | + + + | Organization | [facility] | | | and [...] [place] | | | | | [address] | | + + + + + | Jane Mojica | ECON | Unknown | | + + + + + | Estelita Zamudio | ECON | Unknown | | + + + + + Care Team Providers + +------+ + | Care Campground Attendant Name | Role | Phone | + +------+ + PCP | Unavailable | + +------+ + Encounter Details +--------+ + + + + | Date | Type | Department | Care Team | Description | +--------+ + + + + | 10/06/ | Hospital | [facility] | | | | 1997 | Encounter | [address] | | | | | | [address] | | | | | | [place] | | | | | | [address] | | | | | | [phone] | | | +--------+ + + + [...]
--- OUTSIDE RECORDS SUMMARY | ~2020-05-12 | XMS | Encounter Summary ---
Demographics + + + | Address | [address] | | | [place] [address] | + + + | Home Phone | | + + + | Preferred Language | Unknown | + + + | Marital Status | | + + + | Tenriism Affiliation | 1013 | + + + | Race | White | + + + | Ethnic Group | Not or | + + + Author + + + | Author | [facility] | | | and [place] | + + + | Organization | [facility] | | | [...] [place] | | | | | [address] | | + + + + + | Jane Mojica | ECON | Unknown | | + + + + + | Estelita Zamudio | ECON | Unknown | | + + + + + Care Team Providers + +------+ + | Care Branch Store Manager Name | Role | Phone | + +------+ + PCP | Unavailable | + +------+ + Encounter Details +--------+ + + + + | Date | Type | Department | Care Team | Description | +--------+ + + + + | 11/09/ | Emergency | [facility] | Conversion | Lumbago | | 1996 | | [facility] | Transaction, | | | | | EMERGENCY CENTER | Provider Unknown | | | | | [address] | | | | | | [place], [place] | (Fax) | | | | | [address] | | | | | | [phone] | | | +--------+ + + + [...] + | Diagnosis | + + | Lumbago | + + documented in this encounter"
--- OUTSIDE RECORDS SUMMARY | ~2020-05-12 | XMS | Encounter Summary ---
Demographics + + + | Address | [address] | | | [place] [address] | + + + | Home Phone | | + + + | Preferred Language | Unknown | + + + | Marital Status | | + + + | Pentecostal Affiliation | 1013 | + + + | Race | White | + + + | Ethnic Group | Not or | + + + Author + + + | Author | [facility] | | | and [place] | + + + | Organization | [facility] | | | [...] [place] | | | | | [address] | | + + + + + | Jane Mojica | ECON | Unknown | | + + + + + | Estelita Zamudio | ECON | Unknown | | + + + + + Care Team Providers + +------+ + | Care Psychological Operations Name | Role | Phone | + +------+ + | Becca Amaya MD | PCP | | + +------+ + Reason for Visit + + + | Reason | Comments | + + + | Medication Refill | | + + + Encounter Details +--------+--------+ + + + | Date | Type | Department | Care Team | Description | +--------+--------+ + + + | 03/09/ | Refill | [facility] | Lynn Tan, | Medication Refill | | 2020 | | PULMONOLOGY 1100 | PEDIATRIC LICENSED PRACTICAL NURSE [address] | | | | | [address] | [address] [place], | | | | | [place] | [place] [address] | | | | | [address] | [phone] | | | | | [phone] | | | +--------+--------+ + + + Social History + + + +--------+ + | Tobacco Use | Types | Packs/Day | Years | Date | | | | | Used | | + + + +--------+ + | Former Smoker | Cigarettes | 1 | 16 | Quit: 09/28/2008 | + [...] + | Diagnosis | + + | Chronic bronchitis, unspecified chronic bronchitis type (HCC) - Primary | + + documented in this encounter"
--- OUTSIDE RECORDS SUMMARY | ~2020-05-12 | XMS | Encounter Summary ---
Demographics + + + | Address | [address] | | | [place] [address] | + + + | Home Phone | | + + + | Preferred Language | Unknown | + + + | Marital Status | Single | + + + | Mandaeism Affiliation | CAT | + + + | Race | White | + + + | Ethnic Group | Not or | + + + Author + + + | Author | [facility] | + + + | Organization | [facility] | + + + | Address | Unknown | + + + | Phone | Unavailable | + + + Support + + + + + | Name | Relationship | Address | Phone | + + + + + | Mitra Ramos | ECON | [address] | | | | | [place] | | | | | [address] | | + + + + + Care Team Providers + +------+ + | Care Senior Benefits Analyst Name | Role | Phone | + [...] Closed | | Radiology | Diagnoses | Shannon, | McMc Mri | | | | | Other | Karolina, | [address] | | | | | spondylosis | PA-C [address] | | | | | with | [address] | [place] | | | | | radiculopath | [place] | [address] | | | | | y, lumbar | [address] | Phone: | | | | | region | Phone: | [phone] | | | | | Procedures | [phone] | | | | | | MRI SPINE | Fax: | | | | | | LUMBAR WO | [phone] | | | | | | CONTRAST | | | +--------+--------+ + + + + Encounter Details +--------+ + + + + | Date | Type | Department | Care Team | Description | +--------+ + + + + | 11/05/ | Transcribe | [facility] | Karolina Franklin, | | | 2020 | Orders | [facility] [address] | PA[address]C [address] | | | | | [address] | Doctors [place] | | | | | [place] | [address] | | | | | [address] | | | +--------+ + + + [...] Not on filedocumented as of this encounter Results MRI SPINE LUMBAR WO CONTRAST (01/25/2020 2:10 PM PDT) + + | Specimen | + + | | + + + + + | Narrative | Performed At | + + + | [address] | [facility] | | [place] [address] | DEPARTMENT OF | | [phone] Name: PERCY MANCILLA Phys: | RADIOLOGY | | KAROLINA FRANKLIN : 1960 Sex: M | | | CSN: [id number] MR# [id number] Exam Date: | | | 01/25/2020 EXAM: MRI OF THE LUMBAR SPINE WITHOUT CONTRAST | | | CLINICAL HISTORY: Spondylosis with left lower extremity | | | radiculopathy. COMPARISON: None available. TECHNIQUE: | | | Multiplanar, multisequence noncontrast MRI images of the lumbar spine | | | were obtained. FINDINGS: Retroperitoneum: Normal. | | | Lordosis: Normal. Scoliosis: None. Vertebral body heights: | | | Normal. Conus: Normal in signal, terminating at upper L1. | | | Alignment: Normal. Marrow: Slightly heterogeneous with mild | | | reactive endplate marrow edema at L5-S1. Additional findings: | | | Severe L5-S1 intervertebral disc space narrowing with vacuum | | | phenomenon and 5 mm of anterolisthesis. There are Schmorl's nodes | | | throughout the entire lumbar spine. LEVEL BY LEVEL FOLLOWS: | | | T12-L1: Normal. L1-2: Normal. L2-3: Mild disc height loss, | | | vacuum phenomenon and no disc bulge, central canal or foraminal | | | stenosis. L3-4: Normal. L4-5: Normal. L5-S1: Severe disc | | | height loss, vacuum phenomenon, reactive endplate sclerosis and 5 mm | | | of anterolisthesis. Mild diffuse disc bulge and osseous hypertrophy | | | with bilateral moderate facet arthropathy. No central canal or | | | subarticular zone stenosis. Severe bilateral foraminal stenosis | | | with impingement upon the exiting L5 nerve roots. IMPRESSION: 1. | | | Severe disc height loss, vacuum phenomenon, reactive endplate | | | sclerosis and 5 mm of anterolisthesis. Mild diffuse disc bulge and | | | osseous hypertrophy with bilateral moderate facet arthropathy. Severe | | | bilateral foraminal stenosis with impingement upon the exiting L5 | | | nerve roots. 2. Otherwise, normal lumbar spine MRI. | | | REPORT SIGNED IN OTHER VENDOR SYSTEM 01/27/2020 Reported by: NIKOLAI | | | MD [place] Electronically signed by: NIKOLAI COLEMAN MD | | | Transcribed Date/Time: 01/27/2020 05:23 Resort Housekeeper: WIL | | | | | + + + + + | Procedure Note | + + | Interface, Radiology Results - 01/27/2020 5:28 AM PDT [address] | | [place] [address] | | Name: PERCY MANCILLA Phys: KAROLINA FRANKLIN : 1960 Sex: M | | CSN: [id number] MR# [id number] Exam Date: 01/25/2020 EXAM:MRI OF THE LUMBAR | | SPINE WITHOUT CONTRAST CLINICAL HISTORY:Spondylosis with left lower extremity | | radiculopathy. COMPARISON:None available. TECHNIQUE:Multiplanar, multisequence | | noncontrast MRI images of the lumbar spinewere obtained. FINDINGS:Retroperitoneum: | | Normal. Lordosis: Normal. Scoliosis: None. Vertebral body heights: Normal. Conus: Normal | | in signal, terminating at upper L1. Alignment: Normal. Marrow: Slightly heterogeneous | | with mild reactive endplate marrowedema at L5-S1. Additional findings: Severe L5-S1 | | intervertebral disc space narrowingwith vacuum phenomenon and 5 mm of anterolisthesis. | | There areSchmorl's nodes throughout the entire lumbar spine. LEVEL BY LEVEL | | FOLLOWS:T12-L1: Normal. L1-2: Normal. L2-3: Mild disc height loss, vacuum phenomenon | | and no disc bulge,central canal or foraminal stenosis. L3-4: Normal. L4-5: Normal. | | L5-S1: Severe disc height loss, vacuum phenomenon, reactive endplatesclerosis and 5 mm | | of anterolisthesis. Mild diffuse disc bulge andosseous hypertrophy with bilateral | | moderate facet arthropathy. Nocentral canal or subarticular zone stenosis. Severe | | bilateralforaminal stenosis with impingement upon the exiting L5 nerve roots. | | IMPRESSION:1. Severe disc height loss, vacuum phenomenon, reactive endplatesclerosis and | | 5 mm of anterolisthesis. Mild diffuse disc bulge andosseous hypertrophy with bilateral | | moderate facet arthropathy.Severe bilateral foraminal stenosis with impingement upon | | the exitingL5 nerve roots.2. Otherwise, normal lumbar spine MRI. REPORT SIGNED IN | | OTHER VENDOR SYSTEM 01/27/2020 Reported by: NIKOLAI COLEMAN MD Electronically signed | | by: NIKOLAI COLEMAN MD Transcribed Date/Time: 01/27/2020 05:23Transcriptionist: | | FLUENCY | |FINDINGS: | |Retroperitoneum: Normal. | | | |Lordosis: Normal. | | | |Scoliosis: None. | | | |Vertebral body heights: Normal. | | | |Conus: Normal in signal, terminating at upper L1. | | | |Alignment: Normal. | | | |Marrow: Slightly heterogeneous with mild reactive endplate marrow | |edema at L5-S1. | | | |Additional findings: Severe L5-S1 intervertebral disc space narrowing | |with vacuum phenomenon and 5 mm of anterolisthesis. There are | |Schmorl's nodes throughout the entire lumbar spine. | | | |LEVEL BY LEVEL FOLLOWS: | |T12-L1: Normal. | | | |L1-2: Normal. | | | |L2-3: Mild disc height loss, vacuum phenomenon and no disc bulge, | |central canal or foraminal stenosis. | | | |L3-4: Normal. | | | |L4-5: Normal. | | | |L5-S1: Severe disc height loss, vacuum phenomenon, reactive endplate | |sclerosis and 5 mm of anterolisthesis. Mild diffuse disc bulge and | |osseous hypertrophy with bilateral moderate facet arthropathy. No | |central canal or subarticular zone stenosis. Severe bilateral | |foraminal stenosis with impingement upon the exiting L5 nerve roots. | | | |IMPRESSION: | |1. Severe disc height loss, vacuum phenomenon, reactive endplate | |sclerosis and 5 mm of anterolisthesis. Mild diffuse disc bulge and | |osseous hypertrophy with bilateral moderate facet arthropathy. | |Severe bilateral foraminal stenosis with impingement upon the exiting | |L5 nerve roots. | |2. Otherwise, normal lumbar spine MRI. | | | | | | | | REPORT SIGNED IN OTHER VENDOR SYSTEM 01/27/2020 | |Reported by: NIKOLAI COLEMAN MD | | | |Electronically signed by: NIKOLAI COLEMAN MD | | | |Transcribed Date/Time: 01/27/2020 05:23 | |Resort Housekeeper: FLUENCY | | | | | | [...] + + | Other spondylosis with radiculopathy, lumbar region - Primary | + + documented in this encounter"
--- OUTSIDE RECORDS SUMMARY | ~2020-05-12 | XMS | Encounter Summary ---
Demographics + + + | Address | [address] | | | [place] [address] | + + + | Home Phone | | + + + | Preferred Language | Unknown | + + + | Marital Status | Single | + + + | Scientologist Affiliation | CAT | + + + | Race | White | + + + | Ethnic Group | Not or | + + + Author + + + | Author | [facility] | + + + | Organization | [facility] | + + + | Address | Unknown | + + + | Phone | Unavailable | + + + Support + + + + + | Name | Relationship | Address | Phone | + + + + + | Mitra Ramos | ECON | [address] | | | | | [place] | | | | | [address] | | + + + + + Care Team Providers + +------+ + | Care Metal Drawer Name | Role | Phone | + +------+ + | Becca Amaya MD | PCP | | + +------+ + Encounter Details +--------+ + + + + | Date | Type | Department | Care Team | Description | +--------+ + + + + | 01/23/ | Transcribe | [facility] | Transcribe | | | 2019 | Orders | [facility] [address] | Encounter, Provider, | | | | | [address] | [address] | | | | | [place] | [place] [address] | | | | | [address] | | | +--------+ + + + [...] on filedocumented as of this encounter Results X-RAY SCOLI SPINE ENTR 2 ALEXS KAYLEE (01/23/2019 10:10 AM PDT) + + | Specimen | + + | | + + + + + | Narrative | Performed At | + + + | [address] | [facility] | | [place] [address] | DEPARTMENT | | [phone] Name: PERCY MANCILLA Phys: | RADIOLOGY | | LIZZETTE HARRY : 1960 Sex: M CSN: | | | [id number] MR# [id number] Exam Date: 01/23/2019 | | | EXAM: [facility]: | | | Lumbago. Spondylolisthesis. [...] Transcribed | | | Date/Time: 01/23/2019 11:07 Tractor Mechanic: FLUENCY | | + + + + + | Procedure Note | + + | Interface, Radiology Results - 01/23/2019 11:12 AM PDT [address] | | [place] [address] | | Name: PERCY MANCILLA Phys: LIZZETTE HARRY : 1960 Sex: M CSN: | | [id number] MR# [id number] Exam Date: 01/23/2019 EXAM:X-RAY SCOLI SPINE ENTR 2 | | [place] CLINICAL HISTORY:Lumbago. Spondylolisthesis. Scoliosis. COMPARISON:None | | [...] | | |Transcribed Date/Time: 01/23/2019 11:07 | |Tractor Mechanic: FLUENCY | | | | | | [...] | Diagnosis | + + | Spondylolisthesis at L5-S1 level - Primary | + + documented in this encounter"
--- OUTSIDE RECORDS SUMMARY | ~2020-05-12 | XMS | Encounter Summary ---
Demographics + + + | Address | [address] | | | [place] [address] | + + + | Home Phone | | + + + | Preferred Language | Unknown | + + + | Marital Status | Single | + + + | Muslim Affiliation | CAT | + + + | Race | White | + + + | Ethnic Group | Not or | + + + Author + + + | Author | [facility] | + + + | Organization | [facility] | + + + | Address | Unknown | + + + | Phone | Unavailable | + + + Support + + + + + | Name | Relationship | Address | Phone | + + + + + | Mitra Ramos | ECON | [address] [facility] | | | | | [place] | | | | | [address] | | + + + + + Care Team Providers + +------+ + | Care Commercial Sheet Metal Foreman Name | Role | Phone | + +------+ + | Becca Amaya MD | PCP | | + +------+ + Encounter Details +--------+ + + + + | Date | Type | Department | Care Team | Description | +--------+ + + + + | 12/08/ | Hospital | Diagnostic Imaging | Yvette Ortega, | No Show | | 2020 | Encounter | at [facility] | [address] | | | | | [address] | [address] [place] | | | | | [place] | [id number] | | | | | [address] | | | | | | [phone] | | | +--------+ + + + [...] | | + +---------+--------+ + + | X-RAY EYE DETECTION | Imaging | Routin | | One Time for 1 | | FOREIGN BODY BI | | e | | Occurrences starting | | | | | | 12/09/2019 until | | | | | | 12/09/2019 | + +---------+--------+ + + documented as of this encounter Visit Diagnoses Not on filedocumented in this encounter"
--- OUTSIDE RECORDS SUMMARY | ~2020-05-12 | XMS | Encounter Summary ---
Demographics + + + | Address | [address] | | | [place] [address] | + + + | Home Phone | | + + + | Preferred Language | Unknown | + + + | Marital Status | | + + + | Christian Affiliation | 1013 | + + + | Race | White | + + + | Ethnic Group | Not or | + + + Author + + + | Author | [facility] | | | and [place] | + + + | Organization | [facility] | | | [...] [place] | | | | | [address] | | + + + + + | Jane Mojica | ECON | Unknown | | + + + + + | Estelita Zamudio | ECON | Unknown | | + + + + + Care Team Providers + +------+ + | Care Sewer Pipe Layer Name | Role | Phone | + +------+ + PCP | Unavailable | + +------+ + Encounter Details +--------+ + + + + | Date | Type | Department | Care Team | Description | +--------+ + + + + | 12/10/ | Emergency | [facility] | Chon Zafar | Displacement of | | 1996 | | MEDICAL CENTER | MD Joshua [address] | intervertebral disc, | | | | EMERGENCY CENTER | [place], [place] | site unspecified, | | | | [address] | [address] | without myelopathy | | | | [place], [place] | [phone] | | | | | [address] | | | | | | [phone] | | | +--------+ + + + [...]
--- OUTSIDE RECORDS SUMMARY | ~2020-05-12 | XMS | Encounter Summary ---
Demographics + + + | Address | [address] | | | [place] [address] | + + + | Home Phone | | + + + | Preferred Language | Unknown | + + + | Marital Status | Single | + + + | Advent Affiliation | CAT | + + + [...] Mitra Ramos | ECON | [address] [facility] | | | | | [place] | | | | | [address] | | + + + + + Care Team Providers + +------+ + | Care Ship Worker Name | Role | Phone | + [...] | | | | region | | [address] | | | | | Procedures | | Phone: | | | | | NM BONE &/OR | | [phone] | | | | | JOINT | [...] | | | | region | | [address] | | | | | Procedures | | Phone: | | | | | NM BONE &/OR | | [phone] | | | | | JOINT | [...] | | 2019 | [facility] [address] | | | | | [address] | Drive [place], [place] | | | | | [place] | [address] | | | | | [address] | | | | | | [phone] | | | +--------+ + + + [...] | + + + | [address] [place] [address] | [facility] | | [place] [address] | DEPARTMENT OF | | [phone] Name: PERCY MANCILLA Phys: | RADIOLOGY | | LIZZETTE HARRY : 1960 Sex: M CSN: | | | [id number] MR# [id number] Exam Date: 01/23/2019 | | | EXAM: NM BONE &/OR JOINT IMAGING TOMOGRAPHIC (SPECT) [id number] | | | CLINICAL HISTORY: Spine pain. [...] | | | Transcribed Date/Time: 01/23/2019 14:09 Security Installation Technician: FLUENCY | | | | | + + + + + | Procedure Note | + + | Interface, Radiology Results - 01/23/2019 2:14 PM PDT [address] | | [place] [address] | | Name: PERCY MANCILLA Phys: LIZZETTE HARRY : 1960 Sex: M CSN: | | [id number] MR# [id number] Exam Date: 01/23/2019 EXAM:NM BONE &/OR JOINT IMAGING | | TOMOGRAPHIC (SPECT) 79035 CLINICAL HISTORY:Spine pain. Spondylolisthesis. Neck | | [...] | | |Transcribed Date/Time: 01/23/2019 14:09 | |Security Installation Technician: FLUENCY | | | | | | | + + + +---------+ + + | Performing | Address | City/State/Zipcode | Phone Number | | Organization | | | | + +---------+ + + | [facility]PARTMENT OF | | | | | RADIOLOGY | | | | + +---------+ + + X-RAY SCOLI SPINE ENTR 2 VWS KAYLEE (01/23/2019 10:10 AM PDT) + + | Specimen | + + | | + + + + + | Narrative | Performed At | + + + | [address] | [facility] | | [place] [address] | DEPARTMENT | | [phone] Name: PERCY MANCILLA Phys: | RADIOLOGY | | LIZZETTE HARRY : 1960 Sex: M CSN: | | | [id number] MR# [id number] Exam Date: 01/23/2019 | | | EXAM[facility]: | | | Lumbago. Spondylolisthesis. [...] Transcribed | | | Date/Time: 01/23/2019 11:07 Security Installation Technician: FLUENCY | | + + + + + | Procedure Note | + + | Interface, Radiology Results - 01/23/2019 11:12 AM PDT [address] | | [address] [place] [address] | | Name: PERCY MANCILLA Phys: LIZZETTE HARRY : 1960 Sex: M CSN: | | [id number] MR# [id number] Exam Date: 01/23/2019 EXAM:X-RAY SCOLI SPINE ENTR 2 | | VWS KAYLEE CLINICAL HISTORY:Lumbago. Spondylolisthesis. Scoliosis. COMPARISON:None | | [...] | | |Transcribed Date/Time: 01/23/2019 11:07 | |Security Installation Technician: FLUENCY | | | | | | [...]
--- OUTSIDE RECORDS SUMMARY | ~2020-05-12 | XMS | Encounter Summary ---
Demographics + + + | Address | [address] | | | [place] [address] | + + + | Home Phone | | + + + | Preferred Language | Unknown | + + + | Marital Status | | + + + | Baptist Affiliation | 1013 | + + + | Race | White | + + + | Ethnic Group | Not or | + + + Author + + + | Author | [facility] | | | and [place] | + + + | Organization | [facility] | | | [...] [place] | | | | | [address] | | + + + + + | Jane Mojica | ECON | Unknown | | + + + + + | [place] Zamudio | ECON | Unknown | | + + + + + Care Team Providers + +------+ + | Care Md Senior Research Scientist Name | Role | Phone | + +------+ + PCP | Unavailable | + +------+ + Encounter Details +--------+ + + + + | Date | Type | Department | Care Team | Description | +--------+ + + + + | 12/08/ | Hospital | [facility] | Mejia Romero, | | | 1997 | Encounter | CONVERSION DEP [address] | [address] | | | | | [address] | [place] [address] | | | | | [place], [place] | [phone] | | | | | [address] | | | | | | [phone] | | | +--------+ + + + [...]
--- OUTSIDE RECORDS SUMMARY | ~2020-05-12 | XMS | Encounter Summary ---
Demographics + + + | Address | [address] | | | [place] [address] | + + + | Home Phone | | + + + | Preferred Language | Unknown | + + + | Marital Status | | + + + | Orthodoxy Affiliation | 1013 | + + + | Race | White | + + + | Ethnic Group | Not or | + + + Author + + + | Author | [facility] | | | and [place] | + + + | Organization | [facility] | | [...] [place] | | | | | [address] | | + + + + + | Jane Mojica | ECON | Unknown | | + + + + + | Estelita Zamudio | ECON | Unknown | | + + + + + Care Team Providers + +------+ + | Care Box Liner Name | Role | Phone | + +------+ + | Becca Amaya MD | PCP | | + +------+ + Reason for Visit +--------+--------+ + | Reason | Onset | Comments | | | Date | | +--------+--------+ + | Other | 01/22/ | | | | 2017 | | +--------+--------+ + Encounter Details +--------+ + + + + | Date | Type | Department | Care Team | Description | +--------+ + + + + | 01/22/ | Telephone | [facility] | Rene Borrego | Other | | 2018 | | SURGERY [address] | MD Corrine, FACS [address] | | | | | [place] | [address] [facility] | | | | | [address] | [place] [address] | | | | | [phone] | [phone] | | | | | | | [...] this encounter Miscellaneous Notes Telephone Encounter - Kayla Albright - 01/22/2018 2:43 PM PDTCalled to reschedule Percy from his morning appointment with to a 1300 appointment. This has already been marcia red with neurosurgery and fits in with his other pre op appointments. I was unable to reach him or his emergency contact. I will continue to attempt to reach. documented in this encounter Plan of Treatment Not on filedocumented as of this encounter Visit Diagnoses Not on filedocumented in this encounter"
--- OUTSIDE RECORDS SUMMARY | ~2020-05-12 | XMS | Encounter Summary ---
Demographics + + + | Address | [address] | | | [place] [address] | + + + | Home Phone | | + + + | Preferred Language | Unknown | + + + | Marital Status | | + + + | Yazidi Affiliation | 1013 | + + + | Race | White | + + + | Ethnic Group | Not or | + + + Author + + + | Author | [facility] | | | and [place] | + + + | Organization | [facility] | | | and [...] [place] | | | | | [address] | | + + + + + | Jane Mojica | ECON | Unknown | | + + + + + | [place] Zamudio | ECON | Unknown | | + + + + + Care Team Providers + +------+ + | Care Automation Developer Name | Role | Phone | + +------+ + PCP | Unavailable | + +------+ + Encounter Details +--------+ + + + + | Date | Type | Department | Care Team | Description | +--------+ + + + + | 01/17/ | Emergency | [facility] | Chon Zafar | [place], | | 1995 | | MEDICAL CENTER | MD Joshua [address] | unspecified | | | | EMERGENCY CENTER | [place], [place] | | | | | [address] | [address] | | | | | [place], [place] | [phone] | | | | | [address] | | | | | | [phone] | | | +--------+ + + + [...]
--- OUTSIDE RECORDS SUMMARY | ~2020-05-12 | XMS | Encounter Summary ---
Demographics + + + | Address | [address] | | | [place] [address] | + + + | Home Phone | | + + + | Preferred Language | Unknown | + + + | Marital Status | | + + + | Samaritan Affiliation | 1013 | + + + | Race | White | + + + | Ethnic Group | Not or | + + + Author + + + | Author | [facility] | | | and [place] | + + + | Organization | [facility] | | | and [...] [place] | | | | | [address] | | + + + + + | Jane Mojica | ECON | Unknown | | + + + + + | Estelita Zamudio | ECON | Unknown | | + + + + + Care Team Providers + +------+ + | Care Flanging Roll Operator Name | Role | Phone | + +------+ + PCP | Unavailable | + +------+ + Encounter Details +--------+ + + + + | Date | Type | Department | Care Team | Description | +--------+ + + + + | 04/14/ | Hospital | [facility] | | Lumbago | | 1993 | Encounter | [address] | | | | | [address] | | | | | | [place] | | | | | | [address] | | | | | | [phone] | | | +--------+ + + + [...]
--- OUTSIDE RECORDS SUMMARY | ~2020-05-12 | XMS | Encounter Summary ---
Demographics + + + | Address | [address] | | | [place] [address] | + + + | Home Phone | | + + + | Preferred Language | Unknown | + + + | Marital Status | | + + + | Lutheran Affiliation | 1013 | + + + | Race | White | + + + | Ethnic Group | Not or | + + + Author + + + | Author | [facility] | | | and [place] | + + + | Organization | [facility] | | | [...] [place] | | | | | [address] | | + + + + + | Jane Mojica | ECON | Unknown | | + + + + + | Estelita Zamduio | ECON | Unknown | | + + + + + Care Team Providers + +------+ + | Care Truck Assembler Name | Role | Phone | + +------+ + PCP | Unavailable | + +------+ + Encounter Details +--------+ + + + + | Date | Type | Department | Care Team | Description | +--------+ + + + + | 09/22/ | Hospital | [facility] | Jaci Cunningham | | | 1994 | Encounter | CONVERSION [address] | [address] | | | | | [address] | [address] | | | | | [place] | [place] [address] | | | | | [address] | [phone] | | | | | [phone] | | | +--------+ + + + [...]
--- OUTSIDE RECORDS SUMMARY | ~2020-05-12 | XMS | Encounter Summary ---
Demographics + + + | Address | [address] | | | [place] [address] | + + + | Home Phone | | + + + | Preferred Language | Unknown | + + + | Marital Status | Single | + + + | Religion Affiliation | CAT | + + + | Race | White | + + + | Ethnic Group | Not or | + + + Author + + + | Author | [facility] | + + + | Organization | [facility] | + + + | Address | Unknown | + + + | Phone | Unavailable | + + + Support + + + + + | Name | Relationship | Address | Phone | + + + + + | Mitra Ramos | ECON | [address] | | | | | [place] | | | | | [address] | | + + + + + Care Team Providers + +------+ + | Care Ice Cream Chef Name | Role | Phone | + +------+ + PCP | Unavailable | + +------+ + Reason for Referral [...] | | | | region | | [address] | | | | | Procedures | | Phone: | | | | | NM BONE &/OR | | [phone] | | | | | JOINT | | | | | | | IMAGING | | | | | | | TOMOGRAPHIC | | | | | | | (SPECT) | | | +--------+--------+ + + + + Encounter Details +--------+ + + + + | Date | Type | Department | Care Team | Description | +--------+ + + + + | 01/14/ | Transcribe | [facility] | Transcribe | | | 2019 | [facility] | [facility] [address] | Roxanne Provider, | | | | | E The | [address] | | | | | [place] | [place] [address] | | | | | [address] | | | +--------+ + + + [...] on filedocumented as of this encounter Results NM BONE &/OR JOINT IMAGING TOMOGRAPHIC (SPECT) (01/23/2019 12:55 PM PDT) + + | Specimen | + + | | + + + + + | Narrative | Performed At | + + + | [address] [place] [address] | [facility] | | [place] [address] | DEPARTMENT | | [phone] Name: PERCY MANCILLA Phys: | RADIOLOGY | | LIZZETTE HARRY : 1960 Sex: M CSN: | | | [id number] MR# [id number] Exam Date: 01/23/2019 | | | EXAM: NM BONE &/OR JOINT IMAGING TOMOGRAPHIC (SPECT) [id number] | | | CLINICAL HISTORY: Spine pain. [...] | | | Transcribed Date/Time: 01/23/2019 14:09 Finishing Technician: FLUENCY | | | | | + + + + + | Procedure Note | + + | Interface, Radiology Results - 01/23/2019 2:14 PM PDT [address] | | [place], [place] [address] | | Name: PERCY MANCILLA Phys: LIZZETTE HARRY : 1960 Sex: M CSN: | | [id number] MR# [id number] Exam Date: 01/23/2019 EXAM:NM BONE &/OR JOINT IMAGING | | TOMOGRAPHIC (SPECT) [id number] CLINICAL HISTORY:Spine pain. Spondylolisthesis. Neck | | [...] MD Transcribed Date/Time: 01/23/2019 | | 14:09Transcriptionist: WIL | |COMPARISON: | |None | | | [...] | | |Transcribed Date/Time: 01/23/2019 14:09 | |Finishing Technician: FLUENCY | | | | | [...] | Other spondylosis with radiculopathy, cervical region - Primary | + + documented in this encounter"
--- OUTSIDE RECORDS SUMMARY | ~2020-05-12 | XMS | Encounter Summary ---
Demographics + + + | Address | [address] | | | [place] [address] | + + + | Home Phone | | + + + | Preferred Language | Unknown | + + + | Marital Status | | + + + | Adventism Affiliation | 1013 | + + + | Race | White | + + + | Ethnic Group | Not or | + + + Author + + + | Author | [facility] | | | and [place] | + + + | Organization | [facility] | | [...] [place] | | | | | [address] | | + + + + + | Jane Mojica | ECON | Unknown | | + + + + + | Estelita Zamudio | ECON | Unknown | | + + + + + Care Team Providers + +------+ + | Care Dye Range Tender Name | Role | Phone | + [...] Cervical | Sidney E, | [address] | | | | | radiculopath | PA-C [address] | [place], | | | | | y | [address] | [place] | | | | | Spondylosis | [address] | [address] | | | | | of cervical | [place], | Phone: | | | | | spine with | [place] [address] | [phone] | | | | | myelopathy | Phone: | Fax: | | | | | and | [phone] | [phone] | | | | | radiculopath | Fax: | | | | | | y Lumbar | [phone] | | | | | | radiculopath [...] Cervical | Sidney E, | [address] | | | | | radiculopath | PA-C [address] | [place], | | | | | y | [address] | [place] | | | | | Spondylosis | [address] | [address] | | | | | of cervical | [place], | Phone: | | | | | spine with | [place] [address] | [phone] | | | | | myelopathy | Phone: | Fax: | | | | | and | [phone] | [phone] | | | | | radiculopath | Fax: | | | | | | y Lumbar | [phone] | | | | | | radiculopath [...] Orders Only | [facility] [place] | Suchbriseidaa, Sidney E, | Cervical | | 2019 | | NEUROSURGERY [address] | PA-C [address] | radiculopathy | | | | [address] | [address] [place] | (Primary Dx); | | | | [place], [place] | [place] [address] | Spondylosis of | | | | [address] | [phone] | cervical spine with | | | | [phone] | | myelopathy and | | | [...] height is otherwise maintained. Bilateral | | [id number] is again noted. The conus medullaris is [...]
--- OUTSIDE RECORDS SUMMARY | ~2020-05-12 | XMS | Encounter Summary ---
Demographics + + + | Address | [address] | | | [place] [address] | + + + | Home Phone | | + + + | Preferred Language | Unknown | + + + | Marital Status | Single | + + + | Yazdanism Affiliation | CAT | + + + | Race | White | + + + | Ethnic Group | Not or | + + + Author + + + | Organization | Unknown | + + + | Address | Unknown | + + + | Phone | Unavailable | + + + Support + + + + + | Name | Relationship | Address | Phone | + + + + + | Mitra Ramos | ECON | [address] | | | | | [place] | | | | | [address] | | + + + + + Care Team Providers + +------+ + | Care Manager Post Name | Role | Phone | + +------+ + | Becca Amaya MD | PCP | | + +------+ + Encounter Details +--------+--------+ + + + | Date | Type | Department | Care Team | Description | +--------+--------+ + + + | 01/23/ | Travel | | | | | 2019 | | | | | +--------+--------+ + + + Social History + +-------+ [...]
--- OUTSIDE RECORDS SUMMARY | ~2020-05-12 | XMS | Encounter Summary ---
Demographics + + + | Address | [address] | | | [place] [address] | + + + | Home Phone | | + + + | Preferred Language | Unknown | + + + | Marital Status | | + + + | Scientology Affiliation | 1013 | + + + | Race | White | + + + | Ethnic Group | Not or | + + + Author + + + | Author | [facility] | | | and [place] | [...] [place] | | | | | [address] | | + + + + + | Jane Mojica | ECON | Unknown | | + + + + + | Estelita Zamudio | ECON | Unknown | | + + + + + Care Team Providers + +------+ + | Care Tuft Machine Operator Name | Role | Phone [...] + + | 05/28/ | Refill | [facility] | Lynn Tan, | Medication Refill | | 2019 | | PULMONOLOGY [address] | ACREAGE REPORTER [address] | | | | | [address] | [address] [place], | | | | | [place] | [place] [address] | | | | | [address] | [phone] | | | | | [phone] | | | +--------+--------+ + + + [...] Miscellaneous Notes Telephone Encounter - Guera Purcell, Earthmoving Labourer - 06/01/2019 8:54 AM PDTCalled the pharmacy regarding the refill request after pt was seen in office and Lynn de paz in a new RX for this medication. Pharmacy said they missed that and fixed it. Electronica lly signed by Gurea Purcell, Earthmoving Labourer at 06/01/2019 8:56 AM PDTTeleph one Encounter - Guera Purcell, Earthmoving Labourer - 05/28/2019 2:26 PM PDTIm a little confused on this one, it doesn't show that he's had an appointment or has an [facility] appointment, and it also says that [...]
--- OUTSIDE RECORDS SUMMARY | ~2020-05-12 | XMS | Encounter Summary ---
Demographics + + + | Address | [address] | | | [place] [address] | + + + | Home Phone | | + + + | Preferred Language | Unknown | + + + | Marital Status | | + + + | Taoist Affiliation | 1013 | + + + | Race | White | + + + | Ethnic Group | Not or | + + + Author + + + | Author | [facility] | | | and [place] | + + + | Organization | [facility] | | [...] [place] | | | | | [address] | | + + + + + | Jane Mojica | ECON | Unknown | | + + + + + | Estelita Zamudio | ECON | Unknown | | + + + + + Care Team Providers + +------+ + | Care Oxyhydrogen Welder Name | Role | Phone | + +------+ + | Becca Amaya MD | PCP | | + +------+ + Encounter Details +--------+ + + + + | Date | Type | Department | Care Team | Description | +--------+ + + + + | 11/06/ | Abstract | [facility] | Roxanne, | | | 2018 | | NEUROSUR[address] | [address] | | | | | [place] | [address] | | | | | [place] | [place] [address] | | | | | [address] | | | | | | [phone] | | | +--------+ + + + [...]
--- OUTSIDE RECORDS SUMMARY | ~2020-05-12 | XMS | Encounter Summary ---
Demographics + + + | Address | [address] | | | [place] [address] | + + + | Home Phone | | + + + | Preferred Language | Unknown | + + + | Marital Status | | + + + | Jain Affiliation | 1013 | + + + | Race | White | + + + | Ethnic Group | Not or | + + + Author + + + | Author | [facility] | | | and [place] | + + + | Organization | [facility] | | | [...] [place] | | | | | [address] | | + + + + + | Jane Mojica | ECON | Unknown | | + + + + + | Estelita Zamudio | ECON | Unknown | | + + + + + Care Team Providers + +------+ + | Care Public Health Internship Name | Role | Phone | + +------+ + | Becca Amaya MD | PCP | | + +------+ + Reason for Visit + +--------+ + | Reason | Onset | Comments | | | Date | | + +--------+ + | Appointment | 10/29/ | Paul from 11/29 to 12/31 | | | 2018 | | + +--------+ + Encounter Details +--------+ + + + + | Date | Type | Department | Care Team | Description | +--------+ + + + + | 10/29/ | Telephone | [facility] [place] | Michael Lainez, | Appointment (Paul | | 2017 | | NEUROSUR[address]ERY [address] | DO [address] | from 11/29 to 12/31) | | | | [address] | [address] [place], [place] | | | | | [place], [place] | [address] | | | | | [address] | | | | | | [phone] | | | +--------+ + + + [...] Notes Telephone Encounter - Nancy Dorado - 10/29/2017 2:04 PM PDTReschedule: Patient Name: Percy Mancilla Outcome: Spoke with Patient If Someone Else, Who: Paul From: 11/29 Paul To: 12/31 @ 9:30am Paul Reason: Provider Out of Office Paul Number: 1 Communication: Letter Note: Patient needs to complete xray 1 to 2 weeks prior at [facility]. documented in this enc ounter Plan of Treatment Not on filedocumented as of this encounter Visit Diagnoses Not on filedocumented in this encounter"
--- OUTSIDE RECORDS SUMMARY | ~2020-05-12 | XMS | Encounter Summary ---
Demographics + + + | Address | [address] | | | [place] [address] | + + + | Home Phone | | + + + | Preferred Language | Unknown | + + + | Marital Status | | + + + | Jew Affiliation | 1013 | + + + | Race | White | + + + | Ethnic Group | Not or | + + + Author + + + | Author | [facility] | | | and [place] | + + + | Organization | [facility] | | | and [place] | + [...] [place] | | | | | [address] | | + + + + + | Jane Mojica | ECON | Unknown | | + + + + + | Estelita Zamudio | ECON | Unknown | | + + + + + Care Team Providers + +------+ + | Care Cook Morning Name | Role | Phone | + +------+ + | Becca Amaya MD | PCP | | + +------+ + Encounter Details +--------+ + + + + | Date | Type | Department | Care Team | Description | +--------+ + + + + | 11/21/ | Episode | [facility] [place] | Danay Hogan, | | | 2017 | Changes | NEUROSURGERY [address] | Cert [place] | | | | | [address] | | | | | | [place] | | | | | | [address] | | | | | | [phone] | | | +--------+ + + + [...]
--- OUTSIDE RECORDS SUMMARY | ~2020-05-12 | XMS | Encounter Summary ---
Demographics + + + | Address | [address] | | | [place] [address] | + + + | Home Phone | | + + + | Preferred Language | Unknown | + + + | Marital Status | | + + + | Amish Affiliation | 1013 | + + + | Race | White | + + + | Ethnic Group | Not or | + + + Author + + + | Author | [facility] | | | and [place] | + + + | Organization | [facility] | | | and [...] [place] | | | | | [address] | | + + + + + | Jane Mojica | ECON | Unknown | | + + + + + | Estelita Zamudio | ECON | Unknown | | + + + + + Care Team Providers + +------+ + | Care Tutor Coordinator Name | Role | Phone | [...] | Radiology | Diagnoses | | [facility] | | | | | Lumbar | David, | [address] | | | | | radiculopath | Anthony Alba MD | [place], | | | | | y | [address] | [place] | | | | | Spondylolist | [place] | [address] | | | | | hesis of | [place], [place] | Phone: | | | | | lumbar | [address] | [phone] | | | | | region | Phone: | Fax: | | | | | [place] | [phone] | [phone] | | | | | stenosis of | Fax: | | | | | | lumbar | [phone] | | | | | | region | | | | | | | Procedures | | | | | | | MRI Lumbar | | | | | | | Spine wo | | | | | | | Contrast | | | | | | | MRI called | | | | | | | x1 | | | +--------+--------+ + + + + Reason for Visit Diagnostic/Screening (Routine) +--------+--------+ + + + + | Status | Reason | Specialty | Diagnoses / | Referred By | Referred To | | | | | Procedures | Contact | Contact | +--------+--------+ + + + + | Closed | | Radiology | Diagnoses | | [facility] | | | | | Lumbar | David, | [address] | | | | | radiculopath | Anthony Alba MD | [place], | | | | | y | [address] | [place] | | | | | Spondylolist | [place] | [address] | | | | | hesis of | [place], [place] | Phone: | | | | | lumbar | [address] | [phone] | | | | | region | Phone: | Fax: | | | | | [place] | [phone] | [phone] | | | | | stenosis of | Fax: | | | | | | lumbar | [phone] | | | | | | region | | | | | | | Procedures | | | | | | | MRI Lumbar | | | | | | | Spine wo | | | | | | | Contrast | | | | | | | MRI called | | | | | | | x1 | | | +--------+--------+ + + + + Encounter Details +--------+ + + + + | Date | Type | Department | Care Team | Description | +--------+ + + + + | 08/28/ | [facility] | [facility] | Anthony Hernandez | Lumbar | | 2018 | Encounter | MED CTR MRI [address] | T[address] | radiculopathy; | | | | [address] [place], | [place] | Spondylolisthesis of | | | | [place] [address] | [address] | lumbar region; | | | | [phone] | | [place] stenosis | | | | | | of lumbar region | +--------+ + + + + Social [...] | | | | | | m (LULI) 2.5-0.5 | | | | | | [...] | + + + +---------+--------+ + | baclofen | Take 20 mg by mouth | | 0 | | | | (LIORESAL) 20 mg | 3 times daily. | | | | 8 | | tablet | | | | | | + + + +---------+--------+ + | beclomethasone | Inhale 1 puff [...] + + + +---------+--------+ + | | Apply topically as | [...] | + + + +---------+--------+ + | senna (SENNA-LAX) | Take 1 tablet by | | 0 | | | | 8.6 mg tablet | mouth Daily. | | | | 9 | + + + +---------+--------+ + | [...] + +--------+ + + + | MRI LUMBAR SPINE WO | Routin | 08/28/2017 | Lumbar | Results for this | | CONTRAST | e | 11:45 AM | radiculopathy | procedure are in the | | | | PST | Spondylolisthesis of | results section. | | | | | lumbar region | | | | | | [place] stenosis | | | | | | of lumbar region | | + +--------+ + + + documented in this encounter Results MRI Lumbar Spine wo Contrast (08/28/2017 11:45 AM PST) + + | Specimen | + + | | + + + + + | Narrative | Performed At | + + + | UNENHANCED MRI LUMBAR SPINE 08/28/2017 11:28 AM CLINICAL HISTORY: | [facility] | | Worsening low back and bilateral leg pain and paresthesias | | | COMPARISON: CT June 2016, MRI February 2015 TECHNIQUE: The | | | following 1.5T MR sequences of the lumbar spine were obtained: 1. | | | Axial and sagittal T1. 2. Axial, sagittal, and coronal T2. 3. | | | Sagittal STIR. FINDINGS: Five non rib-bearing, lumbar type | | | vertebrae are suggested on the coronal sequence. Minimal rightward | | | lumbar curvature persists along with straightening of the lumbar | | | lordosis. Schmorl's nodes persist within multiple thoracic and | | | lumbar vertebral endplates. Vertebral height is otherwise | | | maintained. Bilateral L5 spondylolysis is again apparent. The | | | conus medullaris is unremarkable, terminating at L1. Imaged | | | intra-abdominal and paraspinal structures are unremarkable. | | | Minimal posterior disc bulges are present at T11-12, T12-L1 and L1-2 | | | without visible stenosis on provided sagittal images through the | | | region. Disc desiccation, mild to moderate disc space narrowing | | | and a minimal posterior disc bulge persist at L2-3 without visible | | | stenosis on provided sagittal images. L3-4: Disc desiccation and a | | | mild posterior disc bulge combine with dorsal ligamentous and facet | | | hypertrophy to minimally narrow the central canal and mildly narrow | | | the foramina to a similar degree without visible nerve root | | | encroachment. A left facet joint effusion is again visible. | | | L4-5: Annular tear is more pronounced. A minimal posterior disc | | | bulge combines with dorsal ligamentous and facet hypertrophy to | | | minimally narrow the foramina to a similar degree without visible | | | nerve root encroachment. Trace facet joint effusions persist. | | | L5-S1: Severe, progressive disc space narrowing is apparent. 7 mm | | | anterolisthesis persists and combines with posterior disc osteophyte | | | complex and dorsal ligamentous and facet hypertrophy to fairly | | | severely narrow the foramina and encroach on the exiting L5 nerve | | | roots. IMPRESSION - 1. BILATERAL L5 SPONDYLOLYSIS WITH | | | PROGRESSIVE DEGENERATIVE DISC DISEASE, CHRONIC ANTEROLISTHESIS AND | | | SEVERE FORAMINAL STENOSIS AT L5-S1, AND ENCROACHMENT ON THE EXITING | | | L5 NERVE ROOTS. 2. SIMILAR DEGENERATIVE DISC DISEASE AND MINIMAL | | | STENOSIS ELSEWHERE IN THE LUMBAR SPINE. 3. STRAIGHTENING OF | | | THE LUMBAR LORDOSIS WITH FACET ARTHROPATHY. Dictated and Signed | | | by: Sharan Yen MD Electronically signed: 08/28/2017 1:32 PM | | + + + + + | Procedure Note | + + | Sal, Rad Results In - 08/28/2017 1:35 PM PST UNENHANCED MRI LUMBAR SPINE 08/28/2017 | | 11:28 AMCLINICAL HISTORY: Worsening low back and bilateral leg pain and paresthesias | | COMPARISON: CT June 2016, MRI February 2015TECHNIQUE: The following 1.5T MR sequences | | of the lumbar spine were obtained:1. Axial and sagittal T1.2. Axial, sagittal, and | | coronal T2.3. Sagittal STIR.FINDINGS: Five non rib-bearing, lumbar type vertebrae are | | suggested on thecoronal sequence. Minimal rightward lumbar curvature persists along | | withstraightening of the lumbar lordosis. Schmorl's nodes persist within | | multiplethoracic and lumbar vertebral endplates. Vertebral height is | | otherwisemaintained. Bilateral L5 spondylolysis is again apparent. The conus | | medullarisis unremarkable, terminating at L1. Imaged intra-abdominal and | | paraspinalstructures are unremarkable.Minimal posterior disc bulges are present at | | T11-12, T12-L1 and L1-2 withoutvisible stenosis on provided sagittal images through the | | region.Disc desiccation, mild to moderate disc space narrowing and a minimal | | posteriordisc bulge persist at L2-3 without visible stenosis on provided sagittal | | images.L3-4: Disc desiccation and a mild posterior disc bulge combine with | | dorsalligamentous and facet hypertrophy to minimally narrow the central canal andmildly | | narrow the foramina to a similar degree without visible nerve rootencroachment. A left | | facet joint effusion is again visible.L4-5: Annular tear is more pronounced. A minimal | | posterior disc bulge combineswith dorsal ligamentous and facet hypertrophy to minimally | | narrow the foraminato a similar degree without visible nerve root encroachment. Trace | | facet jointeffusions persist.L5-S1: Severe, progressive disc space narrowing is | | apparent. 7 mmanterolisthesis persists and combines with posterior disc osteophyte | | complex anddorsal ligamentous and facet hypertrophy to fairly severely narrow the | | foraminaand encroach on the exiting L5 nerve roots.IMPRESSION -1. BILATERAL L5 | | SPONDYLOLYSIS WITH PROGRESSIVE DEGENERATIVE DISC DISEASE,CHRONIC ANTEROLISTHESIS AND | | SEVERE FORAMINAL STENOSIS AT L5-S1, AND ENCROACHMENTON THE EXITING L5 NERVE ROOTS.2. | | SIMILAR DEGENERATIVE DISC DISEASE AND MINIMAL STENOSIS ELSEWHERE IN THELUMBAR SPINE.3. | | STRAIGHTENING OF THE LUMBAR LORDOSIS WITH FACET ARTHROPATHY.Dictated and Signed by: Sharan | | MD Farshad Electronically signed: 08/28/2017 1:32 PM | | | |L4-5: Annular tear is more pronounced. A minimal posterior disc bulge combines | |with dorsal ligamentous and facet hypertrophy to minimally narrow the foramina | |to a similar degree without visible nerve root encroachment. Trace facet joint | |effusions persist. | | | |L5-S1: Severe, progressive disc space narrowing is apparent. 7 mm | |anterolisthesis persists and combines with posterior disc osteophyte complex and | |dorsal ligamentous and facet hypertrophy to fairly severely narrow the foramina | |and encroach on the exiting L5 nerve roots. | | | |IMPRESSION - | |1. BILATERAL L5 SPONDYLOLYSIS WITH PROGRESSIVE DEGENERATIVE DISC DISEASE, | |CHRONIC ANTEROLISTHESIS AND SEVERE FORAMINAL STENOSIS AT L5-S1, AND ENCROACHMENT | |ON THE EXITING L5 NERVE ROOTS. | | | |2. SIMILAR DEGENERATIVE DISC DISEASE AND MINIMAL STENOSIS ELSEWHERE IN THE | |LUMBAR SPINE. | | | |3. STRAIGHTENING OF THE LUMBAR LORDOSIS WITH FACET ARTHROPATHY. | | | |Dictated and Signed by: Sharan Yen MD | | Electronically signed: 08/28/2017 1:32 PM | + + + +---------+ + + | Performing | Address | City/State[facility] | Phone Number | | Organization | | | | + +---------+ + + | [facility] | | | | + +---------+ + + documented in this encounter Visit Diagnoses + + | Diagnosis | + + | Lumbar radiculopathy Thoracic or lumbosacral neuritis or radiculitis, unspecified | + + | Spondylolisthesis of lumbar region Acquired spondylolisthesis | + + | [place] stenosis of lumbar region Spinal stenosis, lumbar region, without | | neurogenic claudication | + + documented in this encounter"
--- OUTSIDE RECORDS SUMMARY | ~2020-05-12 | XMS | Encounter Summary ---
Demographics + + + | Address | [address] | | | [place] [address] | + + + | Home Phone [...] + | Author | [facility] | | | and [place] | + + + | Organization | [facility] | | | [...] [place] | | | | | [address] | | + + + + + | Jane Mojica | ECON | Unknown | | + + + + + | Estelita Zamudio | ECON | Unknown | | + + + + + Care Team Providers + +------+ + | Care Bending Machine Operator Name | Role | Phone | + +------+ + PCP | Unavailable | + +------+ + Encounter Details +--------+ + + + + | Date | Type | Department | Care Team | Description | +--------+ + + + + | 05/03/ | Hospital | [facility] | | Backache, | | 1994 | Encounter | [address] | | unspecified | | | | [address] | | | | | | [place] | | | | | | [address] | | | | | | [phone] | | | +--------+ + + + [...]
--- OUTSIDE RECORDS SUMMARY | ~2020-05-12 | XMS | Encounter Summary ---
Demographics + + + | Address | [address] | | | [place] [address] | + + + | Home Phone | | + + + | Preferred Language | Unknown | + + + | Marital Status | | + + + | Presybeterian Affiliation | 1013 | + + + | Race | White | + + + | Ethnic Group | Not or | + + + Author + + + | Author | [facility] | | | and [place] | + + + | Organization | [facility] | | [...] [place] | | | | | [address] | | + + + + + | Jane Mojica | ECON | Unknown | | + + + + + | [place] Zamudio | ECON | Unknown | | + + + + + Care Team Providers + +------+ + | Care Yarn Dyer Name | Role | Phone | + +------+ + | Becca Amaya MD | PCP | | + +------+ + Encounter Details +--------+ + + + + | Date | Type | Department | Care Team | Description | +--------+ + + + + | 05/12/ | Orders Only | [facility] | Lynn Tan, | Chronic bronchitis, | | 2018 | | PULMONOLOGY [address] | ELECTRONEURODIAGNOSTIC TECHNOLOGIST [address] | unspecified chronic | | | | [address] | [facility], | bronchitis type | | | | [place], [place] | [place] [address] | (HCC) (Primary Dx); | | | | [address] | [phone] | Chronic obstructive | | | | [phone] | | pulmonary disease, | | | [...]
--- OUTSIDE RECORDS SUMMARY | ~2020-05-12 | XMS | Encounter Summary ---
Demographics + + + | Address | [address] | | | [place] [address] | + + + | Home Phone | | + + + | Preferred Language | Unknown | + + + | Marital Status | | + + + | Mosque Affiliation | 1013 | + + + | Race | White | + + + | Ethnic Group | Not or | + + + Author + + + | Author | [facility] | | | and [place] | + + + | Organization | [facility] | | | [...] [place] | | | | | [address] | | + + + + + | Jane Mojica | ECON | Unknown | | + + + + + | Estelita Zamudio | ECON | Unknown | | + + + + + Care Team Providers + +------+ + | Care In Home Tutor Name | Role | Phone | + +------+ + | Bceca Amaya MD | PCP | | + +------+ + Reason for Visit + + + | Reason | Comments | + + + | Medication Refill | | + + + Encounter Details +--------+--------+ + + + | Date | Type | Department | Care Team | Description | +--------+--------+ + + + | 05/09/ | Refill | [facility] | Lynn Tan, | Medication Refill | | 2020 | | PULMONOLOGY [address] | RN CLINICAL TRIALS [address] | | | | | [address] | [address] [place], | | | | | [place] | [place] [address] | | | | | [address] | [phone] | | | | | [phone] | | | +--------+--------+ + + + [...] Miscellaneous Notes Telephone Encounter - Guera Purcell, [facility] - 05/09/2020 1:32 PM PDTPT preferred to have his PCP manage his COPD, has not been seen in office since , a nd does not have a follow up scheduled documented in this encounter Plan of Treatment Not on filedocumented as of this encounter Visit Diagnoses + + | Diagnosis | + + | Chronic bronchitis, unspecified chronic bronchitis type (HCC) | + + documented in this encounter"
--- OUTSIDE RECORDS SUMMARY | ~2020-05-12 | XMS | Encounter Summary ---
Demographics + + + | Address | [address] | | | [place] [address] | + + + | Home Phone [...] + + | Author | [facility] | | | and [place] [...] [place] | | | | | [address] | | + + + + + | Jane Mojica | ECON | Unknown | | + + + + + | Estelita Zamudio | ECON | Unknown | | + + + + + Care Team Providers + +------+ + | Care Finish Specialist Name | Role | Phone | + +------+ + PCP | Unavailable | + +------+ + Encounter Details +--------+ + + + + | Date | Type | Department | Care Team | Description | +--------+ + + + + | 06/03/ | Hospital | [facility] | [facility]r, | Lumbago | | 1996 | Encounter | [address] | [address] | | | | | [address] | [place] | | | | | [place], [place] | [place] [address] | | | | | [address] | [phone] | | | | | [phone] | | | +--------+ + + + [...]
--- OUTSIDE RECORDS SUMMARY | ~2020-05-12 | XMS | Encounter Summary ---
Demographics + + + | Address | [address] | | | [place] [address] | + + + | Home Phone | | + + + | Preferred Language | Unknown | + + + | Marital Status | | + + + | Baptist Affiliation | 1013 | + + + | Race | White | + + + | Ethnic Group | Not or | + + + Author + + + | Author | [facility] | | | and [place] | + + + | Organization | [facility] | | | and [...] [place] | | | | | [address] | | + + + + + | Jane Mojica | ECON | Unknown | | + + + + + | Estelita Zamudio | ECON | Unknown | | + + + + + Care Team Providers + +------+ + | Care Ticket Collector Or Usher Name | Role | Phone | + [...] + + | Closed | Specialty | Physical | Diagnoses | tJ, | David, | | | Services | Medicine and | Bilateral | Manuel | Anthony Alba MD | | | Required | Rehabilitatio | sacroiliitis | SCOT Vaughan | [address] | | | | n | ([facility]) | [address] | [facility] | | | | | | AVE | [place], [place] | | | | | | [place], [place] | [address] Phone: | | | | | | [address] | [phone] | | | | | | Phone: | Fax: | | | | | | [phone] | [phone] | | | | | | Fax: | | | | | | | [phone] | | +--------+ + + + + + Reason for Visit + +--------+ + | Reason | Onset | Comments | | | Date | | + +--------+ + | Injections | 04/01/ | | | | 2016 | | + +--------+ + Encounter Details +--------+ + + + + | Date | Type | Department | Care Team | Description | +--------+ + + + + | 04/01/ | Telephone | [facility] | Anthony Hernandez | Injections | | 2016 | | PHYSIATRY [address] | T[address] | | | | | [address] | [address] [place] | | | | | [place] | [id number] | | | | | [address] | | | | | | [phone] | | | +--------+ + + + [...] this encounter Miscellaneous Notes Telephone Encounter - Manuel Waters PA-C - 04/03/2017 9:29 AM PDTIt may be quicker to have the patient referred to physiatry for further evaluation. I will place a referral to physiatry for him to be seen and evaluated. elephone Encounter - Aisha Millan Aide - 04/01/2017 3:4 2 PM PDTBecause the patient hasn't been seen since November a follow-up visit is needed to dete rmine if injection is still warranted.Electronically signed by Graciela Quigley at 04/01 3:44 PM PDTTelephone Encounter - Marilee Hawthorne - 04/01/2017 11:31 AM PDTPatient is r equesting to reschedule injection appointment that was originally scheduled on 12/11/16. Lorri ent no-showed that appointment. Injection was ordered directly from Dr. Husain. Percy was inform ed at this time that a new order may need to be placed since it has been over 3 months. Plea se contact patient to clarify. documented in this encounter Plan of Treatment + + +--------+ + + | Name | Type | Priori | Associated Diagnoses | Order Schedule | | | | ty | | | + + +--------+ + + | SELINAEREXIAOERG | Outpatient | Routin | Bilateral | Ordered: 04/03/2017 | | | Referral | e | sacroiliitis (HCC) | | + + +--------+ + + documented as of this encounter Visit Diagnoses + + | Diagnosis | + + | Bilateral sacroiliitis (HCC) - Primary | + + documented in this encounter"
--- OUTSIDE RECORDS SUMMARY | ~2020-05-12 | XMS | Encounter Summary ---
Demographics + + + | Address | [address] | | | [place] [address] | + + + | Home Phone [...] Author + + + | Author | [facility] | + + + | Organization | [facility] | + + + | Address | Unknown | + + + | Phone | Unavailable | + + + Support + + + + + | Name | Relationship | Address | Phone | + + + + + | Mitra Ramos | ECON | [address] | | | | | [place] | | | | | [address] | | + + + + + Care Team Providers + +------+ + | Care Liner Assembler Name | Role | Phone | [...] | | 2019 | Encounter | at [facility] | [address] | | | | | [address] [place], [place] | | | | | [place], [place] | [address] | | | | | [address] | | | | | | [phone] | | | +--------+ + + + [...]
--- OUTSIDE RECORDS SUMMARY | ~2020-05-12 | XMS | Encounter Summary ---
Demographics + + + | Address | [address] | | | [place] [address] | + + + | Home Phone | | + + + | Preferred Language | Unknown | + + + | Marital Status | | + + + | Sikh Affiliation | 1013 | + + + | Race | White | + + + | Ethnic Group | Not or | + + + Author + + + | Author | [facility] | | | and [place] | + + + | Organization | [facility] | | | and [...] [place] | | | | | [address] | | + + + + + | Jane Mojica | ECON | Unknown | | + + + + + | Estelita Zamudio | ECON | Unknown | | + + + + + Care Team Providers + +------+ + | Care Dishcloth Folder Name | Role | Phone | + +------+ + | Becca Amaya MD | PCP | | + +------+ + Encounter Details +--------+ + + + + | Date | Type | Department | Care Team | Description | +--------+ + + + + | 11/28/ | Orders Only | [facility] [place] | Anthony Hernandez | Sacroiliitis, not | | 2016 | | PHYSIATRY [address] | T[address] | elsewhere classified | | | | [address] | [place], [place] | ([facility]) (Primary Dx) | | | | [place], [place] | [address] | | | | | [address] | | | | | | [phone] | | | +--------+ + + + [...] | + +---------+--------+ + + | [facility] Sacroiliac | Imaging | Routin | Sacroiliitis, not | Expected: | | Injection Right | | e | elsewhere classified | 11/28/2016, Expires: | | | | | (HCC) | 11/28/2017 | + +---------+--------+ + + | [place] Sacroiliac | Imaging | Routin | Sacroiliitis, not | Expected: | | Injection Left | | e | elsewhere classified | 11/28/2016, Expires: | | | | | (HCC) | 11/28/2017 | + +---------+--------+ + + documented as of this encounter Visit Diagnoses + + | Diagnosis | + + | Sacroiliitis, not elsewhere classified (HCC) - Primary Sacroiliitis, not elsewhere | | classified | + + documented in this encounter"
--- OUTSIDE RECORDS SUMMARY | ~2020-05-12 | XMS | Encounter Summary ---
Demographics + + + | Address | [address] | | | [place] [address] | + + + | Home Phone [...] | Author | [facility] | | | and [...] [place] | | | | | [address] | | + + + + + | Jane Mojica | ECON | Unknown | | + + + + + | Estelita Zamudio | ECON | Unknown | | + + + + + Care Team Providers + +------+ + | Care Concrete Batcher Name | Role | Phone | + +------+ + | Becca Amaya MD | PCP | | + +------+ + Encounter Details +--------+ + + + + | Date | Type | Department | Care Team | Description | +--------+ + + + + | 12/03/ | Orders Only | [facility] [place] | Michael Lainez, | Radiculopathy, | | 2017 | | NEUROSURGERY [address] | DO [address] | lumbosacral region; | | | | [address] | [address] [place], [place] | Myocardial | | | | [place], [place] | [id number] | infarction, | | | | [address] | | unspecified [place] type, | | | | [phone] | | unspecified artery | | | | | | (HCC); Hypertension, | | | | | | unspecified type; | | | | | | Hyperlipidemia, | | | | | | unspecified | | | | | | hyperlipidemia type; | | | | | | Chronic [...] + | Diagnosis | + + | Radiculopathy, lumbosacral region Thoracic or lumbosacral neuritis or radiculitis, | | unspecified | + + | Myocardial infarction, unspecified [place] type, unspecified artery (HCC) | + + | Hypertension, unspecified type | + + | Hyperlipidemia, unspecified hyperlipidemia type | + + | Chronic obstructive pulmonary disease, unspecified COPD type (HCC) | + + documented in this encounter"
--- OUTSIDE RECORDS SUMMARY | ~2020-05-12 | XMS | Encounter Summary ---
Demographics + + + | Address | [address] | | | [place] [address] | + + + | Home Phone | | + + + | Preferred Language | Unknown | + + + | Marital Status | | + + + | Methodist Affiliation | 1013 | + + + | Race | White | + + + | Ethnic Group | Not or | + + + Author + + + | Author | [facility] | | | and [place] | + + + | Organization | [facility] and Services Orr | | | [...] [place] | | | | | [address] | | + + + + + | Jane Mojica | ECON | Unknown | | + + + + + | Estelita Zamudio | ECON | Unknown | | + + + + + Care Team Providers + +------+ + | Care Drying Room Attendant Name | Role | Phone | [...] Description | +--------+--------+ + + + | 09/24/ | Refill | [facility] | Lynn Tan, | Medication Refill | | 2020 | | PULMONOLOGY [address] | IT CONSULTING DIRECTOR [address] | | | | | [address] | [address] [place], | | | | | [place] | [place] [address] | | | | | [address] | [phone] | | | | | [phone] | | | +--------+--------+ + + + [...]
--- OUTSIDE RECORDS SUMMARY | ~2020-05-12 | XMS | Encounter Summary ---
Demographics + + + | Address | [address] | | | [place] [address] | + + + | Home Phone | | + + + | Preferred Language | Unknown | + + + | Marital Status | | + + + | Cheondoism Affiliation | 1013 | + + + | Race | White | + + + | Ethnic Group | Not or | + + + Author + + + | Author | and [facility] | | | and [place] | + + + | Organization | and Services Orr | | | and [...] [place] | | | | | [address] | | + + + + + | Jane Mojica | ECON | Unknown | | + + + + + | Estelita Zamudio | ECON | Unknown | | + + + + + Care Team Providers + +------+ + | Care Digital Marketing Consultant Name | Role | Phone | [...] + + | Closed | Specialty | Surgery / | Diagnoses | Migel, | , | | | Services | General | | Michael Lewis, | Rene Castle, | | | Required | Surgery | Spondylolist | [address] | , [address] | | | | | hesis of | [address] | [address] | | | | | lumbar | GERTRUDIS, [place]AN[place] | [place], | | | | | region | [address] | [place] [address] | | | | | Acquired | Phone: | Phone: | | | | | flat back | [phone] | [phone] | | | | | syndrome | Fax: | Fax: | | | | | Neurogenic | [phone] | [phone] | | | | | claudication | | | | | | | Lumbar | | | | | | | radiculopath | | | | | | | y Acute | | | | | | | back pain | | | | | | | with | | | | | | | sciatica, | | | | | | | right | | | +--------+ + + + + + Encounter Details +--------+ + + + + | Date | Type | Department | Care Team | Description | +--------+ + + + + | 11/29/ | Orders Only | [facility] [place] | Michael Lainez, | Spondylolisthesis of | | 2018 | | NEUROSURGERY [address] | DO [address] | lumbar region | | | | [address] | [address] [place], [place] | (Primary Dx); | | | | [place], [place] | [address] | Acquired flat back | | | | [address] | | syndrome; Neurogenic | | | | [phone] | | claudication; | | | | | | Lumbar | | | | | | radiculopathy; Acute | | | | | | back pain with | | | | | | sciatica, right | +--------+ + + + + Social [...] of this encounter Plan of Treatment + + +--------+ + + | Name | Type | Priori | Associated Diagnoses | Order Schedule | | | | ty | | | + + +--------+ + + | * [facility] | Outpatient | Routin | Spondylolisthesis | Ordered: 11/29/2017 | | Surgery - AMB | Referral | e | of lumbar region | | | Referral | | | Acquired flat back | | | | | | syndrome Neurogenic | | | | | | claudication | | | | | | Lumbar radiculopathy | | | | | | Acute back pain | | | | | | with sciatica, right | | + + +--------+ + + documented as of this encounter Visit Diagnoses + + | Diagnosis | + + | Spondylolisthesis of lumbar region - Primary Acquired spondylolisthesis | + + | Acquired flat back syndrome Other lordosis (acquired) | + + | Neurogenic claudication Spinal stenosis, lumbar region, with neurogenic claudication | + + | Lumbar radiculopathy Thoracic or lumbosacral neuritis or radiculitis, unspecified | + + | Acute back pain with sciatica, right | + + documented in this encounter"
--- OUTSIDE RECORDS SUMMARY | ~2020-05-12 | XMS | Encounter Summary ---
Demographics + + + | Address | [address] | | | [place] [address] | + + + | Home Phone | | + + + | Preferred Language | Unknown | + + + | Marital Status | | + + + | Latter-Day Affiliation | 1013 | + + + | Race | White | + + + | Ethnic Group | Not or | + + + Author + + + | Author | [facility] | | | and [place] | + + + | Organization | [facility] and Services Or[facility] | | | [...] [place] | | | | | [address] | | + + + + + | Jane Mojica | ECON | Unknown | | + + + + + | Estelita Zamudio | ECON | Unknown | | + + + + + Care Team Providers + +------+ + | Care Paper Bag Press Operator Name | Role | Phone | + +------+ + PCP | Unavailable | + +------+ + Encounter Details +--------+ + + + + | Date | Type | Department | Care Team | Description | +--------+ + + + + | 04/14/ | Emergency | [facility] | Hudson Hoskins, | [place], | | 1990 | | MEDICAL CENTER | [address] | unspecified | | | | EMERGENCY CENTER | [place], [place] | | | | | [address] | [address] | | | | | [place], [place] | [phone] | | | | | [address] | | | | | | [phone] | | | +--------+ + + + [...]
--- OUTSIDE RECORDS SUMMARY | ~2020-05-12 | XMS | Encounter Summary ---
Demographics + + + | Address | [address] | | | [place] [address] | + + + | Home Phone | | + + + | Preferred Language | Unknown | + + + | Marital Status | | + + + | Sikh Affiliation | 1013 | + + + | Race | White | + + + | Ethnic Group | Not or | + + + Author + + + | Author | [facility] | | | and [place] | + + + | Organization | [facility] and Services Orr | | [...] [place] | | | | | [address] | | + + + + + | Jane Mojica | ECON | Unknown | | + + + + + | Estelita Zamudio | ECON | Unknown | | + + + + + Care Team Providers + +------+ + | Care Physical Design Engineer Name | Role | Phone | + +------+ + | Becca Amaya MD | PCP | | + +------+ + Encounter Details +--------+ + + + + | Date | Type | Department | Care Team | Description | +--------+ + + + + | 11/13/ | Hospital | [facility] | Manuel Waters | Back pain, | | 2016 | Encounter | MED CTR XRAY [address] | [address] | unspecified back | | | | [address] | [address] [place], [place] | location, | | | | [place] [address] | [id number] | unspecified back | | | | [phone] | | pain laterality, | | | [...] | | | | | | | (BERONICA IVEYTIC | | | | | | | [...]
--- OUTSIDE RECORDS SUMMARY | ~2020-05-12 | XMS | Encounter Summary ---
Demographics + + + | Address | [address] | | | [place] [address] | + + + | Home Phone | | + + + | Preferred Language | Unknown | + + + | Marital Status | | + + + | Protestant Affiliation | 1013 | + + + | Race | White | + + + | Ethnic Group | Not or | + + + Author + + + | Author | [facility] | | | and [place] | + + + | Organization | [facility] and Services Orr | | | [...] [place] | | | | | [address] | | + + + + + | Jane Mojica | ECON | Unknown | | + + + + + | Estelita Zamudio | ECON | Unknown | | + + + + + Care Team Providers + +------+ + | Care Java Software Name | Role | Phone | + [...] | Neurosurgery | Diagnoses | Angelica, | Mejia Luciano | | | Services | | Cervicalgia | Sidney Gamble, | MD Nito | | | Required | | Cervical | PA-C [address] | [address] | | | | | radiculopath | [address] | [address] | | | | | y Back | [address] | [place], [place] | | | | | pain, | [place], | [address] | | | | | unspecified | [place] [address] | Phone: | | | | | back | Phone: | [phone] | | | | | location, | [phone] | Fax: | | | | | unspecified | Fax: | [phone] | | | | | back pain | [phone] | | | | | | laterality, [...] | | | | | | | [phone] | | | | | | | [...] | | NEUROSURGERY [address] | Jenae, Gastroenterology Nurse Practitioner | | | | | [facility] [address] | | | | | | [place] | | | | | | [address] | | | | | | [phone] | | | +--------+ + + + [...] Miscellaneous Notes Telephone Encounter - Ary Arreguin, Gastroenterology Nurse Practitioner - 11/12/2018 8:59 AM PDTReferr al pended for Dr. Luciano in [place]. Please sign. elephone Encounter - Ary Arreguin Gastroenterology Nurse Practitioner - 10/31/2018 12:54 PM PDTSpoke with Percy [...] travel where ever he needs to go ([facility] [place]) He would prefer to find someone that does minimally invasive like Rodrigue or Migel does. I let him know that I wo uld discuss this with Sidney and look into who is on the list and place a new referral. He a greed with this plan and appreciated the call. elephone Encounter - Ary Arreguin Gastroenterology Nurse Practitioner - 10/31/2018 9:52 AM PDTCall to Percy [...]
--- OUTSIDE RECORDS SUMMARY | ~2020-05-12 | XMS | Encounter Summary ---
Demographics + + + | Address | [address] | | | [place] [address] | + + + | Home Phone [...] Author | [facility] | | | and [place] | + + + | Organization | [facility] and Services Or[facility] | | | [...] [place] | | | | | [address] | | + + + + + | Jane Mojica | ECON | Unknown | | + + + + + | Estelita Zamudio | ECON | Unknown | | + + + + + Care Team Providers + +------+ + | Care Baking Factory Worker Name | Role | Phone | + +------+ + | Becca Amaya MD | PCP | | + +------+ + Reason for Visit + +--------+ + | Reason | Onset | Comments | | | Date | | + +--------+ + | Procedure | 11/29/ | scheduling | | | 2018 | | + +--------+ + Encounter Details +--------+ + + + + | Date | Type | Department | Care Team | Description | +--------+ + + + + | 11/29/ | Telephone | [facility] | Michael Lainez, | Procedure | | 2017 | | NEUROSURGERY [address] | DO [address] | (scheduling ) | | | | [address] [facility] [address] | [address] [place], [place] | | | | | [place], [place] | [address] | | | | | [address] | | | | | | [phone] | | | +--------+ + + + [...] this encounter Miscellaneous Notes Telephone Encounter - Danay Hogan Cert MA - 12/02/2017 9:37 AM PDTSurgery booked with O R and Rep's notified. elephone Encounter - Allen Malin RN - 11/29/2017 11:43 AM PDTSurgery will be w mario Borrego on 03/06/18. Referral noted. Surgery added to surgery book. Clinic blocked out for this surgery. Telephone Encounter - Danay Hogan Cert MA - 11/29/2017 11:27 AM PDTCarl has been schedule d for an L4-S1 ALIF on 03/06/18 that will need a general surgeon. This is a [address] ease let me know which surgeon is available to assist. Thank you, Danay documented in this encounter Plan of Treatment Not on filedocumented as of this encounter Visit Diagnoses Not on filedocumented in this encounter"
--- OUTSIDE RECORDS SUMMARY | ~2020-05-12 | XMS | Encounter Summary ---
Demographics + + + | Address | [address] | | | [place] [address] | + + + | Home Phone | | + + + | Preferred Language | Unknown | + + + | Marital Status | | + + + | Roman Catholic Affiliation | 1013 | + + + | Race | White | + + + | Ethnic Group | Not or | + + + Author + + + | Author | [facility] | | | and [place] | + + + | Organization | [facility] and Services Or[facility] | | [...] [place] | | | | | [address] | | + + + + + | Jane Mojica | ECON | Unknown | | + + + + + | Estelita Zamudio | ECON | Unknown | | + + + + + Care Team Providers + +------+ + | Care Recovery Auditor Name | Role | Phone | [...] [address] | [place] | (Primary Dx) | | | | [place] | [address] | | | | | [address] | | | | | | [phone] | | | +--------+ + + + [...]
--- OUTSIDE RECORDS SUMMARY | ~2020-05-12 | XMS | Encounter Summary ---
Demographics + + + | Address | [address] | | | [place] [address] | + + + | Home Phone | | + + + | Preferred Language | Unknown | + + + | Marital Status | | + + + | Presybeterian Affiliation | 1013 | + + + | Race | White | + + + | Ethnic Group | Not or | + + + Author + + + | Author | [facility] | | | and [place] | + + + | Organization | [facility] Services Or[facility] | | [...] [place] | | | | | [address] | | + + + + + | Jane Mojica | ECON | Unknown | | + + + + + | Estelita Zamudio | ECON | Unknown | | + + + + + Care Team Providers + +------+ + | Care Sas Administrator Name | Role | Phone | + +------+ + | Becca Amaya MD | PCP | | + +------+ + Encounter Details +--------+ + + + + | Date | Type | Department | Care Team | Description | +--------+ + + + + | 11/13/ | [facility] | [facility] | Manuel Waters | Neck pain | | 2017 | Encounter | MED CTR XRAY [address] | [address] | | | | | [place] | [address] [place], [place] | | | | | [place] [address] | [id number] | | | | | [phone] | | | +--------+ + + + [...] | + +---------+--------+ + + | XR Cervical Spine 4 | Imaging | Routin | Neck pain | 1 Occurrences | | or 5 Vws | | e | | starting 11/13/2016 | | | | | | until 11/13/2016 | + +---------+--------+ + + documented as of this encounter Visit Diagnoses + + | Diagnosis | + + | Neck pain Cervicalgia | + + documented in this encounter"
--- OUTSIDE RECORDS SUMMARY | ~2020-05-12 | XMS | Encounter Summary ---
Demographics + + + | Address | [address] | | | [place] [address] | + + + | Home Phone | | + + + | Preferred Language | Unknown | + + + | Marital Status | | + + + | Anabaptism Affiliation | 1013 | + + + | Race | White | + + + | Ethnic Group | Not or | + + + Author + + + | Author | [facility] | | | and [place] | + + + | Organization | [facility] and Services Or[facility] | | | [...] [place] | | | | | [address] | | + + + + + | Jane Mojica | ECON | Unknown | | + + + + + | Estelita Zamudio | ECON | Unknown | | + + + + + Care Team Providers + +------+ + | Care Soda Worker Name | Role | Phone | [...] Description | +--------+--------+ + + + | 01/07/ | Refill | [facility] | Lynn Tan, | Medication Refill | | 2020 | | PULMONOLOGY [address] | DRAFTER ENGINEERING [address] | | | | | [address] | [address] [place], | | | | | [place] | [place] [address] | | | | | [address] | [phone] | | | | | [phone] | | | +--------+--------+ + + + [...] Miscellaneous Notes Telephone Encounter - Guera Purcell, Marine Steamfitter - 01/12/2020 1:40 PM PDTCalled and lvm for pt to call back regarding his refill and fu. documented in this e ncounter Plan of Treatment Not on filedocumented as of this encounter Visit Diagnoses + + | Diagnosis | + + | Chronic bronchitis, unspecified chronic bronchitis type (HCC) - Primary | + + documented in this encounter"
--- OUTSIDE RECORDS SUMMARY | ~2020-05-12 | XMS | Encounter Summary ---
Demographics + + + | Address | [address] | | | [place] [address] | + + + | Home Phone [...] | Author | [facility] | | | and [place] [...] [place] | | | | | [address] | | + + + + + | Jane Mojica | ECON | Unknown | | + + + + + | Estelita Zamudio | ECON | Unknown | | + + + + + Care Team Providers + +------+ + | Care Children'S Choir Director Name | Role | Phone | + [...] + | 08/28/ | Telephone | [facility] [place] | Robi Husain MD | Imaging Only | | 2017 | | NEUROSURGERY [address] | [address] | | | | | [address] [facility] [address] | [place] [address] | | | | | [place] | [phone] | | | | | [address] | | | | | | [phone] | | | +--------+ + + + [...] P M PSTTelephone Encounter - Lakshmi Tovar, Automatic Seamer - 08/28/2017 1:45 PM PSTLumba r MRI available on [employer]. This was ordered by Dr. Adams. I will route to both Art Waters and Dr Abram Davis as heads up elephone Encounter - Nancy Dorado - 08/28/2017 12:10 PM P STCardebra came in to let us know that he just completed his MRI. documented in this encounter Plan of Treatment Not on filedocumented as of this encounter Visit Diagnoses Not on filedocumented in this encounter"
--- OUTSIDE RECORDS SUMMARY | ~2020-05-12 | XMS | Clinical Summary ---
Demographics + + + | Address | [address] | | | [place] [address] | + + + | Home Phone | | + + + | Preferred Language | Unknown | + + + | Marital Status | Single | + + + | Caodaism Affiliation | CAT | + + + [...] Mitra Ramos | ECON | [address] | | | | | [place] | | | | | [address] | | + + + + + Care Team Providers + +------+ + | Care Home Management Supervisor Name | Role | Phone | + +------+ + | Becca Amaya MD | PCP | | + +------+ + Source Comments ELVIS is fully live on both [facility] and [facility] In[facility] Allergies Not on File Medications Not on file Active Problems Not on file Social History + +-------+ +--------+------+ | Tobacco [...] + + + Last Filed Vital Signs Not on file Plan of Treatment + + + + + | Health Maintenance | Due Date | Last | Comments | | | | Done | | + + + + + | Influenza (Flu) | | 06/23/20 | | | vaccination (#1) | 0 | 19, | | | | | 05/29/20 | | | | | 18, | | | | | 06/14/20 | | | | | 17, | | | | | Addition | | | | | al | | | | | history | | | | | exists | | + + + + + | Pneumococcal | Completed | 11/03/19 | | | vaccination | | 20, | | | | | 10/18/19 | | | | | 18 | | + + + + + [...] + +--------+ | MEDICARE | MEDICA | [id number] | Effect | [phone] | [address] | Medica | | | RE A & | | ry | [address] | [address] | re | | | B | | for | | [place], [place] | | | | | | all | | [address] | | | | | | dates | | | | + +--------+ +--------+ + +--------+ | PRINCIPAL ANDROID DEVELOPER MEDICAID | PRINCIPAL ANDROID DEVELOPER | [id number] | Effect | | | Medica | [...] | Self | | | [address] | | | al/Fam | | | [phone] | [place] [address] | | | [place]isson | | | 1 (Home) | | + +--------+ +--------+ + + | Percy Mancilla | Person | Self | [birth year] | [address] | | | al/Fam | | 1961 | [phone] | [place] | | | [place] | | | 1 (Home) | [address] | + +--------+ +--------+ + +"
--- OUTSIDE RECORDS SUMMARY | ~2020-05-12 | XMS | Encounter Summary ---
Demographics + + + | Address | [address] | | | [place] [address] | + + + | Home Phone | | + + + | Preferred Language | Unknown | + + + | Marital Status | | + + + | Taoism Affiliation | 1013 | + + + | Race | White | + + + | Ethnic Group | Not or | + + + Author + + + | Author | [facility] | | | and [place] | + + + | Organization | [facility] | | | [...] [place] | | | | | [address] | | + + + + + | Jane Mojica | ECON | Unknown | | + + + + + | Estelita Zamudio | ECON | Unknown | | + + + + + Care Team Providers + +------+ + | Care Break Out Man Name | Role | Phone | + +------+ + | Becca Amaya MD | PCP | | + +------+ + Reason for Visit + +--------+ + | Reason | Onset | Comments | | | Date | | + +--------+ + | Results, Imaging | 09/26/ | | | | 2019 | | + +--------+ + Encounter Details +--------+ + + + + | Date | Type | Department | Care Team | Description | +--------+ + + + + | 09/26/ | Tele[facility] | [facility] [place] | Sidney Dominguez, | Results, Imaging | | 2019 | | NEUROSURGERY [address] | PA-C [address] | | | | | [address] | [address] [place] | | | | | [place], [place] | [place] [address] | | | | | [address] | [phone] | | | | | [phone] | | | +--------+ + + + [...] Telephone Encounter - Sanna Benavidez CMA - 10/17/2018 11:38 AM PSTFormatting of this note mi ght be different from the original. Sidney Dominguez PA-C 10/17/18 11:02 Note There is a lot to go over on his MRIs. I would recommend he be made an appointment to go ov er them.If you feel comfortable it might be good for him to know before he comes that Yam ga ve his resignation and that I will likely be referring him out to another neurosurgeon. Than k you. elephone Encounter - R Sanna funez CMA - 10/17/2018 11:35 AM PSTMRI of lumbar and cervical spine on isite for revi ew. elephone Encounter - Sanna Benavidez CMA - 10/07/2018 1:16 PM PSTPatient called back and information was relayed . Patient will contact PCP. elephone Encounter - Sanna Benavidez CMA - 10/03/2018 8:28 AM PSTDerek reviewed notes and would still like patient to have PCP and pulmonary clearance. Called to instruct patient to continue seeking PCP and pulmonary clearance for a possible surgery. Left message asking coleman pulido to return call. Patient is scheduled for his MRI's on 10/16/18, results will be forwarded to provider for re view once completed. e lephone Encounter - Sanna Benavidez CMA - 09/26/2018 1:04 PM PSTPer last chart note 09/22/18- "I have asked Sanna to try and get records of this visit from the emergency room at [facility] back around 2011" Sidney, notes from [facility] were received and placed in your in basket. Electronically s igned by Snana Benavidez CMA at 10/01/2018 8:47 AM PSTTelephone Encounter - Sanna Benavidez CMA - 09/26/2018 9:08 AM PST2nd request for ED notes faxed to [facility] medical re cords dept. documented in this encounter Plan of Treatment Not on filedocumented as of this encounter Visit Diagnoses Not on filedocumented in this encounter
--- OUTSIDE RECORDS SUMMARY | ~2020-05-12 | XMS | Encounter Summary ---
Demographics + + + | Address | [address] | | | [place] [address] | + + + | Home Phone [...] Author | [facility] | | | and [place] | + + + | Organization | [facility] | | | and [...] [place] | | | | | [address] | | + + + + + | Jane Mojica | ECON | Unknown | | + + + + + | Estelita Zamudio | ECON | Unknown | | + + + + + Care Team Providers + +------+ + | Care Imaging Analyst Name | Role | Phone | + +------+ + | Becca Amaya MD | PCP | | + +------+ + Encounter Details +--------+ + + + + | Date | Type | Department | Care Team | Description | +--------+ + + + + | 11/20/ | Orders Only | [facility] [place] | Michael Lainez, | 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
--- OUTSIDE RECORDS SUMMARY | ~2020-05-12 | XMS | Encounter Summary ---
Demographics + + + | Address | [address] | | | [place] [address] | + + + | Home Phone | | + + + | Preferred Language | Unknown | + + + | Marital Status | | + + + | Church Affiliation | 1013 | + + + | Race | White | + + + | Ethnic Group | Not or | + + + Author + + + | Author | [facility] | | | and [place] | + + + | Organization | [facility] | | [...] [place] | | | | | [address] | | + + + + + | Jane Moijca | ECON | Unknown | | + + + + + | Estelita Zamudio | ECON | Unknown | | + + + + + Care Team Providers + +------+ + | Care Glass Blower Helper Name | Role | Phone | + +------+ + | Becca Amaya MD | PCP | | + +------+ + Encounter Details +--------+ + + + + | Date | Type | Department | Care Team | Description | +--------+ + + + + | 05/23/ | [facility] | [facility] | Anthony Hernandez | | | 2017 | Encounter | MED CTR XRAY [address] | [address], [address] | | | | | [place] | [place], [place] | | | | | [place] [address] | [address] | | | | | [phone] | | | +--------+ + + + [...] | | 0 | | | | (YASIR HAWKINS) | the lungs Daily. | | | [...]
--- OUTSIDE RECORDS SUMMARY | ~2020-05-12 | XMS | Encounter Summary ---
Demographics + + + | Address | [address] | | | [place] [address] | + + + | Home Phone [...] | Author | [facility] | | | and [place] [...] [place] | | | | | [address] | | + + + + + | Jane Mojica | ECON | Unknown | | + + + + + | Estelita Zamudio | ECON | Unknown | | + + + + + Care Team Providers + +------+ + | Care Commercial Sales Consultant Name | Role | Phone [...] + + | 02/09/ | Refill | [facility] | Lynn Tan, | Medication Refill | | 2020 | | PULMONOLOGY [address] | DRAWING SUPERVISOR [address] | | | | | [address] | [address], | | | | | [place] | [place] [address] | | | | | [address] | [phone] | | | | | [phone] | | | +--------+--------+ + + + [...]
--- OUTSIDE RECORDS SUMMARY | ~2020-05-12 | XMS | Encounter Summary ---
Demographics + + + | Address | [address] | | | [place] [address] | + + + | Home Phone [...] Author | [facility] | [...] [place] | | | | | [address] | | + + + + + | Jane Mojica | ECON | Unknown | | + + + + + | Estelita Zamudio | ECON | Unknown | | + + + + + Care Team Providers + +------+ + | Care Dry Man Name | Role | Phone | [...] + + | 05/27/ | Refill | [facility] | Lynn Tan, | Medication Refill | | 2019 | | PULMONOLOGY [address] | SUPERVISOR PERSONNEL CLERKS [address] | | | | | [address] | [address], | | | | | [place] | [place] [address] | | | | | [address] | [phone] | | | | | [phone] | | | +--------+--------+ + + + [...]
--- OUTSIDE RECORDS SUMMARY | ~2020-05-12 | XMS | Encounter Summary ---
Demographics + + + | Address | [address] | | | [place] [address] | + + + | Home Phone | | + + + | Preferred Language | Unknown | + + + | Marital Status | | + + + | Latter-Day Affiliation | 1013 | + + + | Race | White | + + + | Ethnic Group | Not or | + + + Author + + + | Author | [facility] | | | and [place] | + + + | Organization | [facility] | | | [...] [place] | | | | | [address] | | + + + + + | Jane Mojica | ECON | Unknown | | + + + + + | Estelita Zamudio | ECON | Unknown | | + + + + + Care Team Providers + +------+ + | Care Build Automation Engineer Name | Role | Phone | [...] | | IMAGING [address] | [address] | | | | | [address] | [place] [address] | | | | | [place] [address] | | | | | | [phone] | | | +--------+ + + + [...] for comparison only - no result from [place]. | [facility] | + + + + +---------+ + + | Performing | Address | City/State/Zipcode | Phone Number | | Organization | | | | + +---------+ + + | [facility] | | | | + +---------+ + + documented in this encounter Visit Diagnoses Not on filedocumented in this encounter"
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
--- OUTSIDE RECORDS SUMMARY | ~2020-05-12 | XMS | Encounter Summary ---
Demographics + + + | Address | [address] | | | [place] [address] | + + + | Home Phone [...] Author | [facility] | | | and [place] | + + + | Organization | [facility] | | [...] [place] | | | | | [address] | | + + + + + | Jane Mojica | ECON | Unknown | | + + + + + | Estelita Zamudio | ECON | Unknown | | + + + + + Care Team Providers + +------+ + | Care Supervisor Transferring And Boxing Name | Role | Phone | + +------+ + | Som Schmidt MD | PCP | | + +------+ + Encounter Details +--------+ + + + + | Date | Type | Department | Care Team | Description | +--------+ + + + + | 11/07/ | Abstract | [facility] | Manuel Waters | | | 2017 | | NEUROSURGERY [address] | [address] | | | | | [facility] [address] | [address] [place], [place] | | | | | [place], [place] | [id number] | | | | | [address] | | | | | | [phone] | | | +--------+ + + + [...]
--- OUTSIDE RECORDS SUMMARY | ~2020-05-12 | XMS | Encounter Summary ---
Demographics + + + | Address | [address] | | | [place] [address] | + + + | Home Phone | | + + + | Preferred Language | Unknown | + + + | Marital Status | Single | + + + | Hinduism Affiliation | CAT | + + + | Race | White | + + + | Ethnic Group | Not or | + + + Author + + + | Author | [facility] | + + + | Organization | [facility] | + + + | Address | Unknown | + + + | Phone | Unavailable | + + + Support + + + + + | Name | Relationship | Address | Phone | + + + + + | Mitra Ramos | ECON | [address] | | | | | [place] | | | | | [address] | | + + + + + Care Team Providers + +------+ + | Care Dedicated Regional Driver Name | Role | Phone | + [...] Closed | | Radiology | Diagnoses | Ankita, [...] | | | | Procedures | [place] [address] | [place], [place] | | | | | [place] BONE | Phone: | [phone] | | | | | &/OR JOINT | [phone] | Phone: | | | | | IMAGING | Fax: | [phone] | | | | | TOMOGRAPHIC | [phone] | | | | | | (SPECT) [...] Closed | | Radiology | Diagnoses | Belza, [...] | | | | Procedures | [place] [address] | [place] | | | | | [place] | Phone: | [address] | | | | | &/OR JOINT | [phone] | Phone: | | | | | IMAGING | Fax: | [phone] | | | | | TOMOGRAPHIC | [phone] | | | | | | (SPECT) | | | +--------+--------+ + + + + Encounter Details +--------+ + + + + | Date | Type | Department | Care Team | Description | +--------+ + + + + | 03/05/ | Hospital | Nuclear Medicine | Lizzette Harry MD | | | 2019 | Encounter | at [facility] | [address] | | | | | [address] [place], [place] | | | | | [place] | [address] | | | | | [address] | | | | | | [phone] | | | +--------+ + + + [...] | + + + | [address] [place] [address] | [facility] | | [place] [address] | DEPARTMENT | | [phone] Name: PERCY MANCILLA Phys: | RADIOLOGY | | LIZZETTE HARRY : 1960 Sex: M CSN: | | | [id number] MR# [id number] Exam Date: 03/05/2019 | | | EXAM: [place] BONE &/OR JOINT IMAGING TOMOGRAPHIC (SPECT) [id number] | | | CLINICAL HISTORY: Spondylolisthesis at [...] There is also | | | bilateral ehpd-fk-sjsowtlm facet arthropathy and chronic bilateral | | [...] | | | Transcribed Date/Time: 03/13/2019 08:09 Needle Punch Operator: WIL | | | | | + + + + + | Procedure Note | + + | Interface, Radiology Results - 03/13/2019 8:13 AM PDT [address] | | [place] [address] | | Name: PERCY MANCILLA Phys: LIZZETTE HARRY : 1960 Sex: M CSN: | | [id number] MR# [id number] Exam Date: 03/05/2019 EXAM:NM BONE &/OR JOINT IMAGING | | TOMOGRAPHIC (SPECT) [id number] CLINICAL HISTORY:Spondylolisthesis at L5-S1. | | COMPARISON:01/23/2019 [...] | | vertebral body. There is alsobilateral lkln-vc-emdrqgbk facet arthropathy and chronic | | bilateralpars [...] vertebral body. There is also | |bilateral hmkh-op-vafihdll facet arthropathy and chronic bilateral | |pars [...] | | |Transcribed Date/Time: 03/13/2019 08:09 | |Needle Punch Operator: FLUENCY | | | | | [...]
--- OUTSIDE RECORDS SUMMARY | ~2020-05-12 | XMS | Encounter Summary ---
Demographics + + + | Address | [address] | | | [place] [address] | + + + | Home Phone [...] | Author | [facility] | | | and [place] [...] [place] | | | | | [address] | | + + + + + | Jnae Mojica | ECON | Unknown | | + + + + + | Estelita Zamudio | ECON | Unknown | | + + + + + Care Team Providers + +------+ + | Care Credit Adjuster Name | Role | Phone | + [...] | Cervical | David, | [address] | | | | | radiculopath | Anthony Alba MD | [place], | | | | | y [place] | [address] | [place] | | | | | stenosis of | [place] | [address] | | | | | cervical | [place], [place] | Phone: | | | | | region | [address] | [phone] | | | | | Procedures | Phone: | Fax: | | | | | MRI Cervical | [phone] | [phone] | | | | | Spine wo | Fax: | | | | | | Contrast | [phone] | | | | | | MRI [...] | Cervical | David, | [address] | | | | | radiculopath | Anthony Alba MD | [place], | | | | | y [place] | [address] | [place] | | | | | stenosis of | [place] | [address] | | | | | cervical | [place], [place] | Phone: | | | | | region | [address] | [phone] | | | | | Procedures | Phone: | Fax: | | | | | MRI Cervical | [phone] | [phone] | | | | | Spine wo | Fax: | | | | | | Contrast | [phone] | | | | | | MRI called | | | | | | | x2 | | | +--------+--------+ + + + + Encounter Details +--------+ + + + + | Date | Type | Department | Care Team | Description | +--------+ + + + + | 05/23/ | Hospital | [facility] | Anthony Hernandez | Cervical | | 2017 | Encounter | MED CTR MRI [address] | T, [address] | radiculopathy; | | | | [address] [place], | [place] | [place] stenosis | | | | [place] [address] | [address] | of cervical region; | | | | [phone] | | Encounter for | | | | | | imaging to screen | | | | | | for metal prior to | | | | | | magnetic resonance | | | | | | imaging (MRI) | +--------+ + + + + Social [...] | MRI CERVICAL SPINE | Routin | 05/23/2017 | Cervical | Results for this | | WO CONTRAST | e | 11:16 AM | radiculopathy | procedure are in the | | | | PDT | [place] stenosis | results section. | | | | | of cervical region | | + +--------+ + + [...] + documented in this encounter Results MRI Cervical Spine wo Contrast (05/23/2017 11:16 [...] | | | + +---------+ + + XR Screening Orbits for MRI (05/23/2017 10:34 [...] in cervical region | + + | Encounter for imaging to screen for metal prior to magnetic resonance imaging (MRI) | + + documented in this encounter"
--- OUTSIDE RECORDS SUMMARY | ~2020-05-12 | XMS | Encounter Summary ---
Demographics + + + | Address | [address] | | | [place] [address] | + + + | Home Phone | | + + + | Preferred Language | Unknown | + + + | Marital Status | | + + + | Anglican Affiliation | 1013 | + + + | Race | White | + + + | Ethnic Group | Not or | + + + Author + + + | Author | [facility] | | [...] [place] | | | | | [address] | | + + + + + | Jane Mojica | ECON | Unknown | | + + + + + | Estelita Zamudio | ECON | Unknown | | + + + + + Care Team Providers + +------+ + | Care Harvest Worker Fruit Name | Role | Phone | + +------+ + | Becca Amaya MD | PCP | | + +------+ + Encounter Details +--------+ + + + + | Date | Type | Department | Care Team | Description | +--------+ + + + + | 10/08/ | Orders Only | [facility] | Michael Lainez, | Back pain, | | 2017 | | NEUROSURGERY [address] | DO [address] | unspecified back | | | | [address] | [address] [place], [place] | location, | | | | [place], [place] | [id number] | unspecified back | | | | [address] | | pain laterality, | | | | [phone] | | unspecified | | | | [...]
--- OUTSIDE RECORDS SUMMARY | ~2020-05-12 | XMS | Encounter Summary ---
Demographics + + + | Address | [address] | | | [place] [address] | + + + | Home Phone [...] [place] | | | | | [address] | | + + + + + Care Team Providers + +------+ + | Care Shotgun Shell Loading Machine Operator Name | Role | [...]
--- OUTSIDE RECORDS SUMMARY | ~2020-05-12 | XMS | Encounter Summary ---
Demographics + + + | Address | [address] | | | [place] [address] | + + + | Home Phone | | + + + | Preferred Language | Unknown | + + + | Marital Status | | + + + | Sikhism Affiliation | 1013 | + + + | Race | White | + + + | Ethnic Group | Not or | + + + Author + + + | Author | [facility] | | | and [place] | + + + | Organization | [facility] | | | [...] [place] | | | | | [address] | | + + + + + | Jane Mojica | ECON | Unknown | | + + + + + | Estelita Zamudio | ECON | Unknown | | + + + + + Care Team Providers + +------+ + | Care Costume Rental Clerk Name | Role | Phone | [...] Closed | | Neurosurgery | Diagnoses | Candida | Robi Husain | | | | | Neck pain | Kobe Huber MD [address] | | | | | Procedures | [address] | | | | | [place] OFFICE | DIANNE SAMPSON | [place], [place] | | | | | CONSULTATION | [facility] [address] | [address] | | | | | NEW/ESTAB | [place], | Phone: | | | | | PATIENT [address] | [place] [address] | [phone] | | | | | MIN | Phone: | Fax: | | | | | | [phone] | [phone] | | | | | | Fax: | | | | | | | [phone] | | +--------+--------+ + + + + Encounter Details +--------+---------+ + + + | Date | Type | Department | Care Team | Description | +--------+---------+ + + + | 11/13/ | Office | [facility] | Manuel Waters | Cervical | | 2017 | Visit | NEUROSURGERY [address] | [address] | radiculopathy | | | | [address] | [address] [place], [place] | (Primary Dx); | | | | [place], [place] | [id number] | [place] stenosis | | | | [address] | | of cervical region; | | | | [phone] | | Spondylosis of | | | [...] from the original. Manuel Waters PA-C [address] [place], [place] [address] FAX: NEUROSURGERY HISTORY AND PHYSICAL EXAMINATION CHIEF [...] pain syndrome Radiculopathy, lumbosacral region Hypertension Hyperlipidemia MT (myocardial infarction) (HCC) Asthma Chronic bronchitis (HCC) [...] joint replacement Left Carpal tunnel release Bilateral 2013 Facial reconstruction surgery Right 1980 Shoulder arthroscopy Left CURRENT MEDICATIONS: Current Outpatient [...] has no apparent deficits with short or residential memory. CRANIAL NERVES: II: Acuity is intact. [...] Intrinsics 4+ 4+ Ulnar Intrinsics 4+ 4+ Guide Foreign Tour Strength 4+ 4+ Hip Flexion 5 5 [...] pain syndrome Radiculopathy, lumbosacral region Hypertension Hyperlipidemia MT (myocardial infarction) (HCC) Asthma Chronic bronchitis (HCC) [...] imaging and make further recommendations. [facility] the process of authorizing and scheduling bilateral SI joint injections .. ELECTRONICALLY SIGNED BY: Manuel Waters PA-C, 11/13/2016 10:48 Lakshmi Lorenzana assisted me in the sports equipment repairer of this note in my presence today. [...]
--- OUTSIDE RECORDS SUMMARY | ~2020-05-12 | XMS | Encounter Summary ---
Demographics + + + | Address | [address] | | | [place] [address] | + + + | Home Phone | | + + + | Preferred Language | Unknown | + + + | Marital Status | | + + + | Cheondoism Affiliation | 1013 | + + + | Race | White | + + + | Ethnic Group | Not or | + + + Author + + + | Author | [facility] | | | and [place] | + + + | Organization | [facility] | | [...] [place] | | | | | [address] | | + + + + + | Jane Mojica | ECON | Unknown | | + + + + + | Estelita Zamudio | ECON | Unknown | | + + + + + Care Team Providers + +------+ + | Care Facing Machine Operator Name | Role | Phone [...] | | | | | Lumbar | Jose Alfredoerg, | [address] | | | | | radiculopath | Anthony Alba MD | [place], | | | | | y | [address] | [place] | | | | | Procedures | [place] | [address] | | | | | [place] INJECT | [place], [place] | Phone: | | | | | ANES/STEROID | [address] | [phone] | | | | | FORAMEN | Phone: | Fax: | | | | | LUMBAR/SACRA | [phone] | [phone] | | | | | L W IMG | Fax: | | | | | | GUIDE ,1 | [phone] | | | | | | LEVEL [...] + + + + | 06/06/ | [facility] | [facility] | Anthony Hernandez | Lumbar radiculopathy | | 2017 | Encounter | MED CTR XRAY [address] | T, [address] | | | | | [place] | [facility] [place] | | | | | [place] [address] | [address] | | | | | [phone] | | | | | | | Crayon Molding Machine OperatorKristine | | | | | | kendy larry | | +--------+ + + + + [...] 1:31 | | | | | ONCE, [facility] 06/06/17 at 1330, For 1 | | PM PDT | | | | | dose | | | | | | + +--------+ +-------+------+------+ +---+---+ | | | +---+---+ + +-------+ +-------+---+---+ | iohexol (OMNIPAQUE 300) 300 | Given | 06/06/20 | 4 mLs | | | | [...] (PF) 1% injection 2 | Given | 06/06/20 | 2 mLs | | | | [...]
--- OUTSIDE RECORDS SUMMARY | ~2020-05-12 | XMS | Encounter Summary ---
Demographics + + + | Address | [address] | | | [place] [address] | + + + | Home Phone | | + + + | Preferred Language | Unknown | + + + | Marital Status | Single | + + + | Bahai Affiliation | CAT | + + + [...] Mitra Ramos | ECON | [address] | | | | | [place] | | | | | [address] | | + + + + + Care Team Providers + +------+ + | Care Clinical Dietician Name | Role | Phone | + [...] | | radiculopath | [place] | [address] | | | | | y, lumbar | [address] | Phone: | | | | | region | Phone: | [phone] | | | | | Procedures | [phone] | | | | | | MRI SPINE | Fax: | | | | | | LUMBAR WO | [phone] | | | | | | CONTRAST [...] | radiculopath | Dr [place] | [address] | | | | | y, lumbar | [address] | Phone: | | | | | region | Phone: | [phone] | | | | | Procedures | [phone] | | | | | | MRI SPINE | Fax: | | | | | | LUMBAR WO | [phone] | | | | | | CONTRAST | | | +--------+--------+ + + + + Encounter Details +--------+ + + + + | Date | Type | Department | Care Team | Description | +--------+ + + + + | 01/24/ | Hospital | Diagnostic Imaging | Karolina Franklin, | | | 2020 | Encounter | [facility] | THELMA-Jaci [address] | | | | | [address] | [address] [place] | | | | | [place] | [address] | | | | | [address] | | | | | | [phone] | | | +--------+ + + + [...] | + + + | [address] | [facility] | | [place] [address] | DEPARTMENT | | [phone] Name: PERCY MANCILLA Phys: | RADIOLOGY | | KAROLINA FRANKLIN : 1960 Sex: M | | | CSN: [id number] MR# [id number] Exam Date: | | | 01/25/2020 EXAM: [...] | | | Transcribed Date/Time: 01/27/2020 05:23 Programs Director: FLUENCY | | | | | + + + + + | Procedure Note | + + | Interface, Radiology Results - 01/27/2020 5:28 AM PDT [address] | | [address] [place] [address] | | Name: PERCY MANCILLA Phys: KAROLINA FRANKLIN : 1960 Sex: M | | CSN: [id number] MR# [id number] Exam Date: 01/25/2020 EXAM:MRI OF THE LUMBAR [...] | | | |Electronically signed by: NIKOLAI COLEMNA MD | | | |Transcribed Date/Time: 01/27/2020 05:23 | |Programs Director: FLUENCY | | | | | | [...]
--- OUTSIDE RECORDS SUMMARY | ~2020-05-12 | XMS | Encounter Summary ---
Demographics + + + | Address | [address] | | | [place] [address] | + + + | Home Phone | | + + + | Preferred Language | Unknown | + + + | Marital Status | | + + + | Denominational Affiliation | 1013 | + + + | Race | White | + + + | Ethnic Group | Not or | + + + Author + + + | Author | [facility] [...] [place] | | | | | [address] | | + + + + + | Jane Mojica | ECON | Unknown | | + + + + + | Estelita Zamudio | ECON | Unknown | | + + + + + Care Team Providers + +------+ + | Care Organ Tuner Name | Role | Phone | + [...] | | | | Spondylolist | [facility] | [place] | | | | | hesis of | [facility] [place] | [address] Phone: | | | | | lumbar | [address] | [phone] | | | | | region | Phone: | Fax: | | | | | [place] | [phone] | [phone] | | | | | stenosis of | Fax: | | | | | | lumbar | [phone] | | | | | | region | | | +--------+ + + + + + Encounter Details +--------+---------+ + + + | Date | Type | Department | Care Team | Description | +--------+---------+ + + + | 11/20/ | Office | [facility] | Michael Lainez, | Spondylolisthesis of | | 2018 | Visit | NEUROSURGERY [address] | DO [address] | lumbar region | | | | [address] | [address] [place], [place] | (Primary Dx); Flat | | | | [place], [place] | [address] | back syndrome; | | | | [address] | | Spinal stenosis of | | | | [phone] | | lumbar region with | | [...] m the original. Michael Lainez DO [address] [facility] [address] [address] [place] [address] FAX: [phone] NEUROSURGERY HISTORY AND PHYSICAL EXAMINATION CHIEF COMPLAINT: [...] deficit disorder Cervical radiculopathy Chronic bronchitis ([facility]) Chronic fatigue Chronic pain syndrome COPD (chronic obstructive pulmonary disease) ([facility]) DDD (degenerative disc disease), cervical 07/25/2017 Ear infection Generalized anxiety disorder GERD (gastroesophageal reflux disease) H/O emphysema Hay fever History of dental problems Hyperlipidemia Hypertension Lumbar radiculopathy Major depression AL (myocardial infarction) ([facility]) Migraine Opioid dependence, continuous ([facility]) Osteoarthritis Osteoporosis Pneumonia Radiculopathy, lumbosacral region Renal [...] has no apparent deficits with short or health safety manager memory. CRANIAL NERVES: II: Acuity is intact. [...] Intrinsics 5 5 Ulnar Intrinsics 5 5 Internet Ecommerce Specialist Strength 5 5 Hip Flexion 5 5 [...] syndrome COPD (chronic obstructive pulmonary disease) ([facility]) DDD (degenerative disc disease), cervical 07/25/2017 Ear infection Generalized anxiety disorder GERD (gastroesophageal reflux disease) H/O emphysema Hay fever History of dental problems Hyperlipidemia Hypertension Lumbar radiculopathy Major depression AL (myocardial infarction) ([facility]) Migraine Opioid dependence, continuous ([facility]) Osteoarthritis Osteoporosis Pneumonia Radiculopathy, lumbosacral region Renal [...]
--- OUTSIDE RECORDS SUMMARY | ~2020-05-12 | XMS | Encounter Summary ---
Demographics + + + | Address | [address] | | | [place] [address] | + + + | Home Phone [...] + + | Author | [facility] | | | and [...] [place] | | | | | [address] | | + + + + + | Jane Mojica | ECON | Unknown | | + + + + + | Est[place] Zamudio | ECON | Unknown | | + + + + + Care Team Providers + +------+ + | Care Ocular Care Technologist Name | Role | Phone | + +------+ + | Becca Amaya MD | PCP | | + +------+ + Reason for Visit + +--------+ + | Reason | Onset | Comments | | | Date | | + +--------+ + | Referral (Follow up) | 04/01/ | injections, EMG | | | 2016 | | + +--------+ + | Insurance | 04/01/ | add new MC coverage | | Authorization | 2016 | | + +--------+ + Encounter Details +--------+ + + + + | Date | Type | Department | Care Team | Description | +--------+ + + + + | 04/01/ | Telephone | [facility] [place] | Robi Husain MD | Referral (Follow up) | | 2016 | | NEUROSURGERY [address] | [address] | (injections, EMG); | | | | [address] | [place] [address] | Insurance | | | | [place] | [phone] | Authorization (add | | | | [phone] | | new coverage) | | | | [phone] | | | +--------+ + + + [...] Notes Telephone Encounter - Nancy Dorado - 04/04/2017 2:24 PM PDTWhile I was documenting, the patient called back and got one of my coworkers. He was informed that medicare has been added to his demographics. elephone Encounter - Nancy Dorado - 04/04/2017 2:08 PM PDTCalled patient to anna m him that I was able to add to his account. His voicemail was having issues and kept cut ting me off. elephone E nataer - Melida Hoskins RN - 04/04/2017 1:30 PM PDTUpdated patient that referral to Dr Abram Adams is pending. Once approved, physiatry will call him to schedule. Advised patient per PA regarding Dr. Adams evaluating him and able to order any necessary tests or treatments. Acknow ledged that referral processing through [facility] can be a slow process. Patient stated that he now has Medicare coverage as well as [employer]. Advised patient that this information will need to be updated. Routing to PSR and authorizations team to update insurance for pending refer ral. Patient agreeable to call back to obtain insurance information. elephone Encounter - Manuel Waters PA-C - 04/04/2017 12:31 PM Cynthia we will see the patient and evaluate him in orde r what he feels appropriate. He also does nerve testing. We can check with physiatry on e progress of the referral. elephone Encounter - Melida Hoskins RN - 04/04/2017 11:52 AM PDTReferral # [id number] Hernandez, initiated 04/03/2017 Patient last seen 11/13/2016 (Jt)- noted "In the meantime we will begin the process of aut horizing and scheduling bilateral SI joint injections." (EMG not noted) Please advise elepho ne Encounter - Mirtha Cruz - 04/04/2017 11:43 AM PDTPatient called stated he has not b een scheduled for an injection or EMG yet and is calling to follow up. I do see a referral i n to Physiatry for a consultation for the injection but unsure if this will also include the EMG studies. Unable to update patient at this time. Informed patient we will call him with an update at a later time. Patient verbalized understanding. elephone Encounter - Nancy Dorado - 04/01/2017 1:30 PM PDTPatient called in stating that we needed to put in new orders for injections so h e can get those completed. Please return the patient's call at [phone] as he would like to schedule as soon as possible. 1 :43 PM PDTdocumented in this encounter Plan of Treatment Not on filedocumented as of this encounter Visit Diagnoses Not on filedocumented in this encounter
--- OUTSIDE RECORDS SUMMARY | ~2020-05-12 | XMS | Encounter Summary ---
Demographics + + + | Address | [address] | | | [place] [address] | + + + | Home Phone | | + + + | Preferred Language | Unknown | + + + | Marital Status | Single | + + + | Congregation Affiliation | CAT | + + + | Race | White | + + + | Ethnic Group | Not or | + + + Author + + + | Author | [facility] | + + + | Organization | [facility] | + + + | Address | Unknown | + + + | Phone | Unavailable | + + + Support + + + + + | Name | Relationship | Address | Phone | + + + + + | Mitra Ramos | ECON | [address] | | | | | [place] | | | | | [address] | | + + + + + Care Team Providers + +------+ + | Care Campus Aide Name | Role | Phone | + +------+ + PCP | Unavailable | + +------+ + Encounter Details +--------+ + + + + | Date | Type | Department | Care Team | Description | +--------+ + + + + | 01/15/ | Transcribe | [facility] | Transcribe | | | 2019 | Orders | [facility] [address] | Encounter, Provider, | | | | | [address] | [address] | | | | | [place] | [place] [address] | | | | | [address] | | | +--------+ + + + [...]
--- OUTSIDE RECORDS SUMMARY | ~2020-05-12 | XMS | Clinical Summary ---
Demographics + + + | Address | [address] | | | [place] [address] | + + + | Home Phone | | + + + | Preferred Language | Unknown | + + + | Marital Status | | + + + | Protestant Affiliation | 1013 | + + + | Race | White | + + + | Ethnic Group | Not or | + + + Author + + + | Author | [facility] | | | and [place] | + + + | Organization | [facility] | | | [...] [place] | | | | | [address] | | + + + + + | Jane Mojica | ECON | Unknown | | + + + + + | Estelita Zamudio | ECON | Unknown | | + + + + + Care Team Providers + +------+ + | Care Instructional Systems Design Consultant Name | Role | Phone | + +------+ + | Becca Amaya MD | PCP | | + +------+ + Allergies + + [...] + + | Codeine | Itching | Medium | 09/28/19 | | | | | | 14 | | + + + + + + | Naproxen | Itching | Medium | 09/28/19 | | | | | [...] | | + + + +---------+------+------+-------+ | atoMOXetine | Take 80 mg by mouth | | 0 | 06/0 | | Activ | | (STRATTERA) 80 MG | daily. | | | 3/20 | | e | | capsule | | | | 19 | | | + + + +---------+------+------+-------+ | | diphenoxylate-atropi | | 0 | | | Activ | | diphenoxylate-atropi | ne 2.5 mg-0.025 mg | | | | | e | | ne (LOMOTIL) | tablet | | | | | | | 2.5-0.025 mg per | | | | | | | | tablet | | | | | | | + + + +---------+------+------+-------+ | hydrOXYzine | Take 25 mg by mouth | | 0 | 05/3 | | Activ | | hydrochloride | every 6 (six) hours | | | 0/20 | | e | | (ATARAX) 25 mg | as needed. | | | 19 | | | | tablet | | | | | | | + + + +---------+------+------+-------+ | senna (SENNA) 8.6 | senna 8.6 mg tablet | | 0 | | | Activ | | mg tablet | | | | | | e | + + + +---------+------+------+-------+ | albuterol 90 | Inhale 2 puffs into | | 0 | | | Activ | | mcg/puff inhaler | the lungs. | | | | | e | + + + +---------+------+------+-------+ | gabapentin | Take 800 mg by mouth | | 0 | | | Activ | | (NEURONTIN) 800 MG | 3 (three) times | | | | | e | | tablet | daily. | | | | | | + + + +---------+------+------+-------+ | | Inhale 3 mLs into | | 0 | | | Activ | | albuterol-ipratropiu | the lungs as needed. | | | | | e | | m 2.5-0.5 mg/3 mL | | | | | | | | SOLN | | | | | | | + + + +---------+------+------+-------+ | | INHALE 1 PUFF BY | 60 each | 1 | 02/17 | | Activ | | fluticasone-umeclidi | MOUTH INTO THE LUNGS | | | 10/08 | | e | | nium-vilanterol | DAILY. | | | 20 | | | | (TRELEGY ELLIPTA) | | | | | | | | 100-62.5-25 mcg/puff | | | | | | | | inhalerIndications: | | | | | | | | Chronic bronchitis, | | | | | | | | unspecified chronic | | | | | | | | bronchitis type | | | | | | | | ([facility]) | | | | | | | [...] | + + + | History of VT (myocardial infarction) | | + + + | Hypertension | | + + + | Hyperlipidemia | | + + + | COPD (chronic obstructive pulmonary disease) | | + + + Encounters +--------+--------+ + + + | Date | Type | Specialty | Care Team | Description | +--------+--------+ + + + | 05/09/ | Refill | Pulmonology | Lynn Tan, | Medication Refill | | 2020 | | | DEMAND EQUIPMENT REPAIRER | | +--------+--------+ + + + | 03/09/ | Refill | Pulmonology | Lynn Tan, | Medication Refill | | 2020 | | | DEMAND EQUIPMENT REPAIRER | | +--------+--------+ + + + | 02/09/ | Refill | Pulmonology | Lynn Tan, | Medication Refill | | 2020 | | | DEMAND EQUIPMENT REPAIRER | | +--------+--------+ + + + from Last 3 Months [...] | | + + +------+ + | Alcohol abuse | Father | | | + + +------+ + | Cancer | Father | | colon | + + +------+ + | Other (see comment) | Mother | | Heart problems | + + +------+ + | Diabetes, NIDDM | Mother | | | + + +------+ + | Crohn's [...] + | Father | | | | + +------+ + + | Father | | | | + +------+ + + | Father | | | | + +------+ + + | Mother | | | | + +------+ + + | Mother | | | | + +------+ + + | Mother | | | | + +------+ + [...] + + + | Blood Pressure | 103/72 | 02/05/2019 3:05 PM | | | | | PDT | | + + + + + | Pulse | 81 | 02/05/2019 3:05 PM | | | | | PDT | | + + + + + | Temperature | 36.2 C (97.2 F) | 02/05/2019 3:05 PM | | | | | PDT [...] + + + + | Weight | 83.9 kg (185 lb) | 02/05/2019 3:05 PM | | | | | PDT | | + + + + + | Height | 172.7 cm (5' 8") | 02/05/2019 3:05 PM | | | | | PDT | | + + + + + | Body Mass Index | 28.13 | 02/05/2019 3:05 PM | | | | | PDT | | + + + + + Plan of Treatment + + + + + | Health Maintenance | Due Date | Last | Comments | | | | Done | | + + + + + | Hepatitis C | | | | | Screening | 3 | | | + + + + + | Med Mgmt: Cr | | | | | | 3 | | | + + + + + | Med Mgmt: HBA1C | | | | | | 3 | | | + + + + + | Med Mgmt: K | | | | | | 3 | | | + + + + + | Med Mgmt: Na | | | | | | 3 | | | + + + + + | Med Mgmt: eGFR | | | | | | 3 | | | + + + + + | Medication | | | | | Management | 3 | | | + + + + + | Vaccine: | | | | | Pneumococcal 19-64 | 9 | | | | (1 of 1 - PPSV23) | | | | + + [...] + + | Vaccine: Influenza | | 04/17/20 | | | (#1) | 0 | 16, | | | | | 06/07/20 | | | | | 15 | | + + + + + | Vaccine: | | 03/05/20 | | | Dtap/Tdap/Td (3 - | 8 | 18, | | | Td) | | 01/21/20 | | | | | 12, | | | | | 10/06/19 | | | | | 05 | | + + + + + [...] +--------+ +---------+--------+ | MEDICARE | MEDICA | [id number] | 03/19/20 | [phone] | | Medica | | | RE | | 17-Pre | 5 | | re | | | PART A | | sent | | | | | | AND B | | | | | | + +--------+ +--------+ +---------+--------+ | [employer] | [employer] | [id number] | | [phone] | | Medica | [...] | 1961 | [phone] | [place] [address] | | | alisson | | | 1 (Home) | | + +--------+ +--------+ + + Advance Directives + + + + + | Type | Date Recorded | Patient | Explanation | | | | Director Teen Post | | + + + + + | Power of | | | | | Metal Furniture Polisher | | | | + + + + + | Advance | 10/16/2018 12:26 | | | | Directive | PM | | | + + + + +
--- OUTSIDE RECORDS SUMMARY | ~2020-05-12 | XMS | Encounter Summary ---
Demographics + + + | Address | [address] | | | [place] [address] | + + + | Home Phone | | + + + | Preferred Language | Unknown | + + + | Marital Status | | + + + | Islam Affiliation | 1013 | + + + | Race | White | + + + | Ethnic Group | Not or | + + + Author + + + | Author | [facility] | | | and [place] | + + + | Organization | [facility] | | | [...] [place] | | | | | [address] | | + + + + + | Jane Mojica | ECON | Unknown | | + + + + + | Estelita Zamudio | ECON | Unknown | | + + + + + Care Team Providers + +------+ + | Care Puff Ironer Name | Role | Phone | + [...] | Lumbar | David, | [address] | | | | | radiculopath | Anthony Alba MD | [place], | | | | | y | [address] | [place] | | | | | Spondylolist | [place] | [address] | | | | | hesis of | [place], [place] | Phone: | | | | | lumbar | [address] | [phone] | | | | | region | Phone: | Fax: | | | | | [place] | [phone] | [phone] | | | | | stenosis of | Fax: | | | | | | lumbar | [phone] | | | | | | region [...] | y | [address] | [facility] [address] | | | | | Spondylolist | [facility] | [place], [place] | | | | | hesis of | [place], [place] | [address] Phone: | | | | | lumbar | [address] | [phone] | | | | | region | Phone: | Fax: | | | | | [place] | [phone] | [phone] | | | | | stenosis of | Fax: | | | | | | lumbar | [phone] | | | | | | region [...] + + | 07/25/ | Office | [facility] | Anthony Hernandez | Lumbar radiculopathy | | 2017 | Visit | PHYSIATRY [address] | TMD [address] | (Primary Dx); | | | | [address] | [place], [place] | Spondylolisthesis of | | | | [place], [place] | [address] | lumbar region; | | | | [address] | | [place]am[place] stenosis | | | | [phone] | | of lumbar region; | | [...] 07/25/2017 8:00 AM PST Anthony Hernandez MD [address] [place] [address], [address] [place], [place] [id number] FAX: [facility] H&P CHIEF [...] has no apparent deficits with short or intermodal dispatcher memory. He has appropriate fund of knowledge [...] and complete. ELECTRONICALLY EDITED AND SIGNED BY: Anthnoy Hernandez MD documented in this encounter Plan [...]
--- OUTSIDE RECORDS SUMMARY | ~2020-05-12 | XMS | Encounter Summary ---
Demographics + + + | Address | [address] | | | [place] [address] | + + + | Home Phone | | + + + | Preferred Language | Unknown | + + + | Marital Status | | + + + | Baptist Affiliation | 1013 | + + + | Race | White | + + + | Ethnic Group | Not or | + + + Author + + + | Author | [facility] | | | and [place] | + + + | Organization | [facility] | | [...] [place] | | | | | [address] | | + + + + + | Jane Mojica | ECON | Unknown | | + + + + + | Estelita Zamudio | ECON | Unknown | | + + + + + Care Team Providers + +------+ + | Care Principal Consulting Engineer Name | Role | Phone | + +------+ + PCP | Unavailable | + +------+ + Encounter Details +--------+ + + + + | Date | Type | Department | Care Team | Description | +--------+ + + + + | 09/19/ | Hospital | [facility] | Orr, | Backache, | | 1993 | Encounter | [address] | [address] | unspecified | | | | [address] | [address] | | | | | [place], [place] | [place] [address] | | | | | [address] | [phone] | | | | | [phone] | | | +--------+ + + + [...]
--- OUTSIDE RECORDS SUMMARY | ~2020-05-12 | XMS | Encounter Summary ---
Demographics + + + | Address | [address] | | | [place] [address] | + + + | Home Phone [...] + | Author | [facility] | | | and [place] | + + + | Organization | [facility] | | | [...] [place] | | | | | [address] | | + + + + + | Jane Mojica | ECON | Unknown | | + + + + + | Estelita Zamudio | ECON | Unknown | | + + + + + Care Team Providers + +------+ + | Care Restrike Hammer Operator Name | Role | Phone | + +------+ + | Becca Amaya MD | PCP | | + +------+ + Encounter Details +--------+ + + + + | Date | Type | Department | Care Team | Description | +--------+ + + + + | 03/17/ | Orders Only | [facility] | Provider, | | | 2019 | | SYSTEM GENERIC OP | [address] | | | | | [address]VERSION [address] | [place] [address] | | | | | [address] [place], [place] | [place] [address] | | | | | [address] | | | | | | [phone] | | | +--------+ + + + [...]
--- OUTSIDE RECORDS SUMMARY | ~2020-05-12 | XMS | Encounter Summary ---
Demographics + + + | Address | [address] | | | [place] [address] | + + + | Home Phone | | + + + | Preferred Language | Unknown | + + + | Marital Status | | + + + | Zoroastrian Affiliation | 1013 | + + + | Race | White | + + + | Ethnic Group | Not or | + + + Author + + + | Author | [facility] | | | and [...] [place] | | | | | [address] | | + + + + + | Jane Mojica | ECON | Unknown | | + + + + + | Estelita Zamudio | ECON | Unknown | | + + + + + Care Team Providers + +------+ + | Care Sole Painter Name | Role | Phone | + [...] [place] | | | | | | [address] | | | | | | [phone] | | | +--------+ + + + [...]
--- OUTSIDE RECORDS SUMMARY | ~2020-05-12 | XMS | Encounter Summary ---
Demographics + + + | Address | [address] | | | [place] [address] | + + + | Home Phone | | + + + | Preferred Language | Unknown | + + + | Marital Status | | + + + | Mormonism Affiliation | 1013 | + + + | Race | White | + + + | Ethnic Group | Not or | + + + Author + + + | Author | [facility] | | | and [place] | + + + | Organization | [facility] | | | [...] [place] | | | | | [address] | | + + + + + | Jane Mojica | ECON | Unknown | | + + + + + | Estelita Zamudio | ECON | Unknown | | + + + + + Care Team Providers + +------+ + | Care Superintendent Drilling And Production Name | Role | Phone | [...] | | | | [address] [place] | [place] [address] | | | | | [address] | | | | | | [phone] | | | +--------+ + + + [...]
--- OUTSIDE RECORDS SUMMARY | ~2020-05-12 | XMS | Encounter Summary ---
Demographics + + + | Address | [address] | | | [place] [address] | + + + | Home Phone | | + + + | Preferred Language | Unknown | + + + | Marital Status | | + + + | Adventism Affiliation | 1013 | + + + | Race | White | + + + | Ethnic Group | Not or | + + + Author + + + | Author | [facility] | | | and [place] | + + + | Organization | [facility] | | | [...] [place] | | | | | [address] | | + + + + + | Jane Mojica | ECON | Unknown | | + + + + + | Estelita Zamudio | ECON | Unknown | | + + + + + Care Team Providers + +------+ + | Care Investor Relations Specialist Name | Role | Phone | [...] | | [address] | [place] [address] | location, | | | | [place], [place] | [phone] | unspecified back | | | | [address] | | pain laterality, | | | | [phone] | | unspecified | | | | [...] L5 SPONDYLOLYSIS. Dictated and Signed by: Sharan Yen, | | | Electronically signed: 09/22/2018 3:07 [...]
--- OUTSIDE RECORDS SUMMARY | ~2020-05-12 | XMS | Encounter Summary ---
Demographics + + + | Address | [address] | | | [place] [address] | + + + | Home Phone | | + + + | Preferred Language | Unknown | + + + | Marital Status | | + + + | Yazdanism Affiliation | 1013 | + + + | Race | White | + + + | Ethnic Group | Not or | + + + Author + + + | Author | [facility] | | | and [place] | + + + | Organization | [facility] | | | [...] [place] | | | | | [address] | | + + + + + | Jane Mojica | ECON | Unknown | | + + + + + | Estelita Zamudio | ECON | Unknown | | + + + + + Care Team Providers + +------+ + | Care Extrusion Die Corrector Name | Role | Phone | + +------+ + | Becca Amaya MD | PCP | | + +------+ + Encounter Details +--------+ + + + + | Date | Type | Department | Care Team | Description | +--------+ + + + + | 09/22/ | Hospital | [facility] | Robi Husain MD | Spondylolisthesis of | | 2019 | Encounter | MED CTR XRAY [address] | [address] | lumbar region | | | | [place] | [place] [address] | | | | | [place] [address] | [phone] | | | | | [phone] | | | +--------+ + + + [...] SPONDYLOLYSIS. Dictated and Signed by: Kobe Bah MD Electronically signed: 09/22/2018 3:07 PM | | [...]
--- OUTSIDE RECORDS SUMMARY | ~2020-05-12 | XMS | Encounter Summary ---
Demographics + + + | Address | [address] | | | [place] [address] | + + + | Home Phone | | + + + | Preferred Language | Unknown | + + + | Marital Status | Single | + + + | Gnosticist Affiliation | CAT | + + + [...] Mitra Ramos | ECON | [address] | | | | | [place] | | | | | [address] | | + + + + + Care Team Providers + +------+ + | Care Ball Point Splitter Name | Role | Phone | + [...] | | | | Procedures | [place] [address] | [place] | | | | | [place] BONE | Phone: | [address] | | | | | &/OR JOINT | [phone] | Phone: | | | | | IMAGING | Fax: | [phone] | | | | | TOMOGRAPHIC | [phone] | | | | | | (SPECT) | | | +--------+--------+ + + + + Encounter Details +--------+ + + + + | Date | Type | Department | Care Team | Description | +--------+ + + + + | 02/16/ | Transcribe | [facility] | Lizzette Harry MD | | | 2019 | Orders | [facility] [address] | | | | | [address] | [address] [place] | | | | | [place] | [address] | | | | | [address] | | | +--------+ + + + [...] + + + | [address] [place] [address] | [facility] | | [place] [address] DEPARTMENT | | [phone] Name: PERCY MANCILLA Phys: | RADIOLOGY | | LIZZETTE HARRY : 1960 Sex: M CSN: | | | [id number] MR# [id number] Exam Date: 03/05/2019 | | | EXAM: NM BONE &/OR JOINT IMAGING TOMOGRAPHIC (SPECT) [address] | | | CLINICAL HISTORY: Spondylolisthesis at [...] There is also | | | bilateral feda-eh-xxrkydwt facet arthropathy and chronic bilateral | | [...] | MD [place] Electronically signed by: NIKOLAI COELMAN MD | | | Transcribed Date/Time: 03/13/2019 08:09 Manager Produce: FLUENCY | | | | | + + + + + | Procedure Note | + + | Interface, Radiology Results - 03/13/2019 8:13 AM PDT [address] | | [place] [address] | | Name: PERCY MANCILLA Phys: LIZZETTE HARRY : 1960 Sex: M CSN: | | [id number] MR# [id number] Exam Date: 03/05/2019 EXAM:NM BONE &/OR JOINT IMAGING | | TOMOGRAPHIC (SPECT) [address] CLINICAL HISTORY:Spondylolisthesis at L5-S1. | | COMPARISON:01/23/2019 [...] | | vertebral body. There is alsobilateral zstl-dn-gscncley facet arthropathy and chronic | | bilateralpars [...] vertebral body. There is also | |bilateral rdad-km-lxwrmpzo facet arthropathy and chronic bilateral | |pars [...] | | |Transcribed Date/Time: 03/13/2019 08:09 | |Manager Produce: FLUENCY | | | | | | [...]
--- OUTSIDE RECORDS SUMMARY | ~2020-05-12 | XMS | Encounter Summary ---
Demographics + + + | Address | [address] | | | [place] [address] | + + + | Home Phone [...] | Author | [facility] | | | and [...] [place] | | | | | [address] | | + + + + + | Jane Mojica | ECON | Unknown | | + + + + + | Est[place] Zamudio | ECON | Unknown | | + + + + + Care Team Providers + +------+ + | Care Spinner Hand Name | Role | Phone | + +------+ + PCP | Unavailable | + +------+ + Encounter Details +--------+ + + + + | Date | Type | Department | Care Team | Description | +--------+ + + + + | 12/10/ | Hospital | [facility] | Orr, | Lumbago | | 1997 | Encounter | [address] | [address] | | | | | [address] | [address] | | | | | [place], [place] | [place] [address] | | | | | [address] | [phone] | | | | | [phone] | | | +--------+ + + + [...]
--- OUTSIDE RECORDS SUMMARY | ~2020-05-12 | XMS | Encounter Summary ---
Demographics + + + | Address | [address] | | | [place] [address] | + + + | Home Phone [...] Author | [facility] | | | and [...] [place] | | | | | [address] | | + + + + + | Jane Mojica | ECON | Unknown | | + + + + + | Est[place] Zamudio | ECON | Unknown | | + + + + + Care Team Providers + +------+ + | Care Chicken Catcher Name | Role | Phone | + +------+ + | Becca Amaya MD | PCP | | + +------+ + Encounter Details +--------+ + + + + | Date | Type | Department | Care Team | Description | +--------+ + + + + | 10/23/ | [facility] | [facility] | Sidney Dominguez, | Cervicalgia | | 2019 | Encounter | MED CTR XRAY [address] | PA-C [address] | | | | | [place] | [facility] [address] [place] | | | | | [place] [address] | [place] [address] | | | | | [phone] | [phone] | | | | | | | [...]
--- OUTSIDE RECORDS SUMMARY | ~2020-05-12 | XMS | Encounter Summary ---
Demographics + + + | Address | [address] | | | [place] [address] | + + + | Home Phone | | + + + | Preferred Language | Unknown | + + + | Marital Status | | + + + | Zoroastrian Affiliation | 1013 | + + + | Race | White | + + + | Ethnic Group | Not or | + + + Author + + + | Author | [facility] | | | and [place] | + + + | Organization | [facility] | | | [...] [place] | | | | | [address] | | + + + + + | Jane Mojica | ECON | Unknown | | + + + + + | Estelita Zamudio | ECON | Unknown | | + + + + + Care Team Providers + +------+ + | Care Complaint Evaluation Officer Name | Role | Phone | [...] Cervical | Sidney E, | [address] | | | | | radiculopath | PA-C [address] | [place], | | | | | y | [address] | [place] | | | | | Spondylosis | [address] | [address] | | | | | of cervical | [place], | Phone: | | | | | spine with | [place] [address] | [phone] | | | | | myelopathy | Phone: | Fax: | | | | | and | [phone] | [phone] | | | | | radiculopath | Fax: | | | | | | y Lumbar | [phone] | | | | | | radiculopath [...] Cervical | Sidney E, | [address] | | | | | radiculopath | PA-C [address] | [place], | | | | | y | [address] | [place] | | | | | Spondylosis | [address] | [address] | | | | | of cervical | [place], | Phone: | | | | | spine with | [place] [address] | [phone] | | | | | myelopathy | Phone: | Fax: | | | | | and | [phone] | [phone] | | | | | radiculopath | Fax: | | | | | | y Lumbar | [phone] | | | | | | radiculopath [...] + + | 10/16/ | Hospital | [facility] | Ajit Miller MD | Cervical | | 2019 | Encounter | MED CTR IR INTRA OP | [address] | radiculopathy; | | | | [address] | [place], [place] | Spondylosis of | | | | [place], [place] | [address] | cervical spine with | | | | [address] | | myelopathy and | | | | [phone] | | radiculopathy; | | | | [...] | | | H&P | | | 2/ by | | | | | | Octavio | | | da | +---+--------+ | [...] height is otherwise maintained. Bilateral | | [id number] is again noted. The conus medullaris is [...] | Procedure Note | + + | Jese Huang Results In - 10/16/2018 3:14 PM PST [...] ONCE PRN, Wheezing, | | | Starting [facility] 10/16/18 at 1509, | | | For [...] ONCE | | | PRN, Nausea, Starting [facility] 10/16/18 | | | at 1509, For 1 dose, | | | Recovery/Phase I | | + +---+ | | | + +---+ documented in this encounter
--- OUTSIDE RECORDS SUMMARY | ~2020-05-12 | XMS | Encounter Summary ---
Demographics + + + | Address | [address] | | | [place] [address] | + + + | Home Phone [...] | Author | [facility] | | | and [place] | + + + | Organization | [facility] | | [...] [place] | | | | | [address] | | + + + + + | Jane Mojica | ECON | Unknown | | + + + + + | Estel[place] Zamudio | ECON | Unknown | | + + + + + Care Team Providers + +------+ + | Care Fuel Agent Name | Role | Phone | + +------+ + | Becca Amaya MD | PCP | | + +------+ + Encounter Details +--------+---------+ + + + | Date | Type | Department | Care Team | Description | +--------+---------+ + + + | 10/16/ | Surgery | [facility] | Ajit Miller MD | MRI GENERAL SEDATION | | 2019 | | MED CTR IR INTRA OP | [address] | CERVICAL & LUMBAR | | | | [address] | [place], [place] | | | | | [place], [place] | [address] | | | | | [address] | | | | | | [phone] | | | +--------+---------+ + + + [...] | | | H&P | | | 09/22 by | | | | | | [...] height is otherwise maintained. Bilateral | | X3ixiyjtzubedoi is again noted. The conus medullaris is [...] ONCE PRN, Wheezing, | | | Starting [facility] 10/16/18 at 1509, | | | [...] ONCE | | | PRN, Nausea, Starting [facility] 10/16/18 | | | at 1509, For 1 dose, | | | Recovery/Phase I | | + +---+ | | | + +---+ documented in this encounter
--- OUTSIDE RECORDS SUMMARY | ~2020-05-12 | XMS | Encounter Summary ---
Demographics + + + | Address | [address] | | | [place] [address] | + + + | Home Phone [...] [place] | | | | | [address] | | + + + + + Care Team Providers + +------+ + | Care Bread Oven Operator Name | Role | Phone | [...]
--- OUTSIDE RECORDS SUMMARY | ~2020-05-12 | XMS | Encounter Summary ---
Demographics + + + | Address | [address] | | | [place] [address] | + + + | Home Phone | | + + + | Preferred Language | Unknown | + + + | Marital Status | Single | + + + | Gnosticism Affiliation | CAT | + + + [...] Mitra Ramos | ECON | [address] | | | | | [place] | | | | | [address] | | + + + + + Care Team Providers + +------+ + | Care Ladies Locker Room Attendant Name | Role | Phone | + +------+ + | Becca Amaya MD | PCP | | + +------+ + Encounter Details +--------+ + + + + | Date | Type | Department | Care Team | Description | +--------+ + + + + | 11/05/ | Procedure | Diagnostic Imaging | | | | 2019 | Pass | [facility] | | | | | | [address] | | | | | | [place] | | | | | | [address] | | | | | | [phone] | | | +--------+ + + + [...]
--- OUTSIDE RECORDS SUMMARY | ~2020-05-12 | XMS | Encounter Summary ---
Demographics + + + | Address | [address] | | | [place] [address] | + + + | Home Phone [...] Author | [facility] [...] [place] | | | | | [address] | | + + + + + | aJne Mojica | ECON | Unknown | | + + + + + | Estelita Zamudio | ECON | Unknown | | + + + + + Care Team Providers + +------+ + | Care Certified Dietary Manager Name | Role | Phone | + +------+ + | Becca Amaya MD | PCP | | + +------+ + Reason for Visit + +--------+ + | Reason | Onset | Comments | | | Date | | + +--------+ + | Imaging Only | 10/17/ | | | | 2018 | | + +--------+ + Encounter Details +--------+ + + + + | Date | Type | Department | Care Team | Description | +--------+ + + + + | 10/17/ | Telephone | [facility] [place] | Robi Husain MD | Imaging Only | | 2019 | | NEUROSURGERY [address] | [address] | | | | | [address] [facility] [address] | [place] [address] | | | | | [place] | [phone] | | | | | [address] | | | | | | [phone] | | | +--------+ + + + [...] Telephone Encounter - Sanna Benavidez CMA - 10/22/2018 1:16 PM PSTPatient updated. Electroni vidal signed by Sanna Benavidez CMA at 10/22/2018 1:17 PM PSTAddendum Note - Lila Calix PA-C - 10/22/2018 12:03 PM PST Addended by: LILA CALIX on: 10/22/2018 12:03 Modules accepted: Orders ddendum Note - Ary Arreguin Geography Department Chair - 10/22/2018 10:38 AM PST Addended by: OBDULIA ARREGUIN on: 10/22/2018 10:38 Modules accepted: Orders elephone Encounter - Ary Arreguin Geography Department Chair - 10/22/2018 10:36 AM PSTChicho ag he would like Percy to get 4 view cervical x-rays prior to his appointment tomorrow.Electro nically signed by Ary Arreguin Geography Department Chair at 10/22/2018 10:38 AM PSTTelephone E jolene - Louis Hoskins - 10/17/2018 12:19 PM PSTScheduled 7 elephone Encounter - Sanna Benavidez CMA - 10/17/2018 11:3 7 AM PSTPlease schedule MRI review follow up. Thank you elephone Encounter - Lila Calix PA-C - 10/17/2018 1 1:02 AM PSTThere is a lot to go over on his MRIs. I would recommend he be made an appointmen t to go over them.If you feel comfortable it might be good for him to know before he comes t sarwat Husain gave his resignation and that I will likely be referring him out to another neurosur geon. Thank you. elephone Encounter - Ede Hernandez Geography Department Chair - 10/17/2018 8:50 AM PSTPatient has c ompleted Cervical and Lumbar MRI. Images available on I-site. documented in this encounter Plan of Treatment [...]
--- OUTSIDE RECORDS SUMMARY | ~2020-05-12 | XMS | Encounter Summary ---
Demographics + + + | Address | [address] | | | [place] [address] | + + + | Home Phone | | + + + | Preferred Language | Unknown | + + + | Marital Status | | + + + | Yazidi Affiliation | 1013 | + + + | Race | White | + + + | Ethnic Group | Not or | + + + Author + + + | Author | [facility] | | | and [place] | + + + | Organization | [facility] | | [...] [place] | | | | | [address] | | + + + + + | Jane Mojica | ECON | Unknown | | + + + + + | Estelita Zamudio | ECON | Unknown | | + + + + + Care Team Providers + +------+ + | Care Medical Staff Services Coordinator Name | Role | Phone | [...] | | | | | unspecified | [place] [address] | | | | | | back | Phone: | | | | | | location, | [phone] | | | | | | unspecified | Fax: | | | | | | back pain | [phone] | | | | | | laterality, [...] + | 10/23/ | Office | [facility] [place] | Sidney Dominguez, | Back pain, | | 2019 | Visit | NEUROSURGERY [address] | [address] [address] | unspecified back | | | | [address] | [address] [place] | location, | | | | [place], [place] | [place] [address] | unspecified back | | | | [address] | [phone] | pain laterality, | | | | [phone] | | unspecified | | | | [...] encounter Patient Instructions Patient Instructions Ary Arreguin, Diesel Crane Operator - 10/23/2018 1:00 PM PST We will refer you to a neurosurgeon in [place] named Dr. Khan who also does minimall y invasive spine surgery. Dr. Khan trained with Dr. Lainez in [place]. Dr. Khan has a satellite clinic in [place] however if he does surgery you will have to go to [facility]. If you do not hear from them in a week call and check in with their office or our office. Here is his contact information: Dr. Eben Khan [address] [place] [phone] Let pain be your guide. If you are doing an activity that starts causing you pain back off and ease back into it slowly. We don't want you taking any risks that do not need to be ta marilee. documented in this encounter Progress Notes Sidney Dominguez PA-C - 10/23/2018 1:00 PM PST Sidney Dominguez PA-C [address] [facility] [place] [address] PHONE: FAX: NEUROSURGERY FOLLOW-UP CHIEF COMPLAINT: Chief [...] like he has "a pair of vice vp delivery on his spine in his low back". He struggles with fine motor tasks like picking up nuts, bolts, pennies, and paper clips. He has a history of bilateral carpal tunnel release. He lives in [place] with his fiance who is in moderately [...] has no apparent deficits with short or longterm memory. CRANIAL NERVES: II: Acuity is intact. [...] Intrinsics 4+ 4 Ulnar Intrinsics 5 5 Impact Hammer Operator Strength 5 5 Hip Flexion 5 4 [...] pain syndrome COPD (chronic obstructive pulmonary disease) ([facility]) DDD (degenerative disc disease), cervical 07/25/2017 Ear infection Generalized anxiety disorder GERD (gastroesophageal reflux disease) H/O emphysema Hay fever History of dental problems Hyperlipidemia Hypertension Lumbar radiculopathy Major depression NE (myocardial infarction) ([facility]) Migraine Opioid dependence, continuous ([facility]) Osteoarthritis Osteoporosis Pneumonia Radiculopathy, lumbosacral region Renal [...] on his MRI and his orientation on [facility] patient rapidly displayed a surprisingly deep understanding [...]
--- OUTSIDE RECORDS SUMMARY | ~2020-05-12 | XMS | Encounter Summary ---
Demographics + + + | Address | [address] | | | [place] [address] | + + + | Home Phone [...] + + + | Author | [facility] | | | and [place] | + + + | Organization | [facility] | | [...] [place] | | | | | [address] | | + + + + + | Jane Mojica | ECON | Unknown | | + + + + + | Estelita Zamudio | ECON | Unknown | | + + + + + Care Team Providers + +------+ + | Care Payroll Human Resources Assistant Name | Role | Phone | [...] + + | 05/29/ | Telephone | [facility] | Anthony Hernandez | Results, Imaging | | 2016 | | PHYSIATRY [address] | [address], [address] | | | | | [address] | [address] [place] | | | | | [place] | [address] | | | | | [address] | | | | | | [phone] | | | +--------+ + + + [...] Electronically signed by Sanna Benavidez CMA at 7 9:42 AM PDTTelephone Encounter - Sanna Benavidez [...]
--- OUTSIDE RECORDS SUMMARY | ~2020-05-12 | XMS | Encounter Summary ---
Demographics + + + | Address | [address] | | | [place] [address] | + + + | Home Phone [...] | Author | [facility] | | | and [place] | + + + | Organization | [facility] | | [...] [place] | | | | | [address] | | + + + + + | Jane Mojica | ECON | Unknown | | + + + + + | Estelita Zamudio | ECON | Unknown | | + + + + + Care Team Providers + +------+ + | Care Infection Prevention Coordinator Name | Role | Phone | + +------+ + | Becca Amaya MD | PCP | | + +------+ + Encounter Details +--------+ + + + + | Date | Type | Department | Care Team | Description | +--------+ + + + + | 10/16/ | Anesthesia | [facility] | Chon Caputo MD | | | 2019 | Event | MED CTR IR INTRA OP | [address] | | | | | [address] | [place] | | | | | [place] | [address] | | | | | [address] | [phone] | | | | | [phone] | | | | | | | Raudel [place], | | | | | | [address] | | | | | | [place] | | | | | | [address] | | | | | | [phone] | | | | | | | [...] 10/16/18 1555 by | | eral | uwcu-yay-veckyn catheter system; | Shawna Antunez RN | Holli Hsokins RN | | IV | 20 gauge; [...] EVALUATION Percy Mancilla 57 y.o. male 1960 [id number] Procedure(s) MRI GENERAL SEDATION CERVICAL & LUMBAR [...] signed by Chon Caputo MD 10/16/2018 16:56 [facility] Chon Caputo MD at 10/16 4:56 PM PSTAnesthesia Preprocedure Evaluation - Chon Caputo MD - 10/16/2018 1:31 PM PST ANESTHESIA PREANESTHESIA EVALUATION Percy Mancilla 57 y.o. male 1960 [id number] Procedure(s): MRI GENERAL SEDATION CERVICAL & LUMBAR (N/A ) Medical history, anesthesia, medications, allergy, NPO status verified histories reviewed. Review of Systems / Med History Cardiovascular (+) hypertension, past CT Pulmonary (+) asthma, COPD, Stop Bang Score: [...] proceed. Electronically Signed by: Chon Caputo MD ESig date/time: 10/16/2018 14:01 documented in this enc [...]
--- OUTSIDE RECORDS SUMMARY | ~2020-05-12 | XMS | Encounter Summary ---
Demographics + + + | Address | [address] | | | [place] [address] | + + + | Home Phone | | + + + | Preferred Language | Unknown | + + + | Marital Status | | + + + | Zoroastrianism Affiliation | 1013 | + + + | Race | White | + + + | Ethnic Group | Not or | + + + Author + + + | Author | [facility] | | | and [place] | + + + | Organization | [facility] | | | and [...] [place] | | | | | [address] | | + + + + + | Jane Mojica | ECON | Unknown | | + + + + + | Estelita Zamudio | ECON | Unknown | | + + + + + Care Team Providers + +------+ + | Care Dictionary Editor Name | Role | Phone | + +------+ + | Humza Santiago PA-C | SOFIA | | + +------+ + Reason for Visit + + + | Reason | Comments | + + + | Arm Pain | Bilateral arm pain | + + + Service/Procedure (Routine) +--------+--------+ + + + + | Status | Reason | Specialty | Diagnoses / | Referred By | Referred To | | | | | Procedures | Contact | Contact | +--------+--------+ + + + + | Closed | | Physical | Diagnoses | | David, | | | | Medicine and | Disturbance | David, | Anthony Alba MD | | | | Rehabilitatio | of skin | Anthony Alba MD | [address] | | | | n | sensation | [address] | [address] [place] | | | | | Procedures | ST [place] | [place], [place] | | | | | HI MOTOR | [place], [place] | [address] Phone: | | | | | &/SENS 1-2 | [address] | [phone] | | | | | NRV CNDJ | Phone: | Fax: | | | | | PRECONF | [phone] | [phone] | | | | | ELTRODE LIMB | Fax: | | | | | | HI NEEDLE | [phone] | | | | | | EMG EA | | | | | | | EXTREMITY | | | | | | | W/PARASPINL | | | | | | | AREA LIMITED | | | | | | | HI EMG, | | | | | | | NEEDLE, TWO | | | | | | | LIMBS HI | | | | | | | NEEDLE EMG | | | | | | | EA EXTREMTY | | | | | | | W/PARASPINL | | | | | | | AREA | | | | | | | COMPLETE HI | | | | | | | MOTOR | | | | | | | &/SENS 9-10 | | | | | | | NRV CNDJ | | | | | | | PRECONF | | | | | | | ELTRODE LIMB | | | | | | | NO CHARGE | | | | | | | E&M EMG | | | | | | | UPPER | | | | | | | EXTREMITIES | | | | | | | DIRECT | | | | | | | REFERRAL | | | | | | | FROM DR | | | | | | | TIMOTHY VEE | | | +--------+--------+ + + + + Encounter Details +--------+ + + + + | Date | Type | Department | Care Team | Description | +--------+ + + + + | 09/28/ | Procedure | [facility] [place] | Anthony Hernandez | Carpal tunnel | | 2013 | visit | PHYSIATRY [address] | [address], [address] | syndrome, bilateral | | | | [address] | [place] | (Primary Dx) | | | | [place], [place] | [address] | | | | | [address] | | | | | | [phone] | | | +--------+ + + + + Social History + +-------+ +--------+ + | Tobacco Use | Types | Packs/Day | Years | Date | | | | | Used | | + +-------+ +--------+ + | Former Smoker | | | | Quit: 09/28/2008 | + +-------+ +--------+ + + + +---------+ + | Alcohol Use | Drinks/Week | oz/Week | Comments | + + +---------+ + | Not Asked | | | | + + +---------+ + [...] + | Blood Pressure | 112/76 | 09/28/2013 8:15 AM | | | | | PST | | + + + + + | Pulse | 77 | 09/28/2013 8:15 AM | | | | | PST [...] + + + + | Weight | 88.5 kg (195 lb) | 09/28/2013 8:15 AM | | | | | PST | | + + + + + | Height | 175.3 cm (5' 9") | 09/28/2013 8:15 AM | | | | | PST | | + + + + + | Body Mass Index | 28.8 | 09/28/2013 8:15 AM | | | | | PST | | + + + + + documented in this encounter Progress Notes Anthony Hernandez MD - 10/01/2013 7:08 AM PST [facility] Musculoskeletal, Sports and Spine, Physiatry [address] [address] Test Date: 09/28/2013 Patient Name: Percy Mancilla : 1960 Physician: Anthony Hernandez MD MR #: [id number] Sex: Male Referring Physician: Dr. Timothy Vee HISTORY: The patient is a pleasant 52 year-old male who is being seen today at the request of Timothy Vee MD for complaints of bilateral upper extremity pain and paresthesias. The patient reports that the numbness affects primarily the 1st-3rd digits of both hands. The patient has had symptoms for several years. 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 He does get nocturnal symptoms as w ell. He denies any history of diabetes, hypothyroidism or cancer. He also denies significan t alcohol use. Nerve Conduction Studies Anti Sensory Summary Table Site NR Peak (ms) Norm Peak (ms) P-T Amp (V) Norm P-T Amp Site1 Site2 Delta-P (ms) Dist (cm) Derrell (m/s) Norm Derrell (m/s) Left Radial Anti Sensory (Base 1st Digit) Wrist 2.7 <3.1 15.1 Wrist Base 1st Digit 2.7 0.0 Right Radial Anti Sensory (Base 1st Digit) Wrist 2.3 <3.1 28.1 Wrist Base 1st Digit 2.3 0.0 Motor Summary Table Site NR Onset (ms) Norm Onset (ms) O-P Amp (mV) Norm O-P Amp Site1 Site2 Delta-0 (ms) Dist (cm) Derrell (m/s) Norm Derrell (m/s) Left Median Motor (Abd Poll Brev) Wrist *4.4 <4.2 *4.1 >5 Elbow Wrist 3.7 19.0 51 >50 Elbow 8.1 4.2 Right Median Motor (Abd Poll Brev) Wrist 4.2 <4.2 5.5 >5 Elbow Wrist 3.5 19.0 54 >50 Elbow 7.7 5.3 Left Ulnar Motor (Abd Dig Minimi) Wrist 3.0 <4.2 9.4 >3 B Elbow Wrist 3.3 19.0 58 >53 B Elbow 6.3 9.5 A Elbow B Elbow 1.7 10.0 59 >53 A Elbow 8.0 9.1 Right Ulnar Motor (Abd Dig Minimi) Wrist 2.7 <4.2 10.9 >3 B Elbow Wrist 3.1 19.0 61 >53 B Elbow 5.8 10.7 A Elbow B Elbow 1.7 10.0 59 >53 A Elbow 7.5 9.8 Comparison Summary Table Site NR Peak (ms) Norm Peak (ms) P-T Amp (V) Site1 Site2 Delta-P (ms) Norm Delta (ms) Left Median/Ulnar Palm Comparison (Wrist - 8cm) Median Palm *2.3 <2.2 11.2 Median Palm Ulnar Palm *0.5 <0.3 Ulnar Palm 1.8 <2.2 9.9 Right Median/Ulnar Palm Comparison (Wrist - 8cm) Median Palm *2.4 <2.2 30.3 Median Palm Ulnar Palm *0.5 <0.3 Ulnar Palm 1.9 <2.2 19.1 EMG Side Muscle Nerve Root Ins Act Fibs Psw Amp Dur Poly Recrt Int Pat Comment Right Deltoid Axillary C5-6 Nml Nml Nml Nml Nml 0 Nml Nml Right Biceps Musculocut C5-6 Nml Nml Nml Nml Nml 0 Nml Nml Right Triceps Radial C6-7-8 Nml Nml Nml Nml Nml 0 Nml Nml Right PronatorTeres Median C6-7 Nml Nml Nml Nml Nml 0 Nml Nml Right 1stDorInt Ulnar C8-T1 Nml Nml Nml Nml Nml 0 Nml Nml Left Deltoid Axillary C5-6 Nml Nml Nml Nml Nml 0 Nml Nml Left Biceps Musculocut C5-6 Nml Nml Nml Nml Nml 0 Nml Nml Left Triceps Radial C6-7-8 Nml Nml Nml Nml Nml 0 Nml Nml Left PronatorTeres Median C6-7 Nml Nml Nml Nml Nml 0 Nml Nml Left 1stDorInt Ulnar C8-T1 Nml Nml Nml Nml Nml 0 Nml Nml Nerve Conduction Studies Motor Left/Right Comparison Site L Lat (ms) R Lat (ms) L-R Lat (ms) L Amp (mV) R Amp (mV) L-R Amp (%) Site1 Site2 L Ve l (m/s) R Derrell (m/s) L-R Derrell (m/s) Median Motor (Abd Poll Brev) Wrist *4.4 4.2 0.2 *4.1 5.5 25.5 Elbow Wrist 51 54 3 Elbow 8.1 7.7 0.4 4.2 5.3 20.8 Ulnar Motor (Abd Dig Minimi) Wrist 3.0 2.7 0.3 9.4 10.9 13.8 B Elbow Wrist 58 61 3 B Elbow 6.3 5.8 0.5 9.5 10.7 11.2 A Elbow B Elbow 59 59 0 A Elbow 8.0 7.5 0.5 9.1 9.8 7.1 Anti Sensory Left/Right Comparison Site L Lat (ms) R Lat (ms) L-R Lat (ms) L Amp (V) R Amp (V) L-R Amp (%) Site1 Site2 L Derrell (m/s) R Derrell (m/s) L-R Derrell (m/s) Radial Anti Sensory (Base 1st Digit) Wrist 2.7 2.3 0.4 15.1 28.1 46.3 Wrist Base 1st Digit Comparison Left/Right Comparison Site L Lat (ms) R Lat (ms) L-R Lat (ms) L Amp (V) R Amp (V) L-R Amp (%) Median/Ulnar Palm Comparison (Wrist - 8cm) Median Palm *2.3 *2.4 0.1 11.2 30.3 63.0 Ulnar Palm 1.8 1.9 0.1 9.9 19.1 48.2 NCV FINDINGS: Evaluation of the Left median motor nerve showed prolonged distal onset latency and reduced amplitude. The Left median/ulnar (palm) comparison and the Right median/ulnar (palm) luisa rison nerves showed prolonged distal peak latency (Median Palm) and abnormal peak latency di fference (Median Palm-Ulnar Palm). All remaining nerves (as indicated in the following tabl es) were within normal limits. EMG FINDINGS: All examined muscles (as indicated in the following table) showed no evidence of electrical instability. 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 This i s consistent with a clinical diagnosis of carpal tunnel syndrome. The severity would be cla ssified as mild to moderate and slightly worse on the right than on the left. There was no electrodiagnostic evidence of ulnar neuropathy, peripheral neuropathy, brachia l plexopathy or cervical radiculopathy. The patient will be following up with Dr. Timothy Vee to discuss the results of today s examination and further plan of care. Thank you for allowing me to perform neurodiagnostic testing on your patient. If you have a ny further questions or comments, please do not hesitate to call. Anthony Hernandez MD Diplomate, [place] Board of Physical Medicine and Rehabilitation. documented in th is encounter Miscellaneous Notes Miscellaneous - CRYSTAL BOOTHE - 09/28/2013 12:00 AM PST documented in this encounter Plan of Treatment Not on filedocumented as of this encounter Visit Diagnoses + + | Diagnosis | + + | Carpal tunnel syndrome, bilateral - Primary Carpal tunnel syndrome | + + documented in this encounter
--- OUTSIDE RECORDS SUMMARY | ~2020-05-12 | XMS | Encounter Summary ---
Demographics + + + | Address | [address] | | | [place] [address] | + + + | Home Phone [...] + | Author | [facility] | | [...] [place] | | | | | [address] | | + + + + + | Jane Mojica | ECON | Unknown | | + + + + + | Estelita Zamudio | ECON | Unknown | | + + + + + Care Team Providers + +------+ + | Care Vacuum Drum Drier Operator Name | Role | Phone | + +------+ + | Som Schmidt MD | PCP | | + +------+ + Encounter Details +--------+ + + + + | Date | Type | Department | Care Team | Description | +--------+ + + + + | 10/01/ | Orders Only | [facility] [place] | Manuel Waters | Neck pain (Primary | | 2017 | | NEUROSURGERY [address] | [address] | Dx); Back pain, | | | | [address] [place], [place] | unspecified back | | | | [place], [place] | [address] | location, | | | | [address] | | unspecified back | | | | [phone] | | pain laterality, | | | [...] + | Imaging | Routin | Back Pain, | Expected: 10/11/2016 | | Vw | | e | Unspecified Back | (Approximate), | | | | | Location, | Expires: 09/30/2017 | | | | | Unspecified Back | | | | | | Pain Laterality, | | | | | | Unspecified | | | | | | Chronicity | | + +---------+--------+ + + | XR Cervical Spine 4 | Imaging | Routin | Neck pain | Expected: 10/11/2016 | | or 5 Vws | | e | | (Approximate), | | | | | | Expires: 09/30/2017 | + +---------+--------+ + + documented as of this encounter Visit Diagnoses + + | Diagnosis | + + | Neck pain - Primary Cervicalgia | + + | Back pain, unspecified back location, unspecified back pain laterality, unspecified | | chronicity | + + documented in this encounter"
--- OUTSIDE RECORDS SUMMARY | ~2020-05-12 | XMS | Encounter Summary ---
Demographics + + + | Address | [address] | | | [place] [address] | + + + | Home Phone [...] + | Author | [facility] [...] [place] | | | | | [address] | | + + + + + | Jane Mojica | ECON | Unknown | | + + + + + | Estelita Zamudio | ECON | Unknown | | + + + + + Care Team Providers + +------+ + | Care Cathead Operator Name | Role | Phone | [...] + + | 01/20/ | Telephone | [facility] | Rene Borrego | Appointment | | 2018 | | SURGERY [address] | MD Corrine, FACS [address] | | | | | [place], [place] | [address] [facility] | | | | | [address] | [place] [address] | | | | | [phone] | [phone] | | | | | | | [...] encounter Miscellaneous Notes Telephone Encounter - Sissy sOman - 01/20/2018 10:19 AM PDTCalled patient to let him know when need to rsd his pre op to 1:00 then he will go over to [facility] and have a preop with the at 2:30. I was unable to reach, and his phone was not taking messages at this time. Will keep trying to call. Michele yuan in this encounter Plan of Treatment Not on filedocumented as of this encounter Visit Diagnoses Not on filedocumented in this encounter"
[~2020-05-12 10:26] MED LIST changes: +ATOMOXETINE HCL80 MG PO; +BUSPIRONE HCL30 MG PO; +CLONIDINE HCL0.1 MG PO; +CYCLOBENZAPRINE10 MG PO; +TRELEGY ELLIPT1 EACH INH; +ZOLPIDEM TARTRA10 MG PO
--- OUTSIDE RECORDS SUMMARY | 2020-05-12 10:30 | XMS ---
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 Care History Medical/Surgical 03/29/2020 [facility] Patient seen in walk in clinic by FRANKI Lopez, and advised to go to ED for further evaluation. 04/30/2018 [facility] - Patient is currently established with [facility]. If patient is seen in the ED during business hours. Please contact [facility] at [facility]. Care Recommendation: This patient has [...] providing care. E.D. VISIT COUNT (12 MO.) [address] [facility] TOTAL 2 NOTE: Visits indicate total known visits. ED/UCC VISIT TRACKING (12 MO.) 05/12/2020 10:27 [facility] TYPE: Emergency COMPLAINT: - URINE PROBLEM 03/28/2020 11:14 [facility] TYPE: Emergency COMPLAINT: - HEADACHE DIAGNOSES: - Other care home (current) drug therapy - Chronic obstructive pulmonary disease, unspecified - Essential (primary) hypertension - Personal history of nicotine dependence - Bee allergy status - Allergy status to narcotic agent status - Headache - Anxiety disorder, unspecified INPATIENT VISIT TRACKING (12 MO.) 05/03/2020 05:04 [facility] TYPE: Orthopedic DIAGNOSES: - Spondylolisthesis, lumbosacral region 08/18/2019 05:35 [facility] TYPE: Neuro Surgery DIAGNOSES: - Other spondylosis with radiculopathy, cervical region [id number]
== END 2020-05-12 13:01 | disposition home or self-care (01) ==
LOC: ED 10:26
DX: R30.0 Dysuria (principal); N50.812 Left testicular pain; N50.811 Right testicular pain; F41.9 Anxiety disorder, unspecified; I10 Essential (primary) hypertension; J44.9 Chronic obstructive pulmonary disease, unspecified; Z87.891 Personal history of nicotine dependence; Z88.5 Allergy status to narcotic agent; Z91.030 Bee allergy status; Z79.899 Other long term (current) drug therapy
CPT/HCPCS: 76870; 81001; 99284-25

== ENCOUNTER 2021-03-11 11:31 | Emergency (ER) | payer MEDICARE, OTHER ==
[~2021-03-11] VITALS: Ht 175.3 cm; Wt 75.3 kg
--- OUTSIDE RECORDS SUMMARY | 2021-03-11 11:38 | XMS ---
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 Internal Medicine 01/23/2019-Current PHONE: [phone] Care Guidelines exist for the following facilities: [facility] ( 10/03/2020 ) Care History Medical/Surgical 03/29/2020 [facility] Patient seen in walk in clinic by FRANKI Lopez, and advised to go to ED for further evaluation. 04/30/2018 [facility] - Patient is currently established with [facility]. If patient is seen in the ED during business hours. Please contact CHWs at [facility]. Care Recommendation: This patient has had [...] providing care. E.D. VISIT COUNT (12 MO.) 3 [facility] [place] TOTAL 3 NOTE: Visits indicate total known visits. ED/UCC VISIT TRACKING (12 MO.) 03/11/2021 11:32 [facility] [place] TYPE: Emergency COMPLAINT: - FLU SYMPTOMS, SOB 05/12/2020 10:27 [facility] [place] TYPE: Emergency COMPLAINT: - URINE PROBLEM DIAGNOSES: - Anxiety disorder, unspecified - Dysuria - Allergy status to narcotic agent - Right testicular pain - Personal history of nicotine dependence - Essential (primary) hypertension - Chronic obstructive pulmonary disease, unspecified - Bee allergy status - Other long-term (current) drug therapy - Left testicular pain 03/28/2020 11:14 [facility] [place] TYPE: Emergency COMPLAINT: - HEADACHE DIAGNOSES: - Other remote computer terminal operator (current) drug therapy - Chronic obstructive pulmonary disease, unspecified - Essential (primary) hypertension - Personal history of nicotine dependence - Bee allergy status - Allergy status to narcotic agent - Headache - Anxiety disorder, unspecified INPATIENT VISIT TRACKING (12 MO.) 05/03/2020 05:04 [facility] [place] TYPE: Orthopedic DIAGNOSES: - Spondylolisthesis, lumbosacral region [email or web address]
[2021-03-11] MEDS ORDERED: BELSOMRA10 MG PO (14:02)
[2021-03-11] MEDS ORDERED: PREDNISONE20 MG PO (16:04)
== END 2021-03-11 16:20 | disposition home or self-care (01) ==
LOC: ED 11:31
DX: J84.10 Pulmonary fibrosis, unspecified (principal); Z20.822 Contact with and (suspected) exposure to COVID-19; I10 Essential (primary) hypertension; Z87.891 Personal history of nicotine dependence; Z91.030 Bee allergy status; Z88.8 Allergy status to other drugs, medicaments and biological substances; Z88.5 Allergy status to narcotic agent; Z79.899 Other long term (current) drug therapy; Z79.84 Long term (current) use of oral hypoglycemic drugs
CPT/HCPCS: 71045; 80053; 85025; 94640; 96374; 96375; 99285-25; C9803; J1885; J2930; U0003

== ENCOUNTER 2022-05-23 08:52 | Emergency (ER) | payer MEDICARE, OTHER ==
[~2022-05-23] VITALS: Ht 175.3 cm; Wt 81.7 kg
[~2022-05-23 08:52] MED LIST changes: +BELSOMRA10 MG PO; +DICLOFENAC SODI75 MG PO; +HYDROCODON-ACE1 EA11 PO; +ONDANSETRON ODT4 MG PO; +SERTRALINE HCL25 MG PO
--- OUTSIDE RECORDS SUMMARY | 2022-05-23 08:54 | XMS ---
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 If patient is seen in the ED during business hours. Please contact CHWs at [facility]. Care Recommendation: This patient has had 5 or more Emergency Department visits in the last 12 months. Patient requires education on the scope and purpose of the ED as an acute care provider not a Primary Care Provider and should not be utilized for chronic conditions. These are guidelines and the provider should exercise clinical judgment when providing care. 08/16/2021 [facility] Appropriate use of ER for pain due to slip and fall. Patient will follow up with Dr. Amaya if need be. 03/29/2020 [facility] Patient seen in walk in clinic by FRANKI Lopez, and advised to go to ED for further evaluation. Lyric VISIT COUNT (12 MO.) 2 [facility] [place] TOTAL 2 NOTE: Visits indicate total known visits. ED/UCC VISIT TRACKING (12 MO.) 05/23/2022 08:53 [facility] [place] TYPE: Emergency COMPLAINT: - L FOOT INJURY 08/16/2021 10:[address] [facility] [place] TYPE: Emergency COMPLAINT: - FALL, LOWER BACK/L LEG PAIN DIAGNOSES: - Allergy status to narcotic agent - Personal history of nicotine dependence - Latex allergy status - Other group home (current) drug therapy - Essential (primary) hypertension - LOW BACK PAIN, UNSPECIFIED - manager intermediate (current) use of oral hypoglycemic drugs - Low back pain, unspecified - Contusion of left hip, initial encounter - Allergy status to other drugs, medicaments and biological substances - Sprain of ligaments of lumbar spine, initial encounter - Bee allergy status - Chronic obstructive pulmonary disease, unspecified - Fall on same level due to ice and snow, initial encounter INPATIENT VISIT TRACKING (12 MO.) No inpatient visits to display in this time frame [email or web address]
[2022-05-23] MEDS ORDERED: TRELEGY ELLIPT1 EACH (09:06)
[2022-05-23] MEDS ORDERED: SERTRALINE HCL100 MG PO (09:07)
[2022-05-23] MEDS ORDERED: DOXEPIN HCL10 MG (09:07)
[2022-05-23] MEDS ORDERED: PRAZOSIN HCL1 MG PO (09:07)
== END 2022-05-23 09:38 | disposition home or self-care (01) ==
LOC: ED 08:52
DX: S91.112A Laceration without foreign body of left great toe without damage to nail, initial encounter (principal); W26.8XXA Contact with other sharp object(s), not elsewhere classified, initial encounter; M19.90 Unspecified osteoarthritis, unspecified site; J44.9 Chronic obstructive pulmonary disease, unspecified; I10 Essential (primary) hypertension; Z87.891 Personal history of nicotine dependence; Z91.030 Bee allergy status; Z91.040 Latex allergy status; Z88.5 Allergy status to narcotic agent; Z88.8 Allergy status to other drugs, medicaments and biological substances; Z79.899 Other long term (current) drug therapy; Z79.84 Long term (current) use of oral hypoglycemic drugs
CPT/HCPCS: 12001; 90471; 90715; 99282-25

== ENCOUNTER 2023-04-17 06:40 | Day surgery (SDC) | payer MEDICARE, OTHER ==
[2023-04-11 12:31] VITALS: BP 117/79
[~2023-04-17] VITALS: Ht 172.7 cm; Wt 79.5 kg
[~2023-04-17 06:40] MED LIST changes: +CELEBREX200 MG PO; +DICYCLOMINE HCL10 MG PO; +DOXEPIN HCL10 MG; +PRAZOSIN HCL1 MG PO; +SERTRALINE HCL100 MG PO; +STRATTERA80 MG PO; +TRELEGY ELLIPT1 EACH; +TRELEGY ELLIPT1 EACH IH; +ZOLOFT100 MG PO
[2023-04-17 06:51] VITALS: BP 106/69
--- NOTE | 2023-04-17 08:37 | NUR ---
DINKEY BRAKEMAN HAS BEEN IN TO TALK AND NOW GIVING VERSED. RAILS UP.
[2023-04-17 09:41] VITALS: BP 136/95
--- NOTE | 2023-04-17 10:04 | NUR ---
04/17/23 1004 Jessica Joshi 0920 PT ARRIVED IN PACU SLEEPY. ABD SOFT AND PASSING FLATUS. 0930 PT AWAKE AND SITTING UP IN BED ASKING FOR JUICE. OJ GIVEN. 0935 DC INSTRUCTIONS GIVEN. REFILLED OJ PER PT REQUEST. 0945 DC INSTRUCTIONS GIVEN. LEFT VIA MEDICAL TRANSPORT TAXI.
--- NOTE | 2023-04-17 10:31 | OR ---
[facility] [address] [place], [place] [address] Signed DATE OF OPERATION: 04/17/2023 SURGEON: Lore Castaneda MD PREOPERATIVE DIAGNOSES: 1. Father with colon cancer at 51. 2. Twin sister with Crohn disease. 3. Irritable bowel syndrome with generalized abdominal pain, nausea, vomiting, and chronic diarrhea. 4. Intermittent rectal bleeding. 5. History of Clostridium difficile colitis. 6. Internal hemorrhoids. POSTOPERATIVE DIAGNOSES: 1. A 5 mm polyp at distal right colon. 2. A 4 mm polyp at hepatic flexure. 3. A 4 mm polyp at mid transverse colon. 4. Minimal sigmoid diverticulosis. 5. Minimal internal hemorrhoids. PROCEDURE: Colonoscopy with hot biopsy. ESTIMATED BLOOD LOSS: None. INDICATIONS FOR THE PROCEDURE: Mr. Greer is a 62-year-old gentleman, asked to see me for followup colonoscopy. His father was diagnosed and of colon cancer at age 51. His sister has a history of Crohn disease. Unfortunately, his twin sister remains on IV drugs. He gave up IV drugs 17 years ago. In that regard, they no longer talked to one another. Percy does have a long history of irritable bowel syndrome associated with generalized abdominal pain, nausea, vomiting, and chronic diarrhea, for which he uses dicyclomine. He also has intermittent rectal bleeding. He has a history of C diff colitis. Currently, he has no lower GI complaints. He said he developed cancer like his father. I had helped him with the colonoscopy back in 2016, this was unremarkable. We had to give him fentanyl and Versed just to get him in the endoscopy suite. In a very similar fashion, he needed a little Versed today. He always needs monitored anesthesia care. He decided to take his bowel prep a little earlier today. It worked out overall fine. He might do better with a little more bowel prep. He only had 64 ounces of polyethylene glycol. In Electronically Signed By: LOER CASTANEDA MD 04/17/23 1031 PATIENT NAME: PERCY MOSES OPERATIVE REPORT DATE OF : 64 REPORT #: [id number] PHYSICIAN: LORE CASTANEDA MD PCP: ILDA KENNEDY MD REPORT IS CONFIDENTIAL AND NOT TO BE RELEASED WITHOUT AUTHORIZATION [facility] [address] [place] [id number] Signed the office, I gave him a pamphlet on colonoscopy. We had reviewed the nature of the test. He understands there is risk including, but not limited to gas bloating, crampy abdominal pain, bleeding, perforation requiring surgery, and missed diagnosis. He had expressed understanding and wished to proceed. DESCRIPTION OF PROCEDURE: Percy was taken into our endoscopy suite and placed in the left lateral decubitus position. He was given a couple of milligrams of Versed just in our preop area. It really did not seem to make much affect. After that, he was given IV propofol per our nurse machinist automotive. A digital rectal exam was performed and this was unremarkable. Really no external hemorrhoids. Good sphincter tone. The adult colonoscope had been introduced and advanced under direct visualization of camera without difficulty into the cecum. He did have some areas of particulate stool matter. If he took a little more bowel prep, it would be helpful. After this, the scope was then slowly withdrawn. We could easily see the appendiceal orifice and ileocecal valve. The above-mentioned polyps were easily removed with the help of a hot biopsy forceps. The two smaller polyps probably are lymphoid aggregates. He had just a few small diverticula in the sigmoid colon, they were small in size, few in number and scattered about. Once in the rectum, the scope was retroflexed. He has very minimal internal hemorrhoid columns. The gas was then suctioned out, the colonoscope removed. Percy tolerated the procedure quite well. RECOMMENDATIONS: I will see Percy back in my office in 7 to 14 days to review his results. I suspect he will stay on the five year plan due to his family history. He might consider a little more bowel prep in the future. He always need monitored anesthesia care. Lore Castaneda MD ALB/MODL /[id number] cc: Lore Castaneda MD Patient Chart Electronically Signed By: LORE CASTANEDA MD 04/17/23 1031 PATIENT NAME: PERCY MOSES OPERATIVE REPORT DATE OF : 64 REPORT #: [id number] PHYSICIAN: LORE CASTANEDA MD PCP: ILDA KENNEDY MD REPORT IS CONFIDENTIAL AND NOT TO BE RELEASED WITHOUT AUTHORIZATION [address] [address] Signed Ilda Kennedy MD Copies: LORE CASTANEDA MD, RUSSEL J MD ~ Electronically Signed By: LORE CASTANEDA MD 04/17/23 1031 PATIENT NAME: PERCY MOSES OPERATIVE REPORT DATE OF : 64 REPORT #: [id number] PHYSICIAN: LORE CASTANEDA MD PCP: ILDA KENNEDY MD REPORT IS CONFIDENTIAL AND NOT TO BE RELEASED WITHOUT AUTHORIZATION
--- NOTE | 2023-04-19 14:50 | PATH ---
[facility] [address] [place], [place] [address] Signed SPECIMEN(S): A DISTAL RIGHT ASCENDING COLON BIOPSY SPECIMEN(S): B HEPATIC FLEXURE BIOPSY SPECIMEN(S): C MID TRANSVERSE COLON BIOPSY SPECIMEN SOURCE: A. DISTAL RIGHT ASCENDING COLON BIOPSY B. HEPATIC FLEXURE BIOPSY C. MID TRANSVERSE COLON BIOPSY CLINICAL HISTORY: IBS - D, C-diff. Family h/o colon CA, intermittent rectal bleeding. FINAL PATHOLOGIC DIAGNOSIS: A. Distal right ascending colon biopsy: - Tubular adenoma (one fragment). B. Hepatic flexure biopsy: - Hyperplastic polyps (two fragments). C. Mid transverse colon biopsy: - Tubular adenoma (one fragment). JVR:[facility] MICROSCOPIC EXAMINATION: Histologic sections of all submitted blocks are examined by light microscopy. These findings, together with the gross examination, support the pathologic diagnosis. GROSS DESCRIPTION: A. The specimen, labeled and designated "[place], distal ascending colon biopsy," is received in formalin and consists of one alberts soft tissue fragment, 0.2 cm. Entirely submitted in (A1). B. The specimen, labeled and designated "[place], hepatic flexure biopsy," is received in formalin and consists of two alberts soft tissue fragments, ranging from 0.1-0.2 cm. Entirely submitted in (B1). C. The specimen, labeled and designated "[place], mid transverse colon biopsy," is received in formalin and consists of one alberts soft tissue fragment, less than 0.1 cm. Entirely submitted in (C1). JS (under the direct supervision of a pathologist) The Gross Description was prepared using a voice recognition system. The report was reviewed for accuracy; however, sound-alike word errors, addition and/or deletions may occur. If there is any question about this report, please contact Client Services. PATIENT NAME: CIARAN MOSES PATHOLOGY DATE OF : 64 REPORT #: [id number] PHYSICIAN: TODD PATHOLOGY PCP: ILDA PADGETT MD REPORT IS CONFIDENTIAL AND NOT TO BE RELEASED WITHOUT AUTHORIZATION [facility] [address] [place] [id number] Signed PERFORMING LABORATORY: Technical component was performed by [facility], [address] [place] [id number] (CLIA# [id number]). Professional interpretation was performed by [facility], [address] [place] [id number] (CLIA#: [id number]). Diagnostician: Cristhian Bonilla MD Pathologist Electronically Signed 04/19/2023 Copies: ~ PATIENT NAME: CIARAN MOSES PATHOLOGY DATE OF : 64 REPORT #: [id number] PHYSICIAN: TODD ANDREW PCP: ILDA PADGETT MD REPORT IS CONFIDENTIAL AND NOT TO BE RELEASED WITHOUT AUTHORIZATION
== END 2023-04-17 09:45 | disposition home or self-care (01) ==
LOC: DS 06:40 → OPS 06:40 → DS 08:15 → OPS 08:15
PROVIDERS: ATTEND Colon & Rectal Surgery
PROC: 0DBC8ZX Excision of Ileocecal Valve, Via Natural or Artificial Opening Endoscopic, Diagnostic (ICD-10-PCS; principal; 2023-04-17 08:15)
DX: D12.2 Benign neoplasm of ascending colon (principal); D12.3 Benign neoplasm of transverse colon; K57.30 Diverticulosis of large intestine without perforation or abscess without bleeding; K64.8 Other hemorrhoids; I10 Essential (primary) hypertension; E78.5 Hyperlipidemia, unspecified; R73.03 Prediabetes; J44.9 Chronic obstructive pulmonary disease, unspecified; G47.33 Obstructive sleep apnea (adult) (pediatric); K52.9 Noninfective gastroenteritis and colitis, unspecified; Z80.0 Family history of malignant neoplasm of digestive organs
CPT/HCPCS: 00811; J2250; J2704; J7121

== ENCOUNTER 2023-04-27 06:46 | Inpatient (IN) | payer MEDICARE, OTHER ==
[2023-04-27] VITALS (16 sets, daily range): BP systolic 90–118; BP diastolic 67–87
[~2023-04-27] VITALS: Ht 172.7 cm; Wt 79.4 kg
--- OUTSIDE RECORDS SUMMARY | ~2023-04-27 | XMS | Continuity of Care Document ---
Demographics + + + | Address | [address] | | | [place] [address] | + + + | Preferred Language | Unknown | + + + | Marital Status | Never | + + + | Mormonism Affiliation | Unknown | + + + | Race | White | + + + | Ethnic Group | Not or | + + + Author + + + | Author | [facility] | + + + | Organization | [facility] | + + + | Address | [address] [facility] | | | [place] [address] | + + + | Phone | | + + + Care Team Providers + + + + | Care Assigner Name | Role | Phone | + + + + Unavailable | Unavailable | + + + + Unavailable | Unavailable | + + + + Unavailable | Unavailable | + + + + Unavailable | Unavailable | + + + + Unavailable | Unavailable | + + + + Allergies and Intolerances + + + + + + | date | description | facility | reaction | severity | + + + + + + | (no date) | Latex | [facility] | (no reaction) | (no severity) | | [facility] | | | + + + + + + | (no date) | Latex | [facility] | (no reaction) | (no severity) | | | [facility] | | | + + + + + + | (no date) | CODEINE | [facility] | (no reaction) | (no severity) | | | [facility] [place] | | | + + + + + + | (no date) | NAPROXEN | [facility] | (no reaction) | (no severity) | | | [facility] [place] | | | + + + + + + | (no date) | Mild | [facility] | (no reaction) | (no severity) | | | [facility] | | | + + + + + + | (no date) | Wasp venom | [facility] | (no reaction) | (no severity) | | | [facility] | | | + + + + + + | (no date) | Codeine | [facility] | (no reaction) | (no severity) | | | [facility] | | | + + + + + + | (no date) | Rash | [facility] | (no reaction) | (no severity) | | | [facility] | | | + + + + + + | (no date) | Latex | [facility] | (no reaction) | (no severity) | | | [facility] | | | + + + + + + | (no date) | Codeine | [facility] | (no reaction) | (no severity) | | | [facility] | | | + + + + + + | (no date) | Anaphylaxis | [facility] | (no reaction) | (no severity) | | | [facility] | | | + + + + + + | (no date) | Itching | [facility] | (no reaction) | (no severity) | | | [facility] | | | + + + + + + | (no date) | VENOM-WASP | [facility] | (no reaction) | (no severity) | | | [facility] [place] | | | + + + + + + | (no date) | naproxen | [facility] | (no reaction) | (no severity) | | | sodium | | | | + + + + + + | (no date) | codeine | [facility] | (no reaction) | (no severity) | + + + + + + | (no date) | venom-wasp | [facility] | (no reaction) | (no severity) | + + + + + + | (no date) | latex | [facility] | (no reaction) | (no severity) | + + + + + + | (no date) | kale | [facility] | (no reaction) | (no severity) | + + + + + + | (no date) | Latex | [facility] | (no reaction) | (no severity) | | | [facility] | | | + + + + + + | (no date) | NO ALLERGY | [facility] | (no reaction) | (no severity) | | | INFORMATION ON | [facility] | | | | | FILE | Hospital | | | + + + + + + | (no date) | Codeine | [facility] | (no reaction) | (no severity) | | | [facility] | | | + + + + + + | (no date) | Wasp venom | [facility] | (no reaction) | (no severity) | | | [facility] | | | + + + + + + Encounters No information. Functional Status No information. Immunizations + + + + | date | description | facility | + + + + | 2022-05-23 00:00 | Tdap | [facility] | + + + + | 2022-05-23 00:00 | Tdap | [facility] | + + + + | 2022-05-23 00:00 | Influenza, Injectable, | [facility] | | | Quadrivalent | | + + + + | 2023-04-17 00:00 | Influenza, Injectable, | [facility] | | | Quadrivalent | | + + + + Medications + + + + | date | description | facility | + + + + | 2022-05-23 00:00 | DOXEPIN HCL | [facility] | + + + + | 2022-05-23 00:00 | LIDOCAINE 2% VISCOUS | [facility] | + + + + | 2023-04-17 00:00 | LIDOCAINE 2% VISCOUS | [facility] | + + + + | 2022-05-23 00:00 | LURASIDONE HCL | [facility] | + + + + | 2023-04-17 00:00 | LURASIDONE HCL | [facility] | + + + + | 2022-05-23 00:00 | ONDANSETRON | [facility] | + + + + | 2023-04-17 00:00 | ONDANSETRON | [facility] | + + + + | 2015-08-19 00:00 | ONDANSETRON HCL | [facility] | + + + + | 2015-08-19 00:00 | ONDANSETRON HCL | [facility] | + + + + | 2019-01-14 00:00 | ONDANSETRON HCL | [facility] | + + + + | 2019-01-14 00:00 | ONDANSETRON HCL | [facility] | + + + + | 2018-04-11 00:00 | OXYCODONE | [facility] | | | HCL/ACETAMINOPHEN | | + + + + | 2018-04-11 00:00 | OXYCODONE | [facility] | | | HCL/ACETAMINOPHEN | | + + + + | 2022-05-23 00:00 | OXYCODONE HCL | [facility] | + + + + | 2023-04-17 00:00 | OXYCODONE HCL | [facility] | + + + + | 2015-09-10 00:00 | DIPHENHYDRAMINE HCL | [facility] | + + + + | 2015-09-10 00:00 | DIPHENHYDRAMINE HCL | [facility] | + + + + | 2022-05-23 00:00 | LURASIDONE HCL | [facility] | + + + + | 2023-04-17 00:00 | LURASIDONE HCL | [facility] | + + + + | 2022-05-23 00:00 | IPRATROPIUM/ALBUTEROL | [facility] | | | SULFATE | | + + + + | 2023-04-17 00:00 | IPRATROPIUM/ALBUTEROL | [facility] | | | SULFATE | | + + + + | 2022-05-23 00:00 | MELOXICAM | [facility] | + + + + | 2023-04-17 00:00 | MELOXICAM | [facility] | + + + + | 2022-05-23 00:00 | SUVOREXANT | [facility] | + + + + | 2023-04-17 00:00 | SUVOREXANT | [facility] | + + + + | 2014-11-29 00:00 | HYDROCORTISONE | [facility] | + + + + | 2014-11-29 00:00 | HYDROCORTISONE | [facility] | + + + + | 2022-05-23 00:00 | | [facility] | | | Fluticasone/Umeclidin/Vilan | | | | ter | | + + + + | 2023-04-17 00:00 | | [facility] | | | Fluticasone/Umeclidin/Vilan | | | | ter | | + + + + | 2022-05-23 00:00 | ALPRAZOLAM | [facility] | + + + + | 2023-04-17 00:00 | ALPRAZOLAM | [facility] | + + + + | 2022-05-23 00:00 | BACLOFEN | [facility] | + + + + | 2023-04-17 00:00 | BACLOFEN | [facility] | + + + + | 2018-04-11 00:00 | IBUPROFEN | [facility] | + + + + | 2018-04-11 00:00 | IBUPROFEN | [facility] | + + + + | 2022-05-23 00:00 | | [facility] | | | LISINOPRIL/HYDROCHLOROTHIAZ | | | | ANNEL | | + + + + | 2023-04-17 00:00 | | [facility] | | | LISINOPRIL/HYDROCHLOROTHIAZ | | | | ANNEL | | + + + + | 2022-05-23 00:00 | METHOCARBAMOL | [facility] | + + + + | 2023-04-17 00:00 | METHOCARBAMOL | [facility] | + + + + | 2022-05-23 00:00 | OMEPRAZOLE | [facility] | + + + + | 2023-04-17 00:00 | OMEPRAZOLE | [facility] | + + + + | 2022-05-23 00:00 | ONDANSETRON HCL | [facility] | + + + + | 2023-04-17 00:00 | ONDANSETRON HCL | [facility] | + + + + | 2022-05-23 00:00 | PRAZOSIN HCL | [facility] | + + + + | 2023-04-17 00:00 | PRAZOSIN HCL | [facility] | + + + + | 2022-05-23 00:00 | PRAZOSIN HCL | [facility] | + + + + | 2023-04-17 00:00 | PRAZOSIN HCL | [facility] | + + + + | 2018-04-11 00:00 | ACETAMINOPHEN | [facility] | + + + + | 2018-04-11 00:00 | ACETAMINOPHEN | [facility] | + + + + | 2013-09-10 00:00 | LEVOFLOXACIN | [facility] | + + + + | 2023-04-17 00:00 | CELECOXIB | [facility] | + + + + | 2017-10-19 00:00 | CEPHALEXIN | [facility] | + + + + | 2017-10-19 00:00 | CEPHALEXIN | [facility] | + + + + | 2022-05-23 00:00 | GABAPENTIN | [facility] | + + + + | 2023-04-17 00:00 | GABAPENTIN | [facility] | + + + + | 2022-05-23 00:00 | HYDROCHLOROTHIAZIDE | [facility] | + + + + | 2023-04-17 00:00 | HYDROCHLOROTHIAZIDE | [facility] | + + + + | 2016-05-29 00:00 | IBUPROFEN | [facility] | + + + + | 2016-05-29 00:00 | IBUPROFEN | [facility] | + + + + | 2018-04-06 00:00 | ONDANSETRON | [facility] | + + + + | 2018-04-06 00:00 | ONDANSETRON | [facility] | + + + + | 2022-05-23 00:00 | PRAZOSIN HCL | [facility] | + + + + | 2022-05-23 00:00 | PRAZOSIN HCL | [facility] | + + + + | 2023-04-17 00:00 | PRAZOSIN HCL | [facility] | + + + + | 2013-09-10 00:00 | predniSONE | [facility] | + + + + | 2013-09-10 00:00 | predniSONE | [facility] | + + + + | 2014-11-18 00:00 | predniSONE | [facility] | + + + + | 2014-11-18 00:00 | predniSONE | [facility] | + + + + | 2021-03-11 00:00 | predniSONE | [facility] | + + + + | 2021-03-11 00:00 | predniSONE | [facility] | + + + + | 2022-05-23 00:00 | SENNOSIDES | [facility] | + + + + | 2023-04-17 00:00 | SENNOSIDES | [facility] | + + + + | 2022-05-23 00:00 | SERTRALINE HCL | [facility] | + + + + | 2022-05-23 00:00 | SERTRALINE HCL | [facility] | + + + + | 2023-04-17 00:00 | SERTRALINE HCL | [facility] | + + + + | 2022-05-23 00:00 | SERTRALINE HCL | [facility] | + + + + | 2023-04-17 00:00 | SERTRALINE HCL | [facility] | + + + + | 2022-05-23 00:00 | SODIUM FLUORIDE | [facility] | + + + + | 2023-04-17 00:00 | SODIUM FLUORIDE | [facility] | + + + + | 2018-04-06 00:00 | MAG HYDROX/AL | [facility] | | | HYDROX/SIMETH | | + + + + | 2018-04-06 00:00 | MAG HYDROX/AL | [facility] | | | HYDROX/SIMETH | | + + + + | 2022-05-23 00:00 | FENOFIBRATE | [facility] | | | NANOCRYSTALLIZED | | + + + + | 2023-04-17 00:00 | FENOFIBRATE | [facility] | | | NANOCRYSTALLIZED | | + + + + | 2022-05-23 00:00 | TIOTROPIUM BROMIDE | [facility] | + + + + | 2023-04-17 00:00 | TIOTROPIUM BROMIDE | [facility] | + + + + | 2022-05-23 00:00 | DULOXETINE HCL | [facility] | + + + + | 2023-04-17 00:00 | DULOXETINE HCL | [facility] | + + + + 2022-05-23 00:00 | DULOXETINE HCL | [facility] | + + + + | 2023-04-17 00:00 | DULOXETINE HCL | [facility] | + + + + | 2022-05-23 00:00 | Atomoxetine HCl | [facility] | + + + + | 2022-05-23 00:00 | ATORVASTATIN | [facility] | + + + + | 2023-04-17 00:00 | ATORVASTATIN | [facility] | + + + + | 2023-04-17 00:00 | ATOMOXETINE HCL | [facility] | + + + + | 2020-03-28 00:00 | CYCLOBENZAPRINE HCL | [facility] | + + + + | 2020-03-28 00:00 | CYCLOBENZAPRINE HCL | [facility] | + + + + | 2017-10-19 00:00 | TRAMADOL HCL | [facility] | + + + + | 2017-10-19 00:00 | TRAMADOL HCL | [facility] | + + + + | 2017-08-23 00:00 | TRAMADOL HCL | [facility] | + + + + | 2017-08-23 00:00 | TRAMADOL HCL | [facility] | + + + + | 2022-05-23 00:00 | TRAMADOL HCL | [facility] | + + + + | 2023-04-17 00:00 | TRAMADOL HCL | [facility] | + + + + | 2022-05-23 00:00 | CHOLESTYRAMINE/ASPARTAME | [facility] | + + + + | 2023-04-17 00:00 | CHOLESTYRAMINE/ASPARTAME | [facility] | + + + + | 2016-05-24 00:00 | | [facility] | | | SULFAMETHOXAZOLE/TRIMETHOPR | | | | IM DS | | + + + + | 2016-05-24 00:00 | | [facility] | | | SULFAMETHOXAZOLE/TRIMETHOPR | | | | IM DS | | + + + + | 2022-05-23 00:00 | ZOLPIDEM TARTRATE | [facility] | + + + + | 2023-04-17 00:00 | ZOLPIDEM TARTRATE | [facility] | + + + + | 2022-05-23 00:00 | DICLOFENAC SOD | [facility] | + + + + | 2023-04-17 00:00 | DICLOFENAC SOD | [facility] | + + + + | 2021-07-03 00:00 | DICLOFENAC SODIUM | [facility] | + + + + | 2022-05-23 00:00 | TRAZODONE HCL | [facility] | + + + + | 2023-04-17 00:00 | TRAZODONE HCL | [facility] | + + + + | 2022-05-23 00:00 | TRAZODONE HCL | [facility] | + + + + | 2023-04-17 00:00 | TRAZODONE HCL | [facility] | + + + + | 2022-05-23 00:00 | AMITRIPTYLINE HCL | [facility] | + + + + | 2023-04-17 00:00 | AMITRIPTYLINE HCL | [facility] | + + + + | 2014-11-29 00:00 | HYDROCODONE | [facility] | | | BIT/ACETAMINOPHEN | | + + + + | 2014-11-29 00:00 | HYDROCODONE | [facility] | | | BIT/ACETAMINOPHEN | | + + + + | 2021-07-03 00:00 | HYDROCODONE | [facility] | | | BIT/ACETAMINOPHEN | | + + + + | 2021-07-03 00:00 | HYDROCODONE | [facility] | | | BIT/ACETAMINOPHEN | | + + + + | 2021-08-16 00:00 | HYDROCODONE | [facility] | | | BIT/ACETAMINOPHEN | | + + + + | 2021-08-16 00:00 | HYDROCODONE | [facility] | | | BIT/ACETAMINOPHEN | | + + + + | 2022-05-23 00:00 | ALBUTEROL SULFATE | [facility] | + + + + | 2023-04-17 00:00 | ALBUTEROL SULFATE | [facility] | + + + + | 2022-05-23 00:00 | METFORMIN HCL | [facility] | + + + + | 2023-04-17 00:00 | METFORMIN HCL | [facility] | + + + + | 2022-05-23 00:00 | SALMETEROL XINAFOATE | [facility] | + + + + | 2023-04-17 00:00 | SALMETEROL XINAFOATE | [facility] | + + + + | 2022-05-23 00:00 | BUSPIRONE HCL | [facility] | + + + + | 2023-04-17 00:00 | BUSPIRONE HCL | [facility] | + + + + | 2018-04-29 00:00 | ONDANSETRON | [facility] | + + + + | 2018-04-29 00:00 | ONDANSETRON | [facility] | + + + + | 2022-05-23 00:00 | CLONIDINE HCL | [facility] | + + + + | 2023-04-17 00:00 | CLONIDINE HCL | [facility] | + + + + | 2022-05-23 00:00 | FLUTICASONE PROPIONATE 220 | [facility] | | | MCG | | + + + + | 2023-04-17 00:00 | FLUTICASONE PROPIONATE 220 | [facility] | | | MCG | | + + + + | 2023-04-17 00:00 | DICYCLOMINE HCL | [facility] | + + + + | 2019-01-14 00:00 | DICYCLOMINE HCL | [facility] | + + + + | 2015-08-19 00:00 | DICYCLOMINE HCL | [facility] | + + + + | 2015-08-19 00:00 | DICYCLOMINE HCL | [facility] | + + + + | 2022-05-23 00:00 | BUPROPION HCL | [facility] | + + + + | 2023-04-17 00:00 | BUPROPION HCL | [facility] | + + + + Problems + + + + | date | description | facility | + + + + | 2014-11-18 00:00 | Interstitial lung disease | [facility] | + + + + | 2014-11-18 00:00 | Interstitial lung disease | [facility] | + + + + | 2014-11-29 00:00 | Bleeding external | [facility] | | | hemorrhoids | | + + + + | 2014-11-29 00:00 | Bleeding external | [facility] | | | hemorrhoids | | + + + + | 2014-11-29 00:00 | Diarrhea | [facility] | + + + + | 2014-11-29 00:00 | Diarrhea | [facility] | + + + + | 2015-05-10 00:00 | Strain of shoulder | [facility] | + + + + | 2015-05-10 00:00 | Strain of shoulder | [facility] | + + + + | 2015-08-19 00:00 | Abdominal pain | [facility] | + + + + | 2015-08-19 00:00 | Abdominal pain | [facility] | + + + + | 2015-08-21 00:00 | Enteritis | [facility] | + + + + | 2015-08-21 00:00 | Enteritis | [facility] | + + + + | 2015-09-10 00:00 | Viral pharyngitis | [facility] | + + + + | 2015-09-10 00:00 | Viral pharyngitis | [facility] | + + + + | 2016-04-19 00:00 | Alcoholic intoxication | [facility] | + + + + | 2016-04-19 00:00 | Alcoholic intoxication | [facility] | + + + + | 2016-05-24 00:00 | Folliculitis | [facility] | + + + + | 2016-05-24 00:00 | Folliculitis | [facility] | + + + + | 2016-05-28 00:00 | Abscess of axilla | [facility] | + + + + | 2016-05-28 00:00 | Abscess of axilla | [facility] | + + + + | 2017-08-23 00:00 | Strain of lumbar region | [facility] | + + + + | 2017-08-23 00:00 | Strain of lumbar region | [facility] | + + + + | 2017-09-13 00:00 | Encounter for medical | [facility] | | | screening examination | | + + + + | 2017-09-13 00:00 | Encounter for medical | [facility] | | | screening examination | | + + + + | 2017-10-19 00:00 | Acute right flank pain | [facility] | + + + + | 2017-10-19 00:00 | Acute right flank pain | [facility] | + + + + | 2017-10-19 00:00 | Hematuria | [facility] | + + + + | 2017-10-19 00:00 | Hematuria | [facility] | + + + + | 2018-04-29 00:00 | Vomiting | [facility] | + + + + | 2018-04-29 00:00 | Vomiting | [facility] | + + + + | 2018-09-28 00:00 | Contusion of forehead | [facility] | + + + + | 2018-09-28 00:00 | Contusion of forehead | [facility] | + + + + | 2019-01-14 00:00 | Viral gastroenteritis | [facility] | + + + + | 2019-01-14 00:00 | Viral gastroenteritis | [facility] | + + + + | 2019-08-18 05:35 | 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, cervical | [place] | | | region | | + + + + | 2020-01-25 13:35:49 | Other spondylosis with | [facility] | | | radiculopathy, lumbar | [facility] | | | region | | + + + + | 2020-05-03 05:04 | Spondylolisthesis, | [facility] - | | | lumbosacral region | [place] | + + + + | 2020-05-12 00:00 | Pain in testicle | [facility] | + + + + | 2020-05-12 00:00 | Pain in testicle | [facility] | + + + + | 2020-05-12 00:00 | Dysuria | [facility] | + + + + | 2020-05-12 00:00 | Dysuria | [facility] | + + + + | 2021-08-16 00:00 | Sprain of back | [facility] | + + + + | 2021-08-16 00:00 | Sprain of back | [facility] | + + + + | 2021-08-16 00:00 | Contusion of left hip | [facility] | + + + + | 2021-08-16 00:00 | Contusion of left hip | [facility] | + + + + | 2021-08-16 10:43 | Essential (primary) | [facility] | | | hypertension | | + + + + | 2021-08-16 10:43 | CHRONIC OBSTRUCTIVE | [facility] | | | PULMONARY DISEASE, | | | | UNSPECIFIED | | + + + + | 2021-08-16 10:43 | LOW BACK PAIN, UNSPECIFIED | [facility] | | | | | + + + + | 2021-08-16 10:43 | SPRAIN OF LIGAMENTS OF | [facility] | | | LUMBAR SPINE, INITIAL ENCOU | | | | | | + + + + | 2021-08-16 10:43 | CONTUSION OF LEFT HIP, | [facility] | | | INITIAL ENCOUNTER | | + + + + | 2021-08-16 10:43 | FALL ON SAME LEVEL DUE TO | [facility] | | | ICE AND SNOW, INITIAL EN | | + + + + | 2021-08-16 10:43 | PENITENTIARY (CURRENT) USE OF | [facility] | | | ORAL HYPOGLYCEMIC DRUGS | | + + + + | 2021-08-16 10:43 | OTHER PENITENTIARY (CURRENT) | [facility] | | | DRUG THERAPY | | + + + + | 2021-08-16 10:43 | PERSONAL HISTORY OF | [facility] | | | NICOTINE DEPENDENCE | | + + + + | 2021-08-16 10:43 | ALLERGY STATUS TO NARCOTIC | [facility] | | | AGENT STATUS | | + + + + | 2021-08-16 10:43 | ALLERGY STATUS TO OTH | [facility] | | | DRUG/MEDS/BIOL SUBST STATUS | | | | | | + + + + | 2021-08-16 10:43 | BEE ALLERGY STATUS | [facility] | + + + + | 2021-08-16 10:43 | LATEX ALLERGY STATUS | [facility] | + + + + | 2022-05-23 00:00 | Avulsion of skin of toe | [facility] | + + + + | 2022-05-23 00:00 | Avulsion of skin of toe | [facility] | + + + + | 2023-04-11 11:39 | ENCOUNTER FOR OTHER | [facility] | | | PREPROCEDURAL EXAMINATION | | + + + + | 2023-04-11 11:39 | FAMILY HISTORY OF | [facility] | | | MALIGNANT NEOPLASM OF | | | | DIGESTIVE | | + + + + | 2023-04-17 06:40 | BENIGN NEOPLASM OF | [facility] | | | ASCENDING COLON | | + + + + | 2023-04-17 06:40 | BENIGN NEOPLASM OF | [facility] | | | TRANSVERSE COLON | | + + + + | 2023-04-17 06:40 | HYPERLIPIDEMIA, | [facility] | | | UNSPECIFIED | | + + + + | 2023-04-17 06:40 | ANXIETY DISORDER, | [facility] | | | UNSPECIFIED | | + + + + | 2023-04-17 06:40 | OBSTRUCTIVE SLEEP APNEA | [facility] | | | (ADULT) (PEDIATR | | + + + + | 2023-04-17 06:40 | Essential (primary) | [facility] | | | hypertension | | + + + + | 2023-04-17 06:40 | CHRONIC OBSTRUCTIVE | [facility] | | | PULMONARY DISEASE, U | | + + + + | 2023-04-17 06:40 | NONINFECTIVE | [facility] | | | GASTROENTERITIS AND COLITIS | | | | | | + + + + | 2023-04-17 06:40 | DVRTCLOS OF LG INT W/O | [facility] | | | PERFORATION OR ABSCESS W/O | | + + + + | 2023-04-17 06:40 | IRRITABLE BOWEL SYNDROME | [facility] | | | WITHOUT DIARRHE | | + + + + | 2023-04-17 06:40 | POLYP OF COLON | [facility] | + + + + | 2023-04-17 06:40 | OTHER HEMORRHOIDS | [facility] | + + + + | 2023-04-17 06:40 | GENERALIZED ABDOMINAL PAIN | [facility] | | | | | + + + + | 2023-04-17 06:40 | NAUSEA WITH VOMITING, | [facility] | | | UNSPECIFIED | | + + + + | 2023-04-17 06:40 | Pain, unspecified | [facility] | + + + + | 2023-04-17 06:40 | PREDIABETES | [facility] | + + + + | 2023-04-17 06:40 | OTHER ABNORMAL GLUCOSE | [facility] | + + + + | 2023-04-17 06:40 | FAMILY HISTORY OF | [facility] | | | MALIGNANT NEOPLASM OF | | + + + + | 2023-04-17 08:15 | HYPERLIPIDEMIA, | [facility] | | | UNSPECIFIED | | + + + + | 2023-04-17 08:15 | ANXIETY DISORDER, | [facility] | | | UNSPECIFIED | | + + + + | 2023-04-17 08:15 | OBSTRUCTIVE SLEEP APNEA | [facility] | | | (ADULT) (PEDIATR | | + + + + | 2023-04-17 08:15 | Essential (primary) | [facility] | | | hypertension | | + + + + | 2023-04-17 08:15 | CHRONIC OBSTRUCTIVE | [facility] | | | PULMONARY DISEASE, U | | + + + + | 2023-04-17 08:15 | NONINFECTIVE | [facility] | | | GASTROENTERITIS AND COLITIS | | | | | | + + + + | 2023-04-17 08:15 | IRRITABLE BOWEL SYNDROME | [facility] | | | WITHOUT DIARRHE | | + + + + | 2023-04-17 08:15 | OTHER HEMORRHOIDS | [facility] | + + + + | 2023-04-17 08:15 | GENERALIZED ABDOMINAL PAIN | [facility] | | | | | + + + + | 2023-04-17 08:15 | NAUSEA WITH VOMITING, | [facility] | | | UNSPECIFIED | | + + + + | 2023-04-17 08:15 | Pain, unspecified | [facility] | + + + + | 2023-04-17 08:15 | OTHER ABNORMAL GLUCOSE | [facility] | + + + + | 2023-04-17 08:15 | FAMILY HISTORY OF | [facility] | | | MALIGNANT NEOPLASM OF | | + + + + Procedures No information. Results/Labs +--------+--------+ +---------+--------+---------+ | test | date | facility | value | unit | notes | +--------+--------+ +---------+--------+---------+ + + | Result panel 1 | + + + + +-------+-------+---------+ + | POCT | 2019-08-20 | [facility] | 109 | mg/dl | (missing) | | GLUCOMETER | 08:59:28 | | | | | + + +-------+-------+---------+ + | POCT | 2019-08-20 | [facility] | 109 | mg/dl | (missing) | | GLUCOMETER | 08:59:28 | | | | | + + +-------+-------+---------+ + + + | Result panel 2 | + + + + +-------+ + + + | | 2020-01-25 | [facility] | (missing) | (missing) | (missing) | | (unavailable | 14:10:13 | | | | | | ) | | | | | | + + +-------+ + + + | | 2020-01-25 | [facility] | REPORT | (missing) | (missing) | | (unavailable | 14:10:13 | | SIGNED IN | | | | ) | | | OTHER VENDOR | | | | | | | SYSTEM | | | | | | | 01/27/2020 | | | | | | | | | | + + +-------+ + + + | | 2020-01-25 | [facility] | 1. Severe | (missing) | (missing) | | (unavailable | 14:10:13 | | disc height | | | | ) | | | loss, vacuum | | | | | | | phenomenon, | | | | | | | reactive | | | | | | | endplate | | | + + +-------+ + + + | | 2020-01-25 | [facility] | [address] | (missing) | (missing) | | (unavailable | 14:10:13 | | Street | | | | ) | | | | | | + + +-------+ + + + | | 2020-01-25 | [facility] | 2. | (missing) | (missing) | | (unavailable | 14:10:13 | | Otherwise, | | | | ) | | | normal | | | | | | | lumbar spine | | | | | | | MRI. | | | + + +-------+ + + + | | 2020-01-25 | [facility] | | (missing) | (missing) | | (unavailable | 14:10:13 | | [phone] | | | | ) | | | | | | + + +-------+ + + + | | 2020-01-25 | [facility] | Additional | (missing) | (missing) | | (unavailable | 14:10:13 | | findings: | | | | ) | | | Severe L5-S1 | | | | | | | | | | | | | | intervertebr | | | | | | | al disc | | | | | | | space | | | | | | | narrowing | | | + + +-------+ + + + | | 2020-01-25 | [facility] | Alignment: | (missing) | (missing) | | (unavailable | 14:10:13 | | Normal. | | | | ) | | | | | | + + +-------+ + + + | | 2020-01-25 | [facility] | CLINICAL | (missing) | (missing) | | (unavailable | 14:10:13 | | HISTORY: | | | | ) | | | | | | + + +-------+ + + + | | 2020-01-25 | [facility] | COMPARISON: | (missing) | (missing) | | (unavailable | 14:10:13 | | | | | | ) | | | | | | + + +-------+ + + + | | 2020-01-25 | [facility] | CSN: | (missing) | (missing) | | (unavailable | 14:10:13 | | [id number] | | | | ) | | | | | | + + +-------+ + + + | | 2020-01-25 | [facility] | Conus: | (missing) | (missing) | | (unavailable | 14:10:13 | | Normal in | | | | ) | | | signal, | | | | | | | terminating | | | | | | | at upper L1. | | | | | | | | | | + + +-------+ + + + | | 2020-01-25 | [facility] | : | (missing) | (missing) | | (unavailable | 14:10:13 | | 1960 | | | | ) | | | Sex: M | | | + + +-------+ + + + | | 2020-01-25 | [facility] | EXAM: | (missing) | (missing) | | (unavailable | 14:10:13 | | | | | | ) | | | | | | + + +-------+ + + + | | 2020-01-25 | [facility] | | (missing) | (missing) | | (unavailable | 14:10:13 | | Electronical | | | | ) | | | ly signed | | | | | | | by: NIKOLAI | | | | | | | VIRGINIA, | | | | | | | | | | + + +-------+ + + + | | 2020-01-25 | [facility] | Exam Date: | (missing) | (missing) | | (unavailable | 14:10:13 | | 01/25/2020 | | | | ) | | | | | | + + +-------+ + + + | | 2020-01-25 | [facility] | FINDINGS: | (missing) | (missing) | | (unavailable | 14:10:13 | | | | | | ) | | | | | | + + +-------+ + + + | | 2020-01-25 | [facility] | IMPRESSION: | (missing) | (missing) | | (unavailable | 14:10:13 | | | | | | ) | | | | | | + + +-------+ + + + | | 2020-01-25 | [facility] | L1-2: | (missing) | (missing) | | (unavailable | 14:10:13 | | Normal. | | | | ) | | | | | | + + +-------+ + + + | | 2020-01-25 | [facility] | L2-3: Mild | (missing) | (missing) | | (unavailable | 14:10:13 | | disc height | | | | ) | | | loss, vacuum | | | | | | | phenomenon | | | | | | | and no disc | | | | | | | bulge, | | | + + +-------+ + + + | | 2020-01-25 | [facility] | L3-4: | (missing) | (missing) | | (unavailable | 14:10:13 | | Normal. | | | | ) | | | | | | + + +-------+ + + + | | 2020-01-25 | [facility] | L4-5: | (missing) | (missing) | | (unavailable | 14:10:13 | | Normal. | | | | ) | | | | | | + + +-------+ + + + | | 2020-01-25 | [facility] | L5 nerve | (missing) | (missing) | | (unavailable | 14:10:13 | | roots. | | | | ) | | | | | | + + +-------+ + + + | | 2020-01-25 | [facility] | L5-S1: | (missing) | (missing) | | (unavailable | 14:10:13 | | Severe disc | | | | ) | | | height loss, | | | | | | | vacuum | | | | | | | phenomenon, | | | | | | | reactive | | | | | | | endplate | | | + + +-------+ + + + | | 2020-01-25 | [facility] | LEVEL BY | (missing) | (missing) | | (unavailable | 14:10:13 | | LEVEL | | | | ) | | | FOLLOWS: | | | + + +-------+ + + + | | 2020-01-25 | [facility] | Lordosis: | (missing) | (missing) | | (unavailable | 14:10:13 | | Normal. | | | | ) | | | | | | + + +-------+ + + + | | 2020-01-25 | [facility] | MR# | (missing) | (missing) | | (unavailable | 14:10:13 | | [id number] | | | | ) | | | | | | + + +-------+ + + + | | 2020-01-25 | [facility] | MRI OF THE | (missing) | (missing) | | (unavailable | 14:10:13 | | LUMBAR SPINE | | | | ) | | | WITHOUT | | | | | | | CONTRAST | | | + + +-------+ + + + | | 2020-01-25 | [facility] | Marrow: | (missing) | (missing) | | (unavailable | 14:10:13 | | Slightly | | | | ) | | | heterogeneou | | | | | | | s with mild | | | | | | | reactive | | | | | | | endplate | | | | | | | marrow | | | + + +-------+ + + + | | 2020-01-25 | [facility] | | (missing) | (missing) | | (unavailable | 14:10:13 | | Multiplanar, | | | | ) | | | | | | | | | | multisequenc | | | | | | | e | | | | | | | noncontrast | | | | | | | MRI images | | | | | | | of the | | | | | | | lumbar spine | | | | | | | | | | + + +-------+ + + + | | 2020-01-25 | [facility] | Name: | (missing) | (missing) | | (unavailable | 14:10:13 | | CIARAN MOSES | | | | ) | | | | | | + + +-------+ + + + | | 2020-01-25 | [facility] | None | (missing) | (missing) | | (unavailable | 14:10:13 | | available. | | | | ) | | | | | | + + +-------+ + + + | | 2020-01-25 | [facility] | Phys: | (missing) | (missing) | | (unavailable | 14:10:13 | | ELVIA FRANKLIN | | | | ) | | | JENNIFER | | | + + +-------+ + + + | | 2020-01-25 | [facility] | Reported | (missing) | (missing) | | (unavailable | 14:10:13 | | by: NIKOLAI | | | | ) | | | VIRGINIA, | | | | | | | MD | | | + + +-------+ + + + | | 2020-01-25 | [facility] | | (missing) | (missing) | | (unavailable | 14:10:13 | | Retroperiton | | | | ) | | | eum: Normal. | | | | | | | | | | + + +-------+ + + + | | 2020-01-25 | [facility] | Mini's | (missing) | (missing) | | (unavailable | 14:10:13 | | nodes | | | | ) | | | throughout | | | | | | | the entire | | | | | | | lumbar | | | | | | | spine. | | | + + +-------+ + + + | | 2020-01-25 | [facility] | Scoliosis: | (missing) | (missing) | | (unavailable | 14:10:13 | | None. | | | | ) | | | | | | + + +-------+ + + + | | 2020-01-25 | [facility] | Severe | (missing) | (missing) | | (unavailable | 14:10:13 | | bilateral | | | | ) | | | foraminal | | | | | | | stenosis | | | | | | | with | | | | | | | impingement | | | | | | | upon the | | | | | | | exiting | | | + + +-------+ + + + | | 2020-01-25 | [facility] | Spondylosis | (missing) | (missing) | | (unavailable | 14:10:13 | | with left | | | | ) | | | lower | | | | | | | extremity | | | | | | | radiculopath | | | | | | | y. | | | + + +-------+ + + + | | 2020-01-25 | [facility] | T12-L1: | (missing) | (missing) | | (unavailable | 14:10:13 | | Normal. | | | | ) | | | | | | + + +-------+ + + + | | 2020-01-25 | [facility] | TECHNIQUE: | (missing) | (missing) | | (unavailable | 14:10:13 | | | | | | ) | | | | | | + + +-------+ + + + | | 2020-01-25 | [facility] | [place], | (missing) | (missing) | | (unavailable | 14:10:13 | | [place] [id number] | | | | ) | | | | | | + + +-------+ + + + | | 2020-01-25 | [facility] | Transcribed | (missing) | (missing) | | (unavailable | 14:10:13 | | Date/Time: | | | | ) | | | 01/27/2020 | | | | | | | 05:23 | | | + + +-------+ + + + | | 2020-01-25 | [facility] | | (missing) | (missing) | | (unavailable | 14:10:13 | | Transcriptio | | | | ) | | | nist: | | | | | | | FLUENCY | | | + + +-------+ + + + | | 2020-01-25 | [facility] | Vertebral | (missing) | (missing) | | (unavailable | 14:10:13 | | body | | | | ) | | | heights: | | | | | | | Normal. | | | + + +-------+ + + + | | 2020-01-25 | [facility] | central | (missing) | (missing) | | (unavailable | 14:10:13 | | canal or | | | | ) | | | foraminal | | | | | | | stenosis. | | | + + +-------+ + + + | | 2020-01-25 | [facility] | central | (missing) | (missing) | | (unavailable | 14:10:13 | | canal or | | | | ) | | | subarticular | | | | | | | zone | | | | | | | stenosis. | | | | | | | Severe | | | | | | | bilateral | | | + + +-------+ + + + | | 2020-01-25 | [facility] | edema at | (missing) | (missing) | | (unavailable | 14:10:13 | | L5-S1. | | | | ) | | | | | | + + +-------+ + + + | | 2020-01-25 | [facility] | foraminal | (missing) | (missing) | | (unavailable | 14:10:13 | | stenosis | | | | ) | | | with | | | | | | | impingement | | | | | | | upon the | | | | | | | exiting L5 | | | | | | | nerve roots. | | | | | | | | | | + + +-------+ + + + | | 2020-01-25 | [facility] | osseous | (missing) | (missing) | | (unavailable | 14:10:13 | | hypertrophy | | | | ) | | | with | | | | | | | bilateral | | | | | | | moderate | | | | | | | facet | | | | | | | arthropathy. | | | | | | | No | | | + + +-------+ + + + | | 2020-01-25 | [facility] | osseous | (missing) | (missing) | | (unavailable | 14:10:13 | | hypertrophy | | | | ) | | | with | | | | | | | bilateral | | | | | | | moderate | | | | | | | facet | | | | | | | arthropathy. | | | | | | | | | | + + +-------+ + + + | | 2020-01-25 | [facility] | sclerosis | (missing) | (missing) | | (unavailable | 14:10:13 | | and 5 mm of | | | | ) | | | anterolisthe | | | | | | | sis. Mild | | | | | | | diffuse disc | | | | | | | bulge and | | | + + +-------+ + + + | | 2020-01-25 | [facility] | were | (missing) | (missing) | | (unavailable | 14:10:13 | | obtained. | | | | ) | | | | | | + + +-------+ + + + | | 2020-01-25 | [facility] | with vacuum | (missing) | (missing) | | (unavailable | 14:10:13 | | phenomenon | | | | ) | | | and 5 mm of | | | | | | | anterolisthe | | | | | | | sis. There | | | | | | | are | | | + + +-------+ + + + + + | Result panel 3 | + + + + +-------+--------+ + + | EGFR | 2020-05-03 | [facility] | > | | (missing) | | (GLOMERULAR | 06:02 | | | ml/min/1.73m | | | FILTRATION | | | | ? | | | RATE) | | | | | | | ML/MIN/1.73 | | | | | | | SQ M. | | | | | | + + +-------+--------+ + + | EGFR | 2020-05-03 | [facility] | > | | (missing) | | (GLOMERULAR | 06:02 | | | ml/min/1.73m | | | FILTRATION | | | | ? | | | RATE) | | | | | | | ML/MIN/1.73 | | | | | | | SQ M. | | | | | | + + +-------+--------+ + + | CREATININE | 2020-05-03 | [facility] | 0.9 | mg/dl | (missing) | | (MG/DL) IN | 06:02 | | | | | | SER/PLAS | | | | | | + + +-------+--------+ + + | CREATININE | 2020-05-03 | [facility] | 0.9 | mg/dl | (missing) | | (MG/DL) IN | 06:02 | | | | | | SER/PLAS | | | | | | + + +-------+--------+ + + | CALCIUM | 2020-05-03 | [facility] | 10.0 | mg/dl | (missing) | | (MG/DL) IN | 06:02 | | | | | | SER/PLAS | | | | | | + + +-------+--------+ + + | CALCIUM | 2020-05-03 | [facility] | 10.0 | mg/dl | (missing) | | (MG/DL) IN | 06:02 | | | | | | SER/PLAS | | | | | | + + +-------+--------+ + + | CHLORIDE | 2020-05-03 | [facility] | 101 | mmol/l | (missing) | | (MMOL/L) IN | 06:02 | | | | | | SER/PLAS | | | | | | + + +-------+--------+ + + | CHLORIDE | 2020-05-03 | [facility] | 101 | mmol/l | (missing) | | (MMOL/L) IN | 06:02 | | | | | | SER/PLAS | | | | | | + + +-------+--------+ + + | GLUCOSE, | 2020-05-03 | [facility] | 136 | mg/dl | (missing) | | RANDOM | 06:02 | | | | | | (MG/DL) IN | | | | | | | SER/PLAS | | | | | | + + +-------+--------+ + + | GLUCOSE, | 2020-05-03 | [facility] | 136 | mg/dl | (missing) | | RANDOM | 06:02 | | | | | | (MG/DL) IN | | | | | | | SER/PLAS | | | | | | + + +-------+--------+ + + | SODIUM | 2020-05-03 | [facility] | 138 | mmol/l | (missing) | | (MMOL/L) IN | 06:02 | | | | | | SER/PLAS | | | | | | + + +-------+--------+ + + | SODIUM | 2020-05-03 | [facility] | 138 | mmol/l | (missing) | | (MMOL/L) IN | 06:02 | | | | | | SER/PLAS | | | | | | + + +-------+--------+ + + | ANION GAP | 2020-05-03 | [facility] | 16.0 | mmol/l | (missing) | | IN SER/PLAS | 06:02 | | | | | + + +-------+--------+ + + | ANION GAP | 2020-05-03 | [facility] | 16.0 | mmol/l | (missing) | | IN SER/PLAS | 06:02 | | | | | + + +-------+--------+ + + | HEMOGLOBIN | 2020-05-03 | [facility] | 16.6 | g/dl | (missing) | | (G/DL) IN | 06:02 | | | | | | BLOOD | | | | | | + + +-------+--------+ + + | HEMOGLOBIN | 2020-05-03 | [facility] | 16.6 | g/dl | (missing) | | (G/DL) IN | 06:02 | | | | | | BLOOD | | | | | | + + +-------+--------+ + + | BLOOD UREA | 2020-05-03 | [facility] | 18 | mg/dl | (missing) | | NITROGEN | 06:02 | | | | | | (BUN) | | | | | | | (MG/DL) IN | | | | | | | SER/PLAS | | | | | | + + +-------+--------+ + + | BLOOD UREA | 2020-05-03 | [facility] | 18 | mg/dl | (missing) | | NITROGEN | 06:02 | | | | | | (BUN) | | | | | | | (MG/DL) IN | | | | | | | SER/PLAS | | | | | | + + +-------+--------+ + + | CARBON | 2020-05-03 | [facility] | 21 | mmol/l | (missing) | | DIOXIDE | 06:02 | | | | | | (CO2), TOTAL | | | | | | | (MMOL/L) IN | | | | | | | SER/PLAS | | | | | | + + +-------+--------+ + + | CARBON | 2020-05-03 | [facility] | 21 | mmol/l | (missing) | | DIOXIDE | 06:02 | | | | | | (CO2), TOTAL | | | | | | | (MMOL/L) IN | | | | | | | SER/PLAS | | | | | | + + +-------+--------+ + + | POTASSIUM | 2020-05-03 | [facility] | 3.2 | mmol/l | (missing) | | (MMOL/L) IN | 06:02 | | | | | | SER/PLAS | | | | | | + + +-------+--------+ + + | POTASSIUM | 2020-05-03 | [facility] | 3.2 | mmol/l | (missing) | | (MMOL/L) IN | 06:02 | | | | | | SER/PLAS | | | | | | + + +-------+--------+ + + | HEMATOCRIT | 2020-05-03 | [facility] | 48.0 | % | (missing) | | (%) IN BLOOD | 06:02 | | | | | | BY | | | | | | | AUTOMATED | | | | | | | COUNT | | | | | | + + +-------+--------+ + + | HEMATOCRIT | 2020-05-03 | [facility] | 48.0 | % | (missing) | | (%) IN BLOOD | 06:02 | | | | | | BY | | | | | | | AUTOMATED | | | | | | | COUNT | | | | | | + + +-------+--------+ + + + + | Result panel 4 | + + + + +-------+--------+ + + | INR | 2020-05-03 | [facility] | 1.1 | (missing) | (missing) | | | 06:02:01 | | | | | + + +-------+--------+ + + | INR | 2020-05-03 | [facility] | 1.1 | (missing) | (missing) | | | 06:02:01 | | | | | + + +-------+--------+ + + | PT | 2020-05-03 | [facility] | 13.7 | seconds | (missing) | | (PROTHROMBIN | 06:02:01 | | | | | | TIME) | | | | | | + + +-------+--------+ + + | PT | 2020-05-03 | [facility] | 13.7 | seconds | (missing) | | (PROTHROMBIN | 06:02:01 | | | | | | TIME) | | | | | | + + +-------+--------+ + + + + | Result panel 5 | + + + + +-------+ + + + | ANTIBODY | 2020-05-03 | [facility] | Negative | (missing) | (missing) | | SCREEN | 06:02:06 | | | | | + + +-------+ + + + | ABO AND RH | 2020-05-03 | [facility] | O Positive | (missing) | (missing) | | TYPE | 06:02:06 | | | | | + + +-------+ + + + + + | Result panel 6 | + + + + +-------+-------+---------+ + | POCT | 2020-05-03 | [facility] | 117 | mg/dl | (missing) | | GLUCOMETER | 06:21:24 | | | | | + + +-------+-------+---------+ + | POCT | 2020-05-03 | [facility] | 117 | mg/dl | (missing) | | GLUCOMETER | 06:21:24 | | | | | + + +-------+-------+---------+ + + + | Result panel 7 | + + + + +-------+ + + + | | 2020-05-03 | [facility] | (missing) | (missing) | (missing) | | (unavailable | 07:20 | | | | | | ) | | | | | | + + +-------+ + + + | | 2020-05-03 | [facility] | COMPARISON: | (missing) | (missing) | | (unavailable | 07:20 | | None. | | | | ) | | | | | | + + +-------+ + + + | | 2020-05-03 | [facility] | Electronical | (missing) | (missing) | | (unavailable | 07:20 | | ly signed | | | | ) | | | by: | | | | | | | Matt | | | | | | | MD Kayode | | | | | | | on 05/03/2020 | | | | | | | 11:48 AM at | | | | | | | workstation | | | | | | | [id number] | | | + + +-------+ + + + | | 2020-05-03 | [facility] | Electronical | (missing) | (missing) | | (unavailable | 07:20 | | ly signed | | | | ) | | | by: Luis Eduardo | | | | | | | MD Parminder on | | | | | | | 05/03/2020 | | | | | | | 2:12 PM at | | | | | | | workstation | | | | | | | [id number] | | | + + +-------+ + + + | | 2020-05-03 | [facility] | FINDINGS: | (missing) | (missing) | | (unavailable | 07:20 | | | | | | ) | | | | | | + + +-------+ + + + | | 2020-05-03 | [facility] | FLUORO | (missing) | (missing) | | (unavailable | 07:20 | | TIME: 2.5 | | | | ) | | | minutes | | | + + +-------+ + + + | | 2020-05-03 | [facility] | | (missing) | (missing) | | (unavailable | 07:20 | | INDICATIONS: | | | | ) | | | L5-S1 | | | | | | | anterior | | | | | | | fusion | | | + + +-------+ + + + | | 2020-05-03 | [facility] | | (missing) | (missing) | | (unavailable | 07:20 | | INDICATIONS: | | | | ) | | | L5-S1 | | | | | | | fusion | | | + + +-------+ + + + | | 2020-05-03 | [facility] | | (missing) | (missing) | | (unavailable | 07:20 | | Intraoperati | | | | ) | | | ve | | | | | | | fluoroscopy | | | | | | | provided for | | | | | | | surgical | | | | | | | purposes. | | | + + +-------+ + + + | | 2020-05-03 | [facility] | No | (missing) | (missing) | | (unavailable | 07:20 | | concerning | | | | ) | | | foreign | | | | | | | bodies. | | | + + +-------+ + + + | | 2020-05-03 | [facility] | PROCEDURE: | (missing) | (missing) | | (unavailable | 07:20 | | FLUOROSCOPY | | | | ) | | | - LESS THAN | | | | | | | ONE HOUR | | | + + +-------+ + + + | | 2020-05-03 | [facility] | PROCEDURE: | (missing) | (missing) | | (unavailable | 07:20 | | XR | | | | ) | | | INSTRUMENT | | | | | | | CHECK | | | + + +-------+ + + + | | 2020-05-03 | [facility] | | (missing) | (missing) | | (unavailable | 07:20 | | Postsurgical | | | | ) | | | changes | | | | | | | from L5-S1 | | | | | | | anterior | | | | | | | fusion. No | | | | | | | concerning | | | | | | | foreign | | | | | | | bodies. | | | + + +-------+ + + + | | 2020-05-03 | [facility] | | (missing) | (missing) | | (unavailable | 07:20 | | Procedure(s) | | | | ) | | | : * No | | | | | | | procedures | | | | | | | listed * | | | + + +-------+ + + + | | 2020-05-03 | [facility] | Report | (missing) | (missing) | | (unavailable | 07:20 | | given to | | | | ) | | | Cassidy in the | | | | | | | operating | | | | | | | room by | | | | | | | Kayode at | | | | | | | 11:40 AM | | | + + +-------+ + + + | | 2020-05-03 | [facility] | Several spot | (missing) | (missing) | | (unavailable | 07:20 | | images from | | | | ) | | | real time | | | | | | | intraoperati | | | | | | | ve C-arm | | | | | | | fluoroscopy | | | | | | | were | | | | | | | submitted. | | | + + +-------+ + + + | | 2020-05-03 | [facility] | TECHNIQUE: | (missing) | (missing) | | (unavailable | 07:20 | | Single | | | | ) | | | frontal | | | | | | | intraoperati | | | | | | | ve | | | | | | | radiograph. | | | + + +-------+ + + + + + | Result panel 8 | + + + + +-------+-------+---------+ + | POCT | 2020-05-03 | [facility] | 172 | mg/dl | (missing) | | GLUCOMETER | 14:06:41 | | | | | + + +-------+-------+---------+ + | POCT | 2020-05-03 | [facility] | 172 | mg/dl | (missing) | | GLUCOMETER | 14:06:41 | | | | | + + +-------+-------+---------+ + + + | Result panel 9 | + + + + +-------+ + + + | | 2020-05-04 | [facility] | (missing) | (missing) | (missing) | | (unavailable | 08:00 | | | | | | ) | | | | | | + + +-------+ + + + | | 2020-05-04 | [facility] | Anterior and | (missing) | (missing) | | (unavailable | 08:00 | | posterior | | | | ) | | | fusion at | | | | | | | L5-S1 | | | | | | | without | | | | | | | radiographic | | | | | | | evidence | | | | | | | for hardware | | | | | | | | | | | | | | complication | | | | | | | . | | | + + +-------+ + + + | | 2020-05-04 | [facility] | COMPARISON: | (missing) | (missing) | | (unavailable | 08:00 | | MRI, | | | | ) | | | 10/08/2018 | | | + + +-------+ + + + | | 2020-05-04 | [facility] | DISCS: There | (missing) | (missing) | | (unavailable | 08:00 | | is mild | | | | ) | | | diffuse | | | | | | | intervertebr | | | | | | | al disc | | | | | | | height loss | | | | | | | with | | | | | | | anterior | | | | | | | hypertrophic | | | | | | | lipping. | | | + + +-------+ + + + | | 2020-05-04 | [facility] | Electronical | (missing) | (missing) | | (unavailable | 08:00 | | ly signed | | | | ) | | | by: Yonis | | | | | | | MD Marty | | | | | | | on 05/04/2020 | | | | | | | 11:04 AM at | | | | | | | workstation | | | | | | | | | | | | | | [id number] | | | + + +-------+ + + + | | 2020-05-04 | [facility] | FACET | (missing) | (missing) | | (unavailable | 08:00 | | JOINTS: | | | | ) | | | Normal | | | | | | | alignment. | | | + + +-------+ + + + | | 2020-05-04 | [facility] | FINDINGS: | (missing) | (missing) | | (unavailable | 08:00 | | | | | | ) | | | | | | + + +-------+ + + + | | 2020-05-04 | [facility] | | (missing) | (missing) | | (unavailable | 08:00 | | INDICATIONS: | | | | ) | | | f/u lumbar | | | | | | | fusion, | | | | | | | upright in | | | | | | | lumbar | | | | | | | brace, | | | | | | | AP/LAT | | | + + +-------+ + + + | | 2020-05-04 | [facility] | PROCEDURE: | (missing) | (missing) | | (unavailable | 08:00 | | LUMBAR SPINE | | | | ) | | | - TWO TO | | | | | | | THREE VIEWS | | | + + +-------+ + + + | | 2020-05-04 | [facility] | | (missing) | (missing) | | (unavailable | 08:00 | | Procedure(s) | | | | ) | | | : * No | | | | | | | procedures | | | | | | | listed * | | | + + +-------+ + + + | | 2020-05-04 | [facility] | SACROILIAC | (missing) | (missing) | | (unavailable | 08:00 | | JOINTS: | | | | ) | | | Grossly | | | | | | | unremarkable | | | | | | | . The sacrum | | | | | | | is | | | | | | | partially | | | | | | | obscured by | | | | | | | overlapping | | | | | | | bowel gas. | | | + + +-------+ + + + | | 2020-05-04 | [facility] | SOFT | (missing) | (missing) | | (unavailable | 08:00 | | TISSUES: | | | | ) | | | Normal. | | | + + +-------+ + + + | | 2020-05-04 | [facility] | VERTEBRAE: | (missing) | (missing) | | (unavailable | 08:00 | | There are | | | | ) | | | five | | | | | | | lumbar-type | | | | | | | vertebral | | | | | | | bodies. | | | | | | | Normal | | | | | | | height and | | | | | | | alignment. | | | | | | | Mineralizati | | | | | | | on is within | | | | | | | normal | | | | | | | limits. | | | | | | | Posterior | | | | | | | and anterior | | | | | | | fusion is | | | | | | | seen at | | | | | | | [id number] | | | | | | | without | | | | | | | evidence of | | | | | | | hardware | | | | | | | fracture or | | | | | | | periprosthet | | | | | | | ic lucency. | | | + + +-------+ + + + + + | Result panel 10 | + + + + + +--------+ + + | | 2023-04-11 | [facility] | 12.5 | (missing) | (missing) | | (unavailable | 12:48:07 | [facility] | | | | + + + +--------+ + + + + | Result panel 11 | + + + + + +--------+ + + | | 2023-04-11 | [facility] | 79.2 | (missing) | (missing) | | (unavailable | 12:48:07 | [facility] | | | | + + + +--------+ + + + + | Result panel 12 | + + + + + +--------+ + + | | 2023-04-11 | [facility] | 11.8 | (missing) | (missing) | | (unavailable | 12:48:07 [facility] | | | | + + + +--------+ + + + + | Result panel 13 | + + + + + +-------+ + + | | 2023-04-11 | [facility] | 7.8 | (missing) | (missing) | | (unavailable | 12:48:07 [facility] | | | | + + + +-------+ + + + + | Result panel 14 | + + + + + +-------+ + + | | 2023-04-11 | [facility] | 0.9 | (missing) | (missing) | | (unavailable | 12:48:07 [facility] | | | | + + + +-------+ + + + + | Result panel 15 | + + + + + +-------+ + + | | 2023-04-11 | [facility] | 0.3 | (missing) | (missing) | | (unavailable | 12:48:07 [facility] | | | | + + + +-------+ + + + + | Result panel 16 | + + + + + +--------+ + + | | 2023-04-11 | [facility] | 12.6 | (missing) | (missing) | | (unavailable | 12:48:07 [facility] | | | | + + + +--------+ + + + + | Result panel 17 | + + + + + +--------+ + + | | 2023-04-11 | [facility] | 0.99 | (missing) | (missing) | | (unavailable | 12:48:07 [facility] | | | | + + + +--------+ + + + + | Result panel 18 | + + + + + +-------+---------+ + | | 2023-04-11 | [facility] | 118 | mg/dL | (missing) | | (unavailable | 12:48:07 [facility] | | | | + + + +-------+---------+ + + + | Result panel 19 | + + + + + +------+---------+ + | | 2023-04-11 | [facility] | 15 | mg/dL | (missing) | | (unavailable | 12:48:07 [facility] | | | | + + + +------+---------+ + + + | Result panel 20 | + + + + + +--------+---------+ + | | 2023-04-11 | [facility] | 0.81 | mg/dL | (missing) | | (unavailable | 12:48:07 [facility] | | | | + + + +--------+---------+ + + + | Result panel 21 | + + + + + +--------+ + + | | 2023-04-11 | [facility] | 4.84 | (missing) | (missing) | | (unavailable | 12:48:07 [facility] | | | | + + + +--------+ + + + + | Result panel 22 | + + + + + +-------+ + + | | 2023-04-11 | [facility] | 101 | (missing) | (missing) | | (unavailable | 12:48:07 [facility] | | | | + + + +-------+ + + + + | Result panel 23 | + + + + + +---------+ + + | | 2023-04-11 | [facility] | 18.51 | (missing) | (missing) | | (unavailable | 12:48:07 [facility] | | | | + + + +---------+ + + + + | Result panel 24 | + + + + + +-------+ + + | | 2023-04-11 | [facility] | 138 | (missing) | (missing) | | (unavailable | 12:48:07 [facility] | | | | + + + +-------+ + + + + | Result panel 25 | + + + + + +-------+ + + | | 2023-04-11 | [facility] | 4.1 | (missing) | (missing) | | (unavailable | 12:48:07 [facility] | | | | + + + +-------+ + + + + | Result panel 26 | + + + + + +-------+ + + | | 2023-04-11 | [facility] | 101 | (missing) | (missing) | | (unavailable | 12:48:07 [facility] | | | | + + + +-------+ + + + + | Result panel 27 | + + + + + +------+ + + | | 2023-04-11 | [facility] | 30 | (missing) | (missing) | | (unavailable | 12:48:07 [facility] | | | | + + + +------+ + + + + | Result panel 28 | + + + + + +--------+ + + | | 2023-04-11 | [facility] | 11.1 | (missing) | (missing) | | (unavailable | 12:48:07 | [facility] | | | | + + + +--------+ + + + + | Result panel 29 | + + + + + +-------+---------+ + | | 2023-04-11 | [facility] | 8.9 | mg/dL | (missing) | | (unavailable | 12:48:07 [facility] | | | | + + + +-------+---------+ + + + | Result panel 30 | + + + + + +-------+ + + | | 2023-04-11 | [facility] | 6.9 | (missing) | (missing) | | (unavailable | 12:48:07 [facility] | | | | + + + +-------+ + + + + | Result panel 31 | + + + + + +-------+ + + | | 2023-04-11 | [facility] | 3.9 | (missing) | (missing) | | (unavailable | 12:48:07 [facility] | | | | + + + +-------+ + + + + | Result panel 32 | + + + + + +--------+ + + | | 2023-04-11 | [facility] | 14.8 | (missing) | (missing) | | (unavailable | 12:48:07 [facility] | | | | + + + +--------+ + + + + | Result panel 33 | + + + + + +-------+ + + | | 2023-04-11 | [facility] | 3.0 | (missing) | (missing) | | (unavailable | 12:48:07 [facility] | | | | + + + +-------+ + + + + | Result panel 34 | + + + + + +--------+ + + | | 2023-04-11 | [facility] | 1.30 | (missing) | (missing) | | (unavailable | 12:48:07 [facility] | | | | + + + +--------+ + + + + | Result panel 35 | + + + + + +-------+ + + | | 2023-04-11 | [facility] | 1.3 | (missing) | (missing) | | (unavailable | [facility]:48:07 [facility] | | | | + + + +-------+ + + + + | Result panel 36 | + + + + + +------+ + + | | 2023-04-11 | [facility] | 21 | (missing) | (missing) | | (unavailable | 12:48:07 [facility] | | | | + + + +------+ + + + + | Result panel 37 | + + + + + +------+ + + | | 2023-04-11 | [facility] | 50 | (missing) | (missing) | | (unavailable | 12:48:07 [facility] | | | | + + + +------+ + + + + | Result panel 38 | + + + + + +------+ + + | | 2023-04-11 | [facility] | 90 | (missing) | (missing) | | (unavailable | 12:48:07 [facility] | | | | + + + +------+ + + + + | Result panel 39 | + + + + + +--------+ + + | | 2023-04-11 | [facility] | 44.5 | (missing) | (missing) | | (unavailable | 12:48:07 [facility] | | | | + + + +--------+ + + + + | Result panel 40 | + + + + + +--------+ + + | | 2023-04-11 | [facility] | 91.8 | (missing) | (missing) | | (unavailable | 12:48:07 [facility] | | | | + + + +--------+ + + + + | Result panel 41 | + + + + + +--------+ + + | | 2023-04-11 | [facility] | 30.5 | (missing) | (missing) | | (unavailable | 12:48:07 [facility] | | | | + + + +--------+ + + + + | Result panel 42 | + + + + + +--------+ + + | | 2023-04-11 | [facility] | 33.3 | (missing) | (missing) | | (unavailable | 12[facility]48:07 [facility] | | | | + + + +--------+ + + + + | Result panel 43 | + + + + + +--------+ + + | | 2023-04-11 | [facility] | 13.9 | (missing) | (missing) | | (unavailable | [facility]:48:07 [facility] | | | | + + + +--------+ + + + + | Result panel 44 | + + + + + +-------+ + + | | 2023-04-11 | [facility] | 291 | (missing) | (missing) | | (unavailable | 12:48:07 [facility] | | | | + + + +-------+ + + Social History No information. Vital Signs + + + +---------+ | date | measurement | value | units | + + + +---------+ | 2022-05-23 00:00 | BMI | 26.6 | kg/m2 | + + + +---------+ | 2022-05-23 00:00 | BP_diastolic | 80 | mmHg | + + + +---------+ | 2022-05-23 00:00 | BP_systolic | 114 | mmHg | + + + +---------+ | 2022-05-23 00:00 | heart_rate | 72 | /min | + + + +---------+ | 2022-05-23 00:00 | height_metric | 175.26 | cm | + + + +---------+ | 2022-05-23 00:00 | height_standard | 69 | in | + + + +---------+ | 2022-05-23 00:00 | o2_saturation | 99 | % | + + + +---------+ | 2022-05-23 00:00 | respiration_rate | 16 | /min | + + + +---------+ | 2022-05-23 00:00 | temperature_metric | 36.78 | C | | | | | | + + + +---------+ | 2022-05-23 00:00 | | 98.2 | F | | | temperature_standar | | | | | d | | | + + + +---------+ | 2022-05-23 00:00 | weight_metric | 81.65 | kg | + + + +---------+ | 2022-05-23 00:00 | weight_standard | 180 | lb | + + + +---------+ | 2022-05-23 00:00 | weight_standard | 180.01 | lb | + + + +---------+ | 2023-04-17 00:00 | BMI | 26.6 | kg/m2 | + + + +---------+ | 2023-04-17 00:00 | BP_diastolic | 95 | mmHg | + + + +---------+ | 2023-04-17 00:00 | BP_systolic | 136 | mmHg | + + + +---------+ | 2023-04-17 00:00 | heart_rate | 70 | /min | + + + +---------+ | 2023-04-17 00:00 | height_metric | 172.72 | cm | + + + +---------+ | 2023-04-17 00:00 | height_standard | 68 | in | + + + +---------+ | 2023-04-17 00:00 | o2_saturation | 100 | % | + + + +---------+ | 2023-04-17 00:00 | respiration_rate | 14 | /min | + + + +---------+ | 2023-04-17 00:00 | temperature_metric | 36.11 | C | | | | | | + + + +---------+ | 2023-04-17 00:00 | | 97 | F | | | temperature_standar | | | | | d | | | + + + +---------+ | 2023-04-17 00:00 | weight_metric | 79.5 | kg | + + + +---------+ | 2023-04-17 00:00 | weight_standard | 175.27 | lb | + + + +---------+"
--- OUTSIDE RECORDS SUMMARY | ~2023-04-27 | XMS | Continuity of Care Document ---
Demographics + + + | Address | [address] | | | [place] [address] | + + + | Preferred Language | Unknown | + + + | Marital Status | Never | + + + | Pentecostal Affiliation | Unknown | + + + | Race | White | + + + | Ethnic Group | Not or | + + + Author + + + | Author | [facility] | + + + | Organization | [facility] | + + + | Address | [address] [facility] | | | [place] [address] | + + + | Phone | | + + + Care Team Providers + + + + | Care Credit Reference Clerk Name | Role | Phone | [...] | (no date) | NO ALLERGY | [facility] | (no reaction) | (no severity) | | | INFORMATION ON | [facility] | | | | | FILE [...] + | 2022-05-23 00:00 | Tdap | [facility] | + + + + | 2022-05-23 00:00 | Tdap | [facility] | + + + + | 2022-05-23 00:00 | Influenza, Injectable, | [facility] | | | Quadrivalent | | + + + + | 2023-04-17 00:00 | Influenza, Injectable, | [facility] | | | Quadrivalent | | + + + + Medications + + + + | date | description | facility | + + + + | 2022-05-23 00:00 | DOXEPIN HCL | [facility] | + + + + | 2022-05-23 00:00 | LIDOCAINE 2% VISCOUS | [facility] | + + + + | 2023-04-17 00:00 | LIDOCAINE 2% VISCOUS | [facility] | + + + + | 2022-05-23 00:00 | LURASIDONE HCL | [facility] | + + + + | 2023-04-17 00:00 | LURASIDONE HCL | [facility] | + + + + | 2022-05-23 00:00 | ONDANSETRON | [facility] | + + + + | 2023-04-17 00:00 | ONDANSETRON | [facility] | + + + + | 2015-08-19 00:00 | ONDANSETRON HCL | [facility] | + + + + | 2015-08-19 00:00 | ONDANSETRON HCL | [facility] | + + + + | 2019-01-14 00:00 | ONDANSETRON HCL | [facility] | + + + + | 2019-01-14 00:00 | ONDANSETRON HCL | [facility] | + + + + | 2018-04-11 00:00 | OXYCODONE | [facility] | | | HCL/ACETAMINOPHEN | | + + + + | 2018-04-11 00:00 | OXYCODONE | [facility] | | | HCL/ACETAMINOPHEN | | + + + + | 2022-05-23 00:00 | OXYCODONE HCL | [facility] | + + + + | 2023-04-17 00:00 | OXYCODONE HCL | [facility] | + + + + | 2015-09-10 00:00 | DIPHENHYDRAMINE HCL | [facility] | + + + + | 2015-09-10 00:00 | DIPHENHYDRAMINE HCL | [facility] | + + + + | 2022-05-23 00:00 | LURASIDONE HCL | [facility] | + + + + | 2023-04-17 00:00 | LURASIDONE HCL | [facility] | + + + + | 2022-05-23 00:00 | IPRATROPIUM/ALBUTEROL | [facility] | | | SULFATE | | + + + + | 2023-04-17 00:00 | IPRATROPIUM/ALBUTEROL | [facility] | | | SULFATE | | + + + + | 2022-05-23 00:00 | MELOXICAM | [facility] | + + + + | 2023-04-17 00:00 | MELOXICAM | [facility] | + + + + | 2022-05-23 00:00 | SUVOREXANT | [facility] | + + + + | 2023-04-17 00:00 | SUVOREXANT | [facility] | + + + + | 2014-11-29 00:00 | HYDROCORTISONE | [facility] | + + + + | 2014-11-29 00:00 | HYDROCORTISONE | [facility] | + + + + | 2022-05-23 00:00 | | [facility] | | | Fluticasone/Umeclidin/Vilan | | | | ter | | + + + + | 2023-04-17 00:00 | | [facility] | | | Fluticasone/Umeclidin/Vilan | | | | ter | | + + + + | 2022-05-23 00:00 | ALPRAZOLAM | [facility] | + + + + | 2023-04-17 00:00 | ALPRAZOLAM | [facility] | + + + + | 2022-05-23 00:00 | BACLOFEN | [facility] | + + + + | 2023-04-17 00:00 | BACLOFEN | [facility] | + + + + | 2018-04-11 00:00 | IBUPROFEN | [facility] | + + + + | 2018-04-11 00:00 | IBUPROFEN | [facility] | + + + + | 2022-05-23 00:00 | | [facility] | | | LISINOPRIL/HYDROCHLOROTHIAZ | | | | ANNEL | | + + + + | 2023-04-17 00:00 | | [facility] | | | LISINOPRIL/HYDROCHLOROTHIAZ | | | | ANNEL | | + + + + | 2022-05-23 00:00 | METHOCARBAMOL | [facility] | + + + + | 2023-04-17 00:00 | METHOCARBAMOL | [facility] | + + + + | 2022-05-23 00:00 | OMEPRAZOLE | [facility] | + + + + | 2023-04-17 00:00 | OMEPRAZOLE | [facility] | + + + + | 2022-05-23 00:00 | ONDANSETRON HCL | [facility] | + + + + | 2023-04-17 00:00 | ONDANSETRON HCL | [facility] | + + + + | 2022-05-23 00:00 | PRAZOSIN HCL | [facility] | + + + + | 2023-04-17 00:00 | PRAZOSIN HCL | [facility] | + + + + | 2022-05-23 00:00 | PRAZOSIN HCL | [facility] | + + + + | 2023-04-17 00:00 | PRAZOSIN HCL | [facility] | + + + + | 2018-04-11 00:00 | ACETAMINOPHEN | [facility] | + + + + | 2018-04-11 00:00 | ACETAMINOPHEN | [facility] | + + + + | 2013-09-10 00:00 | LEVOFLOXACIN | [facility] | + + + + | 2023-04-17 00:00 | CELECOXIB | [facility] | + + + + | 2017-10-19 00:00 | CEPHALEXIN | [facility] | + + + + | 2017-10-19 00:00 | CEPHALEXIN | [facility] | + + + + | 2022-05-23 00:00 | GABAPENTIN | [facility] | + + + + | 2023-04-17 00:00 | GABAPENTIN | [facility] | + + + + | 2022-05-23 00:00 | HYDROCHLOROTHIAZIDE | [facility] | + + + + | 2023-04-17 00:00 | HYDROCHLOROTHIAZIDE | [facility] | + + + + | 2016-05-29 00:00 | IBUPROFEN | [facility] | + + + + | 2016-05-29 00:00 | IBUPROFEN | [facility] | + + + + | 2018-04-06 00:00 | ONDANSETRON | [facility] | + + + + | 2018-04-06 00:00 | ONDANSETRON | [facility] | + + + + | 2022-05-23 00:00 | PRAZOSIN HCL | [facility] | + + + + | 2022-05-23 00:00 | PRAZOSIN HCL | [facility] | + + + + | 2023-04-17 00:00 | PRAZOSIN HCL | [facility] | + + + + | 2013-09-10 00:00 | predniSONE | [facility] | + + + + | 2013-09-10 00:00 | predniSONE | [facility] | + + + + | 2014-11-18 00:00 | predniSONE | [facility] | + + + + | 2014-11-18 00:00 | predniSONE | [facility] | + + + + | 2021-03-11 00:00 | predniSONE | [facility] | + + + + | 2021-03-11 00:00 | predniSONE | [facility] | + + + + | 2022-05-23 00:00 | SENNOSIDES | [facility] | + + + + | 2023-04-17 00:00 | SENNOSIDES | [facility] | + + + + | 2022-05-23 00:00 | SERTRALINE HCL | [facility] | + + + + | 2022-05-23 00:00 | SERTRALINE HCL | [facility] | + + + + | 2023-04-17 00:00 | SERTRALINE HCL | [facility] | + + + + | 2022-05-23 00:00 | SERTRALINE HCL | [facility] | + + + + | 2023-04-17 00:00 | SERTRALINE HCL | [facility] | + + + + | 2022-05-23 00:00 | SODIUM FLUORIDE | [facility] | + + + + | 2023-04-17 00:00 | SODIUM FLUORIDE | [facility] | + + + + | 2018-04-06 00:00 | MAG HYDROX/AL | [facility] | | | HYDROX/SIMETH | | + + + + | 2018-04-06 00:00 | MAG HYDROX/AL | [facility] | | | HYDROX/SIMETH | | + + + + | 2022-05-23 00:00 | FENOFIBRATE | [facility] | | | NANOCRYSTALLIZED | | + + + + | 2023-04-17 00:00 | FENOFIBRATE | [facility] | | | NANOCRYSTALLIZED | | + + + + | 2022-05-23 00:00 | TIOTROPIUM BROMIDE | [facility] | + + + + | 2023-04-17 00:00 | TIOTROPIUM BROMIDE | [facility] | + + + + | 2022-05-23 00:00 | DULOXETINE HCL | [facility] | + + + + | 2023-04-17 00:00 | DULOXETINE HCL | [facility] | + + + + | 2022-05-23 00:00 | DULOXETINE HCL | [facility] | + + + + | 2023-04-17 00:00 | DULOXETINE HCL | [facility] | + + + + | 2022-05-23 00:00 | Atomoxetine HCl | [facility] | + + + + | 2022-05-23 00:00 | ATORVASTATIN | [facility] | + + + + | 2023-04-17 00:00 | ATORVASTATIN | [facility] | + + + + | 2023-04-17 00:00 | ATOMOXETINE HCL | [facility] | + + + + | 2020-03-28 00:00 | CYCLOBENZAPRINE HCL | [facility] | + + + + | 2020-03-28 00:00 | CYCLOBENZAPRINE HCL | [facility] | + + + + | 2017-10-19 00:00 | TRAMADOL HCL | [facility] | + + + + | 2017-10-19 00:00 | TRAMADOL HCL | [facility] | + + + + | 2017-08-23 00:00 | TRAMADOL HCL | [facility] | + + + + | 2017-08-23 00:00 | TRAMADOL HCL | [facility] | + + + + | 2022-05-23 00:00 | TRAMADOL HCL | [facility] | + + + + | 2023-04-17 00:00 | TRAMADOL HCL | [facility] | + + + + | 2022-05-23 00:00 | CHOLESTYRAMINE/ASPARTAME | [facility] | + + + + | 2023-04-17 00:00 | CHOLESTYRAMINE/ASPARTAME | [facility] | + + + + | 2016-05-24 00:00 | | [facility] | | | SULFAMETHOXAZOLE/TRIMETHOPR | | | | IM DS | | + + + + | 2016-05-24 00:00 | | [facility] | | | SULFAMETHOXAZOLE/TRIMETHOPR | | | | IM DS | | + + + + | 2022-05-23 00:00 | ZOLPIDEM TARTRATE | [facility] | + + + + | 2023-04-17 00:00 | ZOLPIDEM TARTRATE | [facility] | + + + + | 2022-05-23 00:00 | DICLOFENAC SOD | [facility] | + + + + | 2023-04-17 00:00 | DICLOFENAC SOD | [facility] | + + + + | 2021-07-03 00:00 | DICLOFENAC SODIUM | [facility] | + + + + | 2022-05-23 00:00 | TRAZODONE HCL | [facility] | + + + + | 2023-04-17 00:00 | TRAZODONE HCL | [facility] | + + + + 2022-05-23 00:00 | TRAZODONE HCL | [facility] | + + + + | 2023-04-17 00:00 | TRAZODONE HCL | [facility] | + + + + | 2022-05-23 00:00 | AMITRIPTYLINE HCL | [facility] | + + + + | 2023-04-17 00:00 | AMITRIPTYLINE HCL | [facility] | + + + + | 2014-11-29 00:00 | HYDROCODONE | [facility] | | | BIT/ACETAMINOPHEN | | + + + + | 2014-11-29 00:00 | HYDROCODONE | [facility] | | | BIT/ACETAMINOPHEN | | + + + + | 2021-07-03 00:00 | HYDROCODONE | [facility] | | | BIT/ACETAMINOPHEN | | + + + + | 2021-07-03 00:00 | HYDROCODONE | [facility] | | | BIT/ACETAMINOPHEN | | + + + + | 2021-08-16 00:00 | HYDROCODONE | [facility] | | | BIT/ACETAMINOPHEN | | + + + + | 2021-08-16 00:00 | HYDROCODONE | [facility] | | | BIT/ACETAMINOPHEN | | + + + + | 2022-05-23 00:00 | ALBUTEROL SULFATE | [facility] | + + + + | 2023-04-17 00:00 | ALBUTEROL SULFATE | [facility] | + + + + | 2022-05-23 00:00 | METFORMIN HCL | [facility] | + + + + | 2023-04-17 00:00 | METFORMIN HCL | [facility] | + + + + | 2022-05-23 00:00 | SALMETEROL XINAFOATE | [facility] | + + + + | 2023-04-17 00:00 | SALMETEROL XINAFOATE | [facility] | + + + + | 2022-05-23 00:00 | BUSPIRONE HCL | [facility] | + + + + | 2023-04-17 00:00 | BUSPIRONE HCL | [facility] | + + + + | 2018-04-29 00:00 | ONDANSETRON | [facility] | + + + + | 2018-04-29 00:00 | ONDANSETRON | [facility] | + + + + | 2022-05-23 00:00 | CLONIDINE HCL | [facility] | + + + + | 2023-04-17 00:00 | CLONIDINE HCL | [facility] | + + + + | 2022-05-23 00:00 | FLUTICASONE PROPIONATE 220 | [facility] | | | MCG | | + + + + | 2023-04-17 00:00 | FLUTICASONE PROPIONATE 220 | [facility] | | | MCG | | + + + + | 2023-04-17 00:00 | DICYCLOMINE HCL | [facility] | + + + + | 2019-01-14 00:00 | DICYCLOMINE HCL | [facility] | + + + + | 2015-08-19 00:00 | DICYCLOMINE HCL | [facility] | + + + + | 2015-08-19 00:00 | DICYCLOMINE HCL | [facility] | + + + + | 2022-05-23 00:00 | BUPROPION HCL | [facility] | + + + + | 2023-04-17 00:00 | BUPROPION HCL | [facility] | + + + + Problems + + + + | date | description | facility | + + + + | 2014-11-18 00:00 | Interstitial lung disease | [facility] | + + + + | 2014-11-18 00:00 | Interstitial lung disease | [facility] | + + + + | 2014-11-29 00:00 | Bleeding external | [facility] | | | hemorrhoids | | + + + + | 2014-11-29 00:00 | Bleeding external | [facility] | | | hemorrhoids | | + + + + | 2014-11-29 00:00 | Diarrhea | [facility] | + + + + | 2014-11-29 00:00 | Diarrhea | [facility] | + + + + | 2015-05-10 00:00 | Strain of shoulder | [facility] | + + + + | 2015-05-10 00:00 | Strain of shoulder | [facility] | + + + + | 2015-08-19 00:00 | Abdominal pain | [facility] | + + + + | 2015-08-19 00:00 | Abdominal pain | [facility] | + + + + | 2015-08-21 00:00 | Enteritis | [facility] | + + + + | 2015-08-21 00:00 | Enteritis | [facility] | + + + + | 2015-09-10 00:00 | Viral pharyngitis | [facility] | + + + + | 2015-09-10 00:00 | Viral pharyngitis | [facility] | + + + + | 2016-04-19 00:00 | Alcoholic intoxication | [facility] | + + + + | 2016-04-19 00:00 | Alcoholic intoxication | [facility] | + + + + | 2016-05-24 00:00 | Folliculitis | [facility] | + + + + | 2016-05-24 00:00 | Folliculitis | [facility] | + + + + | 2016-05-28 00:00 | Abscess of axilla | [facility] | + + + + | 2016-05-28 00:00 | Abscess of axilla | [facility] | + + + + | 2017-08-23 00:00 | Strain of lumbar region | [facility] | + + + + | 2017-08-23 00:00 | Strain of lumbar region | [facility] | + + + + | 2017-09-13 00:00 | Encounter for medical | [facility] | | | screening examination | | + + + + | 2017-09-13 00:00 | Encounter for medical | [facility] | | | screening examination | | + + + + | 2017-10-19 00:00 | Acute right flank pain | [facility] | + + + + | 2017-10-19 00:00 | Acute right flank pain | [facility] | + + + + | 2017-10-19 00:00 | Hematuria | [facility] | + + + + | 2017-10-19 00:00 | Hematuria | [facility] | + + + + | 2018-04-29 00:00 | Vomiting | [facility] | + + + + | 2018-04-29 00:00 | Vomiting | [facility] | + + + + | 2018-09-28 00:00 | Contusion of forehead | [facility] | + + + + | 2018-09-28 00:00 | Contusion of forehead | [facility] | + + + + | 2019-01-14 00:00 | Viral gastroenteritis | [facility] | + + + + | 2019-01-14 00:00 | Viral gastroenteritis | [facility] | + + + + | 2019-08-18 05:35 | 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, cervical | [place] | | | region | | + + + + | 2020-01-25 13:35:49 | Other spondylosis with | [facility] | | | radiculopathy, lumbar | [facility] | | | region | | + + + + | 2020-05-03 05:04 | Spondylolisthesis, | [facility] - | | | lumbosacral region | [place] | + + + + | 2020-05-12 00:00 | Pain in testicle | [facility] | + + + + | 2020-05-12 00:00 | Pain in testicle | [facility] | + + + + | 2020-05-12 00:00 | Dysuria | [facility] | + + + + | 2020-05-12 00:00 | Dysuria | [facility] | + + + + | 2021-08-16 00:00 | Sprain of back | [facility] | + + + + | 2021-08-16 00:00 | Sprain of back | [facility] | + + + + | 2021-08-16 00:00 | Contusion of left hip | [facility] | + + + + | 2021-08-16 00:00 | Contusion of left hip | [facility] | + + + + | 2021-08-16 [...] + + + | 2021-08-16 10:43 | THUMB SEWER (CURRENT) USE OF | [facility] | | | ORAL HYPOGLYCEMIC DRUGS | | + + + + | 2021-08-16 10:43 | OTHER ASSISTED (CURRENT) | [facility] | | | DRUG [...] | Avulsion of skin of toe | [facility] | + + + + | 2022-05-23 00:00 | Avulsion of skin of toe | [facility] | + + + + | 2023-04-11 [...] | | (unavailable | 14:10:13 | | [phone] | | | | ) | | [...] | | (unavailable | 14:10:13 | | [phone] | | | | ) | | [...] | | (unavailable | 14:10:13 | | [phone] | | | | ) | | [...] | | | ) | | | [place] | | | | | | | [...] + | | 2020-01-25 | [facility] | [facility] | (missing) | (missing) | | (unavailable [...] + | | 2020-01-25 | [facility] | [place], | (missing) | (missing) | | (unavailable | 14:10:13 | | [phone] | | | | ) | | [...] | | | | | | | [facility]-[phone] | | | + + +-------+ + [...] | | | | | | | [phone] | | | + + +-------+ + [...] | | | | | | | [id number] | | | + + +-------+ + [...]
--- OUTSIDE RECORDS SUMMARY | ~2023-04-27 | XMS | Continuity of Care Document ---
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 | Role | Phone [...] | (no date) | NO ALLERGY | [facility] | (no reaction) | (no severity) | | | INFORMATION ON | [facility] | | | | | FILE [...] + | 2022-05-23 00:00 | Tdap | [facility] | + + + + | 2022-05-23 00:00 | Tdap | [facility] | + + + + | 2022-05-23 00:00 | Influenza, Injectable, | [facility] | | | [employer] | | + + + + | 2023-04-17 00:00 | Influenza, Injectable, | [facility] | | | [employer] | | + + + + Medications + + + + | date | description | facility | + + + + | 2022-05-23 00:00 | DOXEPIN HCL | [facility] | + + + + | 2022-05-23 00:00 | LIDOCAINE 2% VISCOUS | [facility] | + + + + | 2023-04-17 00:00 | LIDOCAINE 2% VISCOUS | [facility] | + + + + | 2022-05-23 00:00 | LURASIDONE HCL | [facility] | + + + + | 2023-04-17 00:00 | LURASIDONE HCL | [facility] | + + + + | 2022-05-23 00:00 | ONDANSETRON | [facility] | + + + + | 2023-04-17 00:00 | ONDANSETRON | [facility] | + + + + | 2015-08-19 00:00 | ONDANSETRON HCL | [facility] | + + + + | 2015-08-19 00:00 | ONDANSETRON HCL | [facility] | + + + + | 2019-01-14 00:00 | ONDANSETRON HCL | [facility] | + + + + | 2019-01-14 00:00 | ONDANSETRON HCL | [facility] | + + + + | 2018-04-11 00:00 | OXYCODONE | [facility] | | | HCL/ACETAMINOPHEN | | + + + + | 2018-04-11 00:00 | OXYCODONE | [facility] | | | HCL/ACETAMINOPHEN | | + + + + | 2022-05-23 00:00 | OXYCODONE HCL | [facility] | + + + + | 2023-04-17 00:00 | OXYCODONE HCL | [facility] | + + + + | 2015-09-10 00:00 | DIPHENHYDRAMINE HCL | [facility] | + + + + | 2015-09-10 00:00 | DIPHENHYDRAMINE HCL | [facility] | + + + + | 2022-05-23 00:00 | LURASIDONE HCL | [facility] | + + + + | 2023-04-17 00:00 | LURASIDONE HCL | [facility] | + + + + | 2022-05-23 00:00 | IPRATROPIUM/ALBUTEROL | [facility] | | | SULFATE | | + + + + | 2023-04-17 00:00 | IPRATROPIUM/ALBUTEROL | [facility] | | | SULFATE | | + + + + | 2022-05-23 00:00 | MELOXICAM | [facility] | + + + + | 2023-04-17 00:00 | MELOXICAM | [facility] | + + + + | 2022-05-23 00:00 | SUVOREXANT | [facility] | + + + + | 2023-04-17 00:00 | SUVOREXANT | [facility] | + + + + | 2014-11-29 00:00 | HYDROCORTISONE | [facility] | + + + + | 2014-11-29 00:00 | HYDROCORTISONE | [facility] | + + + + | 2022-05-23 00:00 | | [facility] | | | Fluticasone/Umeclidin/Vilan | | | | ter | | + + + + | 2023-04-17 00:00 | | [facility] | | | Fluticasone/Umeclidin/Vilan | | | | ter | | + + + + | 2022-05-23 00:00 | ALPRAZOLAM | [facility] | + + + + | 2023-04-17 00:00 | ALPRAZOLAM | [facility] | + + + + | 2022-05-23 00:00 | BACLOFEN | [facility] | + + + + | 2023-04-17 00:00 | BACLOFEN | [facility] | + + + + | 2018-04-11 00:00 | IBUPROFEN | [facility] | + + + + | 2018-04-11 00:00 | IBUPROFEN | [facility] | + + + + | 2022-05-23 00:00 | | [facility] | | | LISINOPRIL/HYDROCHLOROTHIAZ | | | | ANNEL | | + + + + | 2023-04-17 00:00 | | [facility] | | | LISINOPRIL/HYDROCHLOROTHIAZ | | | | ANNEL | | + + + + | 2022-05-23 00:00 | METHOCARBAMOL | [facility] | + + + + | 2023-04-17 00:00 | METHOCARBAMOL | [facility] | + + + + | 2022-05-23 00:00 | OMEPRAZOLE | [facility] | + + + + | 2023-04-17 00:00 | OMEPRAZOLE | [facility] | + + + + | 2022-05-23 00:00 | ONDANSETRON HCL | [facility] | + + + + | 2023-04-17 00:00 | ONDANSETRON HCL | [facility] | + + + + | 2022-05-23 00:00 | PRAZOSIN HCL | [facility] | + + + + | 2023-04-17 00:00 | PRAZOSIN HCL | [facility] | + + + + | 2022-05-23 00:00 | PRAZOSIN HCL | [facility] | + + + + | 2023-04-17 00:00 | PRAZOSIN HCL | [facility] | + + + + | 2018-04-11 00:00 | ACETAMINOPHEN | [facility] | + + + + | 2018-04-11 00:00 | ACETAMINOPHEN | [facility] | + + + + | 2013-09-10 00:00 | LEVOFLOXACIN | [facility] | + + + + | 2023-04-17 00:00 | CELECOXIB | [facility] | + + + + | 2017-10-19 00:00 | CEPHALEXIN | [facility] | + + + + | 2017-10-19 00:00 | CEPHALEXIN | [facility] | + + + + | 2022-05-23 00:00 | GABAPENTIN | [facility] | + + + + | 2023-04-17 00:00 | GABAPENTIN | [facility] | + + + + | 2022-05-23 00:00 | HYDROCHLOROTHIAZIDE | [facility] | + + + + | 2023-04-17 00:00 | HYDROCHLOROTHIAZIDE | [facility] | + + + + | 2016-05-29 00:00 | IBUPROFEN | [facility] | + + + + | 2016-05-29 00:00 | IBUPROFEN | [facility] | + + + + | 2018-04-06 00:00 | ONDANSETRON | [facility] | + + + + | 2018-04-06 00:00 | ONDANSETRON | [facility] | + + + + | 2022-05-23 00:00 | PRAZOSIN HCL | [facility] | + + + + | 2022-05-23 00:00 | PRAZOSIN HCL | [facility] | + + + + | 2023-04-17 00:00 | PRAZOSIN HCL | [facility] | + + + + | 2013-09-10 00:00 | predniSONE | [facility] | + + + + | 2013-09-10 00:00 | predniSONE | [facility] | + + + + | 2014-11-18 00:00 | predniSONE | [facility] | + + + + | 2014-11-18 00:00 | predniSONE | [facility] | + + + + | 2021-03-11 00:00 | predniSONE | [facility] | + + + + | 2021-03-11 00:00 | predniSONE | [facility] | + + + + | 2022-05-23 00:00 | SENNOSIDES | [facility] | + + + + | 2023-04-17 00:00 | SENNOSIDES | [facility] | + + + + | 2022-05-23 00:00 | SERTRALINE HCL | [facility] | + + + + | 2022-05-23 00:00 | SERTRALINE HCL | [facility] | + + + + | 2023-04-17 00:00 | SERTRALINE HCL | [facility] | + + + + | 2022-05-23 00:00 | SERTRALINE HCL | [facility] | + + + + | 2023-04-17 00:00 | SERTRALINE HCL | [facility] | + + + + | 2022-05-23 00:00 | SODIUM FLUORIDE | [facility] | + + + + | 2023-04-17 00:00 | SODIUM FLUORIDE | [facility] | + + + + | 2018-04-06 00:00 | MAG HYDROX/AL | [facility] | | | HYDROX/SIMETH | | + + + + | 2018-04-06 00:00 | MAG HYDROX/AL | [facility] | | | HYDROX/SIMETH | | + + + + | 2022-05-23 00:00 | FENOFIBRATE | [facility] | | | NANOCRYSTALLIZED | | + + + + | 2023-04-17 00:00 | FENOFIBRATE | [facility] | | | NANOCRYSTALLIZED | | + + + + | 2022-05-23 00:00 | TIOTROPIUM BROMIDE | [facility] | + + + + | 2023-04-17 00:00 | TIOTROPIUM BROMIDE | [facility] | + + + + | 2022-05-23 00:00 | DULOXETINE HCL | [facility] | + + + + | 2023-04-17 00:00 | DULOXETINE HCL | [facility] | + + + + | 2022-05-23 00:00 | DULOXETINE HCL | [facility] | + + + + | 2023-04-17 00:00 | DULOXETINE HCL | [facility] | + + + + | 2022-05-23 00:00 | Atomoxetine HCl | [facility] | + + + + | 2022-05-23 00:00 | ATORVASTATIN | [facility] | + + + + | 2023-04-17 00:00 | ATORVASTATIN | [facility] | + + + + | 2023-04-17 00:00 | ATOMOXETINE HCL | [facility] | + + + + | 2020-03-28 00:00 | CYCLOBENZAPRINE HCL | [facility] | + + + + | 2020-03-28 00:00 | CYCLOBENZAPRINE HCL | [facility] | + + + + | 2017-10-19 00:00 | TRAMADOL HCL | [facility] | + + + + | 2017-10-19 00:00 | TRAMADOL HCL | [facility] | + + + + | 2017-08-23 00:00 | TRAMADOL HCL | [facility] | + + + + | 2017-08-23 00:00 | TRAMADOL HCL | [facility] | + + + + | 2022-05-23 00:00 | TRAMADOL HCL | [facility] | + + + + | 2023-04-17 00:00 | TRAMADOL HCL | [facility] | + + + + | 2022-05-23 00:00 | CHOLESTYRAMINE/ASPARTAME | [facility] | + + + + | 2023-04-17 00:00 | CHOLESTYRAMINE/ASPARTAME | [facility] | + + + + | 2016-05-24 00:00 | | [facility] | | | SULFAMETHOXAZOLE/TRIMETHOPR | | | | IM DS | | + + + + | 2016-05-24 00:00 | | [facility] | | | SULFAMETHOXAZOLE/TRIMETHOPR | | | | IM DS | | + + + + | 2022-05-23 00:00 | ZOLPIDEM TARTRATE | [facility] | + + + + | 2023-04-17 00:00 | ZOLPIDEM TARTRATE | [facility] | + + + + | 2022-05-23 00:00 | DICLOFENAC SOD | [facility] | + + + + | 2023-04-17 00:00 | DICLOFENAC SOD | [facility] | + + + + | 2021-07-03 00:00 | DICLOFENAC SODIUM | [facility] | + + + + | 2022-05-23 00:00 | TRAZODONE HCL | [facility] | + + + + | 2023-04-17 00:00 | TRAZODONE HCL | [facility] | + + + + 2022-05-23 00:00 | TRAZODONE HCL | [facility] | + + + + | 2023-04-17 00:00 | TRAZODONE HCL | [facility] | + + + + | 2022-05-23 00:00 | AMITRIPTYLINE HCL | [facility] | + + + + | 2023-04-17 00:00 | AMITRIPTYLINE HCL | [facility] | + + + + | 2014-11-29 00:00 | HYDROCODONE | [facility] | | | BIT/ACETAMINOPHEN | | + + + + | 2014-11-29 00:00 | HYDROCODONE | [facility] | | | BIT/ACETAMINOPHEN | | + + + + | 2021-07-03 00:00 | HYDROCODONE | [facility] | | | BIT/ACETAMINOPHEN | | + + + + | 2021-07-03 00:00 | HYDROCODONE | [facility] | | | BIT/ACETAMINOPHEN | | + + + + | 2021-08-16 00:00 | HYDROCODONE | [facility] | | | BIT/ACETAMINOPHEN | | + + + + | 2021-08-16 00:00 | HYDROCODONE | [facility] | | | BIT/ACETAMINOPHEN | | + + + + | 2022-05-23 00:00 | ALBUTEROL SULFATE | [facility] | + + + + | 2023-04-17 00:00 | ALBUTEROL SULFATE | [facility] | + + + + | 2022-05-23 00:00 | METFORMIN HCL | [facility] | + + + + | 2023-04-17 00:00 | METFORMIN HCL | [facility] | + + + + | 2022-05-23 00:00 | SALMETEROL XINAFOATE | [facility] | + + + + | 2023-04-17 00:00 | SALMETEROL XINAFOATE | [facility] | + + + + | 2022-05-23 00:00 | BUSPIRONE HCL | [facility] | + + + + | 2023-04-17 00:00 | BUSPIRONE HCL | [facility] | + + + + | 2018-04-29 00:00 | ONDANSETRON | [facility] | + + + + | 2018-04-29 00:00 | ONDANSETRON | [facility] | + + + + | 2022-05-23 00:00 | CLONIDINE HCL | [facility] | + + + + | 2023-04-17 00:00 | CLONIDINE HCL | [facility] | + + + + | 2022-05-23 00:00 | FLUTICASONE PROPIONATE 220 | [facility] | | | MCG | | + + + + | 2023-04-17 00:00 | FLUTICASONE PROPIONATE 220 | [facility] | | | MCG | | + + + + | 2023-04-17 00:00 | DICYCLOMINE HCL | [facility] | + + + + | 2019-01-14 00:00 | DICYCLOMINE HCL | [facility] | + + + + | 2015-08-19 00:00 | DICYCLOMINE HCL | [facility] | + + + + | 2015-08-19 00:00 | DICYCLOMINE HCL | [facility] | + + + + | 2022-05-23 00:00 | BUPROPION HCL | [facility] | + + + + | 2023-04-17 00:00 | BUPROPION HCL | [facility] | + + + + Problems + + + + | date | description | facility | + + + + | 2014-11-18 00:00 | Interstitial lung disease | [facility] | + + + + | 2014-11-18 00:00 | Interstitial lung disease | [facility] | + + + + | 2014-11-29 00:00 | Bleeding external | [facility] | | | hemorrhoids | | + + + + | 2014-11-29 00:00 | Bleeding external | [facility] | | | hemorrhoids | | + + + + | 2014-11-29 00:00 | Diarrhea | [facility] | + + + + | 2014-11-29 00:00 | Diarrhea | [facility] | + + + + | 2015-05-10 00:00 | Strain of shoulder | [facility] | + + + + | 2015-05-10 00:00 | Strain of shoulder | [facility] | + + + + | 2015-08-19 00:00 | Abdominal pain | [facility] | + + + + | 2015-08-19 00:00 | Abdominal pain | [facility] | + + + + | 2015-08-21 00:00 | Enteritis | [facility] | + + + + | 2015-08-21 00:00 | Enteritis | [facility] | + + + + | 2015-09-10 00:00 | Viral pharyngitis | [facility] | + + + + | 2015-09-10 00:00 | Viral pharyngitis | [facility] | + + + + | 2016-04-19 00:00 | Alcoholic intoxication | [facility] | + + + + | 2016-04-19 00:00 | Alcoholic intoxication | [facility] | + + + + | 2016-05-24 00:00 | Folliculitis | [facility] | + + + + | 2016-05-24 00:00 | Folliculitis | [facility] | + + + + | 2016-05-28 00:00 | Abscess of axilla | [facility] | + + + + | 2016-05-28 00:00 | Abscess of axilla | [facility] | + + + + | 2017-08-23 00:00 | Strain of lumbar region | [facility] | + + + + | 2017-08-23 00:00 | Strain of lumbar region | [facility] | + + + + | 2017-09-13 00:00 | Encounter for medical | [facility] | | | screening examination | | + + + + | 2017-09-13 00:00 | Encounter for medical | [facility] | | | screening examination | | + + + + | 2017-10-19 00:00 | Acute right flank pain | [facility] | + + + + | 2017-10-19 00:00 | Acute right flank pain | [facility] | + + + + | 2017-10-19 00:00 | Hematuria | [facility] | + + + + | 2017-10-19 00:00 | Hematuria | [facility] | + + + + | 2018-04-29 00:00 | Vomiting | [facility] | + + + + | 2018-04-29 00:00 | Vomiting | [facility] | + + + + | 2018-09-28 00:00 | Contusion of forehead | [facility] | + + + + | 2018-09-28 00:00 | Contusion of forehead | [facility] | + + + + | 2019-01-14 00:00 | Viral gastroenteritis | [facility] | + + + + | 2019-01-14 00:00 | Viral gastroenteritis | [facility] | + + + + | 2019-08-18 05:35 | 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, cervical | [place] | | | region | | + + + + | 2020-01-25 13:35:49 | Other spondylosis with | [facility] | | | radiculopathy, lumbar | [facility] | | | region | | + + + + | 2020-05-03 05:04 | Spondylolisthesis, | [facility] - | | | lumbosacral region | [place] | + + + + | 2020-05-12 00:00 | Pain in testicle | [facility] | + + + + | 2020-05-12 00:00 | Pain in testicle | [facility] | + + + + | 2020-05-12 00:00 | Dysuria | [facility] | + + + + | 2020-05-12 00:00 | Dysuria | [facility] | + + + + | 2021-08-16 00:00 | Sprain of back | [facility] | + + + + | 2021-08-16 00:00 | Sprain of back | [facility] | + + + + | 2021-08-16 00:00 | Contusion of left hip | [facility] | + + + + | 2021-08-16 00:00 | Contusion of left hip | [facility] | + + + + | [...] + + + | 2021-08-16 10:43 | 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 | [facility] | | [...] | Avulsion of skin of toe | [facility] | + + + + | 2022-05-23 00:00 | Avulsion of skin of toe | [facility] | + + + + | [...] | | (unavailable | 14:10:13 | | [phone] | | | | ) | | [...] | | (unavailable | 14:10:13 | | [phone] | | | | ) | | [...] | | (unavailable | 14:10:13 | | [phone] | | | | ) | | [...] + | | 2020-01-25 | [facility] | [place], | (missing) | (missing) | | (unavailable | 14:10:13 | | [phone] | | | | ) | | [...] | | | | | | | [id number] | | | + + +-------+ + [...] | | | | | | | [id number] | | | + + +-------+ + [...]
--- OUTSIDE RECORDS SUMMARY | 2023-04-27 06:49 | XMS ---
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 If patient is seen in the ED during business hours. Please contact CHWs at [facility]. Care Recommendation: This patient has had 5 or more Emergency Department visits in the last 12 months. Patient requires education on the scope and purpose of the ED as an acute care provider not a Primary Care Provider and should not be utilized for chronic conditions. These are guidelines and the provider should exercise clinical judgment when providing care. 08/16/2021 [facility] Appropriate use of ER for pain due to slip and fall. Patient will follow up with Dr. Amaya if need be. 03/29/2020 [facility] Patient seen in walk in clinic by FRANKI Lopez, and advised to go to ED for further evaluation. Lyric VISIT COUNT (12 MO.) 2 [facility] H. TOTAL 2 NOTE: Visits indicate total known visits. ED/UCC VISIT TRACKING (12 MO.) 04/27/2023 06:46 [facility] [place] [facility] [place] TYPE: Emergency COMPLAINT: - BLOOD IN STOOL 05/23/2022 08:53 [facility] [place] TYPE: Emergency COMPLAINT: - L FOOT INJURY DIAGNOSES: - Allergy status to narcotic agent - Allergy status to other drugs, medicaments and biological substances - Bee allergy status - Chronic obstructive pulmonary disease, unspecified - Contact with other sharp object(s), not elsewhere classified, initial encounter - Essential (primary) hypertension - Laceration without foreign body of left great toe without damage to nail, initial encounter - Latex allergy status - group home (current) use of oral hypoglycemic drugs - Other terminal operations supervisor (current) drug therapy - Personal history of nicotine dependence - Unspecified osteoarthritis, unspecified site INPATIENT VISIT TRACKING (12 MO.) No inpatient visits to display in this time frame [email or web address]
[2023-04-27 07:12] LABS: BASOPHILS 0.3 % (0-2); EOSINOPHILS 1.8 % (0-6); HEMATOCRIT 40.8 % (35.0-50.0); HEMOGLOBIN 13.5 g/dL (12.0-18.0); LYMPHOCYTES 23.4 % (24-44); MCH 30.3 (27-36); MCV 91.9 fl (81-99); MONOCYTES 8.2 % (0-12); NEUTROPHILS 66.3 % (39-80); PLATELET COUNT 367 K/uL (140-440); RBC 4.44 M/ul (4.3-5.7); RDW 13.7 (10.5-15.0)
[2023-04-27 07:21] LABS: PARTIAL THROMBOPLASTIN TIME 26.8 Sec (22.9-41.3); PROTIME 12.7 Sec (11.2-14.2)
[2023-04-27 07:25] LABS: ALBUMIN 3.7 g/dL (3.4-5.0); ALBUMIN/GLOBULIN RATIO 1.23 (1.1-2.4); ANION GAP 13.9 (7-21); BILIRUBIN, TOTAL 0.4 ng/dL (0.2-1.0); BUN/CREATININE RATIO 29.47 (6.0-28.6); CALCIUM 8.2 mg/dL (8.5-10.1); CREATININE, SERUM 0.95 mg/dL (0.70-1.30); POTASSIUM 3.9 mmol/L (3.5-5.1); PROTEIN, TOTAL 6.7 g/dL (6.4-8.2)
[2023-04-27 07:53] LABS: ABO O; ANTIBODY SCREEN NEGATIVE; RH POSITIVE
[2023-04-27 08:10] LABS: INFLUENZA B NAA NEGATIVE (NEGATIVE); RESPIRATORY SYNCYTIAL VIR NAA NEGATIVE (NEGATIVE)
[2023-04-27 09:49] LABS: HEMATOCRIT 36.8 % (35.0-50.0); HEMOGLOBIN 12.1 g/dL (12.0-18.0); MCH 30.3 (27-36); MCHC 32.9 g/dl (30-36); MCV 92.1 fl (81-99); RDW 13.7 (10.5-15.0)
[2023-04-27] MEDS ORDERED: EPINEPHRIN0.3 MG/0.3 IM (10:14)
[2023-04-27] MEDS ORDERED: ATORVASTATIN CA40 MG PO (10:17)
--- NOTE | 2023-04-27 10:28 | NUR ---
PT ARRIVED TO THE FLOOR VIA STRETCHER WITH [employer] SALESPERSON. HE WAS ABLE TO SELF TRANSFER TO THE BED. QUICKLY GOT UP TO HAVE A BM IN THE BATHROOM, CLOTTY IMELDA BLOOD. HE HAD ANOTHER BLOODY BM IN THE BSC DURING THE ADMIT PROCESS. HE HAS HIS CELL PHONE WITH HIM AT BEDSIDE, HIS WALLET IS LOCKED IN THE ROOM LOCK BOX. ADMINISTERED 10MG OF BISACODYL PO, FLEETS ENEMA. HE HAS 2 BOTTLES OF MIRALAX AT BEDSIDE. HE WILL CALL AFTER BMS. IVF RUNNING, BSC AT BEDSIDE. HE IS FRUSTRATED AND IRRITATED. SPOKE WITH DR CASTANEDA ABOUT GIVING A SMALL AMOUNT OF CHICKEN BROTH WITH HIS MIRALAX. DR CASTANEDA ALLOWED A SMALL AMOUNT OF CHICKEN BROTH.
--- NOTE | 2023-04-27 11:10 | NUR ---
TRANSFERRED TO CCU ROOM 130 VIA BED FROM [facility] WITH DX OF ACTIVE GIB. REPORT RECEIVED FROM [facility]. PATIENT HAS BEEN HAVING DARK RED BM'S WITH CLOTS SINCE THIS MORNING. PATIENT HAD COLONOSCOPY 9 DAYS AGO, HAD 3 POLYPS AT THAT TIME. PATIENT IS VERY ANXIOUS AT THIS TIME. TEARS IN EYES. REASSURANCE GIVEN.
--- NOTE | 2023-04-27 11:20 | NUR ---
UP TO COMMODE TO EXPELL 500 ML OF DARK RED LIQUID. C/O FEELING VERY LIGHTHEADED. HR 128. ENC SLOW EVEN RESP. BACK TO BED W/O INCIDENT. WILL USE BEDPAN FROM NOW ON.
--- NOTE | 2023-04-27 11:30 | NUR ---
PT USED CALL LIGHT WITH NEED FOR ANOTHER BOWEL MOVEMENT, PT PLACED ONTO BEDPAN, HR WENT QUICKLY WENT UP TO 120'S AND HE THEN HAD A SYNCOPAL EPISODE PT UNRESPONSIVE TO VERBAL STIMULI/STERNAL RUB FOR APPROX 10 SECONDS THEN HE WOKE UP. BEDPAN REMOVED AND PT HAD HAD APPROX 500ML DARK RED LIQUID STOOL. DR CASTANEDA AND DR HAWTHORNE IN UNIT AND NOTIFIED, IN TO SEE PT AND DISCUSS PLAN FOR SCOPE NOW. ORDER GIVEN TO TRANSFUSE BLOOD, LAB STATES THEY CAN GET BLOOD READY IN A FEW MINUTES, DRIP PUMPER NOTIFIED AND IS GOING DOWN TO LAB TO HEEL SEAT FITTER THE BLOOD.
--- NOTE | 2023-04-27 11:44 | NUR ---
BENADRYL 25 MG IV GIVEN FOR ANXIETY.
--- NOTE | 2023-04-27 11:45 | NUR ---
FIRST UNIT PRBC'S HUNG TO RAC IV SITE. IV 20 GA STARTED TO R WRIST. LR STRAINGT TUBING HUNG TO THIS SITE. PLAN TO GO TO OR SOON. USING BEDPAN TO HAVE DARK RED LIQ STOOLS. SEE I/O FOR AMOUNT OF STOOLS. DENIES NAUSEA. C/O LOWER ABD PRESSURE.
--- NOTE | 2023-04-27 12:00 | NUR ---
LESS ANXIOUS AFTER BENADRYL GIVEN. JOSE ENRIQUE NOW IN ROOM.
--- NOTE | 2023-04-27 12:15 | NUR ---
HAS BEEN USING BEDPAN TO EXPELL DARK RED LIQUID STOOLS. BLOOD CONTINUES TO INFUSE.
--- NOTE | 2023-04-27 12:50 | NUR ---
PT LEFT TO OR WITH ANESTHESIA AND SURGERY RNS. PT WAS AWAKE WHEN HE LEFT WITH FIRST UNIT OF PRBC'S STILL INFUSING. PTS BLOOD PRESSURE HAS DROPPED SOME, LAST BP WAS 90/69, ANESTHESIA AND NURSES AWARE, HR WAS 80'S.
[2023-04-27 13:14] LABS: IS CROSSMATCH COMPATIBLE
[2023-04-27 13:14] LABS: ABO O; RH POSITIVE
--- NOTE | 2023-04-27 14:00 | NUR ---
NAUSEATED. NO EMESIS. DIAPHORTIC.
--- NOTE | 2023-04-27 14:10 | NUR ---
very anxious. ATIVAN 1 MG IV GIVEN. CBC DRAWN AT 1400. HCB-11.9, HCT-35. PATIENT HAS RECEIVED ONE UNIT PRBC'S.
[2023-04-27 14:11] LABS: HEMATOCRIT 35.7 % (35.0-50.0); HEMOGLOBIN 11.9 g/dL (12.0-18.0); MCH 29.6 (27-36); RBC 4.02 M/ul (4.3-5.7)
[2023-04-27 14:16] LABS: MCHC 33.3 g/dl (30-36); MCV 88.8 fl (81-99); PLATELET COUNT 295 K/uL (140-440); RDW 15.2 (10.5-15.0)
--- NOTE | 2023-04-27 14:16 | NUR ---
DILAUDID 1 MG IV GIVEN FOR LOWER ABD PAIN, RATES 8/.
[2023-04-27 14:34] LABS: LYMPHOCYTES, MANUAL DIFF 21; MONOCYTES, MANUAL DIFF 3; NEUTROPHILS, MANUAL DIFF 76
--- NOTE | 2023-04-27 16:45 | NUR ---
C/O HEADACHE, NECK, AND LOWER ABD PAIN. TYLENOL 1000 MG PO GIVEN.
--- NOTE | 2023-04-27 17:14 | OR ---
[facility] [address] [place], [place] [address] Signed DATE OF OPERATION: 04/27/2023 SURGEON: Lore Castaneda MD PREOPERATIVE DIAGNOSIS: Lower gastrointestinal bleed after colonoscopy with biopsies x3 10 days ago. POSTOPERATIVE DIAGNOSIS: Bleeding polypectomy site, distal right colon. PROCEDURE: Colonoscopy with application of six sequential clips and application of Cook Hemospray. ESTIMATED BLOOD LOSS: Minimal. INDICATIONS: Percy is a 62-year-old gentleman, who came to us 10 days ago for colonoscopy. We know his father had colon cancer at age 51. His twin sister is known to have Crohn disease. He has irritable bowel syndrome with generalized abdominal pain, nausea, vomiting, and chronic diarrhea. He does have intermittent rectal bleeding as well as internal hemorrhoids. He does have a history of Clostridium difficile colitis. We took out a 5 mm polyp in the distal right colon and then a 4 mm polyp at hepatic flexure and then a 4 mm polyp in the mid transverse colon. He is known to have minimal sigmoid diverticulosis along with minimal internal hemorrhoids. Percy said he was doing great. He started his Celebrex couple of days ago. He then started passing blood per rectum. He came to emergency room for evaluation. He was admitted to our hospitalist service. I have been asked to see him as a general surgeon on-call. I explained to Percy and his girlfriend that we needed to take him down to endoscopy suite to get those polypectomy sites. He was able to take Dulcolax by mouth as well as about 40 ounces of MiraLAX and Gatorade as well as Fleet's phospho soda enema. He had good results, but he was still having some dark liquid blood. We did give him 1 unit of blood as we were going down to endoscopy suite. I explained to Percy there is risk including, but not limited to gas bloating, crampy abdominal pain, bleeding, perforation requiring surgery, and missed diagnosis. Of course, he always needs monitored anesthesia care, but particularly today. He expressed understanding and wished to proceed. PROCEDURE IN DETAIL: Percy was taken down to our endoscopy suite and placed in the left lateral decubitus position. He was placed under general endotracheal tube anesthesia per our nurse Electronically Signed By: LORE CASTANEDA MD 04/27/23 1714 PATIENT NAME: PERCY MOSES OPERATIVE REPORT DATE OF : 64 REPORT #: [id number] PHYSICIAN: LORE CASTANEDA MD PCP: ILDA PADGETT MD REPORT IS CONFIDENTIAL AND NOT TO BE RELEASED WITHOUT AUTHORIZATION [facility] [address] [place], [place] [address] Signed headliner installer mainly for airway protection. A digital rectal exam was performed and he did have some dark maroon liquid stool. The adult colonoscope was introduced and we suctioned out some maroon liquid stool in the rectum and as we went up the left colon down the transverse colon finally into the cecum itself. We passed some bright red blood as we were coming around the hepatic flexure. As we brought the camera back, we found the polypectomy site in his distal right colon. He had a small arterial that was pulsatile and we were able to place six sequential clips across this area with decent results. There was still a little oozing, so we cauterized just a little bit on the clip over the next close to that area. We then used our Cook Hemospray and applied that around the polypectomy site on both sides of that fold. After this, the scope was slowly withdrawn and we never directly could visualize the other two polypectomy sites. However, there was no more active red blood. As we withdrew the scope we suctioned out the air and some additional areas of dark liquid stool. After this, the scope was removed. Percy was rotated into the supine position. He was weaned from his anesthesia, extubated in the OR and taken to recovery room in stable condition. Lore Castaneda MD ALB/MODL /[id number] cc: MD Ilda Urias MD Copies: LORE CASTANEDA MD, RUSSEL J MD ~ Electronically Signed By: LORE CASTANEDA MD 04/27/23 1714 PATIENT NAME: PERCY MOSES OPERATIVE REPORT DATE OF : 64 REPORT #: [id number] PHYSICIAN: LORE CASTANEDA MD PCP: ILDA PADGETT MD REPORT IS CONFIDENTIAL AND NOT TO BE RELEASED WITHOUT AUTHORIZATION
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
--- NOTE | 2023-04-27 17:23 | NUR ---
RESTING AT THIS TIME.
--- NOTE | 2023-04-27 19:18 | NUR ---
PT CALLS FOR 8/10 ABDOMINAL PAIN, ALSO C/O HEADACHE. 1MG IV DILAUDID GIVEN. ICE PACK PROVIDED FOR PT COMFORT.
--- NOTE | 2023-04-27 19:45 | NUR ---
PATIENT REQUESTED ICE PACKS AND FRESH ICE; WHICH WERE PROVIDED. PATIENT VS STABLE. NO OTHER NEEDS AT THIS TIME. CALL LIGHT IN REACH.
[2023-04-27 19:57] LABS: BASOPHILS 0.1 % (0-2); EOSINOPHILS 0.6 % (0-6); HEMATOCRIT 33.1 % (35.0-50.0); HEMOGLOBIN 11.2 g/dL (12.0-18.0); LYMPHOCYTES 18.1 % (24-44); MCH 29.8 (27-36); MCHC 33.7 g/dl (30-36); MCV 88.3 fl (81-99); NEUTROPHILS 74.2 % (39-80); PLATELET COUNT 269 K/uL (140-440); RBC 3.75 M/ul (4.3-5.7); RDW 15.2 (10.5-15.0)
--- NOTE | 2023-04-27 21:00 | NUR ---
PATIENT PROVIDED SCHEDULED AND PRN MEDS FOR NAUSEA AND ABD PAIN. PATIENT IS AAOX4. REPORTS MILD NAUSEA WITH CRAMPING IN HIS ABD AND A HEADACHE. PATIENT'S ABD IS DISTENDED BUT SOFT. HYPOACTIVE BOWEL SOUNDS. PATIENT HAS IV FLUIDS PER ORDER; SITE WNL. PATIENT STOOD AT BEDSIDE; DENIED FEELING DIZZY OR LIGHTHEADED. BED LINEN CHANGED. PATIENT BACK IN BED. CALL LIGHT IN REACH.
--- NOTE | 2023-04-27 22:30 | NUR ---
PATIENT PROVIDED ICE CHIPS. CONTINUES TO REST; REPORTS IMPROVMENT IN PAIN. VS STABLE.
[2023-04-28] VITALS (12 sets, daily range): BP systolic 96–120; BP diastolic 67–84
--- NOTE | 2023-04-28 00:30 | NUR ---
PATIENT APPEARS TO BE SLEEPING SOUNDLY. VS STABLE.
--- NOTE | 2023-04-28 01:19 | NUR ---
pt calls to use bsc, provided. output is liquid and bloody. barrier cream applied to buttocks. pt states no other needs at this time. call light in reach.
[2023-04-28 01:59] LABS: BASOPHILS 0.4 % (0-2); EOSINOPHILS 0.8 % (0-6); HEMATOCRIT 30.9 % (35.0-50.0); HEMOGLOBIN 10.3 g/dL (12.0-18.0); LYMPHOCYTES 13.8 % (24-44); MCH 29.5 (27-36); MCHC 33.4 g/dl (30-36); MCV 88.3 fl (81-99); MONOCYTES 7.5 % (0-12); NEUTROPHILS 77.5 % (39-80); PLATELET COUNT 251 K/uL (140-440)
--- NOTE | 2023-04-28 05:00 | NUR ---
LAB IN ROOM FOR MORNING DRAW. PATIET REPORTS SLEEPING WELL. DENIES NEEDS AT THIS TIME. IV FLUIDS PER ORDER; SITE WNL. VS STABLE. SOFT BP NOTED. PATIENT DENIES FEELING LIGHTHEADED.
[2023-04-28 05:14] LABS: BASOPHILS 0.2 % (0-2); EOSINOPHILS 0.6 % (0-6); HEMATOCRIT 29.1 % (35.0-50.0); LYMPHOCYTES 14.4 % (24-44); MCH 30.2 (27-36); MCHC 34.3 g/dl (30-36); MONOCYTES 6.9 % (0-12); NEUTROPHILS 77.9 % (39-80); PLATELET COUNT 213 K/uL (140-440); RBC 3.31 M/ul (4.3-5.7); RDW 15.2 (10.5-15.0)
[2023-04-28 05:28] LABS: ANION GAP 12.6 (7-21); BUN/CREATININE RATIO 17.39 (6.0-28.6); CALCIUM 7.7 mg/dL (8.5-10.1); CREATININE, SERUM 0.69 mg/dL (0.70-1.30); MAGNESIUM 1.5 mg/dL (1.8-2.4); POTASSIUM 3.6 mmol/L (3.5-5.1)
--- NOTE | 2023-04-28 07:30 | NUR ---
REPORT RECEIVED. PATIENT IS ASKING FOR FOOD. TALKED WITH HIME ABOUT THIS. INDICATES UNDERSTANDING.
--- NOTE | 2023-04-28 08:00 | NUR ---
ASSESSMENT DONE. C/O HEADACHE, MILD NECK PAIN AND ABD DISCOMFORT. DENIES NAUSEA. IVF PATENT. HAS BEEN VOIDING TO URINAL ASKING ABOUT WHEN HE CAN GO HOME. TOLD PATIENT IS DEPENDS ON MANY FACTORS, WE WILL NEED TO CONTINUE TO EVALUATE.
--- NOTE | 2023-04-28 08:30 | NUR ---
DR. CASTANEDA HERE TO SEE PATIENT, HE WILL ORDER FULL LIQUIDS.
--- NOTE | 2023-04-28 09:00 | NUR ---
UP TO CHAIR FOR BREAKFAST. MOVING WELL, HEART RATE DIDN'T INCREASE WITH MOVEMENT. DENIES DIZZINESS.
--- NOTE | 2023-04-28 09:30 | NUR ---
TOOK BREAKFAST WELL. DENIES NAUSEA. HAS BEEN VOIDING TO URINAL.
--- NOTE | 2023-04-28 09:45 | NUR ---
TO BR TO EXPELL BROWN STOOL. NO BLOOD NOTED. NO DIZZINESS WITH MOVEMENT.
--- NOTE | 2023-04-28 09:45 | NUR ---
TYLENOL GIVEN FOR C/O ABD PRESSURE.
--- NOTE | 2023-04-28 10:00 | NUR ---
LAYING DOWN IN BED. RESTING NOW. C/O ABD PRESSURE.
--- NOTE | 2023-04-28 10:21 | NUR ---
NEB TREATMENT GIVEN. PATIENT DENIES SHORTNESS OF BREATH.
[2023-04-28 11:15] LABS: BASOPHILS 0.2 % (0-2); EOSINOPHILS 0.7 % (0-6); HEMOGLOBIN 10.2 g/dL (12.0-18.0); MCHC 34.1 g/dl (30-36); MONOCYTES 8.5 % (0-12); NEUTROPHILS 76.6 % (39-80); PLATELET COUNT 235 K/uL (140-440); RBC 3.41 M/ul (4.3-5.7); RDW 14.9 (10.5-15.0)
--- NOTE | 2023-04-28 12:00 | NUR ---
ASSESSMENT UNCHANGED, STATES HE IS FEELING BETTER.
--- NOTE | 2023-04-28 13:56 | NUR ---
PTS DAUGHTER CALLED FOR TRASPORT BACK HOME. DAUGHTER SHOULD BE HERE MOMENTARLY.
--- NOTE | 2023-04-28 14:00 | NUR ---
HAS BEEN TAKING PO FLUIDS WELL. USING URINAL TO VOID.
[2023-04-28] MEDS ORDERED: OMEPRAZOLE40 MG PO (15:33)
[2023-04-28] MEDS ORDERED: ALBUTEROL2.5 MG/3 M INH (15:38)
[2023-04-28] MEDS ORDERED: TRELEGY ELLIPT1 EACH INH (15:39)
--- NOTE | 2023-04-28 15:42 | NUR ---
MED REC COMPLETE
[2023-04-28 16:58] LABS: HEMOGLOBIN 9.2 g/dL (12.0-18.0)
[2023-04-28 17:01] LABS: BASOPHILS 0.1 % (0-2); EOSINOPHILS 0.9 % (0-6); HEMATOCRIT 26.7 % (35.0-50.0); LYMPHOCYTES 14.9 % (24-44); MCH 30.3 (27-36); MCHC 34.4 g/dl (30-36); MCV 87.9 fl (81-99); NEUTROPHILS 74.1 % (39-80); PLATELET COUNT 218 K/uL (140-440); RBC 3.03 M/ul (4.3-5.7); RDW 14.8 (10.5-15.0)
--- NOTE | 2023-04-28 18:00 | NUR ---
TOOK FULL LIQUIDS WELL. DENIES NAUSEA.
--- NOTE | 2023-04-28 18:45 | NUR ---
UP TO BR TO VOID. HR TO 135 , C/O SLIGHT DIZZINESS.
--- NOTE | 2023-04-28 20:00 | NUR ---
PATIENT REPORTS FULL BODY ACHES FROM HIS ARTHRITIS AND A SEVERE HEADACHE. PRN TYLENOL AND FLEXARIL PROVIDED PER ORDERS. PATIENT DENIES FEEL NAUSEA OR GI UPSET. NO FURTHER BLOODY STOOLS TODAY PER PATIENT AND REPORT. IV FLUIDS PER ORDER; SITE WNL. LUNGS ARE CLEAR BUT DIMINISHED. PRN NEB TREATMENTS PER RT.
--- NOTE | 2023-04-28 21:07 | NUR ---
PATIENT REPORTS CHEST PAIN. STATES "IT'S LIKE MY MUSCLES OR BONES". DENIES FEELING SOB. HR 120-130 AT REST. UP TO 140'S WITH MOVEMENT. BP WNL. Sp02 98% ON ROOM AIR. DISCUSSED WITH . EKG ORDERED. RT CALLED FOR EKG.
--- NOTE | 2023-04-28 21:30 | NUR ---
DISCUSSED EKG AND UPDATE ON PATIENT'S HR AND CHEST PAIN. PATIENT IS FEELING SLIGHTLY BETTER BUT HR CONTINUES TO BE 130-140 AT REST. MAG REPLACEMENT ORDERED.
--- NOTE | 2023-04-28 22:30 | NUR ---
PATIENT CONTINUES TO BE TACHY; SINUS TACH 125-135. BP WNL. NO SOB. RESTING IN BED. WHEN PATIENT REPOSITIONED HIS HR INCREASES TO 140'S AND HE REPORTS FEELING UPWELL WHEN THAT HAPPENS. OTHERWISE IS MORE COMOFRTABLE. CALL LIGHT IN REACH.
--- NOTE | 2023-04-29 00:32 | NUR ---
PATIENT SITTING AT EDGE OF BED. HR 110-120. PATIENT DENIES FEELING LIGHTHEADED. URNAL EMPTIED. LIGHTS OFF. PATIENT BACK TO BED AND REPORTS HE WILL TRY TO SLEEP. NO OTHER NEEDS AT THIS TIME. CALL LIGHT IN REACH.
[2023-04-29 00:38] VITALS: BP 122/73
[2023-04-29 02:00] VITALS: BP 106/65
--- NOTE | 2023-04-29 02:00 | NUR ---
PATIENT APPEARS TO BE SLEEPING SOUNDLY. VS STABLE. HR IMPROVING. CALL LIGHT IN REACH.
--- NOTE | 2023-04-29 05:00 | NUR ---
PATIENT APPEARS TO BE SLEEPING SOUNDLY. VS STABLE. CALL LIGHT IN REACH.
--- NOTE | 2023-04-29 06:00 | NUR ---
PATIENT UPSET WITH LAB STAFF FOR WAKING HIM UP ABRUPTLY. DISCUSSED WITH PATIENT AND ASSISTED IN CALMING SITUATION. PATIENT PROVIDED WITH PRN MEDS FOR NAUSEA AND PAIN. PATIENT REPORTS FEELING WEAK AND LIGHTHEADED WHEN MOVING OVER TO THE CHAIR. VS STABLE. HR IMPROVED; ONLY 95-100 WITH ACTIVITY. CALL LIGHT IN REACH.
--- NOTE | 2023-04-29 06:00 | EKG ---
[facility] [address] [facility] [place] [address] Signed Sinus tachycardia Otherwise normal ECG When compared with ECG of 11-APR-2023 12:45, Vent. rate has increased BY 47 BPM Confirmed by HARSHAL ORR MD ([id number]) on 04/29/2023 6:00:05 AM Electronically Signed By: HARSHAL ORR 04/29/23 0600 PATIENT NAME: CIARAN MOSES Electrocardiogram DATE OF : 64 PHYSICIAN: HARSHAL ORR REPORT #: [id number] REPORT IS CONFIDENTIAL AND NOT TO BE RELEASED WITHOUT AUTHORIZATION
[2023-04-29 06:26] LABS: BASOPHILS 0.2 % (0-2); HEMATOCRIT 27.7 % (35.0-50.0); HEMOGLOBIN 9.3 g/dL (12.0-18.0); LYMPHOCYTES 16.3 % (24-44); MCH 29.8 (27-36); MCHC 33.7 g/dl (30-36); MCV 88.3 fl (81-99); MONOCYTES 7.8 % (0-12); NEUTROPHILS 74.7 % (39-80); PLATELET COUNT 214 K/uL (140-440); RBC 3.13 M/ul (4.3-5.7); RDW 14.7 (10.5-15.0)
[2023-04-29 06:30] VITALS: BP 108/79
[2023-04-29 06:42] LABS: ANION GAP 13.8 (7-21); BUN/CREATININE RATIO 12.5 (6.0-28.6); CALCIUM 8.5 mg/dL (8.5-10.1); CREATININE, SERUM 0.88 mg/dL (0.70-1.30); MAGNESIUM 2.1 mg/dL (1.8-2.4); POTASSIUM 3.8 mmol/L (3.5-5.1)
--- NOTE | 2023-04-29 07:30 | NUR ---
REPORT RECEIVED. PATIENT IS RESTING IN BED. IVF PATENT. DR. PHAM AND DR. CSATANEDA HAVE BEEN INTO SEE PATIENT. PLAN FOR DISCHARGE TODAY.
[2023-04-29] MEDS ORDERED: IRON325 M1 PO (07:43)
[2023-04-29 08:00] VITALS: BP 113/78
--- NOTE | 2023-04-29 09:00 | NUR ---
TOOK BREAKFAST FAIR. DENIES PAIN OR NAUSEA. IM BED WATCHING TV.
--- NOTE | 2023-04-29 09:09 | NUR ---
IRON INFUSION HUNG.
--- NOTE | 2023-04-29 09:25 | NUR ---
IRON INFUSION COMPLETE. TOLERATED WELL.
--- NOTE | 2023-04-29 09:48 | NUR ---
AMBULATED TO SHOWER.
--- NOTE | 2023-04-29 11:08 | NUR ---
RESTING IN BED.
--- NOTE | 2023-04-29 11:28 | NUR ---
PT DENIED NEEDS. 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 DECLINED PRAYER AT BEDSIDE. PRAYED SILENT PRAYER FOR HEALING OUTSIDE ROOM.
--- NOTE | 2023-04-29 11:30 | NUR ---
DISCHARGE ORDERS RECEIVED.
--- NOTE | 2023-04-29 12:00 | NUR ---
SITTING UP AT BEDSIDE TO EAT LUNCH.
[2023-04-29] MEDS ORDERED: BUSPIRONE HCL30 MG PO (12:46)
--- NOTE | 2023-04-29 13:00 | NUR ---
DISCHARGE INSTRUCTIONS GIVEN WITH PATIENT UNDERSTANDING.
--- NOTE | 2023-04-29 13:17 | NUR ---
DISCHARGED VIA W/C ACCOMP BY RN. PATIENT DRIVING SELF HOME.
== END 2023-04-29 13:17 | disposition home or self-care (01) | DRG 921 ==
LOC: ED 06:46 → CCU 06:47 → MS 06:47 → CCU 11:10
PROVIDERS: Colon & Rectal Surgery; Emergency Medicine; Family Medicine; ADMIT Internal Medicine; ATTEND Internal Medicine
PROC: XW0H886 Introduction of Mineral-based Topical Hemostatic Agent into Lower GI, Via Natural or Artificial Opening Endoscopic, New Technology Group 6 (ICD-10-PCS; 2023-04-27)
PROC: 0W3P8ZZ Control Bleeding in Gastrointestinal Tract, Via Natural or Artificial Opening Endoscopic (ICD-10-PCS; principal; 2023-04-27 12:30)
DX: K91.840 Postprocedural hemorrhage of a digestive system organ or structure following a digestive system procedure (principal); Q21.9 Congenital malformation of cardiac septum, unspecified; E11.9 Type 2 diabetes mellitus without complications; I10 Essential (primary) hypertension; E78.5 Hyperlipidemia, unspecified; J43.9 Emphysema, unspecified; Z79.899 Other long term (current) drug therapy; Z88.5 Allergy status to narcotic agent; Z91.040 Latex allergy status; Z79.84 Long term (current) use of oral hypoglycemic drugs
CPT/HCPCS: 00811; 36415; 80048; 80053; 83690; 83735; 84100; 85025; 85027; 85610; 85730; 86850; 86900; 86901; 86922; 87502; 93005; 93010; 94640; 96374; 96375; 99285-25; A9270; C9113; C9803; G0378; J0330; J0780; J1170; J1200; J2060; J2405; J2704; J3010; J3475; J7030; J7121; P9016; Q0138; U0002

== ENCOUNTER 2023-10-09 13:57 | Emergency (ER) | payer MEDICARE, OTHER ==
[~2023-10-09] VITALS: Ht 172.7 cm; Wt 83.0 kg
[~2023-10-09 13:57] MED LIST changes: +ALBUTEROL2.5 MG/3 M INH; +ATORVASTATIN CA40 MG PO; +EPINEPHRIN0.3 MG/0.3 IM; +IRON325 M1 PO; +OMEPRAZOLE40 MG PO
[2023-10-09 14:52] LABS: INFLUENZA B NAA NEGATIVE (NEGATIVE); RESPIRATORY SYNCYTIAL VIR NAA NEGATIVE (NEGATIVE)
[2023-10-09] MEDS ORDERED: TAMIFLU75 MG PO (17:42)
[2023-10-09] MEDS ORDERED: ACETAMINOPHEN 500 MG TAB PO ONE (17:45)
[2023-10-09] MEDS ORDERED: predniSONE 20 MG TAB PO ONE (17:45)
[2023-10-09] MEDS ORDERED: IBUPROFEN 600 MG TAB PO ONE (17:45)
[2023-10-09 17:53] VITALS: BP 112/88
== END 2023-10-09 17:58 | disposition home or self-care (01) ==
LOC: ED 13:57
PROVIDERS: Emergency Medicine
DX: J10.1 Influenza due to other identified influenza virus with other respiratory manifestations (principal); Z87.891 Personal history of nicotine dependence; J44.9 Chronic obstructive pulmonary disease, unspecified; I10 Essential (primary) hypertension; M19.90 Unspecified osteoarthritis, unspecified site; Z79.899 Other long term (current) drug therapy; Z79.84 Long term (current) use of oral hypoglycemic drugs; Z88.5 Allergy status to narcotic agent; Z88.6 Allergy status to analgesic agent; Z91.040 Latex allergy status; Z91.030 Bee allergy status; Z91.018 Allergy to other foods
CPT/HCPCS: 87502; 99283; A9270; J7512; U0002

== ENCOUNTER 2024-03-27 11:24 | Inpatient (IN) | payer MEDICARE, OTHER ==
[~2024-03-27] VITALS: Ht 172.7 cm; Wt 82.3 kg
[~2024-03-27 11:24] MED LIST changes: +CIPRO500 MG PO; +METRONIDAZOLE500 MG PO; +TAMIFLU75 MG PO
[2024-03-27] MEDS ORDERED: CELECOXIB200 MG PO (11:44)
[2024-03-27] MEDS ORDERED: DIAZEPAM2 MG PO (11:46)
[2024-03-27 11:57] LABS: BASOPHILS 0.5 % (0-2); EOSINOPHILS 0.1 % (0-6); HEMOGLOBIN 15.6 g/dL (12.0-18.0); LYMPHOCYTES 4.2 % (24-44); MCH 30.1 (27-36); MCHC 33.9 g/dl (30-36); MONOCYTES 4.8 % (0-12); NEUTROPHILS 90.4 % (39-80); PLATELET COUNT 399 K/uL (140-440); RBC 5.18 M/ul (4.3-5.7); RDW 13.9 (10.5-15.0)
[2024-03-27] MEDS ORDERED: KETOROLAC TROMETHAMINE 15 MG/ML VIAL IV ONE (12:00)
[2024-03-27] MEDS ORDERED: ondansetron HCL 4 MG/2 ML VIAL IV ONE (12:00)
[2024-03-27 12:12] LABS: ALBUMIN 4.2 g/dL (3.4-5.0); ALBUMIN/GLOBULIN RATIO 1.31 (1.1-2.4); ANION GAP 13.6 (7-21); BILIRUBIN, TOTAL 0.8 ng/dL (0.2-1.0); BUN/CREATININE RATIO 19.58 (6.0-28.6); CALCIUM 9.2 mg/dL (8.5-10.1); CREATININE, SERUM 0.97 mg/dL (0.70-1.30); POTASSIUM 3.6 mmol/L (3.5-5.1); PROTEIN, TOTAL 7.4 g/dL (6.4-8.2)
[2024-03-27] MEDS ORDERED: LACTATED RINGER'S 1,000 ML IV PRN (13:00)
[2024-03-27] MEDS ORDERED: AMP/SULBACTAM SOD 3 GM in SODIUM CHLORIDE 0.9% 100 ML IV ONE (13:00)
[2024-03-27] MEDS ORDERED: FAMOTIDINE 20 MG/ 2 ML VIAL IV SCH (13:26)
[2024-03-27] MEDS ORDERED: KETOROLAC TROMETHAMINE 30 MG/ML VIAL IV PRN (13:30)
[2024-03-27] MEDS ORDERED: LACTATED RINGER'S 1,000 ML IV SCH (13:30)
[2024-03-27] MEDS ORDERED: MORPHINE SULFATE 10 MG/ML VIAL IV PRN (13:30)
[2024-03-27] MEDS ORDERED: ondansetron HCL 4 MG/2 ML VIAL IV PRN (13:30)
[2024-03-27] MEDS ORDERED: ATOMOXETINE HCL 40 MG PO SCH (13:36)
[2024-03-27] MEDS ORDERED: busPIRone HCL 15 MG TAB PO SCH (13:37)
[2024-03-27] MEDS ORDERED: CELECOXIB 200 MG CAP PO SCH (13:38)
[2024-03-27] MEDS ORDERED: ALBUTEROL SULFATE 0.083% 3 ML HOME.PACK INH PRN (13:45)
[2024-03-27] MEDS ORDERED: diazePAM 2 MG TAB PO PRN (13:45)
[2024-03-27] MEDS ORDERED: PIPERACILLIN/TAZOBACTAM 3.375 GM in DEXTROSE 5% 100 ML IV SCH (14:00)
[2024-03-27 14:17] VITALS: BP 123/74
[2024-03-27] MEDS ORDERED: ALBUTEROL SULFATE 0.083% 3 ML VIAL INH PRN (14:45)
[2024-03-27] MEDS ORDERED: CYCLOBENZAPRINE10 MG PO (15:29)
[2024-03-27] MEDS ORDERED: ALBUTEROL/IPRATROPIUM 3 ML NEB INH SCH (16:00)
[2024-03-27] MEDS ORDERED: PATIENT'S OWN MEDICATION(S) ORDER MISC ONE ×2 (16:15→18:45)
--- NOTE | 2024-03-27 16:18 | NUR ---
IN IV PUMP ALARMING, RESOLVED. URINE COLLECTED FROM URINAL AND SAMPLE SENT TO LAB. URINAL EMPTIED. PT DENIES ANY OTHER NEEDS AT THIS TIME. CALL LIGHT IN REACH. SIGNIFICANT OTHER AT BEDSIDE.
[2024-03-27 16:21] LABS: BILIRUBIN, URINE NEGATIVE (negative); BLOOD/HGB, URINE NEGATIVE (Negative); KETONE, URINE NEGATIVE (Negative); LEUK ESTERASE, URINE NEGATIVE (negative); NITRITE, URINE NEGATIVE (negative)
--- NOTE | 2024-03-27 16:33 | NUR ---
MED REC COMPLETE
[2024-03-27] MEDS ORDERED: ATORVASTATIN 40 MG TAB PO SCH ×2 (17:00→21:00)
[2024-03-27] MEDS ORDERED: DEXTROSE 50% 50 ML SYR IV PRN ×2 (17:00)
[2024-03-27] MEDS ORDERED: DICYCLOMINE HCL 10 MG CAP PO PRN (17:00)
[2024-03-27] MEDS ORDERED: DEXTROSE 5% 1,000 ML IV PRN (17:00)
[2024-03-27] MEDS ORDERED: CYCLOBENZAPRINE HCL 10 MG TAB PO PRN (17:00)
[2024-03-27] MEDS ORDERED: GLUCAGON,HUMAN RECOMBINANT 1 MG/ML VIAL SUB-Q PRN (17:00)
[2024-03-27] MEDS ORDERED: FENOFIBRATE MICRONIZED PO SCH (17:00)
[2024-03-27] MEDS ORDERED: IBLOOD GLUCOSE TEST STRIP 1 EA TEST XX PRN (17:00)
[2024-03-27 17:55] VITALS: BP 139/81
--- NOTE | 2024-03-27 18:12 | NUR ---
PT IS CURRENTLY IN BED RESTING AFTER RECIEVING PAIN MEDICATION AND MED FOR ANXIETY. PT STATES THAT HE IS NERVOUS ABUT HEARING THAT HE HAS A HOLE IN HIS BOWEL AND STATES THAT HE IS IN 8/10 PAIN. PT RECIEVED 4MG OF MORPHINE EARLIER BUT STATES THAT IT WASN'Y ENOUGH SO I GAVE PT 6MG PER DR INSTRUCTIONS. PT STATES THAT HE IS FEELING MUCH BETTER. I HAVE TO REMIND PT TO TAKE IT EASY ON THE CLEAR FLUID INTAKE BECAUSE HE SHOULD BE ALLOWING HIS BOWEL TO REST. NO OTHER CARES NEEDED OR REQUESTED AT THIS TIME. CALL LIGHT WITHIN REACH
--- NOTE | 2024-03-27 19:05 | NUR ---
REPORT RECEIVED FROM JAGJIT OLSEN. pt RESTING IN THE BED. BOARD UPDATED. pt REQUESTED NEW ICE PACK, WARM BLANKET, AND FRESH ICE WATER. ALL ITEMS GIVEN. pt DENIES ANY NEEDS AT THIS TIME. CALL LIGHT WITHIN REACH.
[2024-03-27] MEDS ORDERED: IBLOOD GLUCOSE TEST STRIP 1 EA TEST VI SCH (20:00)
[2024-03-27] MEDS ORDERED: BUDESONIDE 0.5 MG/2 ML VIAL INH SCH (20:00)
[2024-03-27] MEDS ORDERED: Insulin Regular, Human 100 UNIT/ML ML SUB-Q SCH (20:00)
[2024-03-27 20:10] VITALS: BP 130/75
--- NOTE | 2024-03-27 20:15 | NUR ---
ASSESSMENT AND VITAL SIGNS DONE. pt C/O 03/28 PAIN. PRN PAIN MEDICATION ADMINISTERED. BG CHECKED WITH A RESULTS OF 131 NO SS INSULIN NEEDED. SCHEDULED MEDICATION ADMINISTERED. BOWEL TONE ACTIVE. NEW ICE PACK GIVEN. WATER REFRESHED. pt DENIES ANY OTHER NEEDS AT THIS TIME. CALL LIGHT WITHIN REACH.
[2024-03-27 20:33] VITALS: BP 130/75
[2024-03-27] MEDS ORDERED: PIPERACILLIN/TAZOBACTAM 3.375 GM VIAL ONE ×2 (21:32→21:33)
[2024-03-28] VITALS (11 sets, daily range): BP systolic 113–125; BP diastolic 66–75
--- NOTE | 2024-03-28 | NUR ---
pt RESTING IN THE BED WITH EYES CLOSED. IV ABX INFUSING PER ORDER, SEE MAR. SCDs ON. NO OTHER NEEDS AT THIS TIME. CALL LIGHT WITHIN REACH.
--- NOTE | 2024-03-28 04:05 | NUR ---
pt RESTING IN THE BED. URINAL EMPTIED. pt DENIES AND NEEDS AT THIS TIME. CALL LIGHT WITHIN REACH.
--- NOTE | 2024-03-28 05:00 | NUR ---
DOORSHAKER AND RN OBTAINED VITALS AND I&O. URINAL EMPTIED. PT STATEES NO FURTHER NEEDDS AT THIS TIME. CALL LIGTH WITHIN REACH RN IN ROOM.
--- NOTE | 2024-03-28 05:02 | NUR ---
PT rested through out the night. PT independent in the RM. bowel tones active. PRN pain medication administered when needed.
[2024-03-28 05:24] LABS: BASOPHILS 0.1 % (0-2); HEMATOCRIT 44.5 % (35.0-50.0); HEMOGLOBIN 14.8 g/dL (12.0-18.0); LYMPHOCYTES 6.7 % (24-44); MCHC 33.3 g/dl (30-36); MCV 90.3 fl (81-99); MONOCYTES 5.4 % (0-12); NEUTROPHILS 87.8 % (39-80); PLATELET COUNT 345 K/uL (140-440); RBC 4.93 M/ul (4.3-5.7); RDW 13.6 (10.5-15.0)
[2024-03-28 05:31] LABS: ALBUMIN 3.9 g/dL (3.4-5.0); ALBUMIN/GLOBULIN RATIO 1.26 (1.1-2.4); BILIRUBIN, TOTAL 0.9 ng/dL (0.2-1.0); BUN/CREATININE RATIO 12.22 (6.0-28.6); CALCIUM 9.4 mg/dL (8.5-10.1); CREATININE, SERUM 0.9 mg/dL (0.70-1.30)
--- NOTE | 2024-03-28 06:40 | NUR ---
CALL LIGHT ANSWERED. PT NEEDED HELP WITH IV POLE TO GET TO THE BATHROOM. HOME IMPROVEMENT INSTALLER SBA PT TO BATHROOM. PT HAD BM. PT ASSISTED BACK TO BED. SCDS RECONNECTED AND TURNED BACK ON. PT STATES NO FURTHER NEEDS AT THIS TIME. CALL LIGHT PLACED WITHIN REACH.
--- NOTE | 2024-03-28 07:30 | NUR ---
RECEIVED REPORT FROM RAÚL JAEGER. PT AWAKE IN BED, STATES HE IS HAVING PAIN WELL NAUSEA, REQUESTS PAIN AND NAUSEA MEDICATION, GIVEN. PT STATES NO FURTHER NEEDS AT THIS TIME, CALL LIGHT WITHIN REACH.
--- NOTE | 2024-03-28 07:55 | NUR ---
PATIENT IN BED AT THIS TIME. CALL LIGHT WITHIN REACH, NO FURTHER NEEDS AT THIS TIME.
[2024-03-28] MEDS ORDERED: PATIENT'S OWN MEDICATION(S) ORDER MISC ONE (08:00)
--- NOTE | 2024-03-28 08:05 | NUR ---
PT AWAKE IN BED. PT DENIES NAUSEA OR SOB AT THIS TIME. ABDOMEN SOFT, TENDER TO PALPATION, BOWEL TONES ACTIVE. EDUCATION ON CURRENT DIET ORDER AND SLOW INTAKE FOR COMFORT TO ALLOW FOR BOWEL REST, PT VERBALIZES UNDERSTANDING. PT STATES NO FURTHER NEEDS AT THIS TIME, CALL LIGHT WITHIN REACH.
--- NOTE | 2024-03-28 09:55 | NUR ---
PT STATES HE WOULD LIKE TO SHOWER AT THIS TIME. IV DISCONNECTED FROM POLE, IV SITE WRAPPED FOR SHOWER. PT AMBULATES TO SHOWER INDEPENDENTLY, STEADY ON FEET. NEW GOWN, SOCKS, AND TOWELS PROVIDED. PT STATES NO FURTHER NEEDS AT THIS TIME. CALL LIGHT WITHIN REACH.
--- NOTE | 2024-03-28 10:45 | NUR ---
PT STATES HE IS HAVING HEADACHE PAIN WELL ABDOMINAL PAIN, REQUESTS PRN FLEXERIL AND PAIN MEDICATION, GIVEN. PT STATES NO FURTHER NEEDS AT THIS TIME, CALL LIGHT WITHIN REACH.
--- NOTE | 2024-03-28 11:05 | NUR ---
PT REQUESTS ICE PACK FOR ABDOMEN, GIVEN. PT STATES NO FURTHER NEEDS AT THIS TIME, CALL LIGHT WITHIN REACH.
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
--- NOTE | 2024-03-28 12:09 | NUR ---
PT REQUESTS SECOND IV D/T IV PUMP ALARMING FREQUENTLY WITH CURRENT IV IN L AC. IV PLACE AFTER TWO ATTEMPTS, NEW IV IN L WRIST, BRISK BLOOD RETURN, FLUSHES WELL. NO REDNESS OR SWELLING PRESENT. PT STATES NO FURTHER NEEDS AT THIS TIME. CALL LIGHT WITHIN REACH.
--- NOTE | 2024-03-28 13:30 | NUR ---
Received report from [id number] nurse. Pt is a/o, respirations even and regular. Pt IV fluids running. IV site wnl. Pt denies needs att. Call light within reach.
--- NOTE | 2024-03-28 15:15 | NUR ---
Rounded on pt. Pt appears to be sleeping comfortably. Respirations even and regular. IV running. Call light within reach.
--- NOTE | 2024-03-28 15:15 | NUR ---
Rounded on pt. Pt appears to be sleeping comfortably. Respirations even and regular. IV running. Call light within reach.
--- NOTE | 2024-03-28 18:23 | NUR ---
PATIENT IN BED AT THIS TIME. CALL LIGHT WITHIN REACH, NO FURTHER NEEDS AT THIS TIME.
--- NOTE | 2024-03-28 19:05 | NUR ---
Report obtained from Tania OLSEN. Pt awake, sitting inbed, wtching tv, denies c/o pain
--- NOTE | 2024-03-28 20:30 | NUR ---
PATIENT SITTING UP ON BED AT THIS TIME. VITALS, I&O'S, AND BLOOD SUGAR DONE AND CHARTED. FRESH WATER GIVEN. CALL LIGHT IN REACH. NO FURTHER NEEDS AT THIS TIME.
--- NOTE | 2024-03-28 21:05 | NUR ---
Pt cooperative with assessment and vitals. on room air, 198 CBG received 2 units Insulin. IVF infusing L Wrist. SL LAC patent. lungs clear no cough no c/o sob. turns and repositions self in bed. c/o anxiety, medicated, c/o back pain, medicated .wearing attends, scds in place, fidgetty but redirectable
--- NOTE | 2024-03-28 22:37 | NUR ---
Pt c/o 03/28 abd pain, medicted with Morphine 6mg IV. IVF infusing, tolerating liquids well. turns and repositions self in bed
--- NOTE | 2024-03-28 22:39 | NUR ---
pt used cll light, was incontinent of bowel. up to BRP, does own care,
--- NOTE | 2024-03-28 22:49 | NUR ---
BACK TO BED, SCDS ON, COLD PACK TO ABD.
[2024-03-29] VITALS (9 sets, daily range): BP systolic 101–128; BP diastolic 65–81
--- NOTE | 2024-03-29 00:38 | NUR ---
RESTING, NO S/SX DISTRESS, IVF INFUSING. TURNS AND REPOSITINS SELF IN BED
--- NOTE | 2024-03-29 01:53 | NUR ---
RESTING, EYES CLOSED, NO S/SX DISTRESS, IVF INFUSING, TURNS AND REPOSITIONS SELF IN BED, VOIDING CLEAR YELLOW URINE
--- NOTE | 2024-03-29 02:23 | NUR ---
pt awakens easily. c/o 03/28 abd pain, medicated with Morphine 6mg IV, IVF infusing, no c/o adverse reaction to abx.
[2024-03-29 05:18] LABS: BASOPHILS 0.1 % (0-2); HEMATOCRIT 40.8 % (35.0-50.0); HEMOGLOBIN 13.8 g/dL (12.0-18.0); LYMPHOCYTES 5.6 % (24-44); MCH 30.1 (27-36); MCHC 33.9 g/dl (30-36); MCV 88.8 fl (81-99); MONOCYTES 8.3 % (0-12); PLATELET COUNT 327 K/uL (140-440); RBC 4.59 M/ul (4.3-5.7); RDW 13.6 (10.5-15.0)
--- NOTE | 2024-03-29 06:20 | NUR ---
Pt awakens easily, on room air, IVF infusing w.o problems, no c/o adverse reaction. Has been medicated for c/o ab pain with good pain results. denies need for pain meds at this time. Using urinal, voiding QS. was incontinent of bowels x1, did own alyssa care SBA
--- NOTE | 2024-03-29 07:05 | NUR ---
RECEIVED REPORT FROM RAÚL WILKS. ASSUMING CARE OF PT.
--- NOTE | 2024-03-29 07:06 | NUR ---
PT REPORTS NAUSEA. PRN NAUSEA MED PROVIDED. PT STATES NO OTHER NEEDS AT THIS TIME. CALL LIGHT IN REACH.
--- NOTE | 2024-03-29 08:00 | NUR ---
PT AWAKE IN BED, STATES PAIN IS 8/10, USES ICE PACK FOR PAIN, STATES NO FURTHER PAIN MANAGEMENT NEEDS AT THIS TIME. PT REQUESTS PANTS TO WEAR TO WALK IN HALLWAY, GIVEN. PT EDUCATION ON SLOW INTAKE FOR BOWEL REST BREAKFAST TRAY ARRIVES, PT VERBALIZES UNDERSTANDING. ABDOMEN TENDER TO PALPATION IN LEFT AND RIGHT LOWER QUADRANTS. ACTIVE BOWEL TONES. PT STATES NO CURRENT NEEDS, CALL LIGHT WITHIN REACH.
--- NOTE | 2024-03-29 08:30 | NUR ---
patient walked 1 lap around medical/surgical floor w/nurse. pt is back in room sitting on bed. pt indp in room.
[2024-03-29] MEDS ORDERED: FAMOTIDINE 20 MG TAB PO SCH (09:00)
[2024-03-29] MEDS ORDERED: FLUTICASONE/UMECLIDIN/VILANTER 1 EACH BLST.W.DEV INH SCH (09:00)
--- NOTE | 2024-03-29 12:07 | NUR ---
PT REQUESTS PRN PAIN MEDICATION, GIVEN. PT REQUESTS ZOFRAN FOR NAUSEA, GIVEN. PT REQUESTS FLEXERIL FOR HEADACHE, GIVEN. PT STATES NO FURHTER NEEDS AT THIS TIME, CALL LIGHT WITHIN REACH.
--- NOTE | 2024-03-29 13:43 | NUR ---
PT UP FOR WALK INDEPENDENTLY. PT STATES PAIN IS 4/10 AT THIS TIME. PT STATES NO FURTHER NEEDS AT THIS TIME.
--- NOTE | 2024-03-29 16:30 | NUR ---
PT C/O 03/28 PAIN IN ABDOMEN AT THIS TIME, PRN PAIN MEDICATION GIVEN. PT HAS INCONTINENT BM, NEW CHUX IN PLACE, NEW DEPENDS AND SCRUB PANTS PROVIDED. PT STATES NO FURTHER NEEDS AT THIS TIME, CALL LIGHT WITHIN REACH.
--- NOTE | 2024-03-29 16:53 | NUR ---
patient walking two laps around medical/surgical floor. pt has no needs at this time.
--- NOTE | 2024-03-29 17:06 | NUR ---
PT SITTING UP IN BED AFTER WALKING ONE LAP AROUND UNIT. PT TOLERATING FULL LIQUIDS TRAY WELL AT THIS TIME. PT REQUESTS ICE PACK, GIVEN. PT STATES NO FURTHER NEEDS CURRENTLY, CALL LIGHT WITHIN REACH.
--- NOTE | 2024-03-29 18:26 | NUR ---
PT AWAKE IN BED, REQUESTS ICE WATER AND ICE CHIPS, GIVEN. PT REQUESTS BARRIER CREAM D/T IRRITATION FROM INCONTINENCE, GIVEN. PT STATES NO FURTHER NEEDS AT THIS TIME, CALL LIGHT WITHIN REACH.
--- NOTE | 2024-03-29 18:45 | NUR ---
PT AMBULATES IN HALLWAY, COMPLETES 2 LAPS AROUND UNIT. PT STATES NO NEEDS AT THIS TIME.
--- NOTE | 2024-03-29 20:46 | NUR ---
AMBULATED, TOLERATED WELL. BACK TO ROOM, VOIDING QS YELLOW URINE. IVF INFUSING W/O PROBLEMS LW, LAC SL PATENT. ABD SOFT, TENDER, TOLERATED LIQUIDS WELL, NO N/V. ICE TO ABD. LEGS ELEVATED. ON ROOM AIR, CLEAR LUNGS, NO SOB WITH EXERTION. CBG 200 RECEIVED 2 UNTIS SS INSULIN, WAS MEDICATED WITH MORPHINE 6MG IV C/O 9/10 ABD PAIN AFTER AMBULATING, COOPERATIVE WITH VITALS AND ASSESSMENT, ALERT AND ORIENTED, SBA/IND IN ROOM
[2024-03-29] MEDS ORDERED: IBLOOD GLUCOSE TEST STRIP 1 EA TEST VI SCH (21:00)
[2024-03-29] MEDS ORDERED: Insulin Regular, Human 100 UNIT/ML ML SUB-Q SCH (21:00)
--- NOTE | 2024-03-29 23:37 | NUR ---
RESTING, EYES CLOSED, NO S/X DISTRESS, IVF INFUSING
[2024-03-30] VITALS (8 sets, daily range): BP systolic 139–153; BP diastolic 67–90
--- NOTE | 2024-03-30 02:33 | NUR ---
RESTING, EYES CLOSED. NO S/SX DISTRESS. IVF INFUSING
--- NOTE | 2024-03-30 03:01 | NUR ---
c/o abd pain, medicated with Morphine 6mg IV, c/o feeling nauseated.Medicated with zofran. ice chips and fresh water given on requets, scds off at his requets, urinal emptied, voiding qs
--- NOTE | 2024-03-30 06:21 | NUR ---
AWAKENS EASILY, ON ROOM AIR, DENIES C/O PAIN, IVF INFUSING W/O PROBLEMS, FRESH COFFEE AND FLUIDS GIVEN. VOIDING QS USES URINAL. TURNS AND REPOSITIONS SELF IN BED. TOLERATING FULL LIQUIDS, HAS HAD 2 BM'S SOFT LIQUID THIS SHIFT. DOES OWN CARE
--- NOTE | 2024-03-30 07:00 | NUR ---
PT REPORT RECEIVED FROM RAÚL WILKS. PT IS AWAKE, ALERT, AND ORIENTED, RESTING IN BED, TELEVISION ON. PT STATES HIS PAIN IS INCREASING AND REQUESTS PAIN MEDS AND HIS CELEBREX. SIDE RAILS UP, CALL LIGHT AND PERSONAL BELONGINGS IN REACH. WHITE BOARD UPDATED.
--- NOTE | 2024-03-30 08:58 | NUR ---
UR CLINICAL REVIEW: 2 MN FOR VERSALUS-MEETS INPT CRITERIA MEDICARE INPT 03/27/24 @ 1326 ORDER MATCHES REG NO AUTH REQUIRED PER MEDICARE GUIDELINES DISCHARGE TO HOME WHEN STABLE
--- NOTE | 2024-03-30 09:31 | NUR ---
PATIENT IS IN THE HALLWAY WALKING. CASE MANGER WILL RETURN LATER TO DO THE DISCHARGE ASSESSMENT.
--- NOTE | 2024-03-30 10:05 | NUR ---
SPOKE TO PATIENT ABOUT THE DISCHARGE PLAN. PATIENT LIVES WITH [facility]. PATIENT PLANS TO RETURN TO HIS APARTMENT. PATIENT DOES NOT NEED PLACEMENT. PATIENT IS ON DISABILITY. PATIENT CAN DO HIS OWN ADLS AND DEMOGRAPHICS ARE CORRECT. PATIENT GETS FOOD STAMPS AND CAN AFFORD FOOD AND HOUSING. PATIENT HAS A CANE AND A WHEELCHAIR. PATIENT HAS FRIENDS AND FAMILY THAT CAN HELP NEEDED. PATIENT HAS NO DISCHARGE NEEDS AT THIS TIME.
[2024-03-30 10:07] LABS: BASOPHILS 0.1 % (0-2); EOSINOPHILS 0.5 % (0-6); HEMOGLOBIN 14.7 g/dL (12.0-18.0); LYMPHOCYTES 3.9 % (24-44); MCH 30.6 (27-36); MCHC 34.3 g/dl (30-36); MCV 89.2 fl (81-99); MONOCYTES 6.6 % (0-12); NEUTROPHILS 88.9 % (39-80); PLATELET COUNT 316 K/uL (140-440); RBC 4.82 M/ul (4.3-5.7); RDW 13.7 (10.5-15.0)
--- NOTE | 2024-03-30 11:41 | NUR ---
Pt is up ambulating the hallway with his s/o.
--- NOTE | 2024-03-30 11:44 | NUR ---
TWO ICE PACKS PROVIDED.
--- NOTE | 2024-03-30 11:49 | NUR ---
PT BACK TO BED. ICE WATER AND WARM BLANKET PROVIDED. SCDS PLACED. DENIES ANY FURTHER NEEDS, CALL LIGHT IN REACH
[2024-03-30] MEDS ORDERED: metroNIDAZOLE 250 MG TAB PO SCH (12:00)
[2024-03-30] MEDS ORDERED: ACETAMINOPHEN 500 MG TAB PO PRN (15:45)
--- NOTE | 2024-03-30 15:45 | NUR ---
SPOKE WITH DR. NELSON ABOUT PT'S REQUEST FOR NIGHT TIME PAIN PILL "TO HELP ME SLEEP". DR. NELSON ORDERED PO TYLENOL AND D/C'D IV MORPHINE. BROUGHT PT PO VALIUM PER EMAR HE IS BECOMING ANXIOUS ABOUT PAIN AT NIGHT, DISCUSSED DR. NELSON'S ORDERS WITH PT AND REVIEWED EDUCATION ON LOW FIBER DIET FOODS, PAMPHLET PROVIDED. PT VERBALIZED UNDERSTANDING. PT STATES THAT THE HOT PACK IS WORKING ON HIS PAIN BETTER THAN THE ICE PACK AND REQUESTED IT BE REHEATED. FRESHENED HOT PACK PROVIDED TO PT AND ENCOURAGED HIM TO KEEP THE WASH CLOTH BETWEEN THE HOT PACK AND HIS SKIN. PT VERBALIZED UNDERSTANDING. CALL LIGHT IN REACH.
[2024-03-30] MEDS ORDERED: AMOXICILLIN/CLAVULANATE K 875 MG TAB PO SCH (17:00)
--- NOTE | 2024-03-30 17:43 | NUR ---
Pt has ambulated the hallways several times this shift (greater than 6 laps) and tolerated the activity well with minimal increase in c/o pain. Discussions were had with patient about the need to start taking po pain meds instead of IV morphine if he is to be discharged tomorrow and the pt seemed to understand this. He had an increase in anxiety this afternoon, worrying about pain control at night but verbalized understanding when advised that Dr. Greco ordered Tylenol for him. He was given valium per emar at this time. Pt is tolerating the full liquid diet well and has had 3 liquid BMs this shift. Education was provided to him and reviewed with him on low fiber diets and a pamphlet was given to him with this information. Pt verbalized changes he plans to make at home r/t his diet. Pt's s/o has been to visit him this shift and the pt has had a shower today. He does c/o burning around the anus r/t bouts of diarrhea. He has had the BMs in the toilet and flushed them so none have been visualized or measured by staff. Pt has been given ice packs and heat packs for his abdomen and he seems to prefer the heat packs and states they provide better relief. Pt has used his call light appropriately and has been pleasant.
--- NOTE | 2024-03-30 19:00 | NUR ---
pt in bed sleeping, eyes closed, no s/sx distress. Report received from Effie OLSEN
--- NOTE | 2024-03-30 21:17 | NUR ---
pt refused his blood sugar check.
--- NOTE | 2024-03-30 21:21 | NUR ---
Pt in bed, irritable angry mood but redirectable. cooperative with vitals, took meds w/o problems, fresh water and ice given. Declined accuchecks and RN assessments. Pt alert to all, turns and repositions self in bed, on room iar, no s/sx respiratory distress or pain. "I just dont feel good, I wanted to go home today, I have to wait an extre day, I miss my bed and my family", reassured. requests not be bothered. Pt instructed that this Rn would come and reassess him at about 2330 and if he wants accuchecks and assessments at that time, stated "OK. charge nurse notified.
--- NOTE | 2024-03-30 23:48 | NUR ---
RESTING, EYES CLOSED, NO S/SX DISTRESS. RESP EVEN AND UNLABORED, TURNS SELF IN BED, USES URINAL, VOIDING QS YELLOW URINE
--- NOTE | 2024-03-31 02:05 | NUR ---
THIS RN TO ASSUME CARE. REPORT RECEIVED FROM OFF GOING RN. PT LYING IN BED ON RIGHT SIDE. EYES CLOSED. RESPIRATIONS EVEN. WHITE BOARD UPDATED. CALL LIGHT IN REACH.
--- NOTE | 2024-03-31 05:09 | NUR ---
PT LYING IN BED RESTING WITH EYES CLOSED. RESPIRATIONS EVEN. CALL LIGHT IN REACH.
[2024-03-31 06:18] VITALS: BP 125/84
--- NOTE | 2024-03-31 06:40 | NUR ---
PT RESTING WITH EYES CLOSED. AWAKENS EASILY. VS AND I&O OBTAINED. PT REPORTS "A LITTLE BIT" OF NAUSEA AND 9/10 LLQ "SORENESS." PRN FOR PAIN AND N/V ADMIN PER EMAR. ASSESSMENT COMPLETE. BOWEL TONES ACTIVE. ABD SOFT. PT DENIES FURTHER NEEDS AT THIS TIME. CALL LIGHT IN REACH.
--- NOTE | 2024-03-31 07:26 | NUR ---
PT RESTING EYES CLOSED AT TIME OF SHIFT REPORT, LEFT UNDISTURBED. FRESH H20 TO BEDSIDE CALL LIGHT IN REACH
--- NOTE | 2024-03-31 08:48 | NUR ---
PT AWAKE NOW UP TO THE TOILET X2 PASSING STOOL. RETURNS TO BED WITH MORNING MEAL.
--- NOTE | 2024-03-31 09:03 | NUR ---
PT IS RESTLESS GROANING, UP THEN DOWN, C/O BED BEING MOIST, REQUESTING HIS PHONE ETC. VALIUM AND FLEXARIL ADMINISTERED PER REQUEST.
[2024-03-31 09:29] VITALS: BP 133/71
--- NOTE | 2024-03-31 10:48 | NUR ---
PT RESTING EYES CLOSED NEEDED ITEMS IN REACH
--- NOTE | 2024-03-31 12:27 | NUR ---
PT TOLERATES FULL LIQUID TRAY STATES HE IS STILL HUNGRY REQUESTS MORE SOUP. PT C/O TREMOR IN HIS HANDS WHICH HE STATES IS NEW TO HIM. DENIES ANY OTHER SYMPTOMS. TREMBLING OBSERVED STILL ABLE TO SELF FEED AND FUNCTION UNSURE OF CAUSE.
--- NOTE | 2024-03-31 13:23 | NUR ---
VISITED DURING SPIRITUAL CARE ROUNDS. PT RECEIVING NURSING CARE. DID NOT INTERRUPT. PROVIDED PRAYER.
[2024-03-31] MEDS ORDERED: AMOX TR-K CLV1 EAC1 PO (13:24)
[2024-03-31] MEDS ORDERED: METRONIDAZOLE250 MG PO (13:24)
[2024-03-31 13:45] VITALS: BP 128/82
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
== END 2024-03-31 14:10 | disposition home or self-care (01) | DRG 392 ==
LOC: ED 11:24 → MS 13:26
PROVIDERS: Emergency Medicine; ADMIT Surgery; ATTEND Surgery
DX: K57.20 Diverticulitis of large intestine with perforation and abscess without bleeding (principal); F41.9 Anxiety disorder, unspecified; J45.909 Unspecified asthma, uncomplicated; E78.5 Hyperlipidemia, unspecified; M19.90 Unspecified osteoarthritis, unspecified site; Z88.5 Allergy status to narcotic agent; Z91.040 Latex allergy status; Z87.442 Personal history of urinary calculi; Z87.891 Personal history of nicotine dependence; Z98.890 Other specified postprocedural states; Z88.8 Allergy status to other drugs, medicaments and biological substances; Z79.899 Other long term (current) drug therapy; Z79.891 Long term (current) use of opiate analgesic
CPT/HCPCS: 36415; 74177; 80053; 81003; 83605; 83690; 85025; 94640; 94760; A9270; J1815; J1885; J2270; J2405; J2543; J7121; Q9967

== ENCOUNTER 2024-08-25 11:46 | Day surgery (SDC) | payer MEDICARE, OTHER ==
[~2024-08-25] VITALS: Ht 172.7 cm; Wt 79.0 kg
[2024-08-25 11:27] VITALS: BP 116/76
[~2024-08-25 11:46] MED LIST changes: +AMOX TR-K CLV1 EAC1 PO; +CELECOXIB200 MG PO; +DIAZEPAM2 MG PO; +IBLOOD GLUCOSE TEST STRIP 1 EA TEST VI PRN; +LACTATED RINGER'S 1,000 ML IV SCH; +LIDOCAINE HCL 1% 5 ML SDV INJ ONE; +METRONIDAZOLE250 MG PO; +MIDAZOLAM HCL 5 MG/5 ML VIAL IV PRN; +fentaNYL citrate 100 MCG/2 ML VIAL IV PRN
[2024-08-25] MEDS ORDERED: MIDAZOLAM HCL 5 MG/5 ML VIAL ONE (12:14)
[2024-08-25] MEDS ORDERED: fentaNYL citrate 100 MCG/2 ML VIAL ONE (12:15)
--- NOTE | 2024-08-25 12:57 | NUR ---
08/25/24 Tania Blanco 1252-PATIENT ARRIVED TO PACU ON 2L NC RR EVEN PATIENT AWAKE DENIES PAIN OR NAUSEA. LAYING LEFT LATERAL ABDOMEN SOFT. IVF INFUSING. ENCOURAGED TO PASS GAS. PATIENT ASKING FOR ORANGE JUICE. 1256-GLUCOSE LEVEL 137 REPORT TO ALONA OLSEN
[2024-08-25 13:19] VITALS: BP 109/86
--- NOTE | 2024-08-27 13:15 | OR ---
[facility] [address], [place] [address] Signed DATE OF OPERATION: 08/25/2024 SURGEON: Phoenix Nelson MD PREOPERATIVE DIAGNOSIS: History of recurrent sigmoid diverticulitis March and April 2024. POSTOPERATIVE DIAGNOSIS: Diverticulosis without sign of stricture, neoplasm, or inflammation. PROCEDURE: Total colonoscopy to cecum. ANESTHESIA: Intravenous sedation; fentanyl 100 mcg and Versed 10 mg. INDICATION: This 63-year-old white man is a patient of Dr. Ilda Kennedy. He suffered diverticulitis requiring hospitalization between March 27 and in 2023 and later in April of 2024. He was noted to have a diverticular abscess associated with diverticulitis. He resolved all of this with medical management. He is now to undergo colonoscopy to better characterize the segment to assure there is no sign of neoplasm, stricture, or other indication for resection. Of note, he has undergone colonoscopy by another surgeon that resulted in significant bleeding and therefore he has some anxiety related to colonoscopy. He understands, however, the risk of bleeding, infection, and perforation related to colonoscopy and wished to proceed. FINDINGS: The prep was good. Complete colonoscopy was undertaken to the cecum without problem. He had numerous diverticula of the sigmoid, but no evidence of stricture, neoplasm, ongoing inflammation or other problem. DESCRIPTION OF PROCEDURE: The patient was brought to the endoscopy suite and placed in the lateral decubitus position, given intravenous sedation to the point of slurred speech and nystagmus. Full cardiopulmonary monitoring was maintained. Digital rectal examination was normal. An Olympus video colonoscope was passed in the rectum and manipulated throughout the colon noting diverticula of the sigmoid and left colon. The scope was ultimately advanced to the cecum. Ileocecal valve and appendiceal orifice were normal. Scope was Electronically Signed By: PHOENIX NELSON MD 08/27/24 1315 PATIENT NAME: CIARAN MOSES OPERATIVE REPORT DATE OF : 64 REPORT #: [id number] PHYSICIAN: PHOENIX NELSON MD PCP: ILDA KENNEDY MD REPORT IS CONFIDENTIAL AND NOT TO BE RELEASED WITHOUT AUTHORIZATION [facility] [address], [place] [address] Signed withdrawn from that point. Examination showed no sign of abnormality until the left colon where diverticula were noted and the most dominantly in the sigmoid. The scope was withdrawn to the rectum, which was normal. Scope was removed and the patient was taken to the recovery room in good condition. CONCLUDING DIAGNOSIS: Diverticulosis without sign of stricture, ongoing inflammation or other abnormality. No evidence of polyp. PLAN: Recommend high-fiber diet. I do not believe he will need elective colon resection since he currently is asymptomatic and has no anatomic features that would mandate resection. He will return to the ongoing care of Dr. Kennedy. MD DAKOTA Wilcox/JULIA /[id number] cc: Dr. Kennedy Copies: ~ Electronically Signed By: PHOENIX NELSON MD 08/27/24 1315 PATIENT NAME: CIARNA MOSES OPERATIVE REPORT DATE OF : 64 REPORT #: [id number] PHYSICIAN: PHOENIX NELSON MD PCP: ILDA KENNEDY MD REPORT IS CONFIDENTIAL AND NOT TO BE RELEASED WITHOUT AUTHORIZATION
== END 2024-08-25 13:33 | disposition home or self-care (01) ==
LOC: OPS 11:46 → DS 11:46 → OPS 12:15 → DS 12:15 → OPS 13:33
PROVIDERS: ATTEND Surgery
PROC: 0DJD8ZZ Inspection of Lower Intestinal Tract, Via Natural or Artificial Opening Endoscopic (ICD-10-PCS; principal; 2024-08-25 12:15)
DX: K57.30 Diverticulosis of large intestine without perforation or abscess without bleeding (principal); I10 Essential (primary) hypertension; K21.9 Gastro-esophageal reflux disease without esophagitis; M26.9 Dentofacial anomaly, unspecified
CPT/HCPCS: 99153; G0500; J2250; J3010; J7121

== ENCOUNTER 2024-09-18 08:56 | Emergency (ER) | payer MEDICARE, OTHER ==
[~2024-09-18] VITALS: Ht 172.7 cm; Wt 78.5 kg
[~2024-09-18 08:56] MED LIST changes: -IBLOOD GLUCOSE TEST STRIP 1 EA TEST VI PRN; -LACTATED RINGER'S 1,000 ML IV SCH; -LIDOCAINE HCL 1% 5 ML SDV INJ ONE; -MIDAZOLAM HCL 5 MG/5 ML VIAL IV PRN; -fentaNYL citrate 100 MCG/2 ML VIAL IV PRN
[2024-09-18] MEDS ORDERED: ALBUTEROL/IPRATROPIUM 3 ML NEB INH ONE (09:45)
[2024-09-18] MEDS ORDERED: SODIUM CHLORIDE 0.9% 1,000 ML IV ONE (09:45)
[2024-09-18 10:03] LABS: BASOPHILS 0.8 % (0-2); EOSINOPHILS 0.8 % (0-6); HEMATOCRIT 46.3 % (35.0-50.0); LYMPHOCYTES 17.3 % (24-44); MCH 31.1 (27-36); MCHC 34.6 g/dl (30-36); MONOCYTES 7.6 % (0-12); NEUTROPHILS 73.5 % (39-80); PLATELET COUNT 366 K/uL (140-440); RBC 5.14 M/ul (4.3-5.7); RDW 15.3 (10.5-15.0)
[2024-09-18 10:19] LABS: CORONAVIRUS COVID-19 AG NEGATIVE (NEGATIVE); INFLUENZA A AG NEGATIVE (NEGATIVE); INFLUENZA B AG NEGATIVE (NEGATIVE)
[2024-09-18 10:21] LABS: ALBUMIN 4.5 g/dL (3.4-5.0); ALBUMIN/GLOBULIN RATIO 1.45 (1.1-2.4); ANION GAP 12.5 (7-21); BILIRUBIN, TOTAL 1.4 ng/dL (0.2-1.0); BUN/CREATININE RATIO 21.9 (6.0-28.6); CALCIUM 9.5 mg/dL (8.5-10.1); CREATININE, SERUM 1.05 mg/dL (0.70-1.30); POTASSIUM 3.5 mmol/L (3.5-5.1); PROTEIN, TOTAL 7.6 g/dL (6.4-8.2)
[2024-09-18] MEDS ORDERED: ZITHROMAX250 MG PO (10:48)
[2024-09-18 11:05] VITALS: BP 123/77
== END 2024-09-18 11:07 | disposition home or self-care (01) ==
LOC: ED 08:56
PROVIDERS: Emergency Medicine
DX: J18.9 Pneumonia, unspecified organism (principal); J44.0 Chronic obstructive pulmonary disease with (acute) lower respiratory infection; J84.10 Pulmonary fibrosis, unspecified; I10 Essential (primary) hypertension; Z87.891 Personal history of nicotine dependence; Z88.5 Allergy status to narcotic agent; Z88.6 Allergy status to analgesic agent; Z91.030 Bee allergy status; Z91.040 Latex allergy status; Z91.018 Allergy to other foods; Z79.51 Long term (current) use of inhaled steroids; Z79.84 Long term (current) use of oral hypoglycemic drugs; Z79.899 Other long term (current) drug therapy
CPT/HCPCS: 36415; 71045; 80053; 85025; 87502; 94640; 99284-25; J7030; U0002

== ENCOUNTER 2025-03-07 12:59 | Emergency (ER) | payer MEDICARE, OTHER ==
[~2025-03-07] VITALS: Ht 172.7 cm; Wt 75.3 kg
[~2025-03-07 12:59] MED LIST changes: +ZITHROMAX250 MG PO
[2025-03-07] MEDS ORDERED: MORPHINE SULFATE 4 MG/ML VIAL IV ONE (13:15)
[2025-03-07] MEDS ORDERED: SODIUM CHLORIDE 0.9% 1,000 ML IV ONE (13:15)
[2025-03-07 13:20] LABS: BASOPHILS 0.3 % (0.2-1.2); EOSINOPHILS 1.0 % (0.8-7.0); LYMPHOCYTES 13.2 % (21.8-53.1); MCH 30.1 PG (25.7-32.2); MCHC 33.4 g/dL (32.3-36.5); MCV 90.0 fL (79.0-92.2); MONOCYTES 7.4 % (5.3-12.2); NEUTROPHILS 77.3 % (34.0-67.9); RBC 4.72 M/uL (4.63-6.08)
[2025-03-07 13:37] LABS: ALT (SGPT) 37.0 U/L (14-59); AST (SGOT) 23.0 U/L (15-37); GLOMERULAR FILTRATION RATE,EST 99.0 mL/min (>60); PROTEIN, TOTAL 7.0 g/dL (6.4-8.2); UREA NITROGEN 17.0 mg/dL (7-18)
[2025-03-07 14:26] LABS: BLOOD/HGB, URINE NEGATIVE (Negative); KETONE, URINE NEGATIVE (Negative); LEUK ESTERASE, URINE NEGATIVE (negative); NITRITE, URINE NEGATIVE (negative)
[2025-03-07] MEDS ORDERED: CIPRO500 MG PO (15:49)
[2025-03-07] MEDS ORDERED: METRONIDAZOLE500 MG PO (15:49)
[2025-03-07] MEDS ORDERED: ONDANSETRON 4 MG HOME.PACK SL ONE (16:00)
[2025-03-07] MEDS ORDERED: OXYCODONE/ACETAMINOPHEN 1 TAB HOME.PACK PO ONE (16:00)
[2025-03-07] MEDS ORDERED: ONDANSETRON ODT4 MG PO (16:04)
[2025-03-07] MEDS ORDERED: PERCOCET 5-3251 EACH PO (16:04)
[2025-03-07] MEDS ORDERED: CIPROFLOXACIN 500 MG TAB PO ONE (16:15)
[2025-03-07 16:26] VITALS: BP 119/86
== END 2025-03-07 16:26 | disposition home or self-care (01) ==
LOC: ED 12:59
PROVIDERS: Emergency Medicine
DX: K57.32 Diverticulitis of large intestine without perforation or abscess without bleeding (principal); I96 Gangrene, not elsewhere classified; I10 Essential (primary) hypertension; J44.9 Chronic obstructive pulmonary disease, unspecified; Z79.51 Long term (current) use of inhaled steroids; Z79.899 Other long term (current) drug therapy; Z91.040 Latex allergy status; Z91.030 Bee allergy status; Z88.5 Allergy status to narcotic agent; Z88.6 Allergy status to analgesic agent; Z87.891 Personal history of nicotine dependence
CPT/HCPCS: 36415; 74177; 80053; 81003; 83690; 85025; 96375; 99284-25; A9270; J2270; J2405; J7030; Q9967

== ENCOUNTER 2025-06-20 14:07 | Emergency (ER) | payer MEDICARE, OTHER ==
[~2025-06-20] VITALS: Ht 172.7 cm; Wt 72.0 kg
[~2025-06-20 14:07] MED LIST changes: +PERCOCET 5-3251 EACH PO
[2025-06-20 14:29] LABS: BASOPHILS 0.1 % (0.2-1.2); EOSINOPHILS 0.4 % (0.8-7.0); LYMPHOCYTES 9.1 % (21.8-53.1); MCH 29.4 PG (25.7-32.2); MCHC 33.4 g/dL (32.3-36.5); MCV 88.0 fL (79.0-92.2); MONOCYTES 7.9 % (5.3-12.2); NEUTROPHILS 81.9 % (34.0-67.9); RBC 5.24 M/uL (4.63-6.08)
[2025-06-20 14:46] LABS: ALT (SGPT) 21.0 U/L (14-59); AST (SGOT) 16.0 U/L (15-37); GLOMERULAR FILTRATION RATE,EST 106.0 mL/min (>60); PROTEIN, TOTAL 7.0 g/dL (6.4-8.2); UREA NITROGEN 7.0 mg/dL (7-18)
[2025-06-20 15:45] LABS: BLOOD/HGB, URINE NEGATIVE (Negative); KETONE, URINE NEGATIVE (Negative); LEUK ESTERASE, URINE NEGATIVE (negative); NITRITE, URINE NEGATIVE (negative)
[2025-06-20] MEDS ORDERED: HYDROmorphone HCL 1 MG/ML SYR IV ONE (16:00)
[2025-06-20] MEDS ORDERED: HYDROCODON-ACE1 EA10 PO (17:14)
[2025-06-20] MEDS ORDERED: AMOX TR-K CLV1 EAC1 PO (17:14)
[2025-06-20] MEDS ORDERED: AMOXICILLIN/CLAVULANATE K 875 MG TAB PO ONE (17:15)
[2025-06-20] MEDS ORDERED: HYDROCODONE BIT/ACETAMINOPHEN 5/325 MG 1 TAB HOME.PACK PO ONE (17:15)
[2025-06-20] MEDS ORDERED: ONDANSETRON 4 MG HOME.PACK SL ONE (17:15)
[2025-06-20 17:39] VITALS: BP 131/93
== END 2025-06-20 17:43 | disposition home or self-care (01) ==
LOC: ED 14:07
PROVIDERS: Emergency Medicine
DX: K57.32 Diverticulitis of large intestine without perforation or abscess without bleeding (principal); N20.0 Calculus of kidney; I10 Essential (primary) hypertension; J44.9 Chronic obstructive pulmonary disease, unspecified; Z87.891 Personal history of nicotine dependence; Z91.030 Bee allergy status; Z91.040 Latex allergy status; Z88.5 Allergy status to narcotic agent; Z79.899 Other long term (current) drug therapy
CPT/HCPCS: 36415; 74177; 80053; 81003; 83690; 85025; 96374; 96375; 96376; 99284-25; A9270; J1171; J2405; Q9967

== ENCOUNTER 2025-06-28 07:43 | Inpatient (IN) | payer MEDICARE, OTHER ==
[~2025-06-28] VITALS: Ht 172.7 cm; Wt 75.1 kg
[~2025-06-28 07:43] MED LIST changes: +HYDROCODON-ACE1 EA10 PO
[2025-06-28] MEDS ORDERED: MORPHINE SULFATE 4 MG/ML VIAL IV PRN (08:00)
[2025-06-28] MEDS ORDERED: SODIUM CHLORIDE 0.9% 1,000 ML IV ONE (08:00)
[2025-06-28] MEDS ORDERED: ATOMOXETINE HCL80 MG PO (08:00)
[2025-06-28] MEDS ORDERED: LISINOPRIL-HCT1 EAC1 PO (08:01)
[2025-06-28 08:26] LABS: BASOPHILS 0.3 % (0.2-1.2); EOSINOPHILS 0.5 % (0.8-7.0); LYMPHOCYTES 7.4 % (21.8-53.1); MCH 29.8 PG (25.7-32.2); MCHC 34.0 g/dL (32.3-36.5); MCV 87.8 fL (79.0-92.2); MONOCYTES 6.2 % (5.3-12.2); NEUTROPHILS 84.2 % (34.0-67.9); RBC 5.16 M/uL (4.63-6.08)
[2025-06-28 08:41] LABS: ALT (SGPT) 37.0 U/L (14-59); AST (SGOT) 18.0 U/L (15-37); GLOMERULAR FILTRATION RATE,EST 105.0 mL/min (>60); PROTEIN, TOTAL 7.0 g/dL (6.4-8.2); UREA NITROGEN 9.0 mg/dL (7-18)
[2025-06-28] MEDS ORDERED: PIPERACILLIN/TAZOBACTAM 4.5 GM in SODIUM CHLORIDE 0.9% 100 ML IV ONE (09:15)
[2025-06-28] MEDS ORDERED: HYDROmorphone HCL 1 MG/ML SYR IV ONE ×2 (09:30→13:30)
[2025-06-28] MEDS ORDERED: SODIUM CHLORIDE 0.9% 1,000 ML IV SCH (09:30)
[2025-06-28 09:40] LABS: BLOOD/HGB, URINE NEGATIVE (Negative); KETONE, URINE NEGATIVE (Negative); LEUK ESTERASE, URINE NEGATIVE (negative); NITRITE, URINE NEGATIVE (negative)
[2025-06-28] MEDS ORDERED: HYDROmorphone HCL 1 MG/ML SYR IV PRN ×2 (13:30→17:00)
[2025-06-28] MEDS ORDERED: PROCHLORPERAZINE EDISYLATE 10 MG/2 ML VIAL IV ONE (13:30)
[2025-06-28 14:17] VITALS: BP 125/81
[2025-06-28 14:20] VITALS: BP 125/81
--- NOTE | 2025-06-28 15:10 | NUR ---
PATIENT IN BED AT THIS TIME. THIS RIVETING MACHINE OPERATOR CHARTED HOURLY ROUNDS. CALL LIGHT WITHIN REACH, NO FURTHER NEEDS AT THIS TIME.
--- NOTE | 2025-06-28 16:00 | NUR ---
PT RESTING COMFORTABLY IN BED, EYES CLOSED. BREATHING EVEN AND UNLABORED. CALL LIGHT IN REACH
[2025-06-28] MEDS ORDERED: CETIRIZINE HCL10 MG PO (16:18)
[2025-06-28] MEDS ORDERED: BUSPIRONE HCL30 MG PO (16:19)
[2025-06-28] MEDS ORDERED: METFORMIN HCL500 MG PO (16:22)
--- NOTE | 2025-06-28 17:10 | NUR ---
PT WOKE UP WITH 7/10 ABD PAIN AND NAUSEA. PT WAS UP TO THE BATHROOM. MEDICATIONS ADMINISTERED (SEE EMAR). REQUESTED ICE CHIPS. NO FURTHER NEEDS. CALL LIGHT IN REACH
[2025-06-28 17:45] VITALS: BP 113/71
--- NOTE | 2025-06-28 17:46 | NUR ---
PATIENT IN BED AT THIS TIME. GEOTHERMAL SYSTEM INSTALLER CHARTED VITALS AND I&O'S, RN NOTIFIED OF PATIETNS TEMP. CALL LIGHT WITHIN REACH, NO FURTHER NEEDS.
--- NOTE | 2025-06-28 17:52 | NUR ---
TRANSPORTATION PLANNER REPORTED TO THIS RN THAT PT HAS A TEMP OF 100.4. ICE PACK APPLIED HEAT TURNED DOWN IN ROOM. WILL CALL DR ADKINS TO UPDATE.
--- NOTE | 2025-06-28 18:14 | NUR ---
CALLED DR ADKINS. VERBAL ORDERES GIVEN.
--- NOTE | 2025-06-28 18:25 | NUR ---
TYLENOL GIVEN (PER EMAR), FOR FEVER. PT TOLERATED WELL. RESTING IN BED. NO NEEDS. CALL LIGHT IN REACH
[2025-06-28] MEDS ORDERED: ACETAMINOPHEN 325 MG TAB PO PRN (18:30)
[2025-06-28 20:11] VITALS: BP 118/81
[2025-06-28 20:16] VITALS: BP 118/81
--- NOTE | 2025-06-28 20:27 | NUR ---
Pt awake, used call light,on room air, lungs clear bilat. regular rate and rhythm, denies CP or n/v. and soft, tender L side. GLORY, LBM 06/27/25. IVF infusing RAC, Pt cooperative and pleasnt. voiding dark yellow urine. QS. NPO. does own oral care and 1/4 cup ice chips given on requests. C/o abd pain 04/28 at thist time. Medicated with Dilaudid 1mg IV. c/o sore throat and "My girfriend had thrush last week and I think I got it now: stated. large white patches noted on back and mid R tongue and smaller scattered patches L and mid tongue whithish colored. will notify . Pt cooperative
--- NOTE | 2025-06-28 21:09 | NUR ---
MESSAGE LEFT WITH DR ADKINS MESSAGE SERVICE WBOUT PTS ORAL FINDINGS
[2025-06-28] MEDS ORDERED: MENTHOL/CETYLPYRD CL 1 LOZ LOZENGE PO PRN (21:15)
[2025-06-28] MEDS ORDERED: NYSTATIN 500,000 UNITS/5 ML CUP PO ONE (21:15)
--- NOTE | 2025-06-28 21:16 | NUR ---
DR ADKINS RESPONDED, NEW ORDERS FOR NYASTATIN SWICH AND SWALLOW 500,OOO UNITS QID, AND CEPACOL 1 LOZENGER Q1-2HRS PRN SORE THROAT
[2025-06-28] MEDS ORDERED: NYSTATIN 500,000 UNITS/5 ML CUP PO SCH (21:30)
[2025-06-28] MEDS ORDERED: PIPERACILLIN/TAZOBACTAM 4.5 GM in DEXTROSE 5% 100 ML IV SCH (22:00)
--- NOTE | 2025-06-28 22:08 | NUR ---
AWAKENS EASILY, NO FURTHER C/O ABD PAIN, NO N/V, REPOSITIONS SELF IN BED, MED INSTRUCTIONS DONE R/T IV ABX AND NYSTATIN MED. STATED UNDERSTANDING. NPO. TOLERATED SMALL ICE CHIPS AND MED. IVF INFUSING W/O PROBLEMS
--- NOTE | 2025-06-28 23:34 | NUR ---
Resting, eyes closed, no s/sx distress at this time, IVF infusing w/o problems. NPO, does own orl care, uses urinal.
--- NOTE | 2025-06-28 23:45 | NUR ---
used call light, c/o 04/28 abd pain. Medicated with Dilaudid 1mg IV. Lozenger given per c/o sore throat. IVF/IV abx infusing w/o problems. Repositions self in bed
[2025-06-29] VITALS (12 sets, daily range): BP systolic 105–128; BP diastolic 64–78
--- NOTE | 2025-06-29 02:06 | NUR ---
Awake, c/o abd pain. On room air, IVF/IV ABX infusing w/o problems. used urinal. c/o abd pain 04/28, medicated with Dilaudid 1mg IV. Cooperative with assessment and vitals. abd tender L lower quad and soome distention present, HEA, no bm this shift.
--- NOTE | 2025-06-29 02:13 | NUR ---
C/O FEELING NAUSEATED, npo, ICE TO ABD GIVEN, MEDICATED WITH ZOFRAN PER N/V.
--- NOTE | 2025-06-29 04:24 | NUR ---
Pt used cll light, Up to BRP, had a small formed bm. Passed large amount of flatus. Had voided dark yellow urine in urinal earlier. Back to bed 1PA. IVF infusing w/o problems, Repositions self back in bed. No further c/o n/v. no c/o abd pain at this time. ice chips given on request
--- NOTE | 2025-06-29 04:56 | NUR ---
pt c/o abd pain, medicated with Dilaudid 1mg IV, repositions self in bed, IVF infusing w/o problems, cooperative with vitals.
--- NOTE | 2025-06-29 07:05 | NUR ---
RECIEVED REPORT FROM RAÚL WILKS. PATIENT RESTING ON RIGHT SIDE IN BED, IVF INFUSING WITHOUT DIFFICULTY. PATIENT AWAKE AND ALERT. NO NEEDS IDENTIFIED AT THIS TIME. CALL LIGHT AND BELONGINGS ARE IN REACH.
[2025-06-29 07:22] LABS: BASOPHILS 0.4 % (0.2-1.2); EOSINOPHILS 0.3 % (0.8-7.0); LYMPHOCYTES 8.5 % (21.8-53.1); MCH 29.1 PG (25.7-32.2); MCHC 32.6 g/dL (32.3-36.5); MCV 89.3 fL (79.0-92.2); MONOCYTES 10.5 % (5.3-12.2); NEUTROPHILS 78.7 % (34.0-67.9); RBC 4.85 M/uL (4.63-6.08)
--- NOTE | 2025-06-29 09:10 | NUR ---
HOURLY ROUNDING PATIENT LAYING IN BED, COMPLAIN OF STOMACH PAIN NURSE NOTIFIED, CALL LIGHT PLACED WITHIN REACH
--- NOTE | 2025-06-29 09:15 | NUR ---
Spoke with Percy. He lives with his So in a house without steps. He does not use any DME. He has a walker as he was scheduled to have ortho surgery today, it was cancelled. Pt is waiting to see Dr. Pena has this is his 4th time of Diverticulitis. He states he is, "miserable". He denies needs and will go home with his SO on dc. He denies financial or safety issues. He is on SSDI. He denies needs and plans on dc to home when medically cleared.
--- NOTE | 2025-06-29 10:15 | NUR ---
PT RESTING IN BED, CALL LIGHT IN REACH.
--- NOTE | 2025-06-29 10:42 | NUR ---
UR CLINICAL REVIEW: 2 MN FOR VERSALUS-PER FORK LIFT TECHNICIAN MEETS INPT FOR DIVERTICULITIS WITH PERFORATION WITH NEED FOR IV ABX, SERIAL LAB AND MONITORING MEDICARE INPT 06/28/25 @ 1321 ORDER MATCHES REG NO AUTH REQUIRED PER MEDICARE GUIDELINES DISCHARGE TO HOME WHEN STABLE
--- NOTE | 2025-06-29 11:00 | NUR ---
COMMUNITY HEALTH ADVISOR IN ROOM ASSISTING PATIENT TO RESTROOM.
--- NOTE | 2025-06-29 12:00 | NUR ---
DR ADKINS IN ROOM WITH PATIENT FOR UPDATES. PATIENT DENIES NEEDS AT THIS TIME. CALL LIGHT IN REACH.
--- NOTE | 2025-06-29 13:01 | NUR ---
HOURLY ROUNDING PATIENT COMPLAINS OF HAVING PAIN NURSE HAS BEEN NOTIFIED NO REQUEST FROM PATIENT AT THIS TIME CALL LIGHT HAS BEEN PLACED WITHIN REACH
--- NOTE | 2025-06-29 14:15 | NUR ---
SCHEDULED ABX STARTED PER ORDER. PATIENT LAYING IN BED. MOUTH SWABS GIVEN FOR MOUTH COMFORT. PATIENT STATED NAUSEA IS RESOLVED BUT PAIN STILL ABOUT A 7/10 IN ABD. PATIENT EDUCATED ON COLOSTOMY INFORMATION. NO OTHER NEEDS AT THIS TIME. CALL LIGHT IN REACH.
--- NOTE | 2025-06-29 15:20 | NUR ---
ASSESSMENT COMPLETED. PAIN MEDS GIVEN PER PATIENT REQUEST FOR 04/28 ABD PAIN. IVF INFUSING WITHOUT DIFFICULTY. PATIENT LAYING IN BED SUPINE IN BED AWAKE AND ALERT WATCHING TV. PATIENT DENIES FURTHER NEEDS AT THIS TIME. CALL LIGHT IN REACH.
--- NOTE | 2025-06-29 15:55 | NUR ---
HOURLY ROUNDING PATIENT CALLED AND REQUESTED PAIN MEDICATIONS, NURSE HAS BEEN NOTIFIED
--- NOTE | 2025-06-29 17:10 | NUR ---
PATIENT LAYING SUPINE IN BED, SCHEDULED MEDICATION GIVEN WITHOUT DIFFICULTY. IVF INFUSING WITHOUT DIFFICULTY. PATIENT DENIES FURTHER NEEDS AT THIS TIME. CALL LIGHT AND BELONGINGS IN REACH.
--- NOTE | 2025-06-29 17:53 | NUR ---
HOURLY ROUNDIGN PATIENT COMPLAINS OF PAIN NURSE NOTIFIED OF TEMP 99.1. CALL LIGHT HAS BEEN PLACED WITHIN REACH
--- NOTE | 2025-06-29 18:55 | NUR ---
CALL LIGHT ANSWERED. PRN PAIN MEDICATION ADMINISTERED PER PATIENT REQUEST. PATIENT IN BED, CALL LIGHT IN REACH
--- NOTE | 2025-06-29 19:15 | NUR ---
RECEIVED REPORT FROM RAÚL LARSON. PT REQUESTING ZOFRAN, GIVEN. NO OTHER NEEDS AT THIS TIME, CALL LIGHT WITHIN REACH.
--- NOTE | 2025-06-29 20:50 | NUR ---
PT RESTING IN BED. VSS. ORIENTED X 4. CALLS APPROPRIATELY FOR ASSIST. REPORTS LLQ ABD PAIN 02/25-REQUESTS PRN PAIN MED. PRN IV DIALUDID ADMINISTERED PER EMAR. LSC. HRR. BTA. ABD MILDLY DISTENDED, TENDER TO LLQ PALPATION. DENIES NAUSEA CURRENTLY. REPORTS PASSING FLATUS AND A SMALL BM TODAY. PT IS NPO EXCEPT FEW ICE CHIPS. ORAL SWABS PROVIDED FOR COMFORT. ORAL THRUSH NOTED, PT USED NYSTATIN SWISH AND SWALLOW. USING URINAL IND, VOIDS WNL. RAC IV WNL, INFUSING NS @ 125MLS/HR. CALL LIGHT WITHIN REACH.
--- NOTE | 2025-06-29 22:12 | NUR ---
PT LAYING IN BED, ZOSYN RUNNING. PAIN ASSESSED, REPORTS NO NEEDS AT THIS TIME, CALL LIGHT WITHIN REACH.
--- NOTE | 2025-06-29 23:15 | NUR ---
PT REPORTIN 910 LLQ PAIN, PRN DILAUDID GIVEN. NO OTHER NEEDS AT THIS TIME, CALL LIGHT WITHIN REACH.
[2025-06-30] VITALS (10 sets, daily range): BP systolic 110–126; BP diastolic 70–81
--- NOTE | 2025-06-30 00:06 | NUR ---
PT LAYING IN BED ASKING FOR URINAL, GIVEN. NO OTHER NEEDS AT THIS TIME, CALL LIGHT WITHIN REACH.
--- NOTE | 2025-06-30 01:26 | NUR ---
PT LAYING IN BED W/EYES CLOSED AND UNLABORED BREATHING. CALL LIGHT WITHIN REACH.
--- NOTE | 2025-06-30 03:00 | NUR ---
PT REPORTING 9/10 PAIN IN LLQ, PRN DILAUDID GIVEN. NEW ICE PACK GIVE, NO OTHER NEEDS AT THIS TIME, CALL LIGHT WITHIN REACH.
--- NOTE | 2025-06-30 05:06 | NUR ---
PT LAYING IN BED WITH EYES CLOSED, UNLABORED BREATHING, CALL LIGHT WITHIN REACH.
--- NOTE | 2025-06-30 05:36 | NUR ---
PT REPORTING NAUSEA, PRN ZOFRAN GIVEN. ZOSYN STARTED PER ORDER, NO OTHER NEEDS AT THIS TIME, CALL LIGHT WITHIN REACH.
--- NOTE | 2025-06-30 06:26 | NUR ---
PT LAYING ON R SIDE, EYES CLOSED, UNLABORED BREATHING, CALL LIGHT WITHIN REACH.
[2025-06-30 07:12] LABS: BASOPHILS 0.3 % (0.2-1.2); EOSINOPHILS 0.7 % (0.8-7.0); LYMPHOCYTES 8.3 % (21.8-53.1); MCH 29.5 PG (25.7-32.2); MCHC 33.1 g/dL (32.3-36.5); MCV 89.0 fL (79.0-92.2); MONOCYTES 9.2 % (5.3-12.2); NEUTROPHILS 80.2 % (34.0-67.9); RBC 4.65 M/uL (4.63-6.08)
--- NOTE | 2025-06-30 07:34 | NUR ---
MED REC COMPLETED--I THINK
--- NOTE | 2025-06-30 09:03 | NUR ---
HOURLY MARTINE WORTHY HAS BEEN UPDATED PATIENT HAS ICE PACKS ON HIS STOMACH HE COMPLAINS OF PAIN. NURSE NOTIFIED CALL LIGHT HAS BEEN PLACED WITHIN REACH
--- NOTE | 2025-06-30 09:27 | NUR ---
ALERT AND ORIENTED IN BED. STATES HE IS PAINFUL BUT MEDS ARE NOT DUE FOR 40 MINUTES. STATE HE HAS NO CM NEEDS AT THIS TIME FOR HOME. PLANS TO DC TO HOME WHEN MEDICALLY READY. ATTEMPT TO HELP PATIENT LOCATE HIS GLASSES IN HIS BELONGINGS, UNABLE TO LOCATE HIS GLASSES. NO OTHER NEEDS AT THIS TIME.
--- NOTE | 2025-06-30 09:52 | NUR ---
Patient awake, alert and oriented x3. Patient reports 9/10 abd pain, admin dilaudid 1mg iv at this time. Patient denies nausea. Abdomen is soft to light palpation. Cool compress provided.
--- NOTE | 2025-06-30 12:32 | NUR ---
Patient resting in bed, easily wakes to verbal sitmuli. Patient reports 8/10 abdminal pain, admin dilaudid 1mg iv at this time. Patient denies further needs, personal supplies and call light within reach.
--- NOTE | 2025-06-30 13:46 | NUR ---
GOT REPORT FROM DAY SHIFT NURSE. IN ROOM WITH PATIENT, ZOFRAN GIVEN AND IV ANTIBIOTICS STARTED. PATIENT WOULD LIKE A SHOWER, INSTRUMENT TECHNOLOGIST ADVISED. PATIENT ON RA, PAIN HAS IMPROVED A LOT WITH PAIN MEDICATION PER PATIENT.
--- NOTE | 2025-06-30 15:45 | NUR ---
PATIENT UP AND TOOK A SHOWER. PATIENT IN PAIN NOW, PAIN MEDICATION GIVEN. PUSHED VERY SLOW AND DILUTED. PATIENT STILL NAUSEATED AFTER MEDICATION GIVEN. IV ANTIBIOTIC GOING.
--- NOTE | 2025-06-30 16:34 | NUR ---
PATIENT WAS IN BED AT THIS TIME, MILL OPERATOR SET UP EVERYTHING FOR A SHOWER, GOT PATIENT IN AND CHANGED LINENS, TIDYED ROOM, NEW GOWN, CALL LIGHT WITH IN REACH AND NOTHING ELSE NEEDED AT THIS TIME.
--- NOTE | 2025-06-30 18:09 | NUR ---
PATIENT HAD CLEAR LIQUIDS AND STATES HE FEELS BETTER WITH BROTH IN HIM BUT STILL HAS THE LLQ PAIN. ICE PACKS ON.
--- NOTE | 2025-06-30 19:25 | NUR ---
RECEIVED REPORT FROM RAÚL PIKE. PT RESTING IN BED, REPORTS BEING COMFORTABLE PRESENTLY. DENIES ANY OTHER NEEDS AT THIS TIME. CALL LIGHT WITHIN REACH.
--- NOTE | 2025-06-30 19:33 | NUR ---
THIS RN CALLED AND NOTIFIED HER THAT PATIENT WAS MOVED FROM ROOM 120 TO 114 THIS EVENING. NO OTHER CONCERNS.
--- NOTE | 2025-06-30 20:00 | NUR ---
PT RESTING IN BED. VSS. USES CALL LIGHT APPROPRIATELY. REPORTS 03/28 THROBBING PAIN TO LLQ ABD. PT HAS ICE PACKS IN PLACE. ADMINISTERED PRN IV DILAUDID PER EMAR. LSC. HRR. BTA. ABD MILDLY DISTENDED. INT NAUSEA, PRN IV ZOFRAN ADMINISTERED W/ PAIN MED. ABD TENDER TO PALPATION TO LLQ. PASSING FLATUS. LBM YESTERDAY 06/29. VOIDS VIA URINAL INDEPENDENTLY. ORAL THRUSH-NYSTATIN SWISH AND SWALLOW GIVEN PER EMAR. RAC IV WNL, INFUSING NS @ 125MLS/HR. CALL LIGHT WITHIN REACH.
--- NOTE | 2025-06-30 22:14 | NUR ---
IV ATB ADMINISTERED PER EMAR. PT AWAKE, REPORTS DIFFICULTY FALLING ASLEEP. CRANBERRY JUICE PROVIDED PER REQUEST. CONSISTENTLY RATES LLQ ABD PAIN 8/10. CALL LIGHT WITHIN REACH.
--- NOTE | 2025-06-30 23:03 | NUR ---
PT REPORTS LLQ PAIN 04/28. PRN IV DILAUDID ADMINISTERED. FRESH ICE PACKS PROVIDED PER REQUEST.
[2025-07-01] VITALS (10 sets, daily range): BP systolic 107–147; BP diastolic 56–86
--- NOTE | 2025-07-01 00:24 | NUR ---
PT ASLEEP, APPEARS COMFORTABLE. CALL LIGHT WITHIN REACH.
--- NOTE | 2025-07-01 00:42 | NUR ---
CALL LIGHT ANSWERED. PT STATED ICE PACK HAD LEAKED. ACID PLANT HELPER ASSISTED PT WITH CLEAN GOWN AND CLEAN CHUCKS. PT GIVEN 2 ICE PACKS AND WARM BLANKET. PT STATES NO FURTHER NEEDS AT THIS TIME. CALL LIGHT WITHIN REACH.
--- NOTE | 2025-07-01 02:50 | NUR ---
PT ASLEEP. APPEARS COMOFORTABLE.
--- NOTE | 2025-07-01 04:33 | NUR ---
PT REQUESTED PAIN MED-PRN IV DILAUDID ADMINISTERED PER EMAR. PAIN RATED 9/10 TO LLQ. NEW BAG IVF HUNG. NO CHANGE TO GI ASSESSMENT. CALL LIGHT WITHIN REACH.
--- NOTE | 2025-07-01 05:44 | NUR ---
PT AWAKENED FOR AM VS-STABLE. PAIN TO LLE 8/10, PT HAS HEAT PACK IN PLACE. CALL LIGHT WITHIN REACH.
[2025-07-01 07:30] LABS: BASOPHILS 0.5 % (0.2-1.2); EOSINOPHILS 1.3 % (0.8-7.0); LYMPHOCYTES 10.6 % (21.8-53.1); MCH 29.9 PG (25.7-32.2); MCHC 33.8 g/dL (32.3-36.5); MCV 88.3 fL (79.0-92.2); MONOCYTES 10.3 % (5.3-12.2); NEUTROPHILS 75.8 % (34.0-67.9); RBC 4.62 M/uL (4.63-6.08)
--- NOTE | 2025-07-01 07:32 | NUR ---
REPORT RECIEVED FROM RAÚL HESTER. PATIENT RESTING IN BED AND REPORTS HAVING PAIN. AND REQUESTING PAIN MEDICATION. PATIENT IS WITHOUT FURTHER NEEDS AT THIS TIME. CALL LIGHT AND PERSONAL BELONGINGS ARE WITHIN REACH.
--- NOTE | 2025-07-01 07:43 | NUR ---
DR ADKINS AT BEDSIDE AND STATES HE WILL BE CHANGING PATIENT'S MEDICATIONS TO PO, STOP IV FLUIDS, AND ADVANCE PATIENT TO FULL LIQUID DIET. MD STATES HE WILL ADD ORDERS. MD WITHOUT FURTHER ORDERS AT THIS TIME.
--- NOTE | 2025-07-01 07:50 | NUR ---
HEAT PACK PROVIDED TO PATIENT
[2025-07-01] MEDS ORDERED: OXYCODONE/APAP 5/325 TAB PO PRN (08:00)
--- NOTE | 2025-07-01 08:25 | NUR ---
PATIENT MEDICATED PER EMAR. PATIENT SITTING UP IN BED EATING BREAKFAST. PATIENT IS WITHOUT FURTHER NEEDS AT THIS TIME. IV ABX CONTINUE TO INFUSE. CALL LIGHT AND PERSONAL BELONGINGS ARE WITHIN REACH.
--- NOTE | 2025-07-01 09:00 | NUR ---
INTO SEE PATIENT. PATIENT WILL DISCHARGE HOME WHEN MEDICALLY CLEARED WITH SON. PATIENT REQUESTING SPIRITUAL CARE SERVICES AND MILO. SPIRITUAL CARE AWARE AND WILL SEE PATIENT LATER. NO FUTHER CM NEEDS AT THIS TIME.
--- NOTE | 2025-07-01 09:55 | NUR ---
PATIENT CALLED REPORTING NAUSEA STATING "I THINK I ATE TOO FAST". PRN DOSE OF ZOFRAN ADMINISTERED. PATIENT IS WITHOUT FURTHER NEEDS AT THIS TIME. CALL LIGHT AND PERSONAL BELONGINGS ARE WITHIN REACH.
--- NOTE | 2025-07-01 10:55 | NUR ---
PATIENT RESTING IN BED WATCHING TV AND STATES HIS NAUSEA IS BETTER. PATIENT IS WITHOUT FURTHER NEEDS AT THIS TIME. CALL LIGHT AND PERSONAL BELONGINGS ARE WITHIN REACH.
--- NOTE | 2025-07-01 11:55 | NUR ---
PATIENT CALLED REQUESTING HEAT PACKS. 2 FRESH HEAT PACKS PROVIDED. PATIENT IS WITHOUT FURTHER NEEDS AT THIS TIME. CALL LIGHT AND PERSONAL BELONGINGS ARE WITHIN REACH.
--- NOTE | 2025-07-01 12:50 | NUR ---
RECIEVED REPORT FROM RAÚL CONWAY. ASSUMING CARE OF PT.
--- NOTE | 2025-07-01 19:28 | NUR ---
RECEIVED REPORT FROM RAÚL TURCIOS. PT RESTING QUIETLY. REQUESTS CRANBERRY JUICE-PROVIDED. CALL LIGHT WITHIN REACH.
--- NOTE | 2025-07-01 20:22 | NUR ---
LECTURER IN MARKETING OBTAINED VITALS AND I&O. PT GIVEN MORE CRANBERRY JUICE REQUESTED. PT STATES NO FURTHER NEEDS AT THIS TIME. CALL LIGHT WITHIN REACH.
--- NOTE | 2025-07-01 20:30 | NUR ---
PT ASLEEP IN BED, AWAKENED EASILY. REPORTS FEELING BETTER TODAY PAIN [place]. REPORTS LLQ ABD PAIN 02/25. VSS. USES CALL LIGHT APPROPRIATELY. IND IN ROOM. LSC. HRR. BTA, MILDLY DISTENDED ABD. TENDER TO LLQ, RLQ. DENIES NAUSEA CURRENTLY. PASSING GAS AND DAILY BM'S. TOLERATING FULL LIQ DIET. VOIDS WNL-USES URINAL IND. RAC SL WNL. ORAL THRUSH IMPROVED, NYSTATIN SWISH AND SWALLOW GIVEN. PT ALSO REQ CEPACOL LOZENGE-PROVIDED. PT UP TO AMBULATE IN HALLS IND. DENIES ANY OTHER NEEDS OR CONCERNS AT THIS TIME.
--- NOTE | 2025-07-01 22:33 | NUR ---
PT ASLEEP ON RIGHT SIDE, AWAKENS EASILY WHEN RN ENTERS ROOM. IV ATB INITIATED PER EMAR.
--- NOTE | 2025-07-02 00:17 | NUR ---
PT SOUND ASLEEP ON LEFT SIDE. IV ZOSYN INFUSING.
--- NOTE | 2025-07-02 01:53 | NUR ---
PT SLEEPING SOUNDLY. APPEARS COMFORTABLE. CALL LIGHT WITHIN REACH.
--- NOTE | 2025-07-02 03:00 | NUR ---
call light answered, pt reports 9/10 abd pain. prn pain medication given-see emar along with a heat pack wrapped in pillow case. no additional needs or concerns verbalized, call light in reach.
--- NOTE | 2025-07-02 05:00 | NUR ---
PT SLEEPING SOUNDLY-APPEARS COMFORTABLE.
[2025-07-02 05:44] VITALS: BP 94/58
--- NOTE | 2025-07-02 05:48 | NUR ---
MENHADEN VESSEL PILOT OBTAINED VITALS AND I&O. PT STATES NO NEEDS AT THIS TIME. CALL LIGHT WITHIN REACH.
[2025-07-02 05:52] VITALS: BP 94/58
--- NOTE | 2025-07-02 05:55 | NUR ---
PT SLEEPING SOUNDLY, AWAKENS BRIEFLY FOR IV ATB. BTA, MILDLY TENDER TO LOWER QUADRANTS. NO NAUSEA. CALL LIGHT WITHIN REACH.
[2025-07-02 07:05] LABS: BASOPHILS 0.5 % (0.2-1.2); EOSINOPHILS 1.1 % (0.8-7.0); LYMPHOCYTES 12.5 % (21.8-53.1); MCH 29.8 PG (25.7-32.2); MCHC 34.6 g/dL (32.3-36.5); MCV 86.0 fL (79.0-92.2); MONOCYTES 8.7 % (5.3-12.2); NEUTROPHILS 75.4 % (34.0-67.9); RBC 4.80 M/uL (4.63-6.08)
--- NOTE | 2025-07-02 07:20 | NUR ---
RECIEVED REPORT FROM RAÚL HESTER. PT RESTING IN BED WITH EYES CLOSED, BREATHING EVEN AND UNLABORED. CALL LIGHT WITHIN REACH.
--- NOTE | 2025-07-02 08:22 | NUR ---
INTO SEE PATIENT. IMM COMPLETED. PATIENT ASKING FOR PAIN MEDICINE LET PRIMARY NURSE KNOW. NO FUTHER CM NEEDS.
[2025-07-02 09:14] VITALS: BP 127/76
--- NOTE | 2025-07-02 09:19 | NUR ---
PATIENT IS IN BED AT THIS TIME, GLOBAL RISK MANAGEMENT DIRECTOR OFFERED TO ASSIST PATIENT TO THE CHAIR TO WHICH HE REFUSED. GLOBAL RISK MANAGEMENT DIRECTOR CHARTED VITALS AND I&O'S, FOR FRESH HEAT PACKS, AND ICE WATER. CALL LIGHT WITH IN REACH AND NOTHING ELSE NEEDED AT THIS TIME.
[2025-07-02 10:29] VITALS: BP 127/76
[2025-07-02] MEDS ORDERED: PERCOCET 5-3251 EACH PO (10:34)
[2025-07-02] MEDS ORDERED: METRONIDAZOLE500 MG PO (10:36)
[2025-07-02] MEDS ORDERED: LEVOFLOXACIN750 MG PO ×2 (10:36→10:38)
[2025-07-02 11:30] VITALS: BP 128/80
--- NOTE | 2025-07-02 11:40 | NUR ---
PT DRESSES IN OWN CLOTHES, AMBULATES TO WHEELCHAIR INDEPENDENTLY. WHEELED TO FRONT OF BUILDING BY NURSING PERSONEL.
== END 2025-07-02 11:40 | disposition home or self-care (01) | DRG 392 ==
LOC: ED 07:43 → MS 13:24
PROVIDERS: Emergency Medicine; ADMIT Surgery; ATTEND Surgery
DX: K57.20 Diverticulitis of large intestine with perforation and abscess without bleeding (principal); J44.9 Chronic obstructive pulmonary disease, unspecified; M19.90 Unspecified osteoarthritis, unspecified site; M54.9 Dorsalgia, unspecified; G89.29 Other chronic pain; F41.9 Anxiety disorder, unspecified; I10 Essential (primary) hypertension; Z87.891 Personal history of nicotine dependence; Z98.890 Other specified postprocedural states; Z87.442 Personal history of urinary calculi; Z90.49 Acquired absence of other specified parts of digestive tract; Z88.5 Allergy status to narcotic agent
CPT/HCPCS: 36415; 74177; 80053; 81003; 83690; 85025; 96365; 96375; 96376; 99285-25; A9270; J0780; J1171; J2270; J2405; J2543; J7030; Q9967